=== PATIENT | female | born 1955 | race Caucasian/White ===

== ENCOUNTER 2020-06-02 10:27 | Inpatient (IN) ==
[2020-06-02] MEDS ORDERED: MoRPHine SULFATE 4 MG/ML 1 ML CARP\\VIAL IV STA (11:43)
--- NOTE | 2020-06-02 11:50 | Emergency Department Note ---
Impression & Plan Malignant neoplasm metastatic to lumbar spine with unknown primary site, Bilateral pulmonary embolism, Severe low back pain ED Provider Note CHIEF COMPLAINT: Low back pain, difficulty walking HISTORY OF PRESENT ILLNESS: This 64-year-old female patient presents to the emergency department by private vehicle with her son complaining of pain in the low back which began about 1-1/2 months ago. The pain was gradual in onset, is now constant and worse with movement. The patient notes the pain as aching and sharp, and rates the pain 10/10. The patient states she saw her PCP for this and they told her to take ibuprofen, she has been taking this without any relief. She denies any history of back problems or surgeries, but does note that she had a back injury from an accident about 9 months ago. She states the pain has become so severe that she is unable to walk and has been having d ifficulty getting around. Patient also states that she has noticed some urinary incontinence for the past 2 to 3 weeks. She states sometimes she cannot make it to the bathroom because of the pain and has had urinary continence because of this. She feels that she has weakness in both of her legs, but denies any numbness or tingling. She denies any saddle paresthesias. She denies any nausea, vomiting, diarrhea, constipation, dysuria or urinary frequency, or abdominal pain. She denies any chest pain or shortness of breath currently. The patient notes a history of COPD and uses oxygen as needed for this, she states for the past month and a half she has been having increased problems with her breathing, and has been using her oxygen almost constantly. She notes that she has been to the [facility] several times, they initially told her that she had bronchitis, then they told her she had pleurisy, then CHF. She states that she feels "there is something else going on and nobody has figured out what is wrong with me." REVIEW OF SYSTEMS: A complete 10 point review of systems was reviewed with the patient with pertinent positives and negatives as per history of present illn ess. All else were negative. ALLERGIES: No known allergies MEDICATIONS: Reviewed in chart and with patient PMH: COPD, coronary artery disease, hypertension, hyperlipidemia, AAA, anemia, history of tonsillectomy and tubal ligation SOCIAL HISTORY: Lives at home, she is a former smoker PHYSICAL EXAM: VITALS: Vitals are noted on the nurse's note and reviewed by myself. Vital signs stable. GENERAL: Pleasant and cooperative, in no acute distress, but appears uncomfortable from pain. Nontoxic-appearing, well-developed well-nourished. SKIN: The skin was without rashes, erythema, edema, or bruising. Capillary refill less than 2 seconds. NECK: Supple without nuchal rigidity. No cervical spine tenderness. No paraspinous muscle tenderness. HEART: Regular rate and rhythm without murmurs gallops or rubs. 2+ distal pulses in all 4 extremities. 1+ pitting edema of the bilateral lower extremities. LUNGS: Diminished in the bases bilaterally, scattered rhonchi, no wheezes, rales , or stridor. No tachypnea or labored breathing, no accessory muscle use. Equal expansion bilaterally. ABDOMEN: Positive bowel sounds x 4. Normal tympanic percussion. Soft, nontender, without masses or organomegaly. Ghosh sign negative. MUSCULOSKELETAL: No muscle atrophy, erythema, or edema noted of the back. There is diffuse midline tenderness over the lumbar spinous processes. There is b ilateral tenderness over the paraspinous muscles of the lumbar region. There is no midline tenderness over the thoracic spine or tenderness of the thoracic paraspinous muscles. There are no obvious muscle spasms present. The patient is slow to move around with maximum tenderness with bending or twisting at the waist. Positive straight leg raise test bilaterally. DIGITAL RECTAL EXAM: A sterile, water-soluble lubricant was applied to the examiner's gloved finger prior to internal exam. A nurse load out supervisor was present for the entirety of the exam. No visible external hemorrhoids on inspection. No palpable internal hemorrhoids. Normal sensation in the perineum. Normal rectal tone. No rectal vault tenderness. No rectal masses. No fecal impaction. NEURO: Patient was alert and oriented to person place and time. Normal sensation to light and sharp touch. Deep tendon reflexes 2+ in the lower extremities. Dorsalis pedis pulse 2+ bilaterally. Strength 5/5 and equal in the bilateral lower extremities, dorsiflexion and plantarflexion 5/5 equal bilaterally. ED COURSE AND MEDICAL DECISION MAKING: CC: Patient presenting with complaint of low back pain, difficulty walking DIFFERENTIAL DIAGNOSIS: Includes, but not limited to lumbar sprain/strain, herniated disc, fracture, subluxation, cauda equina syndrome, mass or mass- effect, among others. INTERPRETATION OF LABS: No leukocytosis, anemia, normal platelets, hypokalemia, no other significant electrolyte abnormalities, normal renal function, mildly elevated T bili, otherwise normal liver enzymes. UA pending. IMAGING: MRI OF THE LUMBAR SPINE WITHOUT CONTRAST CLINICAL HISTORY: LBP, radiating BLE, urinary incontinence COMPARISON STUDY: No previous studies for comparison. TECHNIQUE: Utilizing a 1.5 Fara magnet and dedicated coil, multiplanar, multiecho imaging of the lumbar spine was performed without IV contrast. FINDINGS: Cardiology Specialist images demonstrate prominence of the endometrium. For purposes of numbering on this exam, the L5-S1 disc space is assigned to axial image 23 of 25. Alignment of the lumbar spine is anatomic. There is mild loss of height of the L3, L4 and L5 vertebral bodies. Multifocal marrow replacement is noted with numerous T1 hypointense, T2 hyperintense foci within visualized skeletal st ructures, including within the T10, L2, L3, L4, L5, S2 and S3 vertebra. This exam is moderately compromised by artifact. Note is made of apparent abnormality within the anterior epidural space at the L3 level. This is suboptimally assessed on this exam due to artifact. There is approximate moderate narrowing of the central canal with mass effect thecal sac at this level. Exact measurement cannot be obtained given artifact. Its unclear whether this is due to hemorrhage, artifact or tumor extension. Otherwise, the central canal is patent. No disc herniations are identified. Paravertebral soft tissues are unremarkable. There is mild bilateral neural foraminal stenosis at L2-L3, L3-L4 and L4-L5. Mild The conus terminates at the mid L1 level. IMPRESSION: 1. Multifocal marrow replacement which favors metastatic disease. Exam moderately compromised by motion artifact. 2. Mild loss of height of the L3, L4 and L5 vertebral bodies which may reflect pathologic fractures. Apparent anterior epidural abnormality at the L3 level, difficult to assess on this exam. Approximate moderate narrowing of the central canal with mass effect upon the thecal sac. The anterior epidural abnormality could reflect hemorrhage, tumor extension or artifact. A repeat examination with sedation might be considered. Findings discussed with Carolina Swanson at time of dictation. 3. Mildly thickened endometrium on weather analyst images. This could be correlated with history of postmenopausal bleeding and nonemergent pelvic ultrasound. ----- CT ANGIOGRAPHY OF THE CHEST, PULMONARY EMBOLUS PROTOCOL CLINICAL HISTORY: SOB, mets in spine, eval primary COMPARISON STUDY: No previous studies for comparison. TECHNIQUE: Following IV administration of 120 mL of Optiray-320, helical axial images of the chest were obtained utilizing the pulmonary embolus protocol. Maximal intensity projections and sagittal and coronal reformats were viewed on an independent 3D workstation. IV contrast was administered without complicati on. Automated exposure control was utilized for the study. A dose lowering technique was utilized adhering to the principles of ALARA. CT DOSE: 1405.86 mGy.cm FINDINGS: There are multiple small segmental and subsegmental pulmonary emboli within the lungs. No thoracic aortic dissection is noted. There is aneurysmal dilatation of the descending thoracic aorta that measures up to 4.3 cm. There is extensive plaque. Heart is mildly enlarged. There is no pericardial effusion. Numerous enlarged mediastinal and right hilar lymph nodes are noted. Index right hilar node measures 2.8 x 2.6 cm. Subcarinal lymph node measures 2.7 cm in short axis diameter. Precarinal lymph node measures 2.7 cm short axis diameter. Left superior mediastinal node measures 2.6 x 1.3 cm. Note is made of a superior r ight breast nodule measures 1.9 cm. Note is made of a cavitary thick-walled 2.2 cm right upper lobe nodule on image 103 of 267. There are numerous small the right upper lobe nodules. Numerous skeletal lytic lesions are noted with several pathologic left-sided rib fractures. There is also a suspected lesion within T10 with slight loss of height of the inferior endplate. Several small but likely pathologic left axillary lymph nodes are noted. The abdomen and pelvis will be reported separately. A 2.2 cm lateral segment hepatic lesion is noted. Left adrenal mass is suspicious for metastasis. IMPRESSION: 1. Multiple small segmental and subsegmental bilateral pulmonary emboli. 2. Extensive mediastinal or hilar lymphadenopathy consistent with a neoplastic process. Cavitary 2.2 cm right upper lobe nodule. Overall, the findings suggest a lung primary malignancy. 3. Numerous skeletal metastases with several pathologic left-sided rib fractures and a T10 vertebral body lesion with slight loss of height of the inferior endplate. 4. 1.9 cm right upper breast nodule which may be malignant. 5. Suspicious lateral segment hepatic lesion and a left adrenal mass which are better depicted on the CT of the abdomen and pelvis. 6. Aneurysmal dilatation of the descending thoracic aorta, measuring 4.2 cm. ----- CT angio abdomen pelvis w con HISTORY: History of abdominal aortic aneurysm, mets in spine, eval for primary malignancy. TECHNIQUE: Multi axial CT images of the abdomen and pelvis were performed following the use of intravenous contrast to evaluate the abdominal aorta. Maximal intensity projection images were also obtained. COMPARISON STUDY: None. FINDINGS: Please refer to the same day chest CT for further evaluation of the lung bases. No pneumoperitoneum. No pneumatosis. Scattered lytic lesions seen within the spine, pelvis, and ribs consistent with metastatic disease. Dominant lesions at the L3 vertebral body resulting in mild superior and inferior endplate pathologic compression fractures. There is also a mild superior endplate pathologic compression fracture at L4. No associated retropulsion. The bladder, uterus, bilateral adnexa are within normal limits. No significant pelvic free fluid. No bowel wall thickening or obstruction. Normal appendix. Colonic diverticulosis. No evidence for acute diverticulitis. No retroperitoneal lymphadenopathy. There are 2 heterogeneous left adrenal gland nodules with the largest measuring 3.2 cm. These likely represent metastatic foci. The kidneys are unremarkable. Heterogeneous enhancement within the spleen is likely due to the arterial phase of contrast. An indeterminate 5 mm peritoneal nodule inferior to the right hepatic lobe best seen on image 169. Hepatic steatosis. No definite hepatic masses. The gallbladder and pancreas are unremarkable. Aneurysmal dilatation of the distal thoracic aorta measuring up to 4.3 cm in diameter. Mild calcified plaque within the normal caliber abdominal aorta. The iliac arteries a re patent. No significant stenosis within the celiac or mesenteric arteries. The splenic artery originates from the abdominal aorta. IMPRESSION: 1. Scattered lytic lesions within the spine, pelvis, and ribs consistent with metastatic disease. 2. These result in mild pathologic compression fractures at L3 and L4. 3. There are 2 heterogeneous left adrenal gland nodules with the largest measuring 3.2 cm. These are also consistent with areas of metastatic disease. 4. An indeterminate 5 mm peroneal nodule inferior to the right hepatic lobe. This bears watching on future examinations. 5. Mild aneurysmal dilatation of the descending thoracic aorta measuring up to 4.3 cm in diameter. 6. Additional findings as described above. MEDICATION RECONCILIATION: I attest that I have personally reviewed the patient's current medication list. INITIAL VITAL SIGNS REVIEW: I reviewed the patient's initial vital signs and interpret them as follows: T: Afebrile; BP: Hypertensive; HR: Within normal li mits; RR: Within normal limits; Pulse Ox: Within normal limits on room air. Blood pressure screening: The patient was found to have an elevated blood pressure and was referred to the inpatient team for further management. MDM SUMMARY: Patient was evaluated at bedside, history and physical exam performed. Patient is alert and oriented, in no acute distress, but appears uncomfortable from pain, laying in the stretcher. The patient does endorse some urinary incontinence, which she describes as not making it to the bathroom in time because of difficulty walking from her back pain. She is neurovascularly intact, normal strength and sensation in the extremities, no saddle numbness and normal rectal tone on exam. Positive straight leg raise bilaterally, with significant increase in her back pain with movement of the legs. Orders were placed at bedside for labs, UA, IV morphine for pain, MRI of the lumbar spine to evaluate for low back pain. Patient discussed with Dr. Stacy, who agrees with my assessment, plan, and disposition. Labs and imaging reviewed as above, anemia noted, which the patient states that she has a history of. Hypokalemia also noted, patient is on Lasix and does not appear to be on potassium replacement, this was repleted with oral potassium. Dr. Garcia, radiologist, called and spoke to me regarding the patient's MRI findings, concerning for metastatic disease and pathologic fractures. The patient does not have any known/diagnosed cancer, this is a new finding. I do feel that the patient would benefit from admission for further imaging studies and evaluation to determine her primary disease and determine the best course of treatment. Patient reassessed multiple times throughout ED stay, she has remained hemodynamically stable, but continues to complain of 10/10 pain that was minimally relieved with morphine. I ordered 1 mg IV Dilaudid. The patient was updated on all results, specifically the findings on her MRI and plan for admission for further evaluation, she was agreeable to this plan. I spoke on the phone with April Aldana PA-C with the [facility] team, who agreed to evaluate the patient for admission. She did request that CT imaging of the chest, abdomen and pelvis be ordered, this was done and is reviewed as above, with numerous findings including multiple bilateral PEs. A heparin drip was ordered. Oncology will be consulted while the patient is admitted for further management of her new cancer diagnosis. The patient and her [id number] were updated on additional CT findings, her pain has been improved with the IV Dilaudid. A Banks catheter was ordered for patient's comfort, given her significant back pain and immobility. The patient was stable at time of admission. CRITICAL CARE NOTE: I have personally spent greater than 37 minutes of critical care time in the direct management of this patient. This includes bedside care, interpretation of diagnostic studies, and testing, discussion with consultants, patient, and family members, and other required patient management activities. This 37 m inutes is in excess of all separately billable procedures. The chart was completed utilizing [employer] Speech voice recognition software. Grammatical errors, random word insertions, pronoun errors, and incomplete sentences are an occasional consequence of this system due to software limitations, ambient noise, and hardware issues. Any formal questions or concerns about the content, text, or information contained within the body of this dictation should be directly addressed to the nurse practitioner for clarification. Past Med/Surg History Medical History History of smoking Social History Smoking Status: Former smoker Age Started Using Tobacco: 15; Age Quit Using Tobacco: 63; packs per day: 1; Number of Years Since Quit: 1; Second Hand Exposure: No; Hx Alcohol Use: No Hx Substance Use: No Preferred Language: Togolese Communication Ability: Effective Visual Impairment: No Limitations Hearing Ability: Normal Machine Shorthand Teacher Required: No Beliefs That Will Affect Care: None marital status: Current Living Situation: Spouse current occupational status: employed Feels Safe at Home: Yes Childhood Exposure to Second-Hand Smoke: Yes caffeine: Yes Dental Care, Regularly: Yes Physical Activity Frequency: Does not Exercise Seatbelt Use: always Sunscreen Use: No Do you think of yourself as: straight/heterosexual Sexual Activity: has been sexually active within the last 12 months Allergies Allergies Allergy/AdvReac Type Severity Reaction Status Date / Time No Known Drug Allergies Allergy Unknown Verified 06/02/20 12:29 Home Meds Home Medications Medication Instructions Recorded Confirmed albuterol sulfate 90 mcg/actuation 2 puff INHALATION Q4 PRN #1 gm 06/28/19 06/02/20 aerosol inhaler aspirin 81 mg tablet,delayed 81 mg PO QAM tab 06/28/19 06/02/20 release ipratropium 0.5 mg-albuterol 3 mg 3 ml INHALATION .COMPLEX ml 06/28/19 06/02/20 (2.5 mg base)/3 mL nebulization soln isosorbide mononitrate 60 mg 60 mg PO QAM tab 06/28/19 06/02/20 tablet,extended release 24 hr lisinopril 5 mg tablet 5 mg PO HS #60 tab 06/28/19 06/02/20 metoprolol tartrate 100 mg tablet 100 mg PO QAM tab 06/28/19 06/02/20 simvastatin 20 mg tablet 20 mg PO HS #90 tab 06/28/19 06/02/20 pantoprazole 40 mg tablet,delayed 40 mg PO HS 12/27/19 06/02/20 release calcium carbonate [Calcium 600] 600 mg PO QAM 06/02/20 06/02/20 cholecalciferol (vitamin D3) 2,000 unit PO QAM 06/02/20 06/02/20 [Vitamin D3] [id number] 1 inh INHALATION QAM 06/02/20 06/02/20 [Trelegy Ellipta] furosemide 40 mg PO QAM 06/02/20 06/02/20 nitroglycerin 0.4 mg SUBLINGUAL UD PRN 06/02/20 06/02/20 spironolactone 12.5 mg PO QAM 06/02/20 06/02/20 Results & Data (ED) Vital Signs Vital Signs - 24 hr 06/02/20 11:00 06/02/20 12:00 06/02/20 13:49 Temperature 37.0 C Temperature Source Oral Pulse Rate 72 72 Pulse Rate [Apical] 70 72 Pulse Rate from SpO2 Sensor Respiratory Rate 18 18 18 Respiratory Effort / Characteristics Non-Labored Spontaneous Non-Labored Spontaneous Respiratory Depth Normal Normal Respiratory Pattern Regular Regular Blood Pressure 166/63 H Blood Pressure [Right Arm] 151/66 H 148/65 H Blood Pressure Mean 97 Blood Pressure Mean [Right Arm] 94 92 Blood Pressure Position [Right Arm] Lying Lying Pulse Oximetry 92 92 92 Oxygen Delivery Method Nasal Cannula Nasal Cannula Nasal Cannula Oxygen Flow Rate 2 2 2 Sepsis Recent Fever Within 48 Hours No Sepsis New/Unexplained Change in Mental Status N/A Sepsis Action Taken by Nursing No Action Required 06/02/20 14:30 06/02/20 15:30 06/02/20 16:01 Temperature Temperature Source Pulse Rate 74 71 Pulse Rate [Apical] 71 Pulse Rate from SpO2 Sensor 73 71 Respiratory Rate 18 20 14 Respiratory Effort / Characteristics Non-Labored Spontaneous Respiratory Depth Normal Respiratory Pattern Regular Blood Pressure 152/90 H 170/68 H Blood Pressure [Right Arm] 185/97 H Blood Pressure Mean 120 73 Blood Pressure Mean [Right Arm] 126 Blood Pressure Position [Right Arm] Lying Pulse Oximetry 95 95 96 Oxygen Delivery Method Nasal Cannula Nasal Cannula Nasal Cannula Oxygen Flow Rate 3 3 3 Sepsis Recent Fever Within 48 Hours Sepsis New/Unexplained Change in Mental Status Sepsis Action Taken by Nursing Laboratory Data Result diagrams: 06/02/20 12:06 06/02/20 12:06 Lab Results 06/02/20 06/02/20 Range/Units 12:06 12:06 WBC 10.35 (4.8-10.8) K/uL RBC 3.62 L (4.2-5.4) M/uL Hgb 9.8 L (12.0-16.0) g/dL Hct 31.8 L (37-47) % MCV 87.8 (80-100) fL MCH 27.1 (25-34) pg MCHC 30.8 L (32-36) g/dL RDW Std Deviation 48.6 H (36.4-46.3) fL RDW Coeff of Morris 15.3 H (11.5-14.5) % Plt Count 372 (130-400) K/uL MPV 9.2 (7.4-10.4) fL Immature Gran % (Auto) 0.8 % Neut % (Auto) 76.7 % Lymph % (Auto) 9.3 % [place] % (Auto) 12.4 % Eos % (Auto) 0.5 % Baso % (Auto) 0.3 % Neut # (Auto) 7.95 H (1.4-6.5) K/uL Lymph # (Auto) 0.96 L (1.2-3.4) K/uL [place] # (Auto) 1.28 H (0.11-0.59) K/uL Eos # (Auto) 0.05 (0-0.5) K/uL Baso # (Auto) 0.03 (0-0.2) K/uL Immature Gran # (Auto) 0.08 H (0.00-0.02) K/uL Sodium 143 (136-145) mmol/L Potassium 2.9 L (3.5-5.1) mmol/L Chloride 102 (98-107) mmol/L Carbon Dioxide 36 H (21-32) mmol/L Anion Gap 5.0 (3-11) BUN 13 (7-18) mg/dl Creatinine 0.51 L (0.6-1.2) mg/dl Est Cr Clr Drug Dosing 130.8 ml/min Est GFR ( Amer) 119.4 Est GFR (Non-Af Amer) 103.1 BUN/Creatinine Ratio 25.0 H (10-20) Glucose 119 H (70-99) mg/dl Calcium 8.8 (8.5-10.1) mg/dl Total Bilirubin 1.1 H (0.2-1) mg/dl AST 30 (15-37) U/L ALT 25 (12-78) U/L Alkaline Phosphatase 122 H (45-117) U/L Total Protein 6.6 (6.4-8.2) gm/dl Albumin 2.3 L (3.4-5.0) gm/dl Globulin 4.3 H (2.5-4.0) gm/dl Albumin/Globulin Ratio 0.5 L (0.9-2) Administered Medications Pantoprazole Sodium 40 mg/ (Dextrose) 100 mls @ 20 mls/hr IV Q5H RAKESH Stop: 07/02/20 14:14 Last Admin: 06/02/20 14:58 Dose: Not Given Documented by: [id number] Discontinued Medications Hydromorphone HCl (Hydromorphone Inj 1 Mg/Ml Syringe) 1 mg IV NOW STA Stop: 06/02/20 14:18 Last Admin: 06/02/20 14:45 Dose: 1 mg Documented by: [id number] Lorazepam (Ativan) 1 mg in 2 mls @ 2 mls/min IV NOW STA Stop: 06/02/20 12:35 Last Admin: 06/02/20 12:45 Dose: 2 mls/min Documented by: [id number] Potassium Chloride (K Marvin / Wtr) 10 meq in 100 mls @ 100 mls/hr IV Q1H RAKESH Stop: 06/02/20 15:14 Last Admin: 06/02/20 15:30 Dose: Not Given Documented by: [id number] Infusion: 06/02/20 14:15 Dose: 0 mls/hr Documented by: [id number] Admin: 06/02/20 14:06 Dose: 100 mls/hr Documented by: [id number] Ioversol (Optiray 320 125ml) 120 ml IV ONCE ONE Stop: 06/02/20 15:43 Last Admin: 06/02/20 15:42 Dose: 120 ml Documented by: [id number] Morphine Sulfate (Morphine Sulfate 4 Mg/Ml 1 Ml Carp\\Vial) 4 mg IV NOW STA Stop: 06/02/20 11:44 Last Admin: 06/02/20 12:06 Dose: 4 mg Documented by: [id number] Potassium Chloride (Potassium Chloride 10 Meq Tabcr) 40 meq PO NOW STA Stop: 06/02/20 13:08 Last Admin: 06/02/20 14:05 Dose: 40 meq Documented by: [id number] Potassium Chloride (Potassium Chloride 10 Meq Tabcr) 20 meq PO NOW STA Stop: 06/02/20 14:40 Last Admin: 06/02/20 16:07 Dose: 20 meq Documented by: [id number] Discharge Plan Visit Data Chief Complaint: Back Injury/Pain Stated Complaint: SEVERE PAIN LOWER BACK,HIPS ABD LEGS ED Provider: Louis Stacy ED Midlevel Provider: Carolina Swanson Discharge Problem: Malignant neoplasm metastatic to lumbar spine with unknown primary site, Bilateral pulmonary embolism, Severe low back pain Patient Disposition: Admitted As Inpatient Forms Stand Alone Forms: [facility] Prescriptions Prescriptions: No Action ipratropium-albuterol 0.5 mg-3 mg(2.5 mg base)/3 mL solution for nebulization 3 ml inhalation .COMPLEX RF: 0 albuterol sulfate 90 mcg/actuation HFA aerosol inhaler 2 puff inhalation Q4 PRN (Reason: Shortness Of Breath) Qty: 1 RF: 0 lisinopril 5 mg tablet 5 mg PO HS Qty: 60 RF: 0 simvastatin 20 mg tablet 20 mg PO HS Qty: 90 RF: 0 isosorbide mononitrate 60 mg tablet extended release 24 hr 60 mg PO QAM RF: 0 aspirin 81 mg tablet,delayed release (DR/EC) 81 mg PO QAM RF: 0 metoprolol tartrate 100 mg tablet 100 mg PO QAM RF: 0 pantoprazole [Protonix] 40 mg tablet,delayed release (DR/EC) 40 mg PO HS RF: 0 furosemide 40 mg tablet 40 mg PO QAM RF: 0 calcium carbonate [Calcium 600] 600 mg calcium (1,500 mg) Tablet 600 mg PO QAM RF: 0 spironolactone 25 mg tablet 12.5 mg PO QAM RF: 0 nitroglycerin 0.4 mg tablet, sublingual 0.4 mg sublingual UD PRN (Reason: Chest Pain) RF: 0 cholecalciferol (vitamin D3) [Vitamin D3] 50 mcg (2,000 unit) capsule 2,000 unit PO QAM RF: 0 Trelegy Ellipta 100-62.5-25 mcg blister with device 1 inh INHALATION QAM RF: 0 Referrals Referrals: Margo Prado PA-C [Primary Care Provider] -
[2020-06-02 12:21] LABS: Basophils # (auto) 0.03 K/uL (0-0.2); Basophils % (auto) 0.3 %; Eosinophils # (auto) 0.05 K/uL (0-0.5); Eosinophils % (auto) 0.5 %; Hematocrit (blood only) 31.8 % (37-47); Hemoglobin 9.8 g/dL (12.0-16.0); Immature Granulocytes # (auto) 0.08 K/uL (0.00-0.02); Immature Granulocytes % (auto) 0.8 %; Lymphocytes # (auto) 0.96 K/uL (1.2-3.4); Lymphocytes % (auto) 9.3 %; Mean Corpuscular Hemoglobin 27.1 pg (25-34); Mean Corpuscular Hgb Conc 30.8 g/dL (32-36); Mean Corpuscular Volume 87.8 fL (80-100); Mean Platelet Volume 9.2 fL (7.4-10.4); Monocytes # (auto) 1.28 K/uL (0.11-0.59); Monocytes % (auto) 12.4 %; Neutrophils # (auto) 7.95 K/uL (1.4-6.5); Neutrophils % (auto) 76.7 %; Platelet Count 372 K/uL (130-400); RDW Coefficient of Variation 15.3 % (11.5-14.5); RDW Standard Deviation 48.6 fL (36.4-46.3); Red Blood Count 3.62 M/uL (4.2-5.4); White Blood Count 10.35 K/uL (4.8-10.8)
[2020-06-02] MEDS ORDERED: LORazepam 1 MG/2 ML VIAL IV STA (12:34)
[2020-06-02 12:40] LABS: Albumin Level 2.3 gm/dl (3.4-5.0); Calcium 8.8 mg/dl (8.5-10.1); Creatinine Clr Calc Pharmacy 130.8 ml/min; Est GFR (African American) 119.4; Est GFR (Non-African American) 103.1; Potassium 2.9 mmol/L (3.5-5.1)
[2020-06-02 12:42] LABS: Albumin Globulin Ratio 0.5 (0.9-2); Bilirubin,Total 1.1 mg/dl (0.2-1); Globulin 4.3 gm/dl (2.5-4.0); Total Protein 6.6 gm/dl (6.4-8.2)
[2020-06-02] MEDS ORDERED: POTASSIUM CHLORIDE 10 MEQ TABCR PO STA ×2 (13:07→14:39)
--- NOTE | 2020-06-02 13:58 | Magnetic Resonance Report ---
MRI OF THE LUMBAR SPINE WITHOUT CONTRAST CLINICAL HISTORY: LBP, radiating BLE, urinary incontinence COMPARISON STUDY: No previous studies for comparison. TECHNIQUE: Utilizing a 1.5 Fara magnet and dedicated coil, multiplanar, multiecho imaging of the joel mbar spine was performed without IV contrast. FINDINGS: Windshield Installer images demonstrate prominence of the endometrium. For purposes of numbering on this exam, the L 5-S1 disc space is assigned to axial image 23 of 25. Alignment of the lumbar spine is anatomic. There is mild loss of height of the L3, L4 and L5 vertebral bodies. Multifocal marrow replacement is noted with numerous T1 hypointense, T2 hyperintense foci within visualized skeletal structures, including within the T10, L2, L3, L4, L5, S2 and S3 vertebra. This exam is moderately compromised by artifact. Note is made of apparent abnormality within the anterior epidural space at the L3 level. This is subo ptimally assessed on this exam due to artifact. There is approximate moderate narrowing of the centra l canal with mass effect thecal sac at this level. Exact measurement cannot be obtained given artifac t. Its unclear whether this is due to hemorrhage, artifact or tumor extension. Otherwise, the central canal is patent. No disc herniations are identified. Paravertebral soft tissues are unremarkable. Th ere is mild bilateral neural foraminal stenosis at L2-L3, L3-L4 and L4-L5. Mild The conus terminates at the mid L1 level. IMPRESSION: 1. Multifocal marrow replacement which favors metastatic disease. Exam moderately compromised by chiara on artifact. 2. Mild loss of height of the L3, L4 and L5 vertebral bodies which may reflect pathologic fractures. Apparent anterior epidural abnormality at the L3 level, difficult to assess on this exam. Approximate moderate narrowing of the central canal with mass effect upon the thecal sac. The anterior epidural abnormality could reflect hemorrhage, tumor extension or artifact. A repeat examination with sedation might be considered. Findings discussed with Carolina Swanson at time of dictation. 3. Mildly thickened endometrium on timekeeping supervisor images. This could be correlated with history of postmenopau lamebrto bleeding and nonemergent pelvic ultrasound. ACT 112: Negative or not required by law. Electronically signed by: Luc Garcia M.D. 06/02/2020 1:56 PM
[2020-06-02] MEDS ORDERED: SODIUM CHLORIDE 0.9% 250 ML IV PRN (14:04)
[2020-06-02] MEDS: POTASSIUM CHLORIDE / WTR 10 MEQ/100 ML PLCT IV SCH ×2 (14:06→15:30)
[2020-06-02] MEDS ORDERED: HYDROmorphone INJ 1 MG/ML SYRINGE IV STA ×2 (14:17→23:42)
--- NOTE | 2020-06-02 14:57 | History & Physical Report ---
Date of Service June 02, 2020 Assessment & Plan (1) Malignant neoplasm metastatic to lumbar spine with unknown primary site: -Admit to [facility] -Control back pain with fentanyl 25 mcg patch, Dilaudid as needed for breakthrough pain, Tylenol, lidocaine -Start bowel regimen -Consult oncology, Dr. Zayas -Check CT of the chest to evaluate for pulmonary nodules, rule out PE with increased O2 requirement over the last 1.5 months -CT of the abdomen and pelvis is negative for obstruction or acute finding -Has not ever had colonoscopy, consider GI consultation -Insert and maintain Banks, urine culture -PT/OT consults after pain controlled (2) CAD (coronary artery disease): -Continue statin therapy, baby aspirin, beta-blockade, DARIUS -Request records from PCP regarding cardiac history (3) HTN (hypertension): -Continue metoprolol titrate 100 mg daily, lisinopril 5 mg HS, Imdur 60 mg daily, Spironolactone 12.5 mg daily -Holding Lasix with administration of contrast for CTs as above, may require slow maintenance fluids but hold for now with edema in legs and abdomen, follow am BMP (4) Hyperlipidemia: -Continue simvastatin 20 mg HS (5) Heart murmur, systolic: -Auscultated on exam (6) Abdominal aortic aneurysm (AAA) greater than 39 mm in diameter: -History of such, awaiting CT abdomen/pelvis to evaluate size, patient denies any abdominal pain, radiation of pain to center of her back, hemoglobin is stable (7) Chronic obstructive pulmonary disease: -Follows with pulmonology as outpatient -Consider consultation pending CT of the chest, if pulmonary nodules then would need biopsy for staging purposes for possible primary (8) History of smoking: -Smoked x44 years, quit 1.5 months ago with worsening symptoms and increased WATSON (9) DVT prophylaxis: - teds, heparin subcu CODE: Full code Dispo: From home, likely to remain in the hospital x 1-2 days History of Present Illness Primary Care Provider: Margo Prado This is a 64-year-old female with PMHx of COPD, CAD, HTN, HLD, AAA, significant smoking history of 45 years 1 PPD, quit 1.5 months ago, who presents with acute onset of worsening back pain within the last 1.5 months. She reports her pain has progressively gotten worse, but she has been seen at [facility] and by her PCP however they have not found anything. Today she was unable to walk due to pain, and has been noticing increased incontinence. She has not found relief from any OTC medications. Patient pain is currently 8/10 after dose of morphine and Dilaudid. She reports that breathing has gotten worse within the last 1.5 months and that is why she stopped smoking specifically. Prior to that she had O2 for as needed use, but has been using 2L constantly. She is using nebulizers, but has run out of her albuterol inhaler. She does follow with pulmonology here at [facility] and saw them in December 2019. She reports weight gain, swelling in her legs, and constantly sweating. He has been using Lasix for lower extremity edema. Patient has been nauseous on and off since this all started. She denies vomiting, abdominal pain, diarrhea, and typically has BMs every 2 to 3 days, with her last being 2 days ago. Her abdomen feels swollen and slightly distended. She has been taking all of her medication as directed. Here the patient had MRI of the L-spine due to pain and found to have pathological fractures involving L3-L5 and multifocal marrow replacement favoring metastatic disease. In regards to routine screenings- she last had a mammogram within the past year which was unremarkable. Approximately 5 years ago she had a fine-needle biopsy of the left breast which showed benign tissue. She has never had a colonoscopy, "I had a sister who told me she would rather have a baby then go through that again", and would prefer not to. The patient lives at home with her . Allergies Allergy/AdvReac Type Severity Reaction Status Date / Time No Known Drug Allergies Allergy Unknown Verified 06/02/20 12:29 Home Medications Home Medications Medication Instructions Recorded Confirmed Type albuterol sulfate 90 mcg/actuation 2 puff INHALATION Q4 PRN #1 gm 06/28/19 06/02/20 History aerosol inhaler aspirin 81 mg tablet,delayed 81 mg PO QAM tab 06/28/19 06/02/20 History release ipratropium 0.5 mg-albuterol 3 mg 3 ml INHALATION .COMPLEX ml 06/28/19 06/02/20 History (2.5 mg base)/3 mL nebulization soln isosorbide mononitrate 60 mg 60 mg PO QAM tab 06/28/19 06/02/20 History tablet,extended release 24 hr lisinopril 5 mg tablet 5 mg PO HS #60 tab 06/28/19 06/02/20 History metoprolol tartrate 100 mg tablet 100 mg PO QAM tab 06/28/19 06/02/20 History simvastatin 20 mg tablet 20 mg PO HS #90 tab 06/28/19 06/02/20 History pantoprazole 40 mg tablet,delayed 40 mg PO HS 12/27/19 06/02/20 History release calcium carbonate [Calcium 600] 600 mg PO QAM 06/02/20 06/02/20 History cholecalciferol (vitamin D3) 2,000 unit PO QAM 06/02/20 06/02/20 History [Vitamin D3] [id number] 1 inh INHALATION QAM 06/02/20 06/02/20 History [Trelegy Ellipta] furosemide 40 mg PO QAM 06/02/20 06/02/20 History nitroglycerin 0.4 mg SUBLINGUAL UD PRN 06/02/20 06/02/20 History spironolactone 12.5 mg PO QAM 06/02/20 06/02/20 History Past Med/Surg History Medical History (Updated 06/07/20 @ 11:08 by Sarkis Narvaez MD) History of smoking 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 Social History Smoking Status: Former smoker Age Started Using Tobacco: 15; Age Quit Using Tobacco: 63; packs per day: 1; Number of Years Since Quit: 1; Second Hand Exposure: No; Hx Alcohol Use: No Hx Substance Use: No Preferred Language: Persian Communication Ability: Effective Visual Impairment: No Limitations Hearing Ability: Normal Pipeline Technician Required: No Beliefs That Will Affect Care: None marital status: Current Living Situation: Spouse current occupational status: employed Feels Safe at Home: Yes Safety Concerns: Feels Safe At This Time Childhood Exposure to Second-Hand Smoke: Yes caffeine: Yes Dental Care, Regularly: Yes Physical Activity Frequency: Does not Exercise Seatbelt Use: always Sunscreen Use: No Do you think of yourself as: straight/heterosexual Sexual Activity: has been sexually active within the last 12 months Review of Systems Review of Systems: Constitutional: No fever, + sweats, no chills Eyes: No diplopia, no worsening or blurred vision ENT: normal hearing, no trouble swallowing Respiratory: No cough, sputum, + dyspnea on exertion worse within the last 1.5 months, as per HPI, increased O2 requirement Cardiovascular: No chest pain, tightness or palpitations Abdomen: No pain, nausea, vomiting, diarrhea or constipation, last BM 2 days ago Musculoskeletal: Lumbar spine pain rated 8/10, no calf pain, +swelling Neurologic: + Difficulty walking due to pain, no weakness, numbness/tingling, or balance problems Psychiatric: No anxiety or depression Skin: No rash or itch Physical Exam Physical Exam: General: awake, alert, no apparent distress, + obese, BMI = 37.5 Head: Normocephalic, atraumatic ENT: PERRL, EOMI, no pharyngeal exudate, mucous membranes moist Chest: Clear to auscultation, on 3L via NC, diminished breath sounds at bases bilaterally, no wheeze rales or rhonchi Cardiac: Regular rate and rhythm, + systolic murmur, no JVD, normal peripheral pulses, good capillary refill Abdominal: Abdominally obese, NABS x 4 quadrants, soft, mildly distended, nontender to palpation, no rebound or guarding Extremities: Normal inspection, 2+ peripheral edema BLE, no erythema, calfs nontender to palpation Psych: Normal mood and affect Neuro: AAO x 3, leg strength not assessed due to pain, no gross upper extremity deficits, speech is clear, no peripheral sensory deficits Results & Data Results & Data ([facility]) Vital Signs (Past 12 Hours) Vital Signs Temp Pulse Pulse Resp BP BP Pulse Ox 06/02/20 14:30 71 18 185/97 H 95 06/02/20 13:49 72 18 148/65 H 92 06/02/20 12:00 72 70 18 151/66 H 92 06/02/20 11:00 37.0 C 72 18 166/63 H 92 Diagnostic Findings MRI OF THE LUMBAR SPINE WITHOUT CONTRAST CLINICAL HISTORY: LBP, radiating BLE, urinary incontinence COMPARISON STUDY: No previous studies for comparison. TECHNIQUE: Utilizing a 1.5 Fara magnet and dedicated coil, multiplanar, multiecho imaging of the lumbar spine was performed without IV contrast. FINDINGS: Bilingual Medical Assistant images demonstrate prominence of the endometrium. For purposes of numbering on this exam, the L5-S1 disc space is assigned to axial image 23 of 25. Alignment of the lumbar spine is anatomic. There is mild loss of height of the L3, L4 and L5 vertebral bodies. Multifocal marrow replacement is noted with numerous T1 hypointense, T2 hyperintense foci within visualized skeletal structures, including within the T10, L2, L3, L4, L5, S2 and S3 vertebra. This exam is moderately compromised by artifact. Note is made of apparent abnormality within the anterior epidural space at the L3 level. This is suboptimally assessed on this exam due to artifact. There is approximate moderate narrowing of the central canal with mass effect thecal sac at this level. Exact measurement cannot be obtained given artifact. Its unclear whether this is due to hemorrhage, artifact or tumor extension. Otherwise, the central canal is patent. No disc herniations are identified. Paravertebral soft tissues are unremarkable. There is mild bilateral neural foraminal stenosis at L2-L3, L3-L4 and L4-L5. Mild The conus terminates at the mid L1 level. IMPRESSION: 1. Multifocal marrow replacement which favors metastatic disease. Exam moderately compromised by motion artifact. 2. Mild loss of height of the L3, L4 and L5 vertebral bodies which may reflect pathologic fractures. Apparent anterior epidural abnormality at the L3 level, difficult to assess on this exam. Approximate moderate narrowing of the central canal with mass effect upon the thecal sac. The anterior epidural abnormality could reflect hemorrhage, tumor extension or artifact. A repeat examination with sedation might be considered. Findings discussed with Carolina Swanson at time of dictation. 3. Mildly thickened endometrium on healthcare corporate account director images. This could be correlated with history of postmenopausal bleeding and nonemergent pelvic ultrasound. Code Status & VTE Plan Code Status Full code-discussed with the patient at bedside Supervising Physician Co-Signing Physician Notes During my face to face encounter with the patient, I obtained a history and physical examination on the patient. I discussed plan of care with patient and April Aldana and answered patient's questions. I reviewed above note and agree with it. Patient is a smoker and this is likely playing a role. Patient has malignant neoplasm of spine, unsure of origin. D/W radiologist, will try to obtain biopsy on Friday if patient remains in the hospital. Will consult oncology. Patient has a likely poor prognosis PG Care Time/CCT Total # of Minutes Spent Total Time Spent with Patient: Total time spent is greater than 50% in coordination of care (as documented) at patient's floor/unit and/or counseling patient: Coding Level of Care Code 38798 Initial Inpt Care Lvl 3 Diagnoses Malignant neoplasm metastatic to lumbar spine with unknown primary site C79.51; C80.1 CAD (coronary artery disease) I25.10 HTN (hypertension) I10 Hyperlipidemia E78.5 Heart murmur, systolic R01.1 Abdominal aortic aneurysm (AAA) greater than 39 mm in diameter I71.4 Chronic obstructive pulmonary disease J44.9 History of smoking Z87.891 DVT prophylaxis Z29.9
[2020-06-02] MEDS: PANTOprazole 40 MG in DEXTROSE 5% 100 ML IV SCH ×2 (14:58→20:40)
[2020-06-02] MEDS ORDERED: OPTIRAY 320 125ml IV ONE (15:42)
--- NOTE | 2020-06-02 16:05 | CT Scan Report ---
CT angio abdomen pelvis w con HISTORY: History of abdominal aortic aneurysm, mets in spine, eval for primary malignancy. TECHNIQUE: Multi axial CT images of the abdomen and pelvis were performed following the use of intrav enous contrast to evaluate the abdominal aorta. Maximal intensity projection images were also obtaine d. COMPARISON STUDY: None. FINDINGS: Please refer to the same day chest CT for further evaluation of the lung bases. No pneumope ritoneum. No pneumatosis. Scattered lytic lesions seen within the spine, pelvis, and ribs consistent with metastatic disease. Dominant lesions at the L3 vertebral body resulting in mild superior and inf erior endplate pathologic compression fractures. There is also a mild superior endplate pathologic co mpression fracture at L4. No associated retropulsion. The bladder, uterus, bilateral adnexa are withi n normal limits. No significant pelvic free fluid. No bowel wall thickening or obstruction. Normal ap pendix. Colonic diverticulosis. No evidence for acute diverticulitis. No retroperitoneal lymphadenopa thy. There are 2 heterogeneous left adrenal gland nodules with the largest measuring 3.2 cm. These li glendy represent metastatic foci. The kidneys are unremarkable. Heterogeneous enhancement within the sp taylor is likely due to the arterial phase of contrast. An indeterminate 5 mm peritoneal nodule inferio r to the right hepatic lobe best seen on image 169. Hepatic steatosis. No definite hepatic masses. Th e gallbladder and pancreas are unremarkable. Aneurysmal dilatation of the distal thoracic aorta measu ring up to 4.3 cm in diameter. Mild calcified plaque within the normal caliber abdominal aorta. The i liac arteries are patent. No significant stenosis within the celiac or mesenteric arteries. The splen ic artery originates from the abdominal aorta. IMPRESSION: 1. Scattered lytic lesions within the spine, pelvis, and ribs consistent with metastatic disease. 2. These result in mild pathologic compression fractures at L3 and L4. 3. There are 2 heterogeneous left adrenal gland nodules with the largest measuring 3.2 cm. These are also consistent with areas of metastatic disease. 4. An indeterminate 5 mm peroneal nodule inferior to the right hepatic lobe. This bears watching on f uture examinations. 5. Mild aneurysmal dilatation of the descending thoracic aorta measuring up to 4.3 cm in diameter. 6. Additional findings as described above. ACT 112: Negative or not required by law. Electronically signed by: Luís Govea M.D. 06/02/2020 4:04 PM
--- NOTE | 2020-06-02 16:06 | CT Scan Report ---
CT ANGIOGRAPHY OF THE CHEST, PULMONARY EMBOLUS PROTOCOL CLINICAL HISTORY: SOB, mets in spine, eval primary COMPARISON STUDY: No previous studies for comparison. TECHNIQUE: Following IV administration of 120 mL of Optiray-320, helical axial images of the chest we re obtained utilizing the pulmonary embolus protocol. Maximal intensity projections and sagittal and coronal reformats were viewed on an independent 3D workstation. IV contrast was administered withou t complication. Automated exposure control was utilized for the study. A dose lowering technique wa s utilized adhering to the principles of ALARA. CT DOSE: 1405.86 mGy.cm FINDINGS: There are multiple small segmental and subsegmental pulmonary emboli within the lungs. No thoracic aortic dissection is noted. There is aneurysmal dilatation of the descending thoracic aorta that measures up to 4.3 cm. There is extensive plaque. Heart is mildly enlarged. There is no pericard ial effusion. Numerous enlarged mediastinal and right hilar lymph nodes are noted. Index right hilar node measures 2.8 x 2.6 cm. Subcarinal lymph node measures 2.7 cm in short axis diameter. Precarinal lymph node measures 2.7 cm short axis diameter. Left superior mediastinal node measures 2.6 x 1.3 cm. Note is made of a superior right breast nodule measures 1.9 cm. Note is made of a cavitary thick-wal led 2.2 cm right upper lobe nodule on image 103 of 267. There are numerous small the right upper lobe nodules. Numerous skeletal lytic lesions are noted with several pathologic left-sided rib fractures. There is also a suspected lesion within T10 with slight loss of height of the inferior endplate. Sev eral small but likely pathologic left axillary lymph nodes are noted. The abdomen and pelvis will be reported separately. A 2.2 cm lateral segment hepatic lesion is noted. Left adrenal mass is suspiciou s for metastasis. IMPRESSION: 1. Multiple small segmental and subsegmental bilateral pulmonary emboli. 2. Extensive mediastinal or hilar lymphadenopathy consistent with a neoplastic process. Cavitary 2.2 cm right upper lobe nodule. Overall, the findings suggest a lung primary malignancy. 3. Numerous skeletal metastases with several pathologic left-sided rib fractures and a T10 vertebral body lesion with slight loss of height of the inferior endplate. 4. 1.9 cm right upper breast nodule which may be malignant. 5. Suspicious lateral segment hepatic lesion and a left adrenal mass which are better depicted on the CT of the abdomen and pelvis. 6. Aneurysmal dilatation of the descending thoracic aorta, measuring 4.2 cm. ACT 112: Negative or not required by law. Electronically signed by: Luc Garcia M.D. 06/02/2020 4:04 PM
[2020-06-02 16:40] LABS: Appearance Urine Cloudy (Clear); Bacteria Urine Automated Negative (Negative); Bilirubin Urine Negative (Negative); Blood Urine Negative (Negative); Color Urine Dark Yellow; Epithelial Cell Urine Auto >30 /lpf (0-5); Glucose Urine UA Negative (Negative); Ketones Urine Negative (Negative); Leukocyte Esterase Urine Negative (Negative); Nitrite Urine Negative (Negative); Protein Urine 1+ (Negative); RBC Urine Automated 0-4 /hpf (0-4); Specific Gravity Urine 1.037 (1.000-1.030); Urobilinogen Urine Negative (Negative); pH Urine 5.5 (4.5-7.5)
[2020-06-02] MEDS ORDERED: HEPARIN 25000 UNIT/500 ML D5W IV ONE (17:01)
[2020-06-02 17:02] LABS: Cast Urine Automated 0 /lpf (0-5); Mucus Urine Present (None Prsent)
[2020-06-02] MEDS: HEPARIN SODIUM/DEXTROSE 25,000 UNITS/500 ML BAG IV SCH (18:14)
[2020-06-02 18:19] LABS: Partial Thromboplastin Ratio 1.1; Partial Thromboplastin Time 30.2 Seconds (21.0-31.0)
[2020-06-02] MEDS ORDERED: HYDROmorphone INJ 0.5 MG/0.5 ML SYR ONE (18:26)
[2020-06-02] MEDS ORDERED: NITROGLYCERIN SL 0.4 MG/TAB TAB SL PRN (19:14)
[2020-06-02] MEDS ORDERED: ACETAMINOPHEN 325 MG TAB PO PRN (19:14)
[2020-06-02] MEDS ORDERED: ALBUTEROL HFA 8 GM INHALER INH PRN (19:14)
[2020-06-02] MEDS ORDERED: fentaNYL 12 MCG/HR TDSY TD SCH (20:30)
[2020-06-02] MEDS: lisinopriL 5 MG TAB PO SCH (20:35)
[2020-06-02] MEDS: SIMVASTATIN 20 MG TAB PO SCH (20:36)
[2020-06-02] MEDS ORDERED: PANTOprazole 40 MG in SYRINGE 0 ML IV SCH (21:00)
[2020-06-02] MEDS ORDERED: PANTOprazole 40 MG TAB PO SCH (21:00)
[2020-06-02] MEDS: PANTOprazole 40 MG TAB PO SCH (21:02)
[2020-06-02] MEDS: HYDROmorphone INJ 0.5 MG/0.5 ML SYR IV PRN (21:17)
[2020-06-02] MEDS ORDERED: HEPARIN SOD 5,000 UNIT/0.5 ML VIAL SQ SCH (22:00)
[2020-06-02] MEDS ORDERED: HYDROmorphone INJ 1 MG/ML SYRINGE ONE (23:46)
[2020-06-02] MEDS: CHECK FENTANYL PATCH PLACEMENT SCH (23:50)
[2020-06-03 00:53] LABS: Partial Thromboplastin Ratio 1.7
[2020-06-03 00:58] LABS: Partial Thromboplastin Time 47.7 Seconds (21.0-31.0)
[2020-06-03] MEDS ORDERED: HYDROmorphone INJ 1 MG/ML SYRINGE IV STA (04:25)
[2020-06-03] MEDS ORDERED: HYDROmorphone INJ 1 MG/ML SYRINGE ONE (04:27)
[2020-06-03 06:18] LABS: Hematocrit (blood only) 29.7 % (37-47); Hemoglobin 8.8 g/dL (12.0-16.0); Mean Corpuscular Hemoglobin 26.6 pg (25-34); Mean Corpuscular Hgb Conc 29.6 g/dL (32-36); Mean Corpuscular Volume 89.7 fL (80-100); Platelet Count 349 K/uL (130-400); RDW Standard Deviation 51.6 fL (36.4-46.3); Red Blood Count 3.31 M/uL (4.2-5.4); White Blood Count 11.17 K/uL (4.8-10.8)
[2020-06-03] MEDS: HYDROmorphone INJ 0.5 MG/0.5 ML SYR IV PRN ×6 (06:31→23:21)
[2020-06-03 06:44] LABS: Partial Thromboplastin Ratio 1.8
[2020-06-03 06:49] LABS: Partial Thromboplastin Time 49.4 Seconds (21.0-31.0)
[2020-06-03 06:50] LABS: Albumin Globulin Ratio 0.5 (0.9-2); Albumin Level 2.2 gm/dl (3.4-5.0); BUN Creatinine Ratio 27.8 (10-20); Bilirubin,Total 0.9 mg/dl (0.2-1); Calcium 9.3 mg/dl (8.5-10.1); Est GFR (African American) 114.5; Est GFR (Non-African American) 98.8; Globulin 4.2 gm/dl (2.5-4.0); Potassium 3.5 mmol/L (3.5-5.1); Total Protein 6.4 gm/dl (6.4-8.2)
--- NOTE | 2020-06-03 07:41 | Hospitalist Progress Note ---
Date of Service June 03, 2020 Assessment & Plan (1) Malignant neoplasm metastatic to lumbar spine with unknown primary site: 64 y/o F smoker w/ hx of COPD, CAD, HTN, HLD, AAA, who presents with acute onset of worsening back pain for 1.5 months and was also found to have bilat PE. mets to lumbar spine, suspected NSCLC - pulm following, pending radiology consult on 06/05/[address] bipsy or breast lump FNA. - 44 pack yr smoking hx - see CTA findings below - 06/02/20 lumbar spine MRI: Multifocal marrow replacement which favors metastatic disease. Exam moderately compromised by motion artifact. - 06/02/20 CTA abd/pelv: 1. Scattered lytic lesions within the spine, pelvis, and ribs consistent with metastatic disease. 2. These result in mild pathologic compression fractures at L3 and L4. 3. There are 2 heterogeneous left adrenal gland nodules with the largest measuring 3.2 cm. These are also consistent with areas of metastatic disease. 4. An indeterminate 5 mm peroneal nodule inferior to the right hepatic lobe. AAA findings as below. - CXR: official read pending. my interpretation: R hilar LAD. cardiomegaly. plan: pain control. fentanyl patch started this AM for longer term control. dilaudid 0.5 PRN, increased frequency from q3h to q2h PRN. ordered fecal occult cbc, cmp, PTT bilat PE - found on 06/02/20 chest CTA. other findings: Extensive mediastinal or hilar lymphadenopathy consistent with neoplastic process. Cavitary 2.2 cm right upper lobe nodule. Numerous skeletal metastases with several pathological left-sided rib fractures and a T10 vertebral body lesion. 1.9 cm right upper breast nodule which may be malignant - may need biopsy. Suspicious lateral segment hepatic lesion 5 mm R hepatic lobe, and left adrenal mass measuring 3.2 cm consistent with metastasis. AAA measuring 4.2-4.3 cm plan: continue heparin drip normocytic anemia - Hb 9.8->8.8. plan: follow CBC, PTT, fecal occult ordered mild chest pain hx of CAD, AAA as above - cxr: plan: consider ecg HTN Continue metoprolol titrate 100 mg daily, lisinopril 5 mg HS, Imdur 60 mg daily, Spironolactone 12.5 mg daily -Holding Lasix with administration of contrast for CTs as above, may require slow maintenance fluids but hold for now with edema in legs and abdomen, follow am BMP CAD Continue statin therapy, baby aspirin, beta-blockade, DARIUS HLD Continue simvastatin 20 mg COPD - follows pulm outpatient - inpatient pulm following for PE and lung malignancy concerns hx AAA - as above. FENGI:heart healthy diet DVT prophylaxis: TEDs, SQH code status: full dispo: medsurg Admission and Anticipated Discharge Date Admission Date: June 02, 2020 Supervising Physician Co-Signing Physician Notes Attending attestation Pt seen and examined in concert with Dr. He. In agreement with the documented findings as noted in the resident documentation with any exceptions or additions as noted here. Ongoing pain with some improvement on present regimen. No other acute complaints per patient. On examination, S1/S2 nl RRR no MCG. Decreased breath sounds bilateral bases. Abd NT/ND BS+ve. Trace edema bilateral LE Metastatic disease of unknown primary - oncology consultation appreciated - pulmonology consultation today for determination of source (?pulmonary primary). Pain control with fentanyl patch and IV PRN with transition to PO when improved baseline Bilateral pulmonary emboli - on heparin drip awaiting intervention if desired by pulmonology/oncology for further delineation of metastatic disease. Likely on Xa/coumadin on discharge CAD - continue statin therapy, ASA, metoprolol and lisinopril HTN - mildly elevated, likely 2/2 pain v. missed medication - continue present regimen, monitor Else see resident documentation as noted. Subjective Feels terrible. Pain at lower back and legs, sharp. 8/10. constant. The other complaints are not bothering her as much. See ROS. Review of Systems Review of Systems: Constitutional: Denies fever, chills. + generalized weakness. Eyes: Denies blurry vision, vision changes ENT: Denies sore throat, Cardiovascular: +Chest pain, mild Respiratory: + shortness of breath. chronic cough, clear mucus Gastrointestinal: + generalized abdominal pain. No nausea, vomiting, constipation, diarrhea Genitourinary: Denies urinary symptoms including dysuria Musculoskeletal: + weakness, muscle aches/pain Neurological: + moderate headache. no numbness, tingling, focal wkness Physical Exam Physical Exam: General: A&Ox3. NAD. Cooperative. HEENT: Atraumatic, normocephalic. EOMI Pulm: exp wheezes diffuse. no resp dispress Cardiac: RRR, -mrg. 2+ edema Abdominal: Nontender, nondistended, soft. MSK: bck exam deferred. no calf ttp. Results & Data Results & Data ([facility]) Vital Signs (Past 12 Hours) Vital Signs Temp Pulse Pulse Resp BP Pulse Ox 06/03/20 07:27 36.8 C 84 18 145/78 H 91 06/03/20 05:49 79 16 94 06/03/20 04:04 81 16 97 06/03/20 01:30 84 18 98 06/02/20 23:40 36.8 C 81 21 154/77 H 91 Resident Activity Tracking Resident Involvement: Resident Care Provided Care Provided: Adult Hospital Medicine
[2020-06-03] MEDS: SPIRONOLACTONE 12.5 MG TAB PO SCH (08:02)
[2020-06-03] MEDS: METOPROLOL TARTRATE 100 MG TAB PO SCH (08:02)
[2020-06-03] MEDS: CHECK FENTANYL PATCH PLACEMENT SCH ×3 (08:02→23:46)
[2020-06-03] MEDS: ISOSORBIDE MONO EXTENDED REL 60 MG TABCR PO SCH (08:03)
[2020-06-03] MEDS: CALCIUM CARBONATE 1250MG TAB PO SCH (08:03)
[2020-06-03] MEDS: CHOLECALCIFEROL 1,000 UNITS 25 MCG TAB PO SCH (08:04)
[2020-06-03] MEDS: POLYETHYLENE (MIRALAX) 17 GM PACK PO SCH (08:06)
[2020-06-03] MEDS: ASPIRIN 81 MG ECTAB PO SCH (08:06)
[2020-06-03] MEDS: bisacodyL 5 MG TABEC PO SCH (08:06)
[2020-06-03] MEDS: UMECLIDINIUM/VILANTEROL 62.5/25MCG 7 PUFFS/INHALER INH SCH (08:07)
[2020-06-03] MEDS: LIDOCAINE 5% 1 PATCH TD SCH (08:07)
[2020-06-03] MEDS: FLUTICASONE FUROATE 100MCG 14 PUFFS/INHALER INH SCH (08:07)
[2020-06-03] MEDS ORDERED: ENOXAPARIN INJ 40 MG/0.4 ML SYR SQ SCH (09:00)
--- NOTE | 2020-06-03 09:47 | Consultation Report ---
DATE OF CONSULTATION: 06/03/2020 ONCOLOGY CONSULTATION REASON FOR CONSULTATION: Suspected metastatic nonsmall cell lung cancer. HISTORY OF PRESENT ILLNESS: Angella is a pleasant unfortunate 64-year-old obese female who was admitted to [facility] yesterday for subacute-onset back pain. She admits to struggling for the past couple of months. She has reported a decrease in her appetite, but does not admit to overt weight loss. She admits to being evaluated by her primary care physician about a month and a half ago and was told that "everything was fine." In the Emergency Room, the patient received IV opioids, which has been helpful. She had a full laboratory and radiographic workup including CTA of the chest and a CTA of the abdomen and pelvis. CTA of the chest reveals small segmental and subsegmental bilateral pulmonary emboli, extensive mediastinal and hilar lymphadenopathy, cavitary 2.2 right upper lobe nodule, numerous skeletal metastasis, several left-sided rib fractures and T10 vertebral lesion with slight loss of height of the inferior endplate. There is additionally a 1.9 cm right-sided breast lesion noted. Her CTA of the abdomen and pelvis again reveals scattered lytic lesions within the spine, pelvis and ribs consistent with metastatic disease, compression fractures at L3 and L4. Two heterogeneous left adrenal gland nodules, the largest measuring 3.2, also consistent with metastatic disease. The patient has an extensive smoking history and thus suspect she indeed suffers from metastatic lung cancer. Biopsy will be necessary for confirmation. PAST MEDICAL HISTORY: History of coronary artery disease, hypertension, COPD. MEDICATIONS: Spironolactone 12.5 mg p.o. daily, nitroglycerin 0.4 mg sublingual x3 q.5 minutes p.r.n., furosemide 40 mg p.o. daily, Trelegy Ellipta inhaler 1 inhalation daily, cholecalciferol 2000 units p.o. daily, calcium carbonate 600 mg p.o. daily, Protonix 40 mg p.o. daily, simvastatin 20 mg p.o. daily, metoprolol 100 mg p.o. daily, lisinopril 5 mg p.o. daily, Imdur 60 mg p.o. daily, ipratropium 3 mL inhaled as needed, aspirin 81 mg p.o. daily, albuterol inhaler 2 puffs inhaled q.4 hours p.r.n. ALLERGIES: No known drug allergies. SOCIAL HISTORY: The patient has a 40+ year smoking history. She lives with her spouse. She is currently employed. Negative for alcohol or illicit substances. FAMILY HISTORY: Noncontributory. REVIEW OF SYSTEMS: GENERAL: Negative for fevers, chills or sweats. Positive for decreased appetite. No measurable weight loss. SKIN: No rashes or lesions. No history of dermatoses. HEENT: She denies headaches, lightheadedness or dizziness. No dysphagia or sore throat. LYMPHATICS: No history of lymphoproliferative disease. CARDIAC: Positive history of coronary artery disease. No current angina or palpitations. PULMONARY: Positive for COPD. She is not presently short of breath or dyspneic on exertion. She reports no hemoptysis. GASTROINTESTINAL: She complains of diffuse belly pain, which is nonspecific. No nausea or vomiting, diarrhea or constipation, hematochezia or melena stools. GENITOURINARY: No hematuria or dysuria. Positive for urinary incontinence. MUSCULOSKELETAL: Positive for low back pain. No history of arthritis. ENDOCRINE: Negative for diabetes or thyroid disease. NEUROLOGIC: Negative for seizure, stroke, or migraine headaches. HEMATOLOGIC: Positive for mild leukocytosis and normocytic normochromic anemia. PHYSICAL EXAMINATION: GENERAL: A very pleasant, somewhat distressed 64-year-old morbidly obese female. VITAL SIGNS: Blood pressure 145/78, temperature 36.8, pulse 84, respiratory rate 18. SKIN: Warm, dry, noncyanotic. Turgor is fair. HEENT: Atraumatic, normocephalic. Eyes: PERRLA, EOMI. Sclerae nonicteric. No conjunctival injection. Nares patent without rhinorrhea or discharge. Throat clear. Tongue midline. Mucous membranes are moist. Dentition in poor repair. NECK: Supple. HEART: Regular rate and rhythm. LUNGS: Scattered rhonchi heard in all lung oliva. ABDOMEN: Obese, soft, nontender, nondistended, without palpable hepatosplenomegaly. EXTREMITIES: No clubbing, cyanosis or edema. MUSCULOSKELETAL: Strength and pulses are equal in all 4 quadrants. NEUROLOGICAL: She is awake, alert and oriented x3. Cranial nerves are intact. LABORATORY DATA: WBC count 11,170, hemoglobin 8.8, platelet count 349,000. PTT 49.4 seconds. Sodium 143, potassium 3.5, chloride 103, carbon dioxide 32, creatinine 0.58, BUN 16, alkaline phosphatase elevated at 129. Albumin significantly decreased at 2.2. RADIOGRAPHIC DATA: As described in the HPI. IMPRESSION: 1. Probable metastatic lung cancer, perhaps squamous. 2. Pulmonary embolism. 3. Leukocytosis. 4. Normocytic normochromic anemia. 5. Hypoalbuminemia. 6. Diffuse skeletal pain, attributable to metastatic disease. 7. Anorexia. PLAN: In summary, Angella is a very pleasant 64-year-old female who presents to [facility] in extremis, specifically with intractable back pain. Radiographic studies not only revealed pulmonary embolism, but diffuse intrathoracic lymphadenopathy, primary lung lesion and a right-sided breast lesion. CTA of the abdomen and pelvis revealed adrenal metastatic disease as well as regional lymphadenopathy and possible liver involvement. I advised Angella my suspicions lean towards metastatic lung cancer. Tissue diagnosis is necessary and we will ask for biomarkers to be obtained once the diagnosis is confirmed. In the short-term, she obviously needs nutritional and pain management support. I would also advise general surgery consultation for MediPort placement as she will require salvage chemotherapy very soon. May consider radiation oncology consult for specific painful areas to palliate. We will continue to follow her periodically during her hospital stay. In regard to anticoagulation, I would keep her on reversible agents until workup is complete. I spoke to Dr. Aravind Bishop directly about Angella. Agree with medical management otherwise. Thank you very much for allowing me to participate in her care.
[2020-06-03] MEDS: HEPARIN SODIUM/DEXTROSE 25,000 UNITS/500 ML BAG IV SCH (12:20)
--- NOTE | 2020-06-03 16:15 | Pulmonary Consultation ---
Date of Consultation June 03, 2020 Assessment & Plan (1) LAD (lymphadenopathy), mediastinal: CT chest 06/02/2020 personally reviewed: Significant mediastinal lymphadenopathy with right upper lobe cavitary lesion as well as pleural thickening appreciated on the left side. Patient also has multiple pulmonary nodules around the right upper lobe cavitary lesion --Right upper lobe cavitary lesion with significant mediastinal lymphadenopathy and pulmonary nodules In a patient who is a smoker this is cancer with metastasis most likely to the spine as well as liver It seems to be primary coming from the lung looking at the mediastinal lymphadenopathy and right upper lobe cavitary lesion. It is already stage IV Tissue diagnosis will be needed to start the patient on therapy --Acute on chronic hypoxic respiratory failure Secondary to PE most likely secondary to malignancy of unknown origin seems to be primary lung Given the PE is secondary to malignancy Lovenox weightbase twice daily would be the preferred treatment on discharge She will need to be on lifelong anticoagulation --COPD Continue with inhaled bronchodilators --Morbid obesity with possible LAURA BiPAP nightly and PRN shortness of breath --Overall prognosis is poor --Plan: Patient has left breast nodule as well as left supraclavicular lymphadenopathy. I think the next best step to do here would be to get biopsy of the breast nodule and/or biopsy of the left supraclavicular lymphadenopathy which will be the least invasive to get the diagnosis. If the above measures are unsuccessful then we can think about doing an EBUS. Patient will need to be on anticoagulation so EBUS will be high risk of bleeding compared to the above measures. Recommend Doppler bilateral lower extremities rule out DVT Plan of care consult can also be thought of. Case was discussed with Dr Bishop. Pulmonary will continue to follow. Please note the above document was generated using voice recognition software. It may contain grammatical, syntax or spelling errors. (2) Bilateral pulmonary embolism: (3) Malignant neoplasm metastatic to lumbar spine with unknown primary site: (4) Pulmonary cavitary lesion: History of Present Illness Reason for Consultation: Mediastinal lymphadenopathy Attending Physician: Bacilio Bishop MD History of Present Illness 64-year-old female with past medical history of COPD on 2 L nasal cannula at home, morbid obesity, hypertension presented to the hospital with complaints of lower back pain which has been going on since last month or so progressively getting worse to an extent that she was not able to walk due to pain. Patient also complained of shortness of breath. She has been coughing without hemoptysis. Clear phlegm. Denies any significant chest pain. No nausea or vomiting. No fever or chills. Her abdomen has been increasing in size since last couple of months. Patient denies any recent travel history. Patient denies any headache, no blurry vision. Social history: Greater than [id number] smoking history quit approximately a month ago, denies any illicit drug use, social alcohol There is family history of cancer in the father but she is not sure what kind. Allergies Allergy/AdvReac Type Severity Reaction Status Date / Time No Known Drug Allergies Allergy Unknown Verified 06/02/20 12:29 Home Medications Home Medications Medication Instructions Recorded Confirmed Type albuterol sulfate 90 mcg/actuation 2 puff INHALATION Q4 PRN #1 gm 06/28/19 06/02/20 History aerosol inhaler aspirin 81 mg tablet,delayed 81 mg PO QAM tab 06/28/19 06/02/20 History release ipratropium 0.5 mg-albuterol 3 mg 3 ml INHALATION .COMPLEX ml 06/28/19 06/02/20 History (2.5 mg base)/3 mL nebulization soln isosorbide mononitrate 60 mg 60 mg PO QAM tab 06/28/19 06/02/20 History tablet,extended release 24 hr lisinopril 5 mg tablet 5 mg PO HS #60 tab 06/28/19 06/02/20 History metoprolol tartrate 100 mg tablet 100 mg PO QAM tab 06/28/19 06/02/20 History simvastatin 20 mg tablet 20 mg PO HS #90 tab 06/28/19 06/02/20 History pantoprazole 40 mg tablet,delayed 40 mg PO HS 12/27/19 06/02/20 History release calcium carbonate [Calcium 600] 600 mg PO QAM 06/02/20 06/02/20 History cholecalciferol (vitamin D3) 2,000 unit PO QAM 06/02/20 06/02/20 History [Vitamin D3] [id number] 1 inh INHALATION QAM 06/02/20 06/02/20 History [Trelegy Ellipta] furosemide 40 mg PO QAM 06/02/20 06/02/20 History nitroglycerin 0.4 mg SUBLINGUAL UD PRN 06/02/20 06/02/20 History spironolactone 12.5 mg PO QAM 06/02/20 06/02/20 History Patient History Medical History History of smoking Social History Smoking Status: Former smoker Age Started Using Tobacco: 15; Age Quit Using Tobacco: 63; packs per day: 1; Number of Years Since Quit: 1; Second Hand Exposure: No; Hx Alcohol Use: No Hx Substance Use: No Preferred Language: Lithuanian Communication Ability: Effective Visual Impairment: No Limitations Hearing Ability: Normal Childcare Director Required: No Beliefs That Will Affect Care: None marital status: Current Living Situation: Spouse current occupational status: employed Feels Safe at Home: Yes Safety Concerns: Feels Safe At This Time Childhood Exposure to Second-Hand Smoke: Yes caffeine: Yes Dental Care, Regularly: Yes Physical Activity Frequency: Does not Exercise Seatbelt Use: always Sunscreen Use: No Do you think of yourself as: straight/heterosexual Sexual Activity: has been sexually active within the last 12 months Review of Systems Review of Systems: All systems reviewed & are unremarkable except as noted in HPI & below Physical Exam Physical Exam: Constitutional: No acute distress HEENT: EOMI, PERRLA, right supraclavicular lymph node appreciated on palpation Respiratory system: Decreased air entry bilaterally, mild crackles bilateral lower lobes, no wheeze, no rhonchi CVS: S1-S2 positive, no murmurs or gallops Abdomen: Soft, nontender, nondistended, positive bowel sounds x4 Extremities: +2 pulses bilaterally radialis/ dorsalis pedis, no cyanosis, +1 pitting edema bilateral lower extremity, nose clubbing Neuro: Awake alert oriented x3 Psych: Normal mood and affect G/U: Positive Banks Skin: no rashes, warm and dry Lymphatic: + lymphadenopathy (Supraclavicular) Results & Data Results & Data ([facility]) Vital Signs (Past 12 Hours) Vital Signs Temp Pulse Resp BP Pulse Ox 06/03/20 15:09 37.3 C 80 18 127/71 90 06/03/20 07:27 36.8 C 84 18 145/78 H 91 06/03/20 05:49 79 16 94 06/03/20 04:04 81 16 97 06/03/20 05:55 06/03/20 05:55 PG Care Time/CCT Total # of Minutes Spent Total Time Spent with Patient: Total time spent is greater than 50% in coordination of care (as documented) at patient's floor/unit and/or counseling patient: Coding Level of Care Code 65261 Inpt Consult Level 4 Diagnoses LAD (lymphadenopathy), mediastinal R59.0 Bilateral pulmonary embolism I26.99 Malignant neoplasm metastatic to lumbar spine with unknown primary site C79.51; C80.1 Pulmonary cavitary lesion J98.4
[2020-06-03] MEDS: ALBUT/IPRATROP 3MG/0.5MG NEB 3 ML VIAL INH PRN (22:05)
[2020-06-03] MEDS: PANTOprazole 40 MG TAB PO SCH (22:33)
[2020-06-03] MEDS: lisinopriL 5 MG TAB PO SCH (22:34)
[2020-06-03] MEDS: SIMVASTATIN 20 MG TAB PO SCH (22:34)
[2020-06-03 22:38] LABS: Allen Test Pos (Pos); Base Excess ABG 7.2 mEq/L (-9-1.8); HCO3 ABG 34 mmol/L (19-24); Oxygen Saturation ABG 91.9 % (90-95); PCO2 ABG 63 mmHg (35-46); PO2 ABG 72 mmHg (80-95); pH ABG 7.35 (7.35-7.45)
[2020-06-04] MEDS ORDERED: HYDROmorphone INJ 0.5 MG/0.5 ML SYR IV STA (00:17)
[2020-06-04] MEDS: HYDROmorphone INJ 0.5 MG/0.5 ML SYR IV PRN ×6 (04:04→20:39)
[2020-06-04 07:26] LABS: BUN Creatinine Ratio 35.8 (10-20); Calcium 8.7 mg/dl (8.5-10.1); Creatinine Clr Calc Pharmacy 126.5 ml/min; Est GFR (African American) 117.9; Est GFR (Non-African American) 101.8; Potassium 3.7 mmol/L (3.5-5.1)
[2020-06-04 07:29] LABS: Albumin Globulin Ratio 0.4 (0.9-2); Globulin 4.5 gm/dl (2.5-4.0); Total Protein 6.5 gm/dl (6.4-8.2)
[2020-06-04 07:49] LABS: Hematocrit (blood only) 30.3 % (37-47); Hemoglobin 8.8 g/dL (12.0-16.0); Mean Corpuscular Volume 89.6 fL (80-100); Mean Platelet Volume 8.7 fL (7.4-10.4); Platelet Count 348 K/uL (130-400); RDW Coefficient of Variation 16.4 % (11.5-14.5); RDW Standard Deviation 53.6 fL (36.4-46.3); Red Blood Count 3.38 M/uL (4.2-5.4); White Blood Count 11.65 K/uL (4.8-10.8)
[2020-06-04 08:04] LABS: Partial Thromboplastin Ratio 1.6; Partial Thromboplastin Time 43.3 Seconds (21.0-31.0)
[2020-06-04] MEDS: HEPARIN SODIUM/DEXTROSE 25,000 UNITS/500 ML BAG IV SCH (08:14)
--- NOTE | 2020-06-04 08:16 | XRay Report ---
XR chest 1V portable CLINICAL HISTORY: hypoxemic respiratory failure COMPARISON STUDY: CT scan dated 06/02/2020 FINDINGS: The heart is normal in size. There is right hilar and mediastinal prominence suspicious for adenopathy. There is a 3 cm right midlung zone pulmonary nodule. This demonstrates possible cavitati on. There are subsegmental atelectatic changes at the left lung base.[ IMPRESSION: 1. Mediastinal and hilar lymphadenopathy 2. 3 cm right midlung zone nodule with possible cavitation 4. Subsegmental atelectatic changes at the left lung base ACT 112: Negative or not required by law. Electronically signed by: Luis Babcock M.D. 06/04/2020 8:15 AM
[2020-06-04] MEDS ORDERED: HEPARIN IV BOLUS 3,000 UNITS in SYRINGE 0 ML IV ONE (08:30)
[2020-06-04] MEDS: CHECK FENTANYL PATCH PLACEMENT SCH ×2 (09:03→17:25)
[2020-06-04] MEDS: UMECLIDINIUM/VILANTEROL 62.5/25MCG 7 PUFFS/INHALER INH SCH (09:04)
[2020-06-04] MEDS: FLUTICASONE FUROATE 100MCG 14 PUFFS/INHALER INH SCH (09:04)
[2020-06-04] MEDS: ASPIRIN 81 MG ECTAB PO SCH (09:07)
[2020-06-04] MEDS: LIDOCAINE 5% 1 PATCH TD SCH (09:07)
[2020-06-04] MEDS: bisacodyL 5 MG TABEC PO SCH (09:07)
[2020-06-04] MEDS: ISOSORBIDE MONO EXTENDED REL 60 MG TABCR PO SCH (09:08)
[2020-06-04] MEDS: CHOLECALCIFEROL 1,000 UNITS 25 MCG TAB PO SCH (09:08)
[2020-06-04] MEDS: SPIRONOLACTONE 12.5 MG TAB PO SCH (09:08)
[2020-06-04] MEDS: CALCIUM CARBONATE 1250MG TAB PO SCH (09:09)
[2020-06-04] MEDS: METOPROLOL TARTRATE 100 MG TAB PO SCH (09:10)
[2020-06-04] MEDS: POLYETHYLENE (MIRALAX) 17 GM PACK PO SCH (09:26)
[2020-06-04] MEDS ORDERED: LORazepam 0.5 MG TAB PO STA (10:55)
--- NOTE | 2020-06-04 12:01 | Pulmonology Progress Note ---
Date of Service June 04, 2020 Assessment & Plan (1) LAD (lymphadenopathy), mediastinal: CT chest 06/02/2020 personally reviewed: Significant mediastinal lymphadenopathy with right upper lobe cavitary lesion as well as pleural thickening appreciated on the left side. Patient also has multiple pulmonary nodules around the right upper lobe cavitary lesion --Right upper lobe cavitary lesion with significant mediastinal lymphadenopathy and pulmonary nodules In a patient who is a smoker this is cancer with metastasis most likely to the spine as well as liver It seems to be primary coming from the lung looking at the mediastinal lymphadenopathy and right upper lobe cavitary lesion. Radiographically it looks stage IV Tissue diagnosis will be needed to start the patient on therapy --Acute on chronic hypoxic respiratory failure Secondary to PE most likely secondary to malignancy of unknown origin seems to be primary lung Given the PE is secondary to malignancy Lovenox weightbase twice daily would be the preferred treatment on discharge She will need to be on lifelong anticoagulation --COPD Continue with inhaled bronchodilators --Morbid obesity with possible LAURA BiPAP nightly and PRN shortness of breath --Overall prognosis is poor --Plan: Patient has left breast nodule as well as left supraclavicular lymphadenopathy. The best step would be to get biopsy of the breast nodule and/or biopsy of the left supraclavicular lymphadenopathy which will be the least invasive to get the diagnosis. If the above measures are unsuccessful then we can think about doing an EBUS. Patient will need to be on anticoagulation so EBUS will be high risk of bleeding compared to the above measures. Recommend Doppler bilateral lower extremities rule out DVT Recommend palliative consult Pulmonary will continue to follow. Please note the above document was generated using voice recognition software. It may contain grammatical, syntax or spelling errors. (2) Bilateral pulmonary embolism: (3) Malignant neoplasm metastatic to lumbar spine with unknown primary site: (4) Pulmonary cavitary lesion: Admission and Anticipated Discharge Date Admission Date: June 02, 2020 Subjective Patient seen and examined at bedside. No adverse events overnight. As per the nurse patient was complaining of pain for which she has been getting pain medication. Denies any issues breathing. She saturating 96% on 4 L of nasal cannula at rest at the time of examination. No nausea or vomiting. Good appetite. Review of Systems Review of Systems: All systems reviewed & are unremarkable except as noted in Subjective Physical Exam Physical Exam: Constitutional: No acute distress HEENT: EOMI, PERRLA, right supraclavicular lymph node appreciated on palpation Respiratory system: Decreased air entry bilaterally, mild crackles bilateral lower lobes, no wheeze, no rhonchi CVS: S1-S2 positive, no murmurs or gallops Abdomen: Soft, nontender, nondistended, positive bowel sounds x4 Extremities: +2 pulses bilaterally radialis/ dorsalis pedis, no cyanosis, No edema, no clubbing Neuro: Awake alert oriented x3 Psych: Normal mood and affect G/U: Positive Banks Skin: no rashes, warm and dry Lymphatic: + lymphadenopathy (Supraclavicular) Results & Data Results & Data ([facility]) Vital Signs (Past 12 Hours) Vital Signs Temp Pulse Resp BP BP Pulse Ox 06/04/20 07:37 37.3 C 85 18 147/73 H 90 06/04/20 03:50 37.2 C 87 22 117/49 L 96 06/04/20 07:34 06/04/20 06:36 PG Care Time/CCT Total # of Minutes Spent Total Time Spent with Patient: Total time spent is greater than 50% in coordination of care (as documented) at patient's floor/unit and/or counseling patient: Coding Level of Care Code 13600 Subseq Hosp Care Lvl 3 Diagnoses LAD (lymphadenopathy), mediastinal R59.0 Bilateral pulmonary embolism I26.99 Malignant neoplasm metastatic to lumbar spine with unknown primary site C79.51; C80.1 Pulmonary cavitary lesion J98.4
[2020-06-04] MEDS: fentaNYL 25 MCG/HR TDSY TD SCH (12:12)
--- NOTE | 2020-06-04 14:01 | Hospitalist Progress Note ---
Date of Service June 04, 2020 Assessment & Plan (1) Malignant neoplasm metastatic to lumbar spine with unknown primary site: 64 y/o F smoker w/ hx of COPD, CAD, HTN, HLD, AAA, who presents with acute onset of worsening back pain for 1.5 months and was also found to have bilat PE. Metastatic Neoplasm, Pulmonary Source - 44 pack yr smoking hx - 06/02/20 lumbar spine MRI: Multifocal marrow replacement which favors metastatic disease. Exam moderately compromised by motion artifact. - 06/02/20 CTA abd/pelv: 1. Scattered lytic lesions within the spine, pelvis, and ribs consistent with metastatic disease. 2. These result in mild pathologic compression fractures at L3 and L4. 3. There are 2 heterogeneous left adrenal gland nodules with the largest measuring 3.2 cm. These are also consistent with areas of metastatic disease. 4. An indeterminate 5 mm peroneal nodule inferior to the right hepatic lobe. AAA findings as below. - pulm following, pending radiology consult on 06/05/[address] biopsy or breast lump FNA. - onc following: likely NSCLC, appreciate recommendations for brain MRI w/wo contrast to assess for brain metastasis - patient unable to go down for MRI as of now, due to ongoing BiPAP requirements - will continue to monitor for decreasing oxygen requirements, with plan for MRI tomorrow morning - ordered Ativan 0.25 mg PO PRN for anxiety due to claustrophobia in MRI - fentanyl patch increased to 25mg this AM for longer term control - continue Dilaudid 0.5 mg IV Q3H PRN Acute on Chronic Hypoxic Respiratory Failure - suspect secondary to increasing pain medications and subsequent respiratory depression, as well as bilateral PEs (hypercoagulable state of malignancy) - likely component of undiagnosed LAURA as well, given that patient reports snoring at night and is clinically obese - also chronic COPD, and associated mucus plugging, likely played a role - continue duo nebs PRN and BiPAP PRN for increased work of breathing and oxygen desaturations - per Pulm recs: will start BiPAP QHS tonight Bilateral PE - found on 06/02/20 chest CTA - continue Heparin IV for now - per Pulm recs: Lovenox PO BID weight-based dosing on discharge - will need life-long anticoagulation Normocytic Anemia - stable - likely secondary to chronic disease - trend CBC daily HTN - Continue metoprolol titrate 100 mg daily, lisinopril 5 mg HS, Imdur 60 mg daily, Spironolactone 12.5 mg daily CAD - Continue statin therapy, baby aspirin, beta-rosa, DARIUS HLD - Continue simvastatin 20 mg COPD - follows pulm outpatient - inpatient pulm following for PE and lung malignancy concerns - duo nebs PRN and BiPAP as mentioned above FEN/GI:heart-healthy diet DVT prophylaxis: TEDs, IV Heparin code status: full dispo: medsurg with tele Admission and Anticipated Discharge Date Admission Date: June 02, 2020 Supervising Physician Co-Signing Physician Notes Attending attestation Pt seen and examined in concert with Dr. Thomas. In agreement with the documented findings as noted in the resident documentation with any exceptions or additions as noted here. Episode overnight of desaturation which resolved with BIPAP and resolved s/p neb treatment without other intervention. History of LAURA type behaviors including witnessed apnea and choking episodes qHS could be contributing. Pain control is improved but still requiring q4 0.5mg dilaudid On examination, S1/S2 nl RRR no MCG. Decreased breath sounds bilateral bases. Abd NT/ND BS+ve. Trace edema bilateral LE Metastatic disease of unknown primary - oncology consultation appreciated - radiology consultation for US guided FNA of the left breast or supraclavicular mass reported by pulm rather than invasive bx in light of pulmonary status. Escalated pain control to 25mcg fentanyl patch and continue dilaudid PRN. Monitor respiratory status closely. Requested MRI by oncology unable to be done 2/2 pt clostrophobia and avoidance of sedation 2/[address] head w/ contrast instead. AHRF - unknown if LAURA related, PE related, COPD/mucous plugging - pulmonology consultation - BIPAP qHS and PRN w/ sleep - monitor pulse O2, supplemental O2 Bilateral pulmonary emboli - on heparin drip CAD - continue statin therapy, ASA, metoprolol and lisinopril HTN - mildly elevated, likely 2/2 pain v. missed medication - continue present regimen, monitor Else see resident documentation as noted. Subjective Ms. Mendieta had an episode of desaturation overnight - was given Albuterol ne bulizer, CXR showed no pneumothorax/pulmonary edema/pneumonia, started on BiPAP which stabilized SpO2 to >92%. Continues to need Dilaudid 0.5 mg IV Q4H for back and leg pain. Using Fentanyl patch as well. This morning patient denies fever/chills, chest pain, SOB, abdominal pain, LE swelling. She ate a good breakfast and is currently doing well with 4L NC. When asked about the need for BiPAP last night, the patient denies increased work of breathing, dizziness, syncope. However reports chronic snoring at night without LAURA diagnosis. Review of Systems Constitutional: as per Subjective / HPI Respiratory: as per Subjective / HPI; no cough Cardiovascular: as per Subjective / HPI; no palpitations Gastrointestinal: as per Subjective / HPI; no abdominal pain, no nausea and no vomiting Physical Exam Constitutional: + ill appearing Respiratory: bilateral faint crackles vs transmitted upper airway sounds Cardiovascular: Rate/Rhythm: regular rate and regular rhythm Heart Sounds: normal S1 and normal S2; no murmur Extremities: + pedal edema (trace) Gastrointestinal (Abdomen): Inspection/Auscultation: abdomen normal to inspection and normal bowel sounds; abdomen not distended Percussion/Palpation: + abdomen tender (mild suprapubic tenderness); no guarding Skin: bilateral hematomas on inferior surface of proximal arms Results & Data Results & Data ([facility]) Vital Signs (Past 12 Hours) Vital Signs Temp Pulse Resp BP BP Pulse Ox 06/04/20 12:05 37.3 C 75 18 118/56 L 87 L 06/04/20 07:37 37.3 C 85 18 147/73 H 90 06/04/20 03:50 37.2 C 87 22 117/49 L 96 Resident Activity Tracking Resident Involvement: Resident Care Provided Care Provided: Adult Hospital Medicine
[2020-06-04 15:43] LABS: Partial Thromboplastin Ratio 2.3
[2020-06-04 15:44] LABS: Partial Thromboplastin Time 62.8 Seconds (21.0-31.0)
[2020-06-04] MEDS: SIMVASTATIN 20 MG TAB PO SCH ×2 (20:00→20:35)
[2020-06-04] MEDS: lisinopriL 5 MG TAB PO SCH ×2 (20:00→20:35)
[2020-06-04] MEDS: PANTOprazole 40 MG TAB PO SCH (20:00)
[2020-06-05] MEDS: HEPARIN SODIUM/DEXTROSE 25,000 UNITS/500 ML BAG IV SCH ×2 (00:59→18:08)
[2020-06-05] MEDS: HYDROmorphone INJ 0.5 MG/0.5 ML SYR IV PRN ×8 (01:06→23:34)
[2020-06-05] MEDS: CHECK FENTANYL PATCH PLACEMENT SCH ×3 (01:14→16:51)
[2020-06-05 05:58] LABS: Hematocrit (blood only) 30.3 % (37-47); Hemoglobin 9.1 g/dL (12.0-16.0); Mean Corpuscular Hemoglobin 26.9 pg (25-34); Mean Corpuscular Volume 89.6 fL (80-100); Mean Platelet Volume 8.7 fL (7.4-10.4); Platelet Count 368 K/uL (130-400); RDW Coefficient of Variation 16.5 % (11.5-14.5); RDW Standard Deviation 53.7 fL (36.4-46.3); Red Blood Count 3.38 M/uL (4.2-5.4); White Blood Count 11.76 K/uL (4.8-10.8)
[2020-06-05 06:23] LABS: INR 1.1 (0.9-1.1); Partial Thromboplastin Ratio 1.7; Prothrombin Time 11.4 Seconds (9.0-12.0)
[2020-06-05 06:32] LABS: BUN Creatinine Ratio 33.3 (10-20); Calcium 9.5 mg/dl (8.5-10.1); Creatinine Clr Calc Pharmacy 85.4 ml/min; Est GFR (Non-African American) 80.2; Potassium 3.9 mmol/L (3.5-5.1)
[2020-06-05 06:35] LABS: Albumin Globulin Ratio 0.4 (0.9-2); Globulin 4.8 gm/dl (2.5-4.0); Total Protein 6.8 gm/dl (6.4-8.2)
[2020-06-05 06:49] LABS: Partial Thromboplastin Time 48.4 Seconds (21.0-31.0)
[2020-06-05] MEDS: UMECLIDINIUM/VILANTEROL 62.5/25MCG 7 PUFFS/INHALER INH SCH (08:12)
[2020-06-05] MEDS: FLUTICASONE FUROATE 100MCG 14 PUFFS/INHALER INH SCH (08:12)
[2020-06-05] MEDS: SPIRONOLACTONE 12.5 MG TAB PO SCH (08:14)
[2020-06-05] MEDS: CHOLECALCIFEROL 1,000 UNITS 25 MCG TAB PO SCH (08:14)
[2020-06-05] MEDS: ISOSORBIDE MONO EXTENDED REL 60 MG TABCR PO SCH (08:15)
[2020-06-05] MEDS: ASPIRIN 81 MG ECTAB PO SCH (08:16)
[2020-06-05] MEDS: METOPROLOL TARTRATE 100 MG TAB PO SCH (08:17)
[2020-06-05] MEDS: CALCIUM CARBONATE 1250MG TAB PO SCH (08:17)
[2020-06-05] MEDS: LIDOCAINE 5% 1 PATCH TD SCH (08:18)
[2020-06-05] MEDS: bisacodyL 5 MG TABEC PO SCH (08:21)
[2020-06-05] MEDS: POLYETHYLENE (MIRALAX) 17 GM PACK PO SCH (08:22)
--- NOTE | 2020-06-05 09:33 | Pulmonology Progress Note ---
Date of Service June 05, 2020 Assessment & Plan (1) LAD (lymphadenopathy), mediastinal: Impression: 64-year-old female with history of tobacco abuse presenting with multiple skeletal mets, adrenal mets, hepatic lesion, breast lesion, and mediastinal adenopathy. Clinical picture highly concerning for widely metastatic malignancy. She has underlying hypercarbic respiratory failure lik rebeca due to combinations of obesity hypoventilation syndrome and potential obstructive lung disease. Recommendations: 1. Agree with plans to pursue the least invasive tissue diagnosis at this point time. Would recommend biopsy of the supraclavicular lymph node under radiology guidance or biopsy of the breast lesion or both. The mediastinal adenopathy is amenable to potential endobronchial ultrasound with transbronchial needle aspiration however given her tenuous respiratory status, this may necessitate intubation which I would like to avoid in this patient. Alternative sites to biopsy would include the liver biopsy or the adrenal glands. If we are unable to obtain tissue from any of these sites, could consider bronchoscopy with endobronchial ultrasound but typically for staging would start with the most distant site and these other sites would establish metastatic disease as opposed to N2 or N3 disease 2. Hypercarbic respiratory failure: Continue nocturnal BiPAP. Wean oxygen as tolerated to maintain oxygen saturations at or above 88 to 90%. The patient needs dedicated brain imaging either an MRI with contrast or CT of the head with contrast to complete staging and will require a PET scan performed in the outpatient setting. Would be extremely judicious in the use of benzodiazepines, narcotics, or other respiratory suppressants until we have been able to definitively define the patient's CODE STATUS. 3. PE: Continue anticoagulation under the direction of medical oncology. 4. Recommend palliative care consultation to establish goals of therapy in this patient with what appears to be widely metastatic cancer. (2) Malignant neoplasm metastatic to lumbar spine with unknown primary site: (3) Pulmonary cavitary lesion: Admission and Anticipated Discharge Date Admission Date: June 02, 2020 Subjective Patient seen and examined. Discussed with off going slitter scorer cut off operator. Images were independently reviewed. Patient states her breathing is okay. She appears slightly encephalopathic this morning. She relates that she used BiPAP overnight and tolerated it reasonably well. Review of Systems Review of Systems: All systems reviewed & are unremarkable except as noted in HPI & below Physical Exam Constitutional: + ill appearing Respiratory: bilateral faint crackles vs transmitted upper airway sounds Cardiovascular: Rate/Rhythm: regular rate and regular rhythm Heart Sounds: normal S1 and normal S2; no murmur Extremities: + pedal edema (trace) Gastrointestinal (Abdomen): Inspection/Auscultation: abdomen normal to inspection and normal bowel sounds; abdomen not distended Percussion/Palpation: + abdomen tender (mild suprapubic tenderness); no guarding Skin: bilateral hematomas on inferior surface of proximal arms Results & Data Results & Data ([facility]) Vital Signs (Past 12 Hours) Vital Signs Temp Pulse Pulse Resp BP Pulse Ox 06/05/20 07:59 86 06/05/20 07:10 37.1 C 83 20 120/58 L 92 06/05/20 03:01 37.1 C 77 20 139/77 93 06/05/20 00:29 75 18 95 06/04/20 23:36 37.4 C 71 22 137/79 95 06/04/20 21:48 73 16 93 Laboratory Results 06/05/20 05:40 06/05/20 05:40 Diagnostic Findings Images were independently reviewed. PG Care Time/CCT Total # of Minutes Spent Total Time Spent with Patient: Total time spent is greater than 50% in coordination of care (as documented) at patient's floor/unit and/or counseling patient: Coding Level of Care Code 13571 Subseq Hosp Care Lvl 3 Diagnoses LAD (lymphadenopathy), mediastinal R59.0 Malignant neoplasm metastatic to lumbar spine with unknown primary site C79.51; C80.1 Pulmonary cavitary lesion J98.4 Time Spent (min) 40
[2020-06-05] MEDS ORDERED: GADOBUTROL 65ML VIAL IV ONE (09:43)
--- NOTE | 2020-06-05 10:12 | Magnetic Resonance Report ---
MRI OF THE BRAIN WITHOUT AND WITH IV CONTRAST CLINICAL HISTORY: metastatic lung cancer COMPARISON STUDY: No previous studies for comparison. TECHNIQUE: MRI of the brain was performed from the vertex to the skull base utilizing various T1 and T2 weighted sequences. Following the IV administration of 10 mL of Gadavist contrast, additional enha nced images were obtained. FINDINGS: Sagittal T1, axial diffusion, proton density and T2 weighted axial, coronal FLAIR, and pre and post a xial T1-weighted images were acquired. These were supplemented with post gadolinium coronal T1 weight ed images. No intra or extra-axial mass lesions are visualized. There is a 5 mm focus of restricted water diffusion involving the white matter of the right parietal vertex. There is an additional focus of restricted water diffusion measuring 4 mm within the right ce rebellar hemisphere. These findings are consistent with small acute/subacute infarcts There is no evidence of ventricular dilatation. Proton density T2-weighted and FLAIR images reveal scattered foci of increased T2 signal within the w javier matter, likely on a small vessel basis. There are no abnormal flow voids. There are enhancing lesions within the calvarium which demonstrate restricted water diffusion. The fi ndings are suspicious for calvarial metastasis. IMPRESSION: 1. Small foci of restricted water diffusion within the right cerebral hemisphere and right parietal l obe, consistent with small acute/subacute infarcts 2. Enhancing calvarial lesions demonstrating restricted water diffusion, consistent with calvarial me tastasis 3. No evidence of brain metastasis ACT 112: Negative or not required by law. Electronically signed by: Luis Babcock M.D. 06/05/2020 10:11 AM
[2020-06-05] MEDS ORDERED: PHARMACIST DISCHARGE MED REC CONSULT PRN (11:45)
[2020-06-05 11:55] LABS: Base Excess ABG 6.9 mEq/L (-9-1.8); HCO3 ABG 31 mmol/L (19-24); Oxygen Saturation ABG 98.8 % (90-95); PCO2 ABG 44 mmHg (35-46); PO2 ABG 147 mmHg (80-95); pH ABG 7.47 (7.35-7.45)
[2020-06-05 11:56] LABS: Allen Test Pos (Pos)
[2020-06-05 12:20] LABS: Estimated Average Glucose 146 mg/dl; Hemoglobin A1C 6.7 % (4.5-5.6)
--- NOTE | 2020-06-05 12:47 | XRay Report ---
XR chest 1V portable CLINICAL HISTORY: Worsening shortness of breath COMPARISON STUDY: 06/03/2020 FINDINGS: The heart remains mildly enlarged. Subsegmental atelectatic changes are present the left joel ng base. There is persistent mediastinal and hilar lymphadenopathy. There is a vague right midlung zo ne pulmonary nodule.[There is mild vascular prominence without evidence of overt failure IMPRESSION: 1. Persistent adenopathy 2. Persistent 27 mm right midlung zone pulmonary nodule 3. Subsegmental atelectatic changes at the left lung base ACT 112: Negative or not required by law. Electronically signed by: Luis Babcock M.D. 06/05/2020 12:45 PM
--- NOTE | 2020-06-05 13:14 | Hospitalist Progress Note ---
Date of Service June 05, 2020 Assessment & Plan (1) Malignant neoplasm metastatic to lumbar spine with unknown primary site: 64 y/o F smoker w/ hx of COPD, CAD, HTN, HLD, AAA, who presents with acute onset of worsening back pain for 1.5 months and was also found to have bilat PE. Metastatic Neoplasm, Pulmonary Source - 44 pack yr smoking hx - 06/02/20 lumbar spine MRI: Multifocal marrow replacement which favors metastatic disease. Exam moderately compromised by motion artifact. - 06/02/20 CTA abd/pelv: 1. Scattered lytic lesions within the spine, pelvis, and ribs consistent with metastatic disease. 2. These result in mild pathologic compression fractures at L3 and L4. 3. There are 2 heterogeneous left adrenal gland nodules with the largest measuring 3.2 cm. These are also consistent with areas of metastatic disease. 4. An indeterminate 5 mm peroneal nodule inferior to the right hepatic lobe. AAA findings as below. - MRI Brain 06/05/2020: small acute/subacute infarcts in R parietal and cerebellar lobes, calvarial metastasis, no evidence of brain mets - pulm following, pending radiology consult on 06/05/[address] biopsy or breast lump FNA. - onc following: likely NSCLC, appreciate recommendations for brain MRI w/wo contrast to assess for brain metastasis - fentanyl patch increased to 25mg this AM for longer term control - continue Dilaudid 0.5 mg IV Q3H PRN -continue lidocaine patch -tylenol 1000mg scheduled, with Toradol 15mg to use sparingly PRN q6h -will proceed with palliative discussion once pt's mental status improves Ischemic Strokes -noted on brain MRI as above -bilateral carotid duplex ordered to determine source, if indeterminate can consider a TTE with bubble study to rule out paradoxical emboli -stroke protocol initiated- (neuro checks, speech, PT/OT eval, neurology consult, etc) -home simvastatin discontinued; started on Atorvastatin 80mg daily. Acute on Chronic Hypoxic Respiratory Failure - suspect secondary to increasing pain medications and subsequent respiratory depression, as well as bilateral PEs (hypercoagulable state of malignancy) - likely component of undiagnosed LAURA as well, given that patient reports sno ring at night and is clinically obese - also chronic COPD, and associated mucus plugging, likely played a role - repeat ABG showed improved hypercapnia - continue duo nebs PRN and BiPAP PRN for increased work of breathing and oxygen desaturations - per Pulm recs: BiPAP QHS Bilateral PE - found on 06/02/20 chest CTA - continue Heparin IV for now - per Pulm recs: Lovenox PO BID weight-based dosing on discharge - will need life-long anticoagulation Normocytic Anemia - stable - likely secondary to chronic disease - trend CBC daily HTN - Continue metoprolol titrate 100 mg daily, lisinopril 5 mg HS, Imdur 60 mg daily, Spironolactone 12.5 mg daily CAD - Continue statin therapy, baby aspirin, beta-rosa, DARIUS HLD - discontinued simvastatin 20 mg -started on Atorvastatin 80mg COPD - follows pulm outpatient - inpatient pulm following for PE and lung malignancy concerns - duo nebs PRN and BiPAP as mentioned above FEN/GI:heart-healthy diet DVT prophylaxis: TEDs, IV Heparin code status: full dispo: medsurg with tele Admission and Anticipated Discharge Date Admission Date: June 02, 2020 Supervising Physician Co-Signing Physician Notes I personally examined the patient and verified all mackay points of history and exam, discussed case, and agree with decision making with Dr Pandya. feeling lousy - mostly overwhelmed due to CA dx, and also back pain. breathing doesn't feel good but her primary complaints are really back pain and feeling forlorn. vitals noted fatigued and in pain. heent nc at mmm lungs quiet but cta no r/r/w good effort skin no rashes no pallor or icterus neuro no easily notable focal deficits - see neurology consult for far better detail acute hypoxic respiratory failure - fortunately not hypercapnic now. suspect PEs largely contributory, also likely elements of COPD. on heparin gtt for PEs, on inhaled steroid, LAMA, LABA and prn nebs for COPD, no wheeze/hypercapnea so no clear benefit to steroids. ongoing supportive care. suspect some of hypoxia might also be atelectasis from splinted breathing - pain control hopefully will help lung ca w diffuse mets and back pain -pain meds w caution due to respiratory illness - but undertreating pain likley also leading to hypoxia from splinted breathing -continue fentanyl patch and prn dilauded (add prn narcan) but rather than escalate narcotics - add scheduled APAP, lidocaine patch, toradol CVA - w PE have to harbor concern on paradoxical embolus - hypercoag from malignancy causing VTE and then PFO allowing CVA would fit. carotid without culprit, does have risk for intracranial atherosclerotic disease but seems less likely w 2 different territories effected. otherwise as above Subjective Pt seen this AM. Had just returned from her MRI and was a bit lethargic, slow to respond to questions. Exam limited. Review of Systems Review of Systems: Unobtainable due to cognitive status Physical Exam Physical Exam: General: No acute distress Skin: Bruising noted on arms bilaterally Psych: Could not be determined Neuro: lethargic HEENT: NC/AT Chest: Nontender to palpation. CV: RRR, Normal s1, s2. Resp: Breath sounds clear bilaterally, decreased, no increased effort of breathing. Abdomen: Soft, nontender, nondistended. No guarding. Extremities: Trace edema in lower extremities bilaterally. Results & Data Results & Data ([facility]) Vital Signs (Past 12 Hours) Vital Signs Temp Pulse Pulse Pulse Pulse Resp BP 06/05/20 11:29 82 20 06/05/20 11:17 38.0 C H 77 20 06/05/20 10:50 37.8 C H 78 22 06/05/20 07:59 86 06/05/20 07:10 37.1 C 83 20 120/58 L 06/05/20 03:01 37.1 C 77 20 139/77 BP Pulse Ox 06/05/20 11:29 94 06/05/20 11:17 130/72 90 06/05/20 10:50 152/60 H 92 06/05/20 07:59 06/05/20 07:10 92 06/05/20 03:01 93 Resident Activity Tracking Resident Involvement: Resident Care Provided Care Provided: Adult Hospital Medicine
--- NOTE | 2020-06-05 13:32 | Neurology Consultation ---
Date of Consultation June 05, 2020 Assessment & Plan (1) Bilateral pulmonary embolism: (2) Abdominal aortic aneurysm (AAA) greater than 39 mm in diameter: (3) History of smoking: (4) HTN (hypertension): (5) CAD (coronary artery disease): (6) Pulmonary cavitary lesion: (7) LAD (lymphadenopathy), mediastinal: (8) Stroke: Angella Mendieta is a 64 yo woman w/ PMH of COPD, CAD, HTN, HLD, known AAA, prior tobacco abuse and subacute worsening of back pain who initially p/t [facility] for progressive back pain, inability to ambulate, urinary incontinence, found to have metastatic lung cancer with bony mets to the ribs and vertebral body at T10, left adrenal met, right hepatic lobe met, extensive mediastinal lymphadenopathy and bilateral PEs. Neurology consulted given acute infarct noted on MRI brain done for staging. Symptom localization: right parietal/right cerebellum Stroke mechanism: most likely hypercoagulable given likely cancer, cannot r/o cardioembolic Stroke WorkUp: - Carotid dopplers: 50% stenosis of distal L ICA, no significant stenosis of R ICA - MRI brain: punctuate infarcts in right cerebellum and right parietal lobes - TTE: pending - Telemetry: pending - A1c: 6.7 - FLP: pending - Troponin: pending Stroke Management: - Acute treatment: already on heparin gtt - Continuous cardiac monitoring, will consider Holter monitor as outpatient if telemetry here unrevealing - Vitals, Neurochecks, NIHSS per unit routine - BP parameters: SBP CAP 180, continue home anti-hypertensives - Complete ischemic stroke workup with TTE with bubble, fasting lipid panel, Tn - Consult speech, PT, OT for supportive management - Will veterans' counselor concerning stroke education, smoking cessation, healthy diet, physical activity, weight loss - Follow up with PCP for assistance with outpatient goals (BP <130/80, LDL <70, A1c <7) - Follow up in neurology clinic in 6-8 weeks with JOEY Moreno (if she plans on full code going forward) Secondary Stroke Prevention: - Antiplatelet: n/a - Anticoagulation: continue heparin gtt, recommend transitioning to lovenox prior to discharge - Statin: continue home simvastatin for now HTN: - BP parameters, as above - Restart home medications with goal of lowering BP to normotension over next 3- 4 days (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 Plan of care was discussed with primary team. Please call with any questions. History of Present Illness Attending Physician: Kashif Downing DO History of Present Illness Angella Mendieta is a 64 yo woman w/ PMH of COPD, CAD, HTN, HLD, known AAA, prior tobacco abuse and subacute worsening of back pain who initially p/t [facility] for progressive back pain, inability to ambulate, urinary incontinence, found to have metastatic lung cancer with bony mets to the ribs and vertebral body at T10, left adrenal met, right hepatic lobe met, extensive mediastinal lymphadenopathy and bilateral PEs. Neurology consulted given acute infarcts noted on MRI brain done for staging. In the ED, patient afebrile, BP 166/63, heart rate 72, respiratory rate 18 satting 92% on 2 L nasal cannula. Initial labs notable for WBC 10.35, hemoglobin 9.8, platelets 372, sodium 143, potassium 2.9, CO2 36, BUN 13, creatinine 0.51, glucose 119, LFTs within normal, calcium within normal, albumin low at 2.3. MRI of the L-spine showed multifocal marrow replacement suggesting metastatic disease at T10/L2/L3/L4/L5/S2/S3, possible pathologic fractures at L3/L4/L5, anterior epidural abnormality at L3 (difficult to assess due to motion artifact), and mildly thickened endometrium on the track machine operator repairer images. CT of the abdomen and pelvis was notable for scattered lytic lesions in the spine/pelvis/ribs consistent with metastatic disease, pathologic compression fracture at L3 and L4, 2 heterogeneous left adrenal gland nodules consistent with metastatic disease, indeterminate right hepatic nodule, mild aortic aneurysm measuring 4.3 cm in diameter. CTA chest was notable for multiple small segmental and subsegmental bilateral pulmonary emboli, extensive mediastinal lymphadenopathy, cavitary 2.2 cm right upper lobe nodule suggestive of primary lung malignancy, 1.9 cm right upper breast nodule. MRI brain from 06/05/2020 independently reviewed and notable for punctate infarcts in the right cerebellum and right parietal lobes; there are also contrast-enhancing lesions along the skull concerning for possible cranial skeletal mets. Of note, she was started on a heparin drip on 06/02/2020 and has been maintained on that since then. On examination today, she was confused but knew that she was in the hospital for likely new cancer diagnosis. She endorsed having significant back pain. Denied any neurological symptoms such as unilateral numbness/tingling, unilateral weakness, vision changes or facial droop. Allergies Allergy/AdvReac Type Severity Reaction Status Date / Time No Known Drug Allergies Allergy Unknown Verified 06/02/20 12:29 Home Medications Home Medications Medication Instructions Recorded Confirmed Type albuterol sulfate 90 mcg/actuation 2 puff INHALATION Q4 PRN #1 gm 06/28/19 06/02/20 History aerosol inhaler aspirin 81 mg tablet,delayed 81 mg PO QAM tab 06/28/19 06/02/20 History release ipratropium 0.5 mg-albuterol 3 mg 3 ml INHALATION .COMPLEX ml 06/28/19 06/02/20 History (2.5 mg base)/3 mL nebulization soln isosorbide mononitrate 60 mg 60 mg PO QAM tab 06/28/19 06/02/20 History tablet,extended release 24 hr lisinopril 5 mg tablet 5 mg PO HS #60 tab 06/28/19 06/02/20 History metoprolol tartrate 100 mg tablet 100 mg PO QAM tab 06/28/19 06/02/20 History simvastatin 20 mg tablet 20 mg PO HS #90 tab 06/28/19 06/02/20 History pantoprazole 40 mg tablet,delayed 40 mg PO HS 12/27/19 06/02/20 History release calcium carbonate [Calcium 600] 600 mg PO QAM 06/02/20 06/02/20 History cholecalciferol (vitamin D3) 2,000 unit PO QAM 06/02/20 06/02/20 History [Vitamin D3] [id number]-flmxxqfl 1 inh INHALATION QAM 06/02/20 06/02/20 History [Trelegy Ellipta] furosemide 40 mg PO QAM 06/02/20 06/02/20 History nitroglycerin 0.4 mg SUBLINGUAL UD PRN 06/02/20 06/02/20 History spironolactone 12.5 mg PO QAM 06/02/20 06/02/20 History Patient History Medical History History of smoking Social History Smoking Status: Former smoker Age Started Using Tobacco: 15; Age Quit Using Tobacco: 63; packs per day: 1; Number of Years Since Quit: 1; Second Hand Exposure: No; Hx Alcohol Use: No Hx Substance Use: No Preferred Language: [place] Communication Ability: Effective Visual Impairment: No Limitations Hearing Ability: Normal Artist Consultant Required: No Beliefs That Will Affect Care: None marital status: Current Living Situation: Spouse current occupational status: employed Feels Safe at Home: Yes Safety Concerns: Feels Safe At This Time Childhood Exposure to Second-Hand Smoke: Yes caffeine: Yes Dental Care, Regularly: Yes Physical Activity Frequency: Does not Exercise Seatbelt Use: always Sunscreen Use: No Do you think of yourself as: straight/heterosexual Sexual Activity: has been sexually active within the last 12 months Review of Systems Review of Systems: 14 point review of systems completed and negative except as in HPI. Exam (Neuro) Physical Exam: General Exam: GEN: NAD, sitting in bed. HEENT: No conjunctival injection, no rhinorrhea. CV: RRR, no peripheral edema PULM: Nonlabored respirations on 5L NC. Neuro Exam: MS: Awake and Alert. Oriented to person, being in a hospital, and year but not month. Speech fluent and appropriate without dysarthria or paraphasic errors. Language intact including naming, comprehension, repetition. Cognition and memory mildly impaired. Inattentive. No neglect. CN: Visual oliva full. No extinction to double simultaneous stimuli. Unable to visualize fundi on fundoscopic exam. PERRLA OU. EOMI without nystagmus. Facial sensation intact to LT. Facial muscles full and symmetric. Hearing intact to conversation. Uvula midline with symmetric palatal elevation. Shoulder shrug normal. Tongue midline. MOTOR: Normal bulk and tone. No pronator drift. BUE strength 5/5 at deltoids, biceps, triceps, and hand grasp bilaterally. BLE strength 5/5 at iliopsoas, hamstrings, quadriceps, tibialis anterior, and gastrocnemius bilaterally. REFLEXES: 1+ at biceps, triceps, brachioradialis, 1+ patella and absent Achilles bilaterally. Flexor plantar responses bilaterally. SENSORY: Intact to LT without extinction to double simultaneous stimuli. Vibration intact throughout. COORDINATION: No dysmetria or ataxia on mndwsc-to-fkkp bilaterally. Normal Ashley bilaterally. GAIT: deferred given physical status/inability to ambulate from bony mets Results & Data ([facility]) Vital Signs (Past 12 Hours) Vital Signs Temp Pulse Pulse Pulse Pulse Resp BP 06/05/20 11:29 82 20 06/05/20 11:17 38.0 C H 77 20 06/05/20 10:50 37.8 C H 78 22 06/05/20 07:59 86 06/05/20 07:10 37.1 C 83 20 120/58 L 06/05/20 03:01 37.1 C 77 20 139/77 BP Pulse Ox 06/05/20 11:29 94 06/05/20 11:17 130/72 90 06/05/20 10:50 152/60 H 92 06/05/20 07:59 06/05/20 07:10 92 06/05/20 03:01 93 PG Care Time/CCT Total # of Minutes Spent Total Time Spent with Patient: Total time spent is greater than 50% in coordination of care (as documented) at patient's floor/unit and/or counseling patient: Coding Level of Care Code 84073 Inpt Consult Level 5 Diagnoses Bilateral pulmonary embolism I26.99 Abdominal aortic aneurysm (AAA) greater than 39 mm in diameter I71.4 History of smoking Z87.891 HTN (hypertension) I10 CAD (coronary artery disease) I25.10 Pulmonary cavitary lesion J98.4 LAD (lymphadenopathy), mediastinal R59.0 Stroke I63.9
[2020-06-05] MEDS: ATORVASTATIN 40 MG TAB PO SCH (14:45)
--- NOTE | 2020-06-05 14:49 | Ultrasound Report ---
US FNA w/img 1st lesion CLINICAL HISTORY: Metastatic disease of uncertain origin. COMPARISON STUDY: CT scan dated 06/02/2020 FINDINGS: A timeout was performed. The risks the procedure were explained the patient and informed consent was obtained. The patient was fully heparinized due to acute bilateral pulmonary embolism. A subxiphoid 9 mm anterior chest wall nodule was chosen for biopsy, as this was felt to be the safest nodule to sample in this patient who was heparinized. Four 25-gauge fine-needle aspiration biopsy samples were obtained under ultrasound guidance. Initial pathologic review indicates satisfactory material for diagnosis. A core biopsy was not performed as t his patient is anticoagulated. IMPRESSION: 1. Successful ultrasound-guided fine-needle aspiration biopsy of a 9 mm subxiphoid anterior chest wal l nodule. ACT 112: Negative or not required by law. Electronically signed by: Luis Babcock M.D. 06/05/2020 2:48 PM
--- NOTE | 2020-06-05 15:29 | Ultrasound Report ---
BILATERAL CAROTID DOPPLER STUDY HISTORY: acute/subacute stroke COMPARISON: None. TECHNIQUE: Real-time, grayscale, and color Doppler sonography of the carotid arteries was performed. Imaging reviewed in the transverse and longitudinal planes. All measurements were calculated based on NASCET criteria. FINDINGS: Antegrade flow is seen in the bilateral vertebral arteries. The brachial pressures were not obtained. Moderate calcific plaque within the right carotid bifurcation mild calcified plaque within the left c arotid bifurcation. Moderate stenosis within the right external carotid artery and mild stenosis within the left external carotid artery. The peak systolic velocity within the right ICA is 116 cm/s. The right systolic ratio is 1.3. The peak systolic velocity within the left ICA is 127 cm/s proximally. The left systolic ratio is 0.9 . IMPRESSION: 1. Approximately 50% narrowing at the distal left internal carotid artery. 2. No significant stenosis within the right internal carotid artery. 3. Mild to moderate stenosis within the external carotid arteries. ACT 112: Negative or not required by law. Electronically signed by: Luís Govea M.D. 06/05/2020 3:27 PM
[2020-06-05] MEDS ORDERED: KETOROLAC TROMETHAMINE 15 MG/ML VIAL IV PRN (16:19)
[2020-06-05] MEDS: ACETAMINOPHEN 500 MG TAB PO SCH ×2 (18:08→20:22)
[2020-06-05] MEDS ORDERED: NALOXONE HCL 0.4 MG/1 ML VIAL/CARP IV PRN (19:05)
--- NOTE | 2020-06-05 19:05 | Billing Data ---
Date of Service June 05, 2020 Coding Level of Care Code 84142 Subseq Hosp Care Lvl 3
--- NOTE | 2020-06-05 19:06 | Billing Data ---
Date of Service June 05, 2020 Coding Level of Care Code 44309 Subseq Hosp Care Lvl 3
[2020-06-05] MEDS: PANTOprazole 40 MG TAB PO SCH (20:22)
[2020-06-05] MEDS: lisinopriL 5 MG TAB PO SCH (20:23)
[2020-06-06] MEDS: CHECK FENTANYL PATCH PLACEMENT SCH ×4 (01:09→23:07)
[2020-06-06] MEDS: HYDROmorphone INJ 0.5 MG/0.5 ML SYR IV PRN ×5 (03:53→19:33)
[2020-06-06] MEDS: ACETAMINOPHEN 500 MG TAB PO SCH ×3 (06:47→22:07)
[2020-06-06] MEDS: ATORVASTATIN 40 MG TAB PO SCH (07:35)
[2020-06-06] MEDS: SPIRONOLACTONE 12.5 MG TAB PO SCH (07:37)
[2020-06-06] MEDS: LIDOCAINE 5% 1 PATCH TD SCH (07:42)
[2020-06-06] MEDS: METOPROLOL TARTRATE 100 MG TAB PO SCH (07:42)
[2020-06-06] MEDS: ISOSORBIDE MONO EXTENDED REL 60 MG TABCR PO SCH (07:42)
[2020-06-06] MEDS: CALCIUM CARBONATE 1250MG TAB PO SCH (07:44)
[2020-06-06] MEDS: POLYETHYLENE (MIRALAX) 17 GM PACK PO SCH (07:44)
[2020-06-06] MEDS: CHOLECALCIFEROL 1,000 UNITS 25 MCG TAB PO SCH (07:44)
[2020-06-06] MEDS: ASPIRIN 81 MG ECTAB PO SCH (07:45)
[2020-06-06] MEDS: FLUTICASONE FUROATE 100MCG 14 PUFFS/INHALER INH SCH (07:45)
[2020-06-06] MEDS: bisacodyL 5 MG TABEC PO SCH (07:45)
[2020-06-06] MEDS: UMECLIDINIUM/VILANTEROL 62.5/25MCG 7 PUFFS/INHALER INH SCH (07:45)
[2020-06-06 08:14] LABS: Chol HDL Ratio 2; Cholesterol 68 mg/dl (0-200); HDL Cholesterol 41 mg/dl; LDL Cholesterol Calculated 12 mg/dl; Triglycerides 75 mg/dl (0-150); VLDL Cholesterol 15 mg/dl
[2020-06-06 08:24] LABS: Basophils # (auto) 0.02 K/uL (0-0.2); Basophils % (auto) 0.1 %; Eosinophils # (auto) 0.03 K/uL (0-0.5); Eosinophils % (auto) 0.2 %; Hematocrit (blood only) 27.9 % (37-47); Hemoglobin 8.5 g/dL (12.0-16.0); Immature Granulocytes # (auto) 0.08 K/uL (0.00-0.02); Immature Granulocytes % (auto) 0.5 %; Lymphocytes # (auto) 0.99 K/uL (1.2-3.4); Lymphocytes % (auto) 6.6 %; Mean Corpuscular Volume 88.6 fL (80-100); Mean Platelet Volume 8.9 fL (7.4-10.4); Monocytes # (auto) 1.06 K/uL (0.11-0.59); Monocytes % (auto) 7.1 %; Neutrophils # (auto) 12.74 K/uL (1.4-6.5); Neutrophils % (auto) 85.5 %; Platelet Count 374 K/uL (130-400); RDW Coefficient of Variation 16.1 % (11.5-14.5); RDW Standard Deviation 51.9 fL (36.4-46.3); Red Blood Count 3.15 M/uL (4.2-5.4); White Blood Count 14.92 K/uL (4.8-10.8)
[2020-06-06 08:47] LABS: Partial Thromboplastin Time 57.1 Seconds (21.0-31.0)
[2020-06-06 08:48] LABS: BUN Creatinine Ratio 45.9 (10-20); Calcium 9.4 mg/dl (8.5-10.1); Creatinine Clr Calc Pharmacy 130.1 ml/min; Est GFR (African American) 118.7; Est GFR (Non-African American) 102.4; Phosphorus 2.9 mg/dl (2.5-4.9); Potassium 3.7 mmol/L (3.5-5.1)
[2020-06-06] MEDS ORDERED: PERFLUTREN LIPID MICROSPHERE (DEFINITY) IV ONE (08:55)
[2020-06-06 09:12] LABS: Mean Corpuscular Hgb Conc 30.5 g/dL (32-36)
[2020-06-06] MEDS: HEPARIN SODIUM/DEXTROSE 25,000 UNITS/500 ML BAG IV SCH (10:49)
--- NOTE | 2020-06-06 12:05 | XCELERA ---
[id number]
--- NOTE | 2020-06-06 12:21 | Hospitalist Progress Note ---
Date of Service June 06, 2020 Assessment & Plan (1) Malignant neoplasm metastatic to lumbar spine with unknown primary site: 64 y/o F smoker w/ hx of COPD, CAD, HTN, HLD, AAA, who presents with acute onset of worsening back pain for 1.5 months and was also found to have bilat PE. Metastatic Neoplasm, Pulmonary Source - 44 pack yr smoking hx - 06/02/20 lumbar spine MRI: Multifocal marrow replacement which favors metastatic disease. Exam moderately compromised by motion artifact. - 06/02/20 CTA abd/pelv: 1. Scattered lytic lesions within the spine, pelvis, and ribs consistent with metastatic disease. 2. These result in mild pathologic compression fractures at L3 and L4. 3. There are 2 heterogeneous left adrenal gland nodules with the largest measuring 3.2 cm. These are also consistent with areas of metastatic disease. 4. An indeterminate 5 mm peroneal nodule inferior to the right hepatic lobe. AAA findings as below. - MRI Brain 06/05/2020: small acute/subacute infarcts in R parietal and cerebellar lobes, calvarial metastasis, no evidence of brain mets - pulm following, radiology consult on 06/05/[address] biopsy or breast lump FNA --> awaiting pathology results - onc following: likely NSCLC, appreciate recommendations for brain MRI w/wo contrast to assess for brain metastasis - fentanyl patch increased to 25mg this AM for longer term control - continue Dilaudid 0.5 mg IV Q3H PRN - continue lidocaine patch - tylenol 1000mg scheduled, with Toradol 15mg to use sparingly PRN q6h - To further manage pain control, will do Toradol 15mg q6h scheduled x24 hours then return to PRN use - Monitor CBC qAM -will proceed with palliative discussion once pt's mental status improves -consult radiation oncology for therapeutic radiation Ischemic Strokes -noted on brain MRI as above -bilateral carotid duplex ordered 06/05 --- ~50% narrowing at the distal left ICA, no significant stenosis within the right ICA; mild to moderate stenosis within the external carotid arteries -TTE w/ bubble study ordered 06/06 --- LVEF 65-70%, no regional wall motion abnormalities, borderline concentric LVH; injection of contrast documented no interartial shunt -stroke protocol initiated- (neuro checks, speech, PT/OT eval, neurology consult, etc) -home simvastatin discontinued; started on Atorvastatin 80mg daily. Acute on Chronic Hypoxic Respiratory Failure - suspect secondary to increasing pain medications and subsequent respiratory depression, as well as bilateral PEs (hypercoagulable state of malignancy) - likely component of undiagnosed LAURA as well, given that patient reports sn oring at night and is clinically obese - also chronic COPD, and associated mucus plugging, likely played a role - repeat ABG showed improved hypercapnia - continue duo nebs PRN and BiPAP PRN for increased work of breathing and oxygen desaturations - per Pulm recs: BiPAP QHS Bilateral PE - found on 06/02/20 chest CTA - continue Heparin IV for now - per Pulm recs: Lovenox PO BID weight-based dosing on discharge - will need life-long anticoagulation Normocytic Anemia - stable - likely secondary to chronic disease - trend CBC daily HTN - Continue metoprolol titrate 100 mg daily, lisinopril 5 mg HS, Imdur 60 mg daily, Spironolactone 12.5 mg daily CAD - Continue statin therapy, baby aspirin, beta-rosa, DARIUS HLD - discontinued simvastatin 20 mg -started on Atorvastatin 80mg COPD - follows pulm outpatient - inpatient pulm following for PE and lung malignancy concerns - duo nebs PRN and BiPAP as mentioned above FEN/GI:heart-healthy diet DVT prophylaxis: TEDs, IV Heparin code status: full dispo: medsurg with tele Admission and Anticipated Discharge Date Admission Date: June 02, 2020 Supervising Physician Co-Signing Physician Notes I personally examined the patient and verified all mackay points of history and exam, discussed case, and agree with decision making with Dr Mccauley. has apparently had times where she needs bipap through the day - especially just a little earlier this afternoon - but by the time i see her she is back on oxymask breathing reasonably comfortably. she ntoes that she feels lousy - but her copmlaints center on the back pain and on feeling overwhelemed with the cancer dx, only really agrees to short of breath on directed questioning not a spontaneous complaint. vitals noted fatigued and in pain. heent nc at mmm lungs quiet but cta no r/r/w good effort skin no rashes no pallor or icterus neuro no easily notable focal deficits - see neurology consult for far better detail acute hypoxic respiratory failure - suspect PEs largely contributory, also likely elements of COPD. on heparin gtt for PEs, on inhaled steroid, LAMA, LABA and prn nebs for COPD, no wheeze/hypercapnea so no clear benefit to steroids. ongoing supportive care. suspect some of hypoxia might also be atelectasis from splinted breathing - working on pain control hopefully will help; bipap when needed, O2 and supportive care otherwise lung ca w diffuse mets and back pain -pain meds w caution due to respiratory illness - but under-treating pain likely also leading to hypoxia from splinted breathing -continue fentanyl patch and prn dilauded (add prn narcan) scheduled APAP, lidocaine patch. had not gotten prn toradol - will give scheduled with caution for next 24hrs and follow for response -rads/onc for XRT considerations although this will be more for longer term pain control -await pathology - encouraged pt (and dr mccauley encouraged family as well) patience in this part of the process - they are considering her as dying - and we discussed that while she may end up having unfortunate prognosis, given some cancers being more repsonsive to treatment than others, it is better to have all the information before making final decisions. ongoing empathy and support. CVA - w PE have to harbor concern on paradoxical embolus - hypercoag from malignancy causing VTE and then PFO allowing CVA would fit. echo does not show this - but no benefit to putting her through TORI when she will need indefinite anticoagulation either way otherwise as above Subjective Patient seen with sons and [id number] at bedside. Patient complaining of persistent back pain. Uncomfortable appearing but states that "the pain meds are helping." Pt is very sleepy and only responds with short answers. Addendum: Pt re-evaluated this afternoon. She is sitting up in bed and is more alert. Pt complains of persistent back pain and intermittent SOB. It is noted that she did require BiPap for a short period of time this afternoon due to SOB and O2 saturations in the low to mid 80s. On evaluation at this time. She is w/o BiPap and is using oxymask, breathing without increased respiratory effort. Review of Systems Review of Systems: Constitutional: + generalized weakness. Cardiovascular: Denies chest pain Respiratory: Denies worsening shortness of breath, still on 7L supplemental O2 Gastrointestinal: Denies abdominal pain, nausea, or vomiting Musculoskeletal: + back pain Physical Exam Physical Exam: GENERAL: No acute distress. Well developed and well nourished. Vital signs reviewed as above. RESPIRATORY: Decreased breath sounds diffusely but they are CTAB. No wheezing, rales, or rhonchi. CARDIOVASCULAR: Regular rate and rhythm. No murmurs. ABDOMEN: Soft and non-tender. Normal bowel sounds. EXTREMITIES: No edema. Non-tender. Results & Data Results & Data ([facility]) Vital Signs (Past 12 Hours) Vital Signs Temp Pulse Pulse Resp BP Pulse Ox 06/06/20 11:12 36.8 C 69 18 120/67 93 06/06/20 07:11 36.8 C 92 H 20 153/83 H 92 06/06/20 03:51 36.7 C 25 H 179/82 H 90 06/06/20 03:06 75 20 95
--- NOTE | 2020-06-06 14:44 | Neurology Progress Note ---
Date of Service June 06, 2020 Assessment & Plan (1) Bilateral pulmonary embolism: (2) Abdominal aortic aneurysm (AAA) greater than 39 mm in diameter: (3) History of smoking: (4) HTN (hypertension): (5) CAD (coronary artery disease): (6) Pulmonary cavitary lesion: (7) LAD (lymphadenopathy), mediastinal: (8) Stroke: Angella Mendieta is a 64 yo woman w/ PMH of COPD, CAD, HTN, HLD, known AAA, prior tobacco abuse and subacute worsening of back pain who initially p/t [facility] for progressive back pain, inability to ambulate, urinary incontinence, found to have metastatic lung cancer with bony mets to the ribs and vertebral body at T10, left adrenal met, right hepatic lobe met, extensive mediastinal lymphadenopathy and bilateral PEs. Neurology consulted given acute infarct noted on MRI brain done for staging. Symptom localization: right parietal/right cerebellum Stroke mechanism: most likely hypercoagulable given likely cancer, cannot r/o cardioembolic Stroke WorkUp: - Carotid dopplers: 50% stenosis of distal L ICA, no significant stenosis of R ICA - MRI brain: punctuate infarcts in right cerebellum and right parietal lobes - TTE: EF 65-70%, borderline LVH, no interatrial shunt, LA moderately dilated - Telemetry: pending - A1c: 6.7 - FLP: 12 - Troponin: pending Stroke Management: - Vitals, Neurochecks, NIHSS per unit routine - BP parameters: SBP CAP 180, continue home anti-hypertensives - Consult speech, PT, OT for supportive management - Will corporate counsel concerning stroke education, smoking cessation, healthy diet, physical activity, weight loss - Follow up with PCP for assistance with outpatient goals (BP <130/80, LDL <70, A1c <7) - Follow up in neurology clinic in 6-8 weeks with JOEY Moreno (if she plans on full code going forward, no need for follow up if she transitions to hospice/[employer]) Secondary Stroke Prevention: - Antiplatelet: n/a - Anticoagulation: continue heparin gtt, recommend transitioning to lovenox prior to discharge - Statin: continue home simvastatin for now HTN: - BP parameters, as above - Restart home medications with goal of lowering BP to normotension over next 2- 3 days (unknown SANDWICH HAND) FEN/GI: - Diet: Cardiac HH diet and PO meds given absence of bulbar signs or symptoms - Monitor lytes and replete PRN Glucose Control: - Sliding scale insulin and accuchecks per primary team to avoid hyperglycemia Thank you for this interesting consult. Plan of care was discussed with primary team. Please call with any questions. Admission and Anticipated Discharge Date Admission Date: June 02, 2020 Subjective NAEs overnight. Reports that back pain is better. On BiPAP currently given lower O2 sats. Discussed with her results of testing so far and plan to start lovenox on discharge. Review of Systems Review of Systems: 14 point review of systems completed and negative except as in HPI. Results & Data ([facility]) Vital Signs (Past 12 Hours) Vital Signs Temp Pulse Pulse Resp BP Pulse Ox 06/06/20 11:12 36.8 C 69 18 120/67 93 06/06/20 07:11 36.8 C 92 H 20 153/83 H 92 06/06/20 03:51 36.7 C 25 H 179/82 H 90 06/06/20 03:06 75 20 95 Exam (Neuro) Physical Exam: General Exam: GEN: NAD, sitting in bed. HEENT: No conjunctival injection, no rhinorrhea. CV: RRR, no peripheral edema PULM: Nonlabored respirations on 7L NC. Neuro Exam: MS: Awake and Alert. Oriented to person, being in a hospital, and year but not month. Speech fluent and appropriate without dysarthria or paraphasic errors. Language intact including naming, comprehension, repetition. Cognition and memory mildly impaired. Inattentive. No neglect. CN: Visual oliva full. No extinction to double simultaneous stimuli. Unable to visualize fundi on fundoscopic exam. PERRLA OU. EOMI without nystagmus. Facial sensation intact to LT. Facial muscles full and symmetric. Hearing intact to conversation. Uvula midline with symmetric palatal elevation. Shoulder shrug normal. Tongue midline. MOTOR: Normal bulk and tone. No pronator drift. BUE strength 5/5 at deltoids, biceps, triceps, and hand grasp bilaterally. BLE strength 3/5 at iliopsoas, hamstrings, quadriceps, 4-/5 tibialis anterior, and 5-/5 gastrocnemius bilaterally. REFLEXES: 1+ at biceps, triceps, brachioradialis, 1+ patella and absent Achilles bilaterally. Flexor plantar responses bilaterally. SENSORY: Intact to LT without extinction to double simultaneous stimuli. Vibration intact throughout. COORDINATION: No dysmetria or ataxia on [id number] bilaterally. Normal Ashley bilaterally. GAIT: deferred given physical status/inability to ambulate from bony mets NIH STROKE SCALE 1A. Level of Consciousness (0-3) = 0 1B. LOC Questions (0-2) = 0 1C. LOC Commands (0-2) = 0 2. Best Horizontal Gaze (0-2) = 0 3. Visual Oliva (0-3) = 0 4. Facial Palsy (0-3) = 0 5. Motor Arm Right (0-4) = 0 Left (0-4) = 0 6. Motor Leg Right (0-4) = 1 Left (0-4) = 1 7. Limb Ataxia (0-2) = 0 8. Sensory (0-2) = 0 9. Best Language (0-3) = 0 10. Dysarthria (0-2) = 0 11. Extinction and Inattention (0-2) = 0 NIHSS TOTAL = 2 (due to bony mets affecting lumbar spine) PG Care Time/CCT Total # of Minutes Spent Total Time Spent with Patient: Total time spent is greater than 50% in coordination of care (as documented) at patient's floor/unit and/or counseling patient: Coding Level of Care Code 59116 Subseq Hosp Care Lvl 2 Diagnoses Bilateral pulmonary embolism I26.99 Abdominal aortic aneurysm (AAA) greater than 39 mm in diameter I71.4 History of smoking Z87.891 HTN (hypertension) I10 CAD (coronary artery disease) I25.10 Pulmonary cavitary lesion J98.4 LAD (lymphadenopathy), mediastinal R59.0 Stroke I63.9
[2020-06-06] MEDS: KETOROLAC TROMETHAMINE 15 MG/ML VIAL IV SCH ×2 (14:57→20:43)
[2020-06-06] MEDS: ALBUT/IPRATROP 3MG/0.5MG NEB 3 ML VIAL INH PRN (15:20)
--- NOTE | 2020-06-06 18:54 | Billing Data ---
Date of Service June 06, 2020 Coding Level of Care Code 74748 Subseq Hosp Care Lvl 3
[2020-06-06] MEDS: PANTOprazole 40 MG TAB PO SCH (20:43)
[2020-06-06] MEDS: lisinopriL 5 MG TAB PO SCH (20:43)
[2020-06-07] MEDS: KETOROLAC TROMETHAMINE 15 MG/ML VIAL IV SCH ×2 (02:52→08:46)
[2020-06-07] MEDS: HEPARIN SODIUM/DEXTROSE 25,000 UNITS/500 ML BAG IV SCH ×2 (02:52→19:55)
[2020-06-07] MEDS: ACETAMINOPHEN 500 MG TAB PO SCH ×3 (06:22→21:40)
[2020-06-07 07:27] LABS: Basophils # (auto) 0.02 K/uL (0-0.2); Basophils % (auto) 0.2 %; Hemoglobin 9.3 g/dL (12.0-16.0); Immature Granulocytes # (auto) 0.12 K/uL (0.00-0.02); Immature Granulocytes % (auto) 1.2 %; Lymphocytes # (auto) 0.88 K/uL (1.2-3.4); Lymphocytes % (auto) 8.7 %; Mean Corpuscular Hemoglobin 26.1 pg (25-34); Mean Corpuscular Volume 87.1 fL (80-100); Mean Platelet Volume 9.7 fL (7.4-10.4); Monocytes # (auto) 0.91 K/uL (0.11-0.59); Monocytes % (auto) 8.9 %; Neutrophils # (auto) 8.14 K/uL (1.4-6.5); Platelet Count 382 K/uL (130-400); RDW Coefficient of Variation 15.9 % (11.5-14.5); Red Blood Count 3.56 M/uL (4.2-5.4); White Blood Count 10.17 K/uL (4.8-10.8)
[2020-06-07 07:54] LABS: BUN Creatinine Ratio 52.2 (10-20); Creatinine Clr Calc Pharmacy 153.8 ml/min; Est GFR (African American) 125.4; Est GFR (Non-African American) 108.2; Potassium 3.6 mmol/L (3.5-5.1)
[2020-06-07] MEDS: CALCIUM CARBONATE 1250MG TAB PO SCH (08:46)
[2020-06-07] MEDS: ISOSORBIDE MONO EXTENDED REL 60 MG TABCR PO SCH (08:46)
[2020-06-07] MEDS: METOPROLOL TARTRATE 100 MG TAB PO SCH (08:46)
[2020-06-07] MEDS: ATORVASTATIN 40 MG TAB PO SCH (08:46)
[2020-06-07] MEDS: ASPIRIN 81 MG ECTAB PO SCH (08:46)
[2020-06-07] MEDS: CHOLECALCIFEROL 1,000 UNITS 25 MCG TAB PO SCH (08:46)
[2020-06-07] MEDS: SPIRONOLACTONE 12.5 MG TAB PO SCH (08:47)
[2020-06-07] MEDS: FLUTICASONE FUROATE 100MCG 14 PUFFS/INHALER INH SCH (08:47)
[2020-06-07] MEDS: UMECLIDINIUM/VILANTEROL 62.5/25MCG 7 PUFFS/INHALER INH SCH (08:47)
[2020-06-07] MEDS: LIDOCAINE 5% 1 PATCH TD SCH (08:47)
[2020-06-07] MEDS: CHECK FENTANYL PATCH PLACEMENT SCH ×3 (08:48→22:54)
[2020-06-07] MEDS: POLYETHYLENE (MIRALAX) 17 GM PACK PO SCH (08:51)
[2020-06-07] MEDS: bisacodyL 5 MG TABEC PO SCH (08:51)
--- NOTE | 2020-06-07 09:00 | Progress Notes ---
DATE: 06/07/2020 DIAGNOSES: 1. Metastatic carcinoma, primary unknown, suspected nonsmall cell lung. 2. Pulmonary embolism. 3. Leukocytosis. 4. Normocytic normochromic anemia. 5. Hypoalbuminemia. 6. Intractable skeletal pain, attributable to metastatic disease. 7. Anorexia. SUBJECTIVE: The patient was seen and examined at bedside. She remains quite uncomfortable. Recommend palliative radiation oncology consult to treat painful bony areas. Appreciate pulmonary's input and there is suggestion of a radiographic guided biopsy moving forward to a stat order to confirm diagnosis. MRI of the brain was done as recommended revealing no evidence of intracerebral metastatic disease. She has considerable tumor burden throughout the rest of her body. I have asked the hospitalist to consult general surgery to place a MediPort in anticipation of salvage chemotherapy. We will await formal tissue diagnosis. The patient remains on anticoagulation for newly diagnosed bilateral PE. Again, her main issue right now appears to be pain control and again radiation consult is appropriate. OBJECTIVE: GENERAL: A very pleasant but somewhat uncomfortable 64-year-old female patient in no acute distress. VITAL SIGNS: Temperature 36.4, pulse 83, respiratory rate 24, blood pressure 161/76. SKIN: Without rash or lesion. HEENT: Oral mucosa without erythema or ulceration. HEART: Regular rate and rhythm. LUNGS: Scattered rhonchi heard in all oliva. ABDOMEN: Soft, nontender, nondistended. EXTREMITIES: No clubbing, cyanosis or edema. NEUROLOGICALLY: She is awake, alert and oriented x3. Cranial nerves are grossly intact. LABORATORY DATA: WBC count 10,170, hemoglobin 9.3, platelet count 382,000. PTT 55 seconds on heparin. Sodium 140, potassium 3.6, chloride 97, carbon dioxide 35, BUN 23, creatinine 0.44. IMPRESSION: 1. Metastatic carcinoma, primary unknown. 2. Right-sided breast mass. 3. Bilateral pulmonary embolism. 4. Anemia. 5. Chronic obstructive pulmonary disease. PLAN: In summary, the patient is a pleasant 64-year-old female with disseminated metastatic disease including lungs, bony skeletal and adrenal metastatic disease. MRI of the brain was negative, fortunately. Her main issue is that of a nutrition and pain control. Strongly recommend radiation oncology consult to provide radiation to painful bony areas. I have also recommended general surgery be consulted for MediPort insertion. Apparently biopsy was carried out with pathology pending. Again, even in light of her breast mass, I suspect she suffers from metastatic nonsmall cell lung cancer and will anticipate in plan for salvage chemotherapy once medically stable. Her performance status is certainly not the best and her prognosis is quite poor. The patient wishes to consider a salvage treatment options. We will continue to follow her during hospital stay. I have nothing further to add at the moment. Thank you again for allowing me to participate in her care.
--- NOTE | 2020-06-07 10:48 | Radiation OncologyConsultation ---
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 Mendieta is a 64-year-old female with multiple comorbidities and a previous smoking history who now presents with metastatic adenocarcinoma of unknown primary (preliminary diagnosis). Pathology is continuing to complete further molecular stains and testing to determine the origin of the cancer. The patient does have metastatic disease involving the lumbar spine and she is symptomatic. Her pain is partially controlled with pain medication. I am now seeing the patient in consultation to discuss the role of radiation therapy. Recommendation: Palliative external beam radiation therapy to lumbar spine. Plan: 1. CT simulation today for treatment planning for radiation therapy. Patient may start radiation therapy in the inpatient setting or outpatient setting. 2. Medical oncology consultation after diagnosis has been finalized from pathology. 3. Continue all other care as per primary medical team. Rationale/Explanation of Treatment: I did explain the indications, alternatives, benefits, risks and side effects of external beam radiation therapy. I did explain the most common side effects including, but not limited to, skin erythema, skin breakdown, hyperpigmentation, telangiectasia, wound complications, perianal fistula development, fistula formation, bowel obstruction, bowel perforation, vaginal dryness, vaginal stenosis, dyspareunia, dysuria, increased urinary frequency, urgency, diarrhea, constipation, melena, hematochezia, hematuria, radiation cystitis, radiation proctitis, fatigue, decreased blood counts, wound complications from surgery, rectal incontinence, secondary malignancy development. I did explain the procedures and daily process of radiation therapy. The patient understands and would be willing to consent to treatment. The patient had multiple questions which were answered to her full satisfaction. Thank you for allowing us to participate in the care of this patient. This chart was completed in part utilizing [employer] Speech Voice Recognition software. Attempts were made to minimize the grammatical errors, random word insertions, pronoun errors and incomplete sentences. Any formal questions or concerns about the content, text or information contained within the body of this dictation should be directly addressed to the provider for clarification. Sarkis Narvaez MD Department of Radiation Oncology [facility] Present on Admission?: No History of Present Illness Attending Physician: Kashif Downing, History of Present Illness 06/02/2020. 64-year-old female with PMHx of COPD, CAD, HTN, HLD, AAA, significant smoking history of 45 years 1 PPD, quit 1.5 months ago, who presents with acute onset of worsening back pain within the last 1.5 months. Admitted to hospital for further work-up and evaluation. 06/02/2020. CT of abdomen/pelvis. IMPRESSION: 1. Scattered lytic lesions within the spine, pelvis, and ribs consistent with metastatic disease. 2. These result in mild pathologic compression fractures at L3 and L4. 3. There are 2 heterogeneous left adrenal gland nodules with the largest measuring 3.2 cm. These are also consistent with areas of metastatic disease. 4. An indeterminate 5 mm peroneal nodule inferior to the right hepatic lobe. This bears watching on future examinations. 5. Mild aneurysmal dilatation of the descending thoracic aorta measuring up to 4.3 cm in diameter. 6. Additional findings as described above. 06/02/2020. MRI of lumbar spine. IMPRESSION: 1. Multifocal marrow replacement which favors metastatic disease. Exam moderately compromised by motion artifact. 2. Mild loss of height of the L3, L4 and L5 vertebral bodies which may reflect pathologic fractures. Apparent anterior epidural abnormality at the L3 level, difficult to assess on this exam. Approximate moderate narrowing of the central canal with mass effect upon the thecal sac. The anterior epidural abnormality could reflect hemorrhage, tumor extension or artifact. A repeat examination with sedation might be considered. Findings discussed with Carolina Swanson at time of dictation. 3. Mildly thickened endometrium on brick layer images. This could be correlated with history of postmenopausal bleeding and nonemergent pelvic ultrasound. 06/05/2020. MRI brain. IMPRESSION: 1. Small foci of restricted water diffusion within the right cerebral hemisphere and right parietal lobe, consistent with small acute/subacute infarcts. 2. Enhancing calvarial lesions demonstrating restricted water diffusion, consistent with calvarial metastasis 3. No evidence of brain metastasis. 06/05/2020. Ultrasound-guided biopsy of anterior chest wall nodule. Preliminary diagnosis is adenocarcinoma of unknown primary. Final pathologic diagnosis is pending. Currently, the patient continues to have low back pain which is partially managed by pain medication. She states she does have weakness in the bilateral lower extremities due to her pain. She denies any focal neurologic deficits. Allergies Allergy/AdvReac Type Severity Reaction Status Date / Time No Known Drug Allergies Allergy Unknown Verified 06/02/20 12:29 Home Medications Home Medications Medication Instructions Recorded Confirmed Type albuterol sulfate 90 mcg/actuation 2 puff INHALATION Q4 PRN #1 gm 06/28/19 06/02/20 History aerosol inhaler aspirin 81 mg tablet,delayed 81 mg PO QAM tab 06/28/19 06/02/20 History release ipratropium 0.5 mg-albuterol 3 mg 3 ml INHALATION .COMPLEX ml 06/28/19 06/02/20 History (2.5 mg base)/3 mL nebulization soln isosorbide mononitrate 60 mg 60 mg PO QAM tab 06/28/19 06/02/20 History tablet,extended release 24 hr lisinopril 5 mg tablet 5 mg PO HS #60 tab 06/28/19 06/02/20 History metoprolol tartrate 100 mg tablet 100 mg PO QAM tab 06/28/19 06/02/20 History simvastatin 20 mg tablet 20 mg PO HS #90 tab 06/28/19 06/02/20 History pantoprazole 40 mg tablet,delayed 40 mg PO HS 12/27/19 06/02/20 History release calcium carbonate [Calcium 600] 600 mg PO QAM 06/02/20 06/02/20 History cholecalciferol (vitamin D3) 2,000 unit PO QAM 06/02/20 06/02/20 History [Vitamin D3] vzzcwhsrwom-cyufljpya-pisswaer 1 inh INHALATION QAM 06/02/20 06/02/20 History [Trelegy Ellipta] furosemide 40 mg PO QAM 06/02/20 06/02/20 History nitroglycerin 0.4 mg SUBLINGUAL UD PRN 06/02/20 06/02/20 History spironolactone 12.5 mg PO QAM 06/02/20 06/02/20 History Patient History Medical History History of smoking Social History Smoking Status: Former smoker Age Started Using Tobacco: 15; Age Quit Using Tobacco: 63; packs per day: 1; Number of Years Since Quit: 1; Second Hand Exposure: No; Hx Alcohol Use: No Hx Substance Use: No Preferred Language: [place] Islander Communication Ability: Effective Visual Impairment: No Limitations Hearing Ability: Normal Amplifier Mechanic Required: No Beliefs That Will Affect Care: None marital status: Current Living Situation: Spouse current occupational status: employed Feels Safe at Home: Yes Safety Concerns: Feels Safe At This Time Childhood Exposure to Second-Hand Smoke: Yes caffeine: Yes Dental Care, Regularly: Yes Physical Activity Frequency: Does not Exercise Seatbelt Use: always Sunscreen Use: No Do you think of yourself as: straight/heterosexual Sexual Activity: has been sexually active within the last 12 months Review of Systems Review of Systems: All systems reviewed & are unremarkable except as noted in HPI & below Physical Exam Constitutional: + ill appearing, + obese, + disheveled and + in distress Eyes: PERRL, conjunctivae normal, anicteric sclerae Neck: trachea midline, no thyromegaly Respiratory: Auscultation: + diminished lung sounds Skin: no rashes, warm and dry Psychiatric: A+Ox3, euthymic affect Lymphatic: no cervical or axillary lymphadenopathy Time Spent Attending I spent 10 minutes in preparation for this consultation including reviewing all the clinical records, reviewing laboratory studies, pathology reports and imaging results. I spent 20 minutes with direct face to face interaction with the patient and/or family including performing a physical exam and answering all questions. I spent 10 minutes documenting this patient's visit. I spent 5 minutes speaking with the following providers regarding this patient's care: Dr. Herrera and primary hospital team resident.
--- NOTE | 2020-06-07 11:53 | XRay Report ---
XR chest 1V portable CLINICAL HISTORY: shortness of breath COMPARISON STUDY: 06/05/2020 FINDINGS: The heart is mildly enlarged. There is elevation of interstitium suggesting mild pulmonary vascular congestion. There is a 2.5 cm right midlung zone pulmonary nodule. As a prior study, the pat ient has developed left lower lobe airspace opacities, atelectasis versus pneumonia. There is a suspe cted small left pleural effusion[ IMPRESSION: 1. 25 mm right midlung zone pulmonary nodule 2. Suspected small left pleural effusion with interval development of left lower lobe airspace opacit ies, pneumonia versus atelectasis 3. Suspected mild vascular congestion/fluid overload ACT 112: Negative or not required by law. Electronically signed by: Luis Babcock M.D. 06/07/2020 11:52 AM
[2020-06-07] MEDS: fentaNYL 25 MCG/HR TDSY TD SCH (12:24)
--- NOTE | 2020-06-07 12:36 | Pulmonology Progress Note ---
Date of Service June 07, 2020 Assessment & Plan (1) LAD (lymphadenopathy), mediastinal: Impression: 64-year-old female with what appears to be widely metastatic cancer of unknown primary although lung primary certainly would be high on the differential. She has concomitant thromboembolic disease as well as strokes, with no evidence of PFO or ASD to document paradoxical emboli. she has underlying hypercarbic respiratory failure likely due to combinations of obesity hypoventilation syndrome and potential obstructive lung disease. Recommendations: 1. Widely metastatic cancer: Agree with radiation oncology consultation for palliation of the patient's bony mets. Medical oncology is following. The patient will likely require PET scanning in the outpatient setting. 2. Hypercarbic respiratory failure: Patient has declined BiPAP and only agrees to use this in situations of significant respiratory distress. Could consider outpatient polysomnography to document sleep disordered breathing. Recommendations remain the same that she used BiPAP at night and this was reinforced with the patient. Her follow-up blood gas from the showed improvement in her PCO2 down to 44. 3. PE: Continue anticoagulation under the direction of medical oncology. 4. Recommend palliative care consultation to establish goals of therapy in this patient with what appears to be widely metastatic cancer. 5. Obstructive lung disease: Patient is established and follows with JOEY Chong in the outpatient setting. Her last PFT performed OLIMPIA Jeffry February 2018 showed an FEV1 of 1.01 L or 41% predicted with an FVC of 1.99 L or 66% predicted with a ratio of 51. Bronchodilators did not improve air flows. Lung volumes demonstrated a total lung capacity of 92% predicted and diffusion capacity was markedly reduced at 49% predicted. Pattern was consistent with severe airflow obstruction without bronchodilator response and decreased diffusion capacity. She is currently on Anoro and fluticasone. She does not appear bronchospastic currently. No indication for steroids. We will add Mucinex to her regiment. If she continues to have issues expectorating phlegm, could consider the additio n of a flutter valve and or nebulized hypertonic saline. Patient appears to be stable with regards to her COPD and now a tissue diagnosis has been obtained. Pulmonary was primarily consulted to consider bronchoscopy. Patient does not require bronchoscopy at this point time. We remain available t o assist with management this patient if needed however this point time it seems like her pulmonary issues are being well managed by her primary service. We will sign off. Feel free to contact us if we can be of additional assistance (2) Malignant neoplasm metastatic to lumbar spine with unknown primary site: (3) Pulmonary cavitary lesion: Admission and Anticipated Discharge Date Admission Date: June 02, 2020 Subjective Patient states her breathing is awful. She reports cough with some sputum production. She reports wheezing and shortness of breath. She is not used her BiPAP at night as she states it made things worse. She is not having fevers chills or night sweats. Her pain is better controlled. She was seen by radiation oncology and there are plans in place to initiate palliative radiation therapy for her osseous mets Review of Systems Review of Systems: All systems reviewed & are unremarkable except as noted in HPI & below Physical Exam Constitutional: + ill appearing Cardiovascular: Rate/Rhythm: regular rate and regular rhythm Heart Sounds: normal S1 and normal S2; no murmur Extremities: + pedal edema (trace) Gastrointestinal (Abdomen): Inspection/Auscultation: abdomen normal to inspection and normal bowel sounds; abdomen not distended Percussion/Palpation: + abdomen tender (mild suprapubic tenderness); no guarding Results & Data Results & Data ([facility]) Vital Signs (Past 12 Hours) Vital Signs Temp Pulse Pulse Resp BP BP Pulse Ox 06/07/20 11:30 36.5 C 69 20 132/79 95 06/07/20 07:09 36.4 C L 83 24 161/76 H 94 06/07/20 06:14 94 06/07/20 02:43 36.5 C 81 16 158/81 H 96 Laboratory Results 06/07/20 06:57 06/07/20 06:57 Discussed with pathology. The fine-needle aspirate of the subcutaneous xiphoid met demonstrates probable adenocarcinoma but does not clearly stain for lung or breast origin. 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
--- NOTE | 2020-06-07 12:52 | Hospitalist Progress Note ---
Date of Service June 07, 2020 Assessment & Plan (1) Malignant neoplasm metastatic to lumbar spine with unknown primary site: 64 y/o F smoker w/ hx of COPD, CAD, HTN, HLD, AAA, who presents with acute onset of worsening back pain for 1.5 months and was also found to have bilat PE. Metastatic Neoplasm, Pulmonary Source - 44 pack yr smoking hx - 06/02/20 lumbar spine MRI: Multifocal marrow replacement which favors metastatic disease. Exam moderately compromised by motion artifact. - 06/02/20 CTA abd/pelv: 1. Scattered lytic lesions within the spine, pelvis, and ribs consistent with metastatic disease. 2. These result in mild pathologic compression fractures at L3 and L4. 3. There are 2 heterogeneous left adrenal gland nodules with the largest measuring 3.2 cm. These are also consistent with areas of metastatic disease. 4. An indeterminate 5 mm peroneal nodule inferior to the right hepatic lobe. AAA findings as below. - MRI Brain 06/05/2020: small acute/subacute infarcts in R parietal and cerebellar lobes, calvarial metastasis, no evidence of brain mets - pulm following, radiology consult on 06/05/[address] biopsy or breast lump FNA --> awaiting pathology results - onc following: likely NSCLC, appreciate recommendations for brain MRI w/wo contrast to assess for brain metastasis - fentanyl patch increased to 25mg this AM for longer term control - continue Dilaudid 0.5 mg IV Q3H PRN - continue lidocaine patch - tylenol 1000mg scheduled, with Toradol 15mg to use sparingly PRN q6h - To further manage pain control, trialed Toradol 15mg q6h scheduled x24 hours - Pt states that this did not significantly improve the pain - Will return to Toradol q6h PRN use - Monitor CBC qAM -will proceed with palliative discussion once pt's mental status improves -consult radiation oncology for therapeutic radiation - CXR ordered today for persistent SOB Chest burning and dysphagia - Will order barium swallow for further evaluation - NPO starting at midnight to prepare for this study tomorrow - Will change daily pantoprazole to BID frequency Ischemic Strokes -noted on brain MRI as above -bilateral carotid duplex ordered 06/05 --- ~50% narrowing at the distal left ICA , no significant stenosis within the right ICA; mild to moderate stenosis within the external carotid arteries -TTE w/ bubble study ordered 06/06 --- LVEF 65-70%, no regional wall motion abnormalities, borderline concentric LVH; injection of contrast documented no interartial shunt -stroke protocol initiated- (neuro checks, speech, PT/OT eval, neurology consult, etc) -home simvastatin discontinued; started on Atorvastatin 80mg daily. Acute on Chronic Hypoxic Respiratory Failure - suspect secondary to increasing pain medications and subsequent respiratory depression, as well as bilateral PEs (hypercoagulable state of malignancy) - likely component of undiagnosed LAURA as well, given that patient reports snoring at night and is clinically obese - also chronic COPD, and associated mucus plugging, likely played a role - repeat ABG showed improved hypercapnia - continue duo nebs PRN and BiPAP PRN for increased work of breathing and oxygen desaturations - per Pulm recs: BiPAP QHS Bilateral PE - found on 06/02/20 chest CTA - continue Heparin IV for now - per Pulm recs: Lovenox PO BID weight-based dosing on discharge - will need life-long anticoagulation Normocytic Anemia - stable - likely secondary to chronic disease - trend CBC daily HTN - Continue metoprolol titrate 100 mg daily, lisinopril 5 mg HS, Imdur 60 mg daily, Spironolactone 12.5 mg daily CAD - Continue statin therapy, baby aspirin, beta-rosa, DARIUS HLD - discontinued simvastatin 20 mg -started on Atorvastatin 80mg COPD - follows pulm outpatient - inpatient pulm following for PE and lung malignancy concerns - duo nebs PRN and BiPAP as mentioned above FEN/GI:heart-healthy diet; will start NPO at midnight to prepare for barium swallow study DVT prophylaxis: TEDs, IV Heparin code status: full dispo: medsurg with tele Admission and Anticipated Discharge Date Admission Date: June 02, 2020 Supervising Physician Co-Signing Physician Notes I personally examined the patient and verified all mackay points of history and exam, discussed case, and agree with decision making with Dr Piña. breathing still feels terrible. on directed questioning she then notes that this is about how her breathing has felt for a long time. back pain still bad. for XRT sim. vitals noted fatigued and in pain. heent nc at mmm lungs better air entry cta no r/r/w good effort skin no rashes no pallor or icterus neuro no easily notable focal deficits - see neurology consult for far better detail acute hypoxic respiratory failure - suspect PEs largely contributory acutely, also likely elements of COPD dominate the chronic picture. on heparin gtt for PEs, on inhaled steroid, LAMA, LABA and prn nebs for COPD, no wheeze/hypercapnea so no clear benefit to steroids. ongoing supportive care. suspect some of hypoxia might also be atelectasis from splinted breathing - better pain control hopefully will help; bipap when needed, O2 and supportive care otherwise lung ca w diffuse mets and back pain -pain meds w caution due to respiratory illness - but under-treating pain likely also leading to hypoxia from splinted breathing -continue fentanyl patch and prn dilauded, scheduled APAP, lidocaine patch. toradol objectively seems to have helped - although her pain is subjectively the same she looks brighter today. to not risk NSAID ADRs will drop from scheduled to prn but d/w nursing to be ok w being liberal w PRN -rads/onc for XRT -- although this will be more for longer term pain control -await pathology - ongoing empathy and support. CVA - w PE have to harbor concern on paradoxical embolus - hypercoag from malignancy causing VTE and then PFO allowing CVA would fit. echo does not show this - but no benefit to putting her through TORI when she will need indefinite anticoagulation either way. continue anticoagulation otherwise as above Subjective Patient seen and evaluated in room today. She was found to be sitting upright in bed, watching TV, resting comfortably in no acute distress. She is more conversive today and able to explain more of her symptoms. Pt does complain of persistent back pain. She also complains of SOB that is unchanged from yesterday; she continues to use 7L O2 via oxymask. Additionally, patient co mplains today of a burning chest pain; she reports that this has been occurring for several months . The burning chest pain is associated with dysphagia; this only occurs with bites of food and she has had no difficulty swallowing liquids. Pt has not had any choking episodes nor has she coughed to the point of spitting food back up. She has not been evaluated as outpatient for this complaint of dy sphagia or chest burning. Review of Systems Review of Systems: Constitutional: + generalized weakness. HENT: + difficulty swallowing Cardiovascular: + chest pain (burning) Respiratory: + persistent shortness of breath, still on 7L supplemental O2 Gastrointestinal: Denies abdominal pain, nausea, or vomiting Musculoskeletal: + back pain Physical Exam Physical Exam: GENERAL: No acute distress. Well developed and well nourished. Vital signs reviewed as above. RESPIRATORY: Diffuse rhonci throughout b/l lungs. CHEST WALL: No tenderness to palpation. CARDIOVASCULAR: Regular rate and rhythm. No murmurs. ABDOMEN: Soft and non-tender. Normal bowel sounds. EXTREMITIES: 1+ edema b/l. Mild bilateral LE TTP. Results & Data Results & Data ([facility]) Vital Signs (Past 12 Hours) Vital Signs Temp Pulse Pulse Resp BP BP Pulse Ox 06/07/20 11:30 36.5 C 69 20 132/79 95 06/07/20 07:09 36.4 C L 83 24 161/76 H 94 06/07/20 06:14 94 06/07/20 02:43 36.5 C 81 16 158/81 H 96
[2020-06-07] MEDS: KETOROLAC TROMETHAMINE 15 MG/ML VIAL IV PRN (18:08)
--- NOTE | 2020-06-07 18:24 | Billing Data ---
Date of Service June 07, 2020 Coding Level of Care Code 81705 Subseq Hosp Care Lvl 3
[2020-06-07] MEDS: PANTOprazole 40 MG TAB PO SCH (19:48)
[2020-06-07] MEDS: lisinopriL 5 MG TAB PO SCH (19:49)
[2020-06-07] MEDS: guaiFENesin 600 MG TABCR PO SCH (21:40)
[2020-06-07] MEDS: HYDROmorphone INJ 0.5 MG/0.5 ML SYR IV PRN (21:44)
[2020-06-08] MEDS: KETOROLAC TROMETHAMINE 15 MG/ML VIAL IV PRN ×2 (01:23→20:58)
[2020-06-08] MEDS: ONDANSETRON INJ 2 MG/ML 2 ML VIAL IV PRN ×2 (03:10→12:52)
[2020-06-08] MEDS: ACETAMINOPHEN 500 MG TAB PO SCH ×3 (06:08→19:57)
[2020-06-08 07:06] LABS: Basophils # (auto) 0.03 K/uL (0-0.2); Basophils % (auto) 0.3 %; Eosinophils # (auto) 0.09 K/uL (0-0.5); Eosinophils % (auto) 0.9 %; Hematocrit (blood only) 29.2 % (37-47); Hemoglobin 8.7 g/dL (12.0-16.0); Immature Granulocytes # (auto) 0.23 K/uL (0.00-0.02); Immature Granulocytes % (auto) 2.2 %; Lymphocytes % (auto) 7.7 %; Mean Corpuscular Hemoglobin 26.2 pg (25-34); Mean Corpuscular Hgb Conc 29.8 g/dL (32-36); Mean Platelet Volume 9.2 fL (7.4-10.4); Monocytes # (auto) 1.08 K/uL (0.11-0.59); Monocytes % (auto) 10.4 %; Neutrophils # (auto) 8.17 K/uL (1.4-6.5); Neutrophils % (auto) 78.5 %; Platelet Count 366 K/uL (130-400); RDW Coefficient of Variation 15.8 % (11.5-14.5); RDW Standard Deviation 50.9 fL (36.4-46.3); Red Blood Count 3.32 M/uL (4.2-5.4)
[2020-06-08 07:22] LABS: Partial Thromboplastin Ratio 2.9
[2020-06-08 07:23] LABS: Partial Thromboplastin Time 82.2 Seconds (21.0-31.0)
[2020-06-08 07:37] LABS: BUN Creatinine Ratio 38.8 (10-20); Calcium 9.3 mg/dl (8.5-10.1); Creatinine Clr Calc Pharmacy 149.6 ml/min; Est GFR (African American) 124.5; Est GFR (Non-African American) 107.4; Potassium 3.8 mmol/L (3.5-5.1)
[2020-06-08] MEDS: HYDROmorphone INJ 0.5 MG/0.5 ML SYR IV PRN ×2 (07:51→12:52)
[2020-06-08] MEDS: CHECK FENTANYL PATCH PLACEMENT SCH ×3 (07:54→23:11)
[2020-06-08] MEDS: FLUTICASONE FUROATE 100MCG 14 PUFFS/INHALER INH SCH (08:59)
[2020-06-08] MEDS: UMECLIDINIUM/VILANTEROL 62.5/25MCG 7 PUFFS/INHALER INH SCH (08:59)
[2020-06-08] MEDS: guaiFENesin 600 MG TABCR PO SCH ×2 (09:00→19:58)
[2020-06-08] MEDS: POLYETHYLENE (MIRALAX) 17 GM PACK PO SCH (09:00)
[2020-06-08] MEDS: LIDOCAINE 5% 1 PATCH TD SCH (09:00)
[2020-06-08] MEDS: HEPARIN SODIUM/DEXTROSE 25,000 UNITS/500 ML BAG IV SCH ×4 (09:48→14:42)
--- NOTE | 2020-06-08 09:51 | Hospitalist Progress Note ---
Date of Service June 08, 2020 Assessment & Plan (1) Malignant neoplasm metastatic to lumbar spine with unknown primary site: 64 y/o F smoker w/ hx of COPD, CAD, HTN, HLD, AAA, who presents with acute onset of worsening back pain for 1.5 months and was also found to have bilat PE. Metastatic Neoplasm, Pulmonary Source - 44 pack yr smoking hx - 06/02/20 lumbar spine MRI: Multifocal marrow replacement which favors metastatic disease. Exam moderately compromised by motion artifact. - 06/02/20 CTA abd/pelv: 1. Scattered lytic lesions within the spine, pelvis, and ribs consistent with metastatic disease. 2. These result in mild pathologic compression fractures at L3 and L4. 3. There are 2 heterogeneous left adrenal gland nodules with the largest measuring 3.2 cm. These are also consistent with areas of metastatic disease. 4. An indeterminate 5 mm peroneal nodule inferior to the right hepatic lobe. AAA findings as below. - MRI Brain 06/05/2020: small acute/subacute infarcts in R parietal and cerebellar lobes, calvarial metastasis, no evidence of brain mets - pulm following, radiology consult on 06/05/[address] biopsy or breast lump FNA - onc following: likely NSCLC, appreciate recommendations for brain MRI w/wo contrast to assess for brain metastasis - fentanyl patch increased to 25mg this AM for longer term control - continue Dilaudid 0.5 mg IV Q3H PRN - continue lidocaine patch - tylenol 1000mg scheduled, with Toradol 15mg to use sparingly PRN q6h - To further manage pain control, trialed Toradol 15mg q6h scheduled x24 hours - Pt states that this did not significantly improve the pain - Will return to Toradol q6h PRN use - Will start patient on meloxicam 7.5mg BID for pain control - Monitor CBC qAM -will proceed with palliative discussion once pt's mental status improves -consult radiation oncology for therapeutic radiation - CXR ordered today for persistent SOB - pathology results with adenocarcinoma, undifferentiated --> will discuss case with oncology and consider ? palliative Acute Chest Pain - EKG ordered: no acute ST or T wave changes - Troponin negative Chest burning and dysphagia - Will order barium swallow for further evaluation - NPO starting at midnight to prepare for this study tomorrow - Will change daily pantoprazole to BID frequency Ischemic Strokes -noted on brain MRI as above -bilateral carotid duplex ordered 06/05 --- ~50% narrowing at the distal left ICA, no significant stenosis within the right ICA; mild to moderate stenosis within the external carotid arteries -TTE w/ bubble study ordered 06/06 --- LVEF 65-70%, no regional wall motion abnormalities, borderline concentric LVH; injection of contrast documented no interartial shunt -stroke protocol initiated- (neuro checks, speech, PT/OT eval, neurology consult, etc) -home simvastatin discontinued; started on Atorvastatin 80mg daily. Acute on Chronic Hypoxic Respiratory Failure - suspect secondary to increasing pain medications and subsequent respiratory depression, as well as bilateral PEs (hypercoagulable state of malignancy) - likely component of undiagnosed LAURA as well, given that patient reports sno ring at night and is clinically obese - also chronic COPD, and associated mucus plugging, likely played a role - repeat ABG showed improved hypercapnia - continue duo nebs PRN and BiPAP PRN for increased work of breathing and oxygen desaturations - per Pulm recs: BiPAP QHS Bilateral PE - found on 06/02/20 chest CTA - continue Heparin IV for now - per Pulm recs: Lovenox PO BID weight-based dosing on discharge - will need life-long anticoagulation Normocytic Anemia - stable - likely secondary to chronic disease - trend CBC daily HTN - Continue metoprolol titrate 100 mg daily, lisinopril 5 mg HS, Imdur 60 mg daily, Spironolactone 12.5 mg daily CAD - Continue statin therapy, baby aspirin, beta-rosa, DARIUS HLD - discontinued simvastatin 20 mg -started on Atorvastatin 80mg COPD - follows pulm outpatient - inpatient pulm following for PE and lung malignancy concerns - duo nebs PRN and BiPAP as mentioned above FEN/GI:heart-healthy diet; will start NPO at midnight to prepare for barium swallow study DVT prophylaxis: TEDs, IV Heparin code status: full dispo: medsurg with tele Admission and Anticipated Discharge Date Admission Date: June 02, 2020 Supervising Physician Co-Signing Physician Notes I personally examined the patient and verified all mackay points of history and exam, discussed case, and agree with decision making with Dr Piña. breathing feeling better, pain seems a little better controlled. smiling and visiting with a friend. vitals noted fatigued and in pain. heent nc at mmm breathing unlabored no accessory msucles good effort skin no rashes no pallor or icterus acute hypoxic respiratory failure - suspect PEs largely contributory acutely, also likely elements of COPD dominate the chronic picture. on heparin gtt for PEs, on inhaled steroid, LAMA, LABA and prn nebs for COPD, no wheeze/hypercapnea so no clear benefit to steroids. ongoing supportive care. showing improvement! lung ca w diffuse mets and back pain -pain meds w caution due to respiratory illness - but under-treating pain likely also leading to hypoxia from splinted breathing -continue fentanyl patch and prn dilauded, scheduled APAP, lidocaine patch. toradol helped but concerned with running it indefinitely - will give trial to meloxicam for better safety profile -rads/onc for XRT -- started -pathology needs to be discussed w oncology before deciding on next steps. CVA - w PE have to harbor concern on paradoxical embolus - hypercoag from malignancy causing VTE and then PFO allowing CVA would fit. echo does not show this - but no benefit to putting her through TORI when she will need indefinite anticoagulation either way. continue anticoagulation as above otherwise as above Subjective Patient seen and evaluated in room today. Patient continues to use oxymask, currently at 5 L/min. She complains of persistent SOB. Additionally, patient complains of acute left sided CP; she notes that this started overnight. Patient rates the pain at a 8/10. She can only describe the pain as "a pain." Patient notes that this is different than her complaint of burning chest pain yesterday, but the current chest pain is similar to her current back pain. She had two BMs yesterday. Pt denies fever, chills, abdominal pain, nausea, vomiting, leg pain, or leg swelling. Review of Systems Review of Systems: Constitutional: + generalized weakness. HENT: + difficulty swallowing Cardiovascular: + chest pain Respiratory: + persistent shortness of breath, still on 5L supplemental O2 Gastrointestinal: Denies abdominal pain, nausea, or vomiting Musculoskeletal: + back pain Physical Exam Physical Exam: GENERAL: No acute distress. Well developed and well nourished. Vital signs reviewed as above. RESPIRATORY: Decreased breath sounds but lungs are clear without rhonci or rales. CHEST WALL: No tenderness to palpation. CARDIOVASCULAR: Regular rate and rhythm. No murmurs. ABDOMEN: Soft and non-tender. Normal bowel sounds. EXTREMITIES: 1+ edema b/l. Mild bilateral LE TTP. Results & Data Results & Data ([facility]) Vital Signs (Past 12 Hours) Vital Signs Temp Pulse Resp BP Pulse Ox 06/08/20 07:58 36.6 C 93 H 22 181/78 H 94 06/08/20 04:22 176/83 H 06/08/20 03:02 36.6 C 90 24 187/74 H 94 06/07/20 23:47 36.6 C 84 20 166/70 H 94
--- NOTE | 2020-06-08 11:58 | Fluoroscopy Report ---
FL barium swallow CLINICAL HISTORY: 64 years-old Female with dysphagia. Patient presents with acute dysphasia TECHNIQUE: Barium contrast and effervescent crystals were administered to the patient under fluorosco pic examination. Multiple images were obtained and submitted for review. FLUOROSCOPY TIME: 1.9 minutes COMPARISON: None. FINDINGS: Limited exam secondary to patient condition. During deglutition, contrast material flowed freely thro ugh the cervical esophagus. No filling defect or mucosal abnormality is identified. No abnormal str icturing or mass effect is seen. Moderate dysmotility was noted. The patient could no longer tolerate standing for the exam and the study was then terminated. No aspiration identified. IMPRESSION: 1. Limited esophagram was prematurely terminated secondary to patient inability to complete the study . 2. Moderate esophageal dysmotility. ACT 112: Negative or not required by law. The above report was generated using voice recognition software. It may contain grammatical, syntax o r spelling errors. Electronically signed by: Trevon Lyons M.D. 06/08/2020 11:57 AM
[2020-06-08] MEDS: ISOSORBIDE MONO EXTENDED REL 60 MG TABCR PO SCH (12:49)
[2020-06-08] MEDS: PANTOprazole 40 MG TAB PO SCH ×2 (12:49→19:58)
[2020-06-08] MEDS: CHOLECALCIFEROL 1,000 UNITS 25 MCG TAB PO SCH (12:50)
[2020-06-08] MEDS: METOPROLOL TARTRATE 100 MG TAB PO SCH (12:50)
[2020-06-08] MEDS: ASPIRIN 81 MG ECTAB PO SCH (12:50)
[2020-06-08] MEDS: CALCIUM CARBONATE 1250MG TAB PO SCH (12:50)
[2020-06-08] MEDS: SPIRONOLACTONE 12.5 MG TAB PO SCH (12:51)
[2020-06-08] MEDS: bisacodyL 5 MG TABEC PO SCH (12:51)
[2020-06-08] MEDS: ATORVASTATIN 40 MG TAB PO SCH (12:51)
[2020-06-08 14:30] LABS: Partial Thromboplastin Ratio 2.2
[2020-06-08 14:33] LABS: Partial Thromboplastin Time 60.6 Seconds (21.0-31.0)
--- NOTE | 2020-06-08 19:31 | Billing Data ---
Date of Service June 08, 2020 Coding Level of Care Code 99938 Subseq Hosp Care Lvl 3
[2020-06-08] MEDS: lisinopriL 5 MG TAB PO SCH (19:58)
--- NOTE | 2020-06-08 22:33 | Electrocardiogram Report ---
Test Reason : Blood Pressure : / mmHG Vent. Rate : 103 BPM Atrial Rate : 103 BPM P-R Int : 164 ms QRS Dur : 078 ms QT Int : 350 ms P-R-T Axes : 063 067 068 degrees QTc Int : 458 ms Sinus tachycardia Nonspecific ST abnormality Abnormal ECG No previous ECGs available Confirmed by Jose Ingram [id number] on 06/08/2020 10:33:36 PM Referred By: REFERRED SELF Confirmed By:Jose Ingram
[2020-06-09] MEDS: ACETAMINOPHEN 500 MG TAB PO SCH ×3 (05:21→21:37)
[2020-06-09 06:09] LABS: BUN Creatinine Ratio 38.4 (10-20); Calcium 9.2 mg/dl (8.5-10.1); Creatinine Clr Calc Pharmacy 140.2 ml/min; Est GFR (African American) 121.8; Est GFR (Non-African American) 105.1; Potassium 3.7 mmol/L (3.5-5.1)
[2020-06-09 06:12] LABS: Partial Thromboplastin Ratio 1.9
[2020-06-09 06:36] LABS: Basophils # (auto) 0.04 K/uL (0-0.2); Basophils % (auto) 0.4 %; Eosinophils # (auto) 0.07 K/uL (0-0.5); Eosinophils % (auto) 0.7 %; Hematocrit (blood only) 31.3 % (37-47); Immature Granulocytes # (auto) 0.22 K/uL (0.00-0.02); Immature Granulocytes % (auto) 2.1 %; Lymphocytes # (auto) 1.16 K/uL (1.2-3.4); Mean Corpuscular Hemoglobin 25.7 pg (25-34); Mean Corpuscular Hgb Conc 28.8 g/dL (32-36); Mean Corpuscular Volume 89.4 fL (80-100); Mean Platelet Volume 9.5 fL (7.4-10.4); Monocytes # (auto) 1.29 K/uL (0.11-0.59); Monocytes % (auto) 12.2 %; Neutrophils # (auto) 7.77 K/uL (1.4-6.5); Neutrophils % (auto) 73.6 %; Platelet Count 357 K/uL (130-400); RDW Coefficient of Variation 16.7 % (11.5-14.5); White Blood Count 10.55 K/uL (4.8-10.8)
[2020-06-09] MEDS: UMECLIDINIUM/VILANTEROL 62.5/25MCG 7 PUFFS/INHALER INH SCH (08:02)
[2020-06-09] MEDS: KETOROLAC TROMETHAMINE 15 MG/ML VIAL IV PRN (08:03)
[2020-06-09] MEDS: FLUTICASONE FUROATE 100MCG 14 PUFFS/INHALER INH SCH (08:03)
[2020-06-09] MEDS: ISOSORBIDE MONO EXTENDED REL 60 MG TABCR PO SCH (08:04)
[2020-06-09] MEDS: LIDOCAINE 5% 1 PATCH TD SCH (08:04)
[2020-06-09] MEDS: SPIRONOLACTONE 12.5 MG TAB PO SCH (08:04)
[2020-06-09] MEDS: CALCIUM CARBONATE 1250MG TAB PO SCH (08:04)
[2020-06-09] MEDS: bisacodyL 5 MG TABEC PO SCH (08:05)
[2020-06-09] MEDS: CHOLECALCIFEROL 1,000 UNITS 25 MCG TAB PO SCH (08:05)
[2020-06-09] MEDS: PANTOprazole 40 MG TAB PO SCH ×2 (08:05→21:36)
[2020-06-09] MEDS: ASPIRIN 81 MG ECTAB PO SCH (08:05)
[2020-06-09] MEDS: ATORVASTATIN 40 MG TAB PO SCH (08:05)
[2020-06-09] MEDS: POLYETHYLENE (MIRALAX) 17 GM PACK PO SCH (08:05)
[2020-06-09] MEDS: METOPROLOL TARTRATE 100 MG TAB PO SCH (08:05)
[2020-06-09] MEDS: guaiFENesin 600 MG TABCR PO SCH ×2 (08:05→21:36)
[2020-06-09] MEDS: CHECK FENTANYL PATCH PLACEMENT SCH ×2 (08:06→12:37)
[2020-06-09] MEDS: HEPARIN SODIUM/DEXTROSE 25,000 UNITS/500 ML BAG IV SCH (08:06)
[2020-06-09] MEDS: HYDROmorphone INJ 0.5 MG/0.5 ML SYR IV PRN ×2 (12:57→21:37)
--- NOTE | 2020-06-09 13:28 | Hospitalist Progress Note ---
Date of Service June 09, 2020 Assessment & Plan (1) Malignant neoplasm metastatic to lumbar spine with unknown primary site: 64 y/o F smoker w/ hx of COPD, CAD, HTN, HLD, AAA, who presents with acute onset of worsening back pain for 1.5 months and was also found to have bilat PE. Metastatic Neoplasm, Pulmonary Source - 44 pack yr smoking hx - 06/02/20 lumbar spine MRI: Multifocal marrow replacement which favors metastatic disease. Exam moderately compromised by motion artifact. - 06/02/20 CTA abd/pelv: 1. Scattered lytic lesions within the spine, pelvis, and ribs consistent with metastatic disease. 2. These result in mild pathologic compression fractures at L3 and L4. 3. There are 2 heterogeneous left adrenal gland nodules with the largest measuring 3.2 cm. These are also consistent with areas of metastatic disease. 4. An indeterminate 5 mm peroneal nodule inferior to the right hepatic lobe. AAA findings as below. - MRI Brain 06/05/2020: small acute/subacute infarcts in R parietal and cerebellar lobes, calvarial metastasis, no evidence of brain mets - pulm following, radiology consult on 06/05/[address] biopsy or breast lump FNA - onc following: likely NSCLC, appreciate recommendations for brain MRI w/wo contrast to assess for brain metastasis - fentanyl patch increased to 25mg this AM for longer term control - continue Dilaudid 0.5 mg IV Q3H PRN - continue lidocaine patch - tylenol 1000mg scheduled, with Toradol 15mg to use sparingly PRN q6h - To further manage pain control, trialed Toradol 15mg q6h scheduled x24 hours - Pt states that this did not significantly improve the pain - Will return to Toradol q6h PRN use - Will start patient on meloxicam 7.5mg BID for pain control - Monitor CBC qAM -will proceed with palliative discussion once pt's mental status improves -consult radiation oncology for therapeutic radiation - CXR ordered today for persistent SOB - pathology results with adenocarcinoma, undifferentiated --> case discussed with oncology - Will change from heparin gtt to Eliquis tonight (plan for Eliquis 10mg BID x1 week, then 5mg BID) - Plan for d/c home tomorrow Acute Chest Pain - EKG ordered: no acute ST or T wave changes - Troponin negative Chest burning and dysphagia - Will order barium swallow for further evaluation - NPO starting at midnight to prepare for this study tomorrow - Will change daily pantoprazole to BID frequency Ischemic Strokes -noted on brain MRI as above -bilateral carotid duplex ordered 06/05 --- ~50% narrowing at the distal left ICA, no significant stenosis within the right ICA; mild to moderate stenosis within the external carotid arteries -TTE w/ bubble study ordered 06/06 --- LVEF 65-70%, no regional wall motion abnormalities, borderline concentric LVH; injection of contrast documented no interartial shunt -stroke protocol initiated- (neuro checks, speech, PT/OT eval, neurology consult, etc) -home simvastatin discontinued; started on Atorvastatin 80mg daily. Acute on Chronic Hypoxic Respiratory Failure - suspect secondary to increasing pain medications and subsequent respiratory depression, as well as bilateral PEs (hypercoagulable state of malignancy) - likely component of undiagnosed LAURA as well, given that patient reports snoring at night and is clinically obese - also chronic COPD, and associated mucus plugging, likely played a role - repeat ABG showed improved hypercapnia - continue duo nebs PRN and BiPAP PRN for increased work of breathing and oxygen desaturations - per Pulm recs: BiPAP QHS Bilateral PE - found on 06/02/20 chest CTA - continue Heparin IV for now - will need life-long anticoagulation Normocytic Anemia - stable - likely secondary to chronic disease - trend CBC daily HTN - Continue metoprolol titrate 100 mg daily, lisinopril 5 mg HS, Imdur 60 mg daily, Spironolactone 12.5 mg daily CAD - Continue statin therapy, baby aspirin, beta-rosa, DARIUS HLD - discontinued simvastatin 20 mg -started on Atorvastatin 80mg COPD - follows pulm outpatient - inpatient pulm following for PE and lung malignancy concerns - duo nebs PRN and BiPAP as mentioned above FEN/GI:heart-healthy diet DVT prophylaxis: TEDs, IV Heparin code status: full dispo: medsurg with tele Admission and Anticipated Discharge Date Admission Date: June 02, 2020 Supervising Physician Co-Signing Physician Notes I personally examined the patient and verified all mackay points of history and exam, discussed case, and agree with decision making with Dr Piña. OOB, on 4L NC (normally on 2 at home) and feeling good. did well w PT. hoping to get home soon. discussed path and i had discussed w oncology - they will have lines of treatment to discuss with her. vitals noted fatigued and in pain. heent nc at mmm breathing unlabored no accessory muscles good effort skin no rashes no pallor or icterus acute hypoxic respiratory failure - suspect PEs largely contributory acutely, also likely elements of COPD dominate the chronic picture. transition to DOAC for PEs, on inhaled steroid, LAMA, LABA and prn nebs for COPD, no wheeze/hypercapnea so no clear benefit to steroids. ongoing supportive care. continues to show improvement! lung ca w diffuse mets and back pain -pain meds w caution due to respiratory illness - but under-treating pain likely also leading to hypoxia from splinted breathing -continue fentanyl patch and prn dilauded, scheduled APAP, lidocaine patch, meloxicam -rads/onc for XRT -- started -discussed prelimarily next steps in regards to cancer/path and what it means. will discuss w oncology further anticipate close outpt f/u CVA - w PE have to harbor concern on paradoxical embolus - hypercoag from malignancy causing VTE and then PFO allowing CVA would fit. echo does not show this - but no benefit to putting her through TORI when she will need indefinite anticoagulation either way. continue anticoagulation as above otherwise as above Subjective Patient seen and evaluated in room today. Upon entering the room, she is sitting comfortably in a chair at bedside, watching TV. She states that she "feels fantastic" this morning. Patient was able to eat most of her breakfast and she drank a full cup of milk without difficulty, nausea, or vomiting. Patient notes that her SOB has significantly improved; she is now using 4L supplemental O2 by NC. It is also noted that she uses 2L supplemental O2 via NC at baseline at home 14/04. Patient reports persistent low back pain and burning chest pain w/o recent changes; the pain is improved with analgesics. Patient had a normal BM yesterday. She denies fever, chills, cough, abdominal pain, leg pain, or leg swelling. Review of Systems Review of Systems: Constitutional: + generalized weakness, improving Cardiovascular: + chest pain Respiratory: + shortness of breath, improving, on 4L supplemental O2 NC Gastrointestinal: Denies abdominal pain, nausea, or vomiting Musculoskeletal: + back pain Physical Exam Physical Exam: GENERAL: No acute distress. Well developed and well nourished. Vital signs reviewed as above. RESPIRATORY: Decreased breath sounds but lungs are clear without rhonci or rales. CHEST WALL: No tenderness to palpation. CARDIOVASCULAR: Regular rate and rhythm. No murmurs. ABDOMEN: Soft and non-tender. Normal bowel sounds. EXTREMITIES: No LE edema. Mild bilateral LE TTP. Results & Data Results & Data ([facility]) Vital Signs (Past 12 Hours) Vital Signs Temp Pulse Resp BP BP Pulse Ox 06/09/20 12:21 36.7 C 65 20 108/66 91 06/09/20 07:47 36.7 C 79 18 141/82 H 98 06/09/20 04:00 36.5 C 94 H 22 146/76 H 91
--- NOTE | 2020-06-09 19:09 | Billing Data ---
Date of Service June 09, 2020 Coding Level of Care Code 82504 Subseq Hosp Care Lvl 3
[2020-06-09] MEDS: APIXABAN 5 MG TABLET PO SCH (21:36)
[2020-06-09] MEDS: lisinopriL 5 MG TAB PO SCH (21:37)
[2020-06-10] MEDS: CHECK FENTANYL PATCH PLACEMENT SCH ×3 (00:27→16:00)
[2020-06-10] MEDS: ACETAMINOPHEN 500 MG TAB PO SCH ×3 (06:35→21:09)
[2020-06-10] MEDS: bisacodyL 5 MG TABEC PO SCH (07:44)
[2020-06-10] MEDS: guaiFENesin 600 MG TABCR PO SCH ×2 (07:45→21:11)
[2020-06-10] MEDS: CALCIUM CARBONATE 1250MG TAB PO SCH (07:45)
[2020-06-10] MEDS: CHOLECALCIFEROL 1,000 UNITS 25 MCG TAB PO SCH (07:45)
[2020-06-10] MEDS: METOPROLOL TARTRATE 100 MG TAB PO SCH (07:46)
[2020-06-10] MEDS: PANTOprazole 40 MG TAB PO SCH ×2 (07:46→21:11)
[2020-06-10] MEDS: LIDOCAINE 5% 1 PATCH TD SCH (07:46)
[2020-06-10] MEDS: APIXABAN 5 MG TABLET PO SCH ×2 (07:46→21:11)
[2020-06-10] MEDS: ASPIRIN 81 MG ECTAB PO SCH (07:46)
[2020-06-10] MEDS: POLYETHYLENE (MIRALAX) 17 GM PACK PO SCH (07:46)
[2020-06-10] MEDS: ATORVASTATIN 40 MG TAB PO SCH (07:46)
[2020-06-10] MEDS: ISOSORBIDE MONO EXTENDED REL 60 MG TABCR PO SCH (07:46)
[2020-06-10] MEDS: SPIRONOLACTONE 12.5 MG TAB PO SCH (07:46)
[2020-06-10] MEDS: UMECLIDINIUM/VILANTEROL 62.5/25MCG 7 PUFFS/INHALER INH SCH (07:47)
[2020-06-10] MEDS: FLUTICASONE FUROATE 100MCG 14 PUFFS/INHALER INH SCH (07:47)
[2020-06-10 08:07] LABS: BUN Creatinine Ratio 38.5 (10-20); Calcium 8.6 mg/dl (8.5-10.1); Creatinine Clr Calc Pharmacy 157.1 ml/min; Est GFR (African American) 126.3; Potassium 3.9 mmol/L (3.5-5.1)
[2020-06-10] MEDS: fentaNYL 25 MCG/HR TDSY TD SCH (12:15)
--- NOTE | 2020-06-10 15:29 | Hospitalist Progress Note ---
Date of Service June 10, 2020 Assessment & Plan (1) Malignant neoplasm metastatic to lumbar spine with unknown primary site: 64 y/o F smoker w/ hx of COPD, CAD, HTN, HLD, AAA, who presents with acute onset of worsening back pain for 1.5 months and was also found to have bilat PE. Metastatic Neoplasm, Pulmonary Source - 44 pack yr smoking hx - 06/02/20 lumbar spine MRI: Multifocal marrow replacement which favors metastatic disease. Exam moderately compromised by motion artifact. - 06/02/20 CTA abd/pelv: 1. Scattered lytic lesions within the spine, pelvis, and ribs consistent with metastatic disease. 2. These result in mild pathologic compression fractures at L3 and L4. 3. There are 2 heterogeneous left adrenal gland nodules with the largest measuring 3.2 cm. These are also consistent with areas of metastatic disease. 4. An indeterminate 5 mm peroneal nodule inferior to the right hepatic lobe. AAA findings as below. - MRI Brain 06/05/2020: small acute/subacute infarcts in R parietal and cerebellar lobes, calvarial metastasis, no evidence of brain mets - pulm following, radiology consult on 06/05/[address] biopsy or breast lump FNA - onc following: likely NSCLC, appreciate recommendations for brain MRI w/wo contrast to assess for brain metastasis - fentanyl patch increased to 25mg this AM for longer term control - continue Dilaudid 0.5 mg IV Q3H PRN - continue lidocaine patch - tylenol 1000mg scheduled, with Toradol 15mg to use sparingly PRN q6h - To further manage pain control, trialed Toradol 15mg q6h scheduled x24 hours; pt states that this did not significantly improve the pain - Returned to Toradol q6h PRN use - Will start patient on meloxicam 7.5mg BID for pain control; pt states that this significantly helps to control the pain - Monitor CBC qAM - Consult radiation oncology for therapeutic radiation - pathology results with adenocarcinoma, undifferentiated --> case discussed with oncology - Changed from heparin gtt to Eliquis 06/09 (plan for Eliquis 10mg BID x1 week, then 5mg BID) - d/c Dilaudid q2h prn for pain. Will start patient on oxycodone 5mg q4h prn for pain. - Was initially planning for d/c home today, but upon ambulation, pt with hypoxia into mid-80s. Would like for patient to have better tolerance with movement and ambulation and maintain oxygen sats. - Increased crackles on exam today --> PO lasix 40mg x1 - Would like to see patient maintain O2 sats better and have better pain control before d/c home. Pt acknowledges and agrees with plan of care. - Will continue to monitor patient. Continue therapy. - Will downgrade patient from PCU to [facility] Acute Chest Pain - EKG ordered: no acute ST or T wave changes - Troponin negative Chest burning and dysphagia - Barium swallow was not completed due to patient's weakness and inability to tolerate study; however, images that were obtained did not show any abnormalities - Restarted patient's diet - Changed daily pantoprazole to BID frequency Ischemic Strokes -noted on brain MRI as above -bilateral carotid duplex ordered 06/05 --- ~50% narrowing at the distal left ICA, no significant stenosis within the right ICA; mild to moderate stenosis w ithin the external carotid arteries -TTE w/ bubble study ordered 06/06 --- LVEF 65-70%, no regional wall motion abnormalities, borderline concentric LVH; injection of contrast documented no interartial shunt -stroke protocol initiated- (neuro checks, speech, PT/OT eval, neurology consult, etc) then subsequently discontinued -home simvastatin discontinued; started on Atorvastatin 80mg daily. Acute on Chronic Hypoxic Respiratory Failure - suspect secondary to increasing pain medications and subsequent respiratory depression, as well as bilateral PEs (hypercoagulable state of malignancy) - likely component of undiagnosed LAURA as well, given that patient reports snoring at night and is clinically obese - also chronic COPD, and associated mucus plugging, likely played a role - repeat ABG showed improved hypercapnia - continue duo nebs PRN and BiPAP PRN for increased work of breathing and oxygen desaturations - per Pulm recs: BiPAP QHS Bilateral PE - found on 06/02/20 chest CTA - continue Heparin IV for now - will need life-long anticoagulation (plan for eliquis as noted above) Normocytic Anemia - stable - likely secondary to chronic disease - trend CBC daily HTN - Continue metoprolol titrate 100 mg daily, lisinopril 5 mg HS, Imdur 60 mg daily, Spironolactone 12.5 mg daily CAD - Continue statin therapy, baby aspirin, beta-rosa, DARIUS HLD - discontinued simvastatin 20 mg -started on Atorvastatin 80mg COPD - follows pulm outpatient - inpatient pulm following for PE and lung malignancy concerns - duo nebs PRN and BiPAP as mentioned above FEN/GI:heart-healthy diet DVT prophylaxis: TEDs, IV Heparin code status: full dispo: medsurg Admission and Anticipated Discharge Date Admission Date: June 02, 2020 Supervising Physician Co-Signing Physician Notes I personally examined the patient and verified all mackay points of history and exam, discussed case, and agree with decision making with Dr Piña. feeling ok overall - just desaturated fairly significantly when walking. vitals noted fatigued and in pain. heent nc at mmm breathing unlabored no accessory muscles good effort skin no rashes no pallor or icterus acute hypoxic respiratory failure - suspect PEs largely contributory acutely, also likely elements of COPD dominate the chronic picture. on DOAC for PEs, on inhaled steroid, LAMA, LABA and prn nebs for COPD, no wheeze/hypercapnea so no clear benefit to steroids. ongoing supportive care. continues to show improvement but dropped more desired for being able to get her home. continue supportive care and anticiapte ongoing improvement lung ca w diffuse mets and back pain -pain meds w caution due to respiratory illness - but under-treating pain likely also leading to hypoxia from splinted breathing -continue fentanyl patch and prn oxycodone, scheduled APAP, lidocaine patch, meloxicam -rads/onc for XRT -- ongoing -discussed prelimary next steps in regards to cancer/path and what it means. will discuss w oncology further anticipate close outpt f/u CVA - w PE have to harbor concern on paradoxical embolus - hypercoag from malignancy causing VTE and then PFO allowing CVA would fit. echo does not show this - but no benefit to putting her through TORI when she will need indefinite anticoagulation either way. continue anticoagulation as above otherwise as above, stable for med surg. stable for home once ambulatory hypoxia more manageable Subjective Patient seen and evaluated in room today. Upon entering the room, she is sitting comfortably in a chair at bedside, watching TV. Patient states that she feels "just okay" today and she admits that she does not feel as good today as she did yesterday. Patient does report some increased SOB from yesterday. She has also had some increased low back pain; to note, we stopped IV Dilaudid prn yesterday as we converted her from IV Heparin to PO Eliquis and pt requested to have the IV taken out. Patient has been eating without difficulty, nausea, or vomiting. She denies fever, chills, abdominal pain, leg pain, or leg swelling. Review of Systems Review of Systems: Constitutional: + generalized weakness Cardiovascular: Denies CP Respiratory: + shortness of breath Gastrointestinal: Denies abdominal pain, nausea, or vomiting Musculoskeletal: + back pain Physical Exam Physical Exam: GENERAL: No acute distress. Well developed and well nourished. Vital signs reviewed as above. RESPIRATORY: Decreased breath sounds diffusely. + crackles in bilateral bases, L>R. CHEST WALL: No tenderness to palpation. CARDIOVASCULAR: Regular rate and rhythm. No murmurs. ABDOMEN: Soft and non-tender. Normal bowel sounds. EXTREMITIES: No LE edema. No bilateral LE TTP. Results & Data Results & Data ([facility]) Vital Signs (Past 12 Hours) Vital Signs Temp Pulse Pulse Resp BP BP Pulse Ox 06/10/20 11:51 36.7 C 76 20 98/62 L 85 L 06/10/20 07:47 36.8 C 92 H 25 H 117/59 L 88 L 06/10/20 03:57 36.8 C 92 H 18 144/80 H 98 Laboratory Results 06/10/20 Range/Units 06:54 Sodium 138 (136-145) mmol/L Potassium 3.9 (3.5-5.1) mmol/L Chloride 97 L (98-107) mmol/L Carbon Dioxide 37 H (21-32) mmol/L Anion Gap 4.0 (3-11) BUN 17 (7-18) mg/dl Creatinine 0.43 L (0.6-1.2) mg/dl Est Cr Clr Drug Dosing 157.1 ml/min Est GFR ( Amer) 126.3 Est GFR (Non-Af Amer) 109.0 BUN/Creatinine Ratio 38.5 H (10-20) Glucose 117 H (70-99) mg/dl Calcium 8.6 (8.5-10.1) mg/dl
[2020-06-10] MEDS ORDERED: FUROSEMIDE 40 MG TAB PO ONE (16:00)
--- NOTE | 2020-06-10 19:52 | Billing Data ---
Date of Service June 10, 2020 Coding Level of Care Code 27992 Subseq Hosp Care Lvl 3
[2020-06-10] MEDS: lisinopriL 5 MG TAB PO SCH (21:11)
[2020-06-11] MEDS: OXYCODONE HCL IR 5 MG TAB (IMMEDIATE RELEASE) PO PRN (00:36)
[2020-06-11] MEDS: CHECK FENTANYL PATCH PLACEMENT SCH ×4 (00:45→23:25)
[2020-06-11] MEDS: ACETAMINOPHEN 500 MG TAB PO SCH ×3 (05:41→20:42)
[2020-06-11] MEDS: guaiFENesin 600 MG TABCR PO SCH ×2 (09:06→20:27)
[2020-06-11] MEDS: PANTOprazole 40 MG TAB PO SCH ×2 (09:06→20:27)
[2020-06-11] MEDS: UMECLIDINIUM/VILANTEROL 62.5/25MCG 7 PUFFS/INHALER INH SCH (09:07)
[2020-06-11] MEDS: FLUTICASONE FUROATE 100MCG 14 PUFFS/INHALER INH SCH (09:07)
[2020-06-11] MEDS: APIXABAN 5 MG TABLET PO SCH ×2 (09:07→20:27)
[2020-06-11] MEDS: ASPIRIN 81 MG ECTAB PO SCH (09:52)
[2020-06-11] MEDS: ISOSORBIDE MONO EXTENDED REL 60 MG TABCR PO SCH (09:52)
[2020-06-11] MEDS: CHOLECALCIFEROL 1,000 UNITS 25 MCG TAB PO SCH (09:52)
[2020-06-11] MEDS: CALCIUM CARBONATE 1250MG TAB PO SCH (09:52)
[2020-06-11] MEDS: METOPROLOL TARTRATE 100 MG TAB PO SCH (09:52)
--- NOTE | 2020-06-11 10:12 | Hospitalist Progress Note ---
Date of Service June 11, 2020 Assessment & Plan (1) Malignant neoplasm metastatic to lumbar spine with unknown primary site: 64 y/o F smoker w/ hx of COPD, CAD, HTN, HLD, AAA, who presents with acute onset of worsening back pain for 1.5 months and was also found to have bilat PE. Metastatic Neoplasm, Pulmonary Source - 44 pack yr smoking hx - 06/02/20 lumbar spine MRI: Multifocal marrow replacement which favors metastatic disease. Exam moderately compromised by motion artifact. - 06/02/20 CTA abd/pelv: 1. Scattered lytic lesions within the spine, pelvis, and ribs consistent with metastatic disease. 2. These result in mild pathologic compression fractures at L3 and L4. 3. There are 2 heterogeneous left adrenal gland nodules with the largest measuring 3.2 cm. These are also consistent with areas of metastatic disease. 4. An indeterminate 5 mm peroneal nodule inferior to the right hepatic lobe. AAA findings as below. - MRI Brain 06/05/2020: small acute/subacute infarcts in R parietal and cerebellar lobes, calvarial metastasis, no evidence of brain mets - pulm following, radiology consult on 06/05/[address] biopsy or breast lump FNA - onc following: likely NSCLC, appreciate recommendations for brain MRI w/wo contrast to assess for brain metastasis - fentanyl patch increased to 25mg this AM for longer term control - continue Dilaudid 0.5 mg IV Q3H PRN - continue lidocaine patch - tylenol 1000mg scheduled, with Toradol 15mg to use sparingly PRN q6h - To further manage pain control, trialed Toradol 15mg q6h scheduled x24 hours; pt states that this did not significantly improve the pain - Returned to Toradol q6h PRN use - Will start patient on meloxicam 7.5mg BID for pain control; pt states that this significantly helps to control the pain - Monitor CBC qAM - Consult radiation oncology for therapeutic radiation - pathology results with adenocarcinoma, undifferentiated --> case discussed with oncology - Changed from heparin gtt to Eliquis 06/09 (plan for Eliquis 10mg BID x1 week, then 5mg BID) - d/c Dilaudid q2h prn for pain. Will start patient on oxycodone 5mg q4h prn for pain. - Was initially planning for d/c home today, but upon ambulation, pt with hypoxia into mid-80s. Would like for patient to have better tolerance with movement and ambulation and maintain oxygen sats. - Increased crackles on exam today --> PO lasix 40mg x1 - Will continue to monitor patient. Continue therapy. - Patient downgraded from PCU to [facility] 06/11 - Continuing to work on O2 sats at rest and with exertion prior to d/c home - Respiratory therapy 2 step test 06/11/20 --> pt requires 5 L O2 NC at rest and 6 L O2 NC with ambulation - Banks catheter d/c today - Encouraged patient to increase ambulation around room and unit - Would like to see patient maintain O2 sats better and have better pain control before d/c home. Pt acknowledges and agrees with plan of care. Acute Chest Pain - EKG ordered: no acute ST or T wave changes - Troponin negative Chest burning and dysphagia - Barium swallow was not completed due to patient's weakness and inability to tolerate study; however, images that were obtained did not show any abnormalities - Restarted patient's diet - Changed daily pantoprazole to BID frequency Ischemic Strokes -noted on brain MRI as above -bilateral carotid duplex ordered 06/05 --- ~50% narrowing at the distal left ICA, no significant stenosis within the right ICA; mild to moderate stenosis within the external carotid arteries -TTE w/ bubble study ordered 06/06 --- LVEF 65-70%, no regional wall motion abnormalities, borderline concentric LVH; injection of contrast documented no interartial shunt -stroke protocol initiated- (neuro checks, speech, PT/OT eval, neurology consult, etc) then subsequently discontinued -home simvastatin discontinued; started on Atorvastatin 80mg daily. Acute on Chronic Hypoxic Respiratory Failure - suspect secondary to increasing pain medications and subsequent respiratory depression, as well as bilateral PEs (hypercoagulable state of malignancy) - likely component of undiagnosed LAURA as well, given that patient reports snoring at night and is clinically obese - also chronic COPD, and associated mucus plugging, likely played a role - repeat ABG showed improved hypercapnia - continue duo nebs PRN and BiPAP PRN for increased work of breathing and oxygen desaturations - per Pulm recs: BiPAP QHS Bilateral PE - found on 06/02/20 chest CTA - continue Heparin IV for now - will need life-long anticoagulation (plan for eliquis as noted above) Normocytic Anemia - stable - likely secondary to chronic disease - trend CBC daily HTN - Continue metoprolol titrate 100 mg daily, lisinopril 5 mg HS, Imdur 60 mg daily, Spironolactone 12.5 mg daily CAD - Continue statin therapy, baby aspirin, beta-rosa, DARIUS HLD - discontinued simvastatin 20 mg -started on Atorvastatin 80mg COPD - follows pulm outpatient - inpatient pulm following for PE and lung malignancy concerns - duo nebs PRN and BiPAP as mentioned above FEN/GI:heart-healthy diet DVT prophylaxis: TEDs, IV Heparin code status: full dispo: medsurg Admission and Anticipated Discharge Date Admission Date: June 02, 2020 Supervising Physician Co-Signing Physician Notes I personally examined the patient and verified all mackay points of history and exam, discussed case, and agree with decision making with Dr Piña. desaturated with walking stll needing more NC than can be done at home. vitals noted fatigued and in pain. heent nc at mmm breathing unlabored no accessory muscles good effort skin no rashes no pallor or icterus acute hypoxic respiratory failure - suspect PEs largely contributory acutely, also likely elements of COPD dominate the chronic picture. on DOAC for PEs, on inhaled steroid, LAMA, LABA and prn nebs for COPD, no wheeze/hypercapnea so no clear benefit to steroids. ongoing supportive care. continues to show improvement but dropped more desired for being able to get her home. continue supportive care and anticipate ongoing improvement lung ca w diffuse mets and back pain -pain meds w caution due to respiratory illness - but under-treating pain likely also leading to hypoxia from splinted breathing -continue fentanyl patch and prn oxycodone, scheduled APAP, lidocaine patch, meloxicam -rads/onc for XRT -- ongoing -outpt oncology f/u CVA - w PE have to harbor concern on paradoxical embolus - hypercoag from malignancy causing VTE and then PFO allowing CVA would fit. echo does not show this - but no benefit to putting her through TORI when she will need indefinite anticoagulation either way. continue anticoagulation as above otherwise as above, stable for med surg. stable for home once ambulatory hypoxia more manageable Subjective Patient seen and evaluated in room today. Patient stating that she overall feels well. The diffuse pain, most specifically in the lower back, is well controlled with the current regimen of PO analgesics. Patient does report persistent SOB and she states that the oxymask controls the SOB better than NC. Review of Systems Review of Systems: Constitutional: + generalized weakness Cardiovascular: Denies CP Respiratory: + shortness of breath Gastrointestinal: Denies abdominal pain, nausea, or vomiting Musculoskeletal: + back pain Physical Exam Physical Exam: GENERAL: No acute distress. Well developed and well nourished. Vital signs reviewed as above. RESPIRATORY: Decreased breath sounds diffusely. + crackles in bilateral bases, L>R. CHEST WALL: No tenderness to palpation. CARDIOVASCULAR: Regular rate and rhythm. No murmurs. ABDOMEN: Soft and non-tender. Normal bowel sounds. EXTREMITIES: No LE edema. No bilateral LE TTP. Results & Data Results & Data ([facility]) Vital Signs (Past 12 Hours) Vital Signs Temp Pulse Pulse Resp BP Pulse Ox 06/11/20 07:40 36.9 C 88 18 114/69 90 06/11/20 00:27 96 H 108/65 06/10/20 23:29 37.2 C 96 H 22 128/70 88 L
[2020-06-11] MEDS: bisacodyL 5 MG TABEC PO SCH (10:35)
[2020-06-11] MEDS: SPIRONOLACTONE 12.5 MG TAB PO SCH (10:35)
[2020-06-11] MEDS: ATORVASTATIN 40 MG TAB PO SCH (10:36)
[2020-06-11] MEDS: LIDOCAINE 5% 1 PATCH TD SCH (10:36)
[2020-06-11] MEDS: POLYETHYLENE (MIRALAX) 17 GM PACK PO SCH (10:37)
--- NOTE | 2020-06-11 18:01 | Billing Data ---
Date of Service June 11, 2020 Coding Level of Care Code 84580 Subseq Hosp Care Lvl 2
[2020-06-11] MEDS: lisinopriL 5 MG TAB PO SCH (20:27)
[2020-06-12] MEDS: OXYCODONE HCL IR 5 MG TAB (IMMEDIATE RELEASE) PO PRN ×3 (03:53→19:11)
[2020-06-12] MEDS: ACETAMINOPHEN 500 MG TAB PO SCH ×3 (05:45→22:29)
[2020-06-12] MEDS: guaiFENesin 600 MG TABCR PO SCH ×2 (08:09→20:57)
[2020-06-12] MEDS: PANTOprazole 40 MG TAB PO SCH ×2 (08:09→20:57)
[2020-06-12] MEDS: SPIRONOLACTONE 12.5 MG TAB PO SCH (08:09)
[2020-06-12] MEDS: CALCIUM CARBONATE 1250MG TAB PO SCH (08:10)
[2020-06-12] MEDS: METOPROLOL TARTRATE 100 MG TAB PO SCH (08:10)
[2020-06-12] MEDS: CHOLECALCIFEROL 1,000 UNITS 25 MCG TAB PO SCH (08:10)
[2020-06-12] MEDS: ASPIRIN 81 MG ECTAB PO SCH (08:10)
[2020-06-12] MEDS: APIXABAN 5 MG TABLET PO SCH ×2 (08:11→20:57)
[2020-06-12] MEDS: LIDOCAINE 5% 1 PATCH TD SCH (08:11)
[2020-06-12] MEDS: ISOSORBIDE MONO EXTENDED REL 60 MG TABCR PO SCH (08:11)
[2020-06-12] MEDS: ATORVASTATIN 40 MG TAB PO SCH (08:11)
[2020-06-12] MEDS: FLUTICASONE FUROATE 100MCG 14 PUFFS/INHALER INH SCH (08:12)
[2020-06-12] MEDS: UMECLIDINIUM/VILANTEROL 62.5/25MCG 7 PUFFS/INHALER INH SCH (08:12)
[2020-06-12] MEDS: CHECK FENTANYL PATCH PLACEMENT SCH ×2 (08:15→17:09)
[2020-06-12] MEDS: POLYETHYLENE (MIRALAX) 17 GM PACK PO SCH (08:29)
[2020-06-12] MEDS: bisacodyL 5 MG TABEC PO SCH (08:29)
[2020-06-12 08:56] LABS: Basophils # (auto) 0.02 K/uL (0-0.2); Basophils % (auto) 0.2 %; Eosinophils # (auto) 0.07 K/uL (0-0.5); Eosinophils % (auto) 0.7 %; Hematocrit (blood only) 29.4 % (37-47); Hemoglobin 8.6 g/dL (12.0-16.0); Immature Granulocytes # (auto) 0.15 K/uL (0.00-0.02); Immature Granulocytes % (auto) 1.6 %; Lymphocytes # (auto) 0.97 K/uL (1.2-3.4); Lymphocytes % (auto) 10.2 %; Mean Corpuscular Hemoglobin 26.2 pg (25-34); Mean Corpuscular Hgb Conc 29.3 g/dL (32-36); Mean Corpuscular Volume 89.6 fL (80-100); Mean Platelet Volume 9.3 fL (7.4-10.4); Monocytes # (auto) 0.95 K/uL (0.11-0.59); Neutrophils # (auto) 7.37 K/uL (1.4-6.5); Neutrophils % (auto) 77.3 %; Platelet Count 341 K/uL (130-400); RDW Coefficient of Variation 17.2 % (11.5-14.5); RDW Standard Deviation 55.5 fL (36.4-46.3); Red Blood Count 3.28 M/uL (4.2-5.4); White Blood Count 9.53 K/uL (4.8-10.8)
--- NOTE | 2020-06-12 09:08 | Hospitalist Progress Note ---
Date of Service June 12, 2020 Assessment & Plan (1) Malignant neoplasm metastatic to lumbar spine with unknown primary site: Angella is a 64 y/o female with a history of COPD, CAD, HTN, HLD, AAA, and tobacco abuse for [address] [facility] with acute-onset of worsening back pain for 1.5 months on 06/02, and was also found to have bilateral pulmonary emboli. She was transitioned from the PCU to Med-Surg on 06/11. She was originally Further workup by oncology and pulmonology throughout her course here has been diagnostic of metastatic adenocarcinoma involving her lumbar spine, adrenal glands, and possibly liver, theorized to be primarily pulmonary in origin. Metastatic Adenocarcinoma -- thought to be pulmonary in origin: - Imaging findings (lumbar spine MRI, CTA abdomen and pelvis, MRI brain): Scattered lytic lesions in spine, pelvis, and ribs consistent with metastatic disease + pathologic compression fractures at L3-L4. Also significant for left adrenal gland nodules measuring to 3.2cm and a 5mm peroneal nodule. Brain MRI demonstrated small acute/subacute infarcts in R parietal and cerebellar lobes, alongside calvarial metasis -- no evidence of brain mets. 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 Upon discharge, goal will be to limit to a long-acting agent (if needed) and limit polypharmacy while balancing adequate analgesia - Continue fentanyl patch 25mg - Continue lidocaine patch - Meloxicam 7.5mg PO b.i.d. - Tylenol 1000mg PO daily - PRN analgesia: - Toradol 15mg PO q6h PRN - Oxycodone 5mg PO q4h PRN - d/c dilaudid 0.5mg IV q3h PRN [id number] Hypoxic/Hypercapnic Respiratory Failure - Multifactorial iincluding: NSCLC, bilateral PEs (hypercoagulability in setting of malignancy), mucus plugging in COPD, undiagnosed LAURA (+snoring at night; +clinical obesity), pain medications ?narcosis, and poor functional status during hospitalization - Did receive Lasix 40mg IV x 1 on 06/11 secondary to increased crackles on exam -- demonstrated minimal/no improvement, unlikely d/t fluid status. - 06/11: Respiratory therapy 2 step test --> requires 5 L O2 NC at rest and 6 L O2 NC with ambulation to maintain saturation of 95% - Continue duo nebs PRN and BiPAP PRN for increased work of breathing and oxygen desaturations - Pulm Consulted: Recommended BiPAP qHS; patient noncomplicant and would only like to use with respiratory distress - Encourage OOB, ambulation, and incentive spirometry as much as possible. Goal right now before discharge: >=92% at 3-4L NC or lower. - Utilize home nasal cannula upon discharge once above goal is met Bilateral Pulmonary Emboli - found on 06/02/20 chest CTA - Previously on heparin gtt earlier in hospital course, since transitioned to Eliquis - Eliquis 5mg PO once daily for 1 week, then 5mg PO b.i.d. beginning next week - CBC qAM in setting of Eliquis COPD - Duo nebs PRN and BiPAP as mentioned above - Follow pulmonology in the outpatient setting - Can consider flutter valve PRN for mucus plugging Chest pain ("burning" quality), Dysphagia - EKG 06/08: no acute ST or T wave changes - Troponin negative - Barium swallow was not completed due to patient's weakness and inability to tolerate study; however, images that were obtained did not show any abnormalities - Pantoprazole 40mg PO b.i.d. Cerebral ischemic infarcts, as discovered on MRI - New acute infarcts noted in R parietal and cerebellar areas on MRI -- thought to be d/t hypercoaguable state of malignancy - Neurology consulted (06/06): Continue Eliquis, home BP/statin medications. Recommended f/u in 6-8 weeks pending [id number] - bilateral carotid duplex ordered 06/05 --- ~50% narrowing at the distal left ICA, no significant stenosis within the right ICA; mild to moderate stenosis within the external carotid arteries - TTE w/ bubble study ordered 06/06 --- LVEF 65-70%, no regional wall motion abnormalities, borderline concentric LVH; injection of contrast documented no interartial shunt Normocytic Anemia - Hgb stable 8.6 - likely secondary to chronic disease - trend CBC daily HTN - Continue metoprolol titrate 100 mg daily - lisinopril 5 mg HS - Imdur 60 mg daily - Spironolactone 12.5 mg daily CAD - Continue statin therapy, DARIUS, metoprolol as above - ASA 81mg daily HLD - discontinued simvastatin 20 mg - started on Atorvastatin 80mg FEN/GI:heart-healthy diet -- Banks removed on 06/11 DVT prophylaxis: Changed from heparin gtt to Eliquis 06/09 (plan for Eliquis 10mg BID x1 week, then 5mg BID) code status: full dispo: med/surg Admission and Anticipated Discharge Date Admission Date: June 02, 2020 Supervising Physician Co-Signing Physician Notes Resident Physician Supervision Note: I independently interviewed and examined the patient and verified the mackay history and physical, reviewed labs and image studies, discussed the case with the resident Dr. Salcedo and agree with the findings and care plan. Needs hospital bed due to inability to use walker and bedside commode due to being dyspneic secondary to metastatic cancer with primary lung cancer and pulmonary embolism. Subjective No acute events overnight. At the bedside this morning, patient is eating breakfast, and reports feeling well. She denies any pain right now, and feels that her pain regimen is very well controlling her pain. Has oxygen mask on at 6L -- denies any shortness of breath while lying back in the bed, but does endorse some while walking around / getting up to go to the bathroom. Has been able to ambulate to the bathroom without any difficulty. Denies any chest pains or palpitations, no abdominal pain, nausea or vomiting. Review of Systems Constitutional: no fatigue Respiratory: Denies shortness of breath with rest, but increased work of breathing with exertion. Cardiovascular: Additional Comments: No chest pain, pressure, or palpitations. Gastrointestinal: Denies abdominal pain, nausea, or vomiting Physical Exam Constitutional: Patient is observed sitting up in her bed and eating breakfast. She converses in full sentences, and is in no acute distress. Alert and oriented. Respiratory: Oxygen mask is on at 6 L a minute. She has good respiratory effort and is speaking in full sentences. There are intermittent rhonchi heard throughout both lungs bilaterally - most noticeable in the upper lung oliva. Cardiovascular: Normal rate and regular rhythm, S1 and S2 present without any murmurs rubs or gallops. Gastrointestinal (Abdomen): Normoactive bowel sounds. Abdomen is soft, nontender, and nondistended. Results & Data Results & Data ([facility]) Vital Signs (Past 12 Hours) Vital Signs Temp Pulse Resp BP Pulse Ox 06/12/20 06:27 36.9 C 99 H 19 115/69 92 06/11/20 23:05 36.8 C 95 H 19 130/58 L 90 Resident Activity Tracking Resident Involvement: Resident Care Provided Care Provided: Adult Hospital Medicine
[2020-06-12 09:24] LABS: BUN Creatinine Ratio 30.9 (10-20); Calcium 8.9 mg/dl (8.5-10.1); Creatinine Clr Calc Pharmacy 153.6 ml/min; Est GFR (African American) 125.4; Est GFR (Non-African American) 108.2; Potassium 4.4 mmol/L (3.5-5.1)
[2020-06-12] MEDS: lisinopriL 5 MG TAB PO SCH (20:57)
[2020-06-13] MEDS: CHECK FENTANYL PATCH PLACEMENT SCH ×4 (00:13→23:26)
[2020-06-13] MEDS: OXYCODONE HCL IR 5 MG TAB (IMMEDIATE RELEASE) PO PRN ×4 (02:14→18:21)
[2020-06-13] MEDS: ALBUT/IPRATROP 3MG/0.5MG NEB 3 ML VIAL INH PRN ×2 (02:25→20:06)
[2020-06-13] MEDS: ACETAMINOPHEN 500 MG TAB PO SCH ×3 (05:45→21:38)
[2020-06-13 06:02] LABS: Hematocrit (blood only) 25.4 % (37-47); Hemoglobin 7.3 g/dL (12.0-16.0); Mean Corpuscular Hemoglobin 25.3 pg (25-34); Mean Corpuscular Hgb Conc 28.7 g/dL (32-36); Mean Corpuscular Volume 87.9 fL (80-100); Mean Platelet Volume 9.4 fL (7.4-10.4); Platelet Count 344 K/uL (130-400); RDW Coefficient of Variation 17.2 % (11.5-14.5); RDW Standard Deviation 55.3 fL (36.4-46.3); Red Blood Count 2.89 M/uL (4.2-5.4); White Blood Count 10.24 K/uL (4.8-10.8)
[2020-06-13 06:11] LABS: BUN Creatinine Ratio 27.4 (10-20); Calcium 8.6 mg/dl (8.5-10.1); Creatinine Clr Calc Pharmacy 127.5 ml/min; Est GFR (African American) 117.9; Est GFR (Non-African American) 101.8; Potassium 4.7 mmol/L (3.5-5.1)
[2020-06-13 06:28] LABS: Basophils # (auto) 0.02 K/uL (0-0.2); Basophils % (auto) 0.2 %; Eosinophils # (auto) 0.06 K/uL (0-0.5); Eosinophils % (auto) 0.6 %; Immature Granulocytes # (auto) 0.15 K/uL (0.00-0.02); Immature Granulocytes % (auto) 1.5 %; Lymphocytes % (auto) 11.7 %; Monocytes % (auto) 5.9 %; Neutrophils # (auto) 8.21 K/uL (1.4-6.5); Neutrophils % (auto) 80.1 %; Polychromasia 1+
--- NOTE | 2020-06-13 08:08 | Hospitalist Progress Note ---
Date of Service June 13, 2020 Assessment & Plan (1) Malignant neoplasm metastatic to lumbar spine with unknown primary site: Angella is a 64 y/o female with a history of COPD, CAD, HTN, HLD, AAA, and tobacco abuse for [address] [facility] with acute-onset of worsening back pain for 1.5 months on 06/02, and was also found to have bilateral pulmonary emboli. She was transitioned from the PCU to Med-Surg on 06/11. She was originally Further workup by oncology and pulmonology throughout her course here has been diagnostic of metastatic adenocarcinoma involving her lumbar spine, adrenal glands, and possibly liver, theorized to be primarily pulmonary in origin. Metastatic Adenocarcinoma -- thought to be pulmonary in origin: - Imaging findings (lumbar spine MRI, CTA abdomen and pelvis, MRI brain): Scattered lytic lesions in spine, pelvis, and ribs consistent with metastatic disease + pathologic compression fractures at L3-L4. Also significant for left adrenal gland nodules measuring to 3.2cm and a 5mm peroneal nodule. Brain MRI demonstrated small acute/subacute infarcts in R parietal and cerebellar lobes, alongside calvarial metasis -- no evidence of brain mets. - Pathology of supraclavicular LN biopsy - undifferentiated adenocarcinoma - Per radiation oncology: Palliative external beam radiation, received treatment 12/30 today. - Spoke to Dr. Narvaez - their office will arrange for remainder of treatments in outpatient setting. - Surgery consult placed for MediPort placement at the recommendation of medical oncology - Oncology advised outpatient follow-up in 1-2 weeks upon discharge -- anticipate salvage chemotherapy Pain in Setting of Known Malignancy - Per patient, pain is currently well managed on the following regimen: - Continue fentanyl patch 25mcg TD q3d RAKESH - Continue lidocaine patch TD qAM RAKESH - Tylenol 1000mg PO daily - PRN analgesia: - Toradol 15mg PO q6h PRN - Oxycodone 5mg PO q4h PRN - d/c dilaudid 0.5mg IV q3h PRN [id number] Hypoxic Respiratory Failure: Resolving - Multifactorial including: NSCLC, bilateral PEs (hypercoagulability in setting of malignancy), mucus plugging in COPD, undiagnosed LAURA (+snoring at night; + clinical obesity), pain medications ?narcosis, and poor functional status during hospitalization - Did receive Lasix 40mg IV x 1 on 06/11 secondary to increased crackles on exam -- demonstrated minimal/no improvement, unlikely d/t fluid status. - 06/11: 2 step test --> requires 5 L O2 NC at rest and 6 L O2 NC with ambulation to maintain saturation of 95% - Continue duo nebs PRN and BiPAP PRN - Pulm Consulted: Recommended BiPAP qHS; patient non-compliant and would only like to use with respiratory distress - Encourage OOB, ambulation, and incentive spirometry as much as possible. Goal right now before discharge: 92-94% at 2-4L NC or lower. - Utilize home nasal cannula upon discharge once above goal is met - (06/13), SaO2 90 to 98% on 4 L oxygen via NC at rest. wean as tolerated - anticipate d/c tomorrow from a respiratory standpoint. Mild Hypovolemia - Hemodynamically stable -- BP today 100/70s to 120/80, & mild but persistence tachycardia in low 100s - Suspect this is 2/2 hypoalbuminemia, with last value at 2.0 on 06/05. - Continue to encourage PO intake. - Asymptomatic - s/p LR 250mL bolus x 1 on 06/13 in the afternoon Normocytic Anemia - baseline Hgb since current hospitalization has tended between ~8.5-9.0 - Initial H&H on 06/13 AM was 7.3/25.4 -- rechecked at noon, stable at 8.1/27.5 - trend CBC daily - Transfuse if Hgb < 7 or if patient becomes symptomatic Bilateral Pulmonary Emboli - found on 06/02/20 chest CTA - Previously on heparin gtt earlier in hospital course, since transitioned to Eliquis - Eliquis 5mg PO once daily for 1 week, then 5mg PO b.i.d. beginning next week - CBC qAM in setting of Eliquis COPD - Duo nebs PRN and BiPAP as mentioned above - Follow pulmonology in the outpatient setting - Can consider flutter valve PRN for mucus plugging Chest pain ("burning" quality), Dysphagia - EKG 06/08: no acute ST or T wave changes - Troponin negative - Barium swallow was not completed due to patient's weakness and inability to tolerate study; however, images that were obtained did not show any abnormalities - Pantoprazole 40mg PO b.i.d. Cerebral ischemic infarcts, as discovered on MRI - New acute infarcts noted in R parietal and cerebellar areas on MRI -- thought to be d/t hypercoaguable state of malignancy - Neurology consulted (06/06): Continue Eliquis, home BP/statin medications. Recommended f/u in 6-8 weeks pending [id number] - bilateral carotid duplex ordered 06/05 --- ~50% narrowing at the distal left ICA, no significant stenosis within the right ICA; mild to moderate stenosis within the external carotid arteries - TTE w/ bubble study ordered 06/06 --- LVEF 65-70%, no regional wall motion abnormalities, borderline concentric LVH; injection of contrast documented no interartial shunt HTN - Continue metoprolol titrate 100 mg daily -- hold parameters in place - lisinopril 5 mg HS - Imdur 60 mg daily - Spironolactone 12.5 mg daily CAD - Continue statin therapy, DARIUS, metoprolol as above - ASA 81mg daily HLD - discontinued simvastatin 20 mg - started on Atorvastatin 80mg dispo: med/surg -- pending continued progress overnight with oxygen saturations and morning H&H, stable for d/c beginning tomorrow. Awaiting consult from surgery for mediport placement and scheduling. D/c Planning: Patient is having hospital bed and bedside commode delivered to their house tomorrow FEN/GI:heart-healthy diet -- Banks removed on 06/11 DVT prophylaxis: Changed from heparin gtt to Eliquis 06/09 (plan for Eliquis 10mg BID x1 week, then 5mg BID) code status: full Admission and Anticipated Discharge Date Admission Date: June 02, 2020 Supervising Physician Co-Signing Physician Notes Resident Physician Supervision Note: I independently interviewed and examined the patient and verified the mackay history and physical, reviewed labs and image studies, discussed the case with the resident Dr. Salcedo and agree with the findings and care plan. Subjective No acute events overnight. She reports feeling well this morning, and overall feels that her status is improving here. While she does continue to endorse some shortness of breath with walking around, such as going to the bathroom, she denies any shortness of breath at rest. Denies pain anywhere, including chest pain or pressure. When up and ambulating, she denies any lightheadedness, feelings of dizziness, or feelings like she is about to pass out. No nausea, vomiting. Reports that her appetite is good and is looking forward to breakfast. Expresses desire to leave the hospital soon. Reports that her beam therapy treatment went well yesterday, without any complications. Looking forward to the next treatment today. Review of Systems Constitutional: no fever, no chills and no fatigue Respiratory: + cough; no dyspnea She does report some increase in mucus production. Cardiovascular: no chest pain, no palpitations and no lightheadedness Additional Comments: No feelings of presyncope. Gastrointestinal: no abdominal pain, no nausea and no vomiting Physical Exam Constitutional: 64-year-old female who is lying back in her hospital bed, in no acute distress. She does not appear pale. She is alert and oriented during our discussion. Eyes: No conjunctival pallor. Respiratory: Good respiratory effort with symmetric expansion of the chest. She continues to have intermittent rhonchi heard throughout all lung oliva, no different than yesterday's exam. Cardiovascular: Normal rate and regular rhythm. S1 and S2 are present with a soft murmur heard during systole at the left lower sternal border. No rubs or gallops Gastrointestinal (Abdomen): Normoactive bowel sounds. Soft and nondistended. Nontender to palpation without appreciable organomegaly. Results & Data Results & Data ([facility]) Vital Signs (Past 12 Hours) Vital Signs Temp Pulse Pulse Resp BP Pulse Ox 06/13/20 07:48 36.7 C 88 16 95/44 L 86 L 06/13/20 03:18 102 H 20 92 06/13/20 02:25 111 H 24 90 06/13/20 01:16 102 H 20 92 06/13/20 00:15 97 H 20 92 06/13/20 00:00 37.2 C 99 H 22 126/71 93 06/12/20 21:01 36.9 C 94 H 20 115/48 L 93 Resident Activity Tracking Resident Involvement: Resident Care Provided Care Provided: Adult Hospital Medicine
[2020-06-13] MEDS: CHOLECALCIFEROL 1,000 UNITS 25 MCG TAB PO SCH (09:44)
[2020-06-13] MEDS: ASPIRIN 81 MG ECTAB PO SCH (09:44)
[2020-06-13] MEDS: guaiFENesin 600 MG TABCR PO SCH ×2 (09:44→20:02)
[2020-06-13] MEDS: CALCIUM CARBONATE 1250MG TAB PO SCH (09:45)
[2020-06-13] MEDS: APIXABAN 5 MG TABLET PO SCH ×2 (09:46→20:02)
[2020-06-13] MEDS: SPIRONOLACTONE 12.5 MG TAB PO SCH (09:46)
[2020-06-13] MEDS: PANTOprazole 40 MG TAB PO SCH ×2 (09:47→20:02)
[2020-06-13] MEDS: ATORVASTATIN 40 MG TAB PO SCH (09:47)
[2020-06-13] MEDS: UMECLIDINIUM/VILANTEROL 62.5/25MCG 7 PUFFS/INHALER INH SCH (09:48)
[2020-06-13] MEDS: METOPROLOL TARTRATE 100 MG TAB PO SCH (09:48)
[2020-06-13] MEDS: FLUTICASONE FUROATE 100MCG 14 PUFFS/INHALER INH SCH (09:48)
[2020-06-13] MEDS: POLYETHYLENE (MIRALAX) 17 GM PACK PO SCH (09:49)
[2020-06-13] MEDS: LIDOCAINE 5% 1 PATCH TD SCH (09:49)
[2020-06-13] MEDS: ISOSORBIDE MONO EXTENDED REL 60 MG TABCR PO SCH (09:49)
[2020-06-13] MEDS: bisacodyL 5 MG TABEC PO SCH (09:52)
[2020-06-13] MEDS: fentaNYL 25 MCG/HR TDSY TD SCH (11:21)
[2020-06-13 12:22] LABS: Hematocrit (blood only) 27.5 % (37-47); Hemoglobin 8.1 g/dL (12.0-16.0)
[2020-06-13] MEDS ORDERED: LACTATED RINGER'S 250 ML IV ONE (16:34)
[2020-06-13] MEDS: HYDROmorphone INJ 0.5 MG/0.5 ML SYR IV PRN (19:57)
[2020-06-13] MEDS: lisinopriL 5 MG TAB PO SCH (20:02)
[2020-06-14] MEDS: HYDROmorphone INJ 0.5 MG/0.5 ML SYR IV PRN ×3 (02:22→16:33)
[2020-06-14] MEDS: ACETAMINOPHEN 500 MG TAB PO SCH ×2 (05:30→14:18)
[2020-06-14] MEDS: OXYCODONE HCL IR 5 MG TAB (IMMEDIATE RELEASE) PO PRN ×4 (05:30→18:52)
[2020-06-14] MEDS: ALBUT/IPRATROP 3MG/0.5MG NEB 3 ML VIAL INH PRN ×2 (05:37→16:37)
[2020-06-14 06:37] LABS: Basophils # (auto) 0.02 K/uL (0-0.2); Basophils % (auto) 0.2 %; Eosinophils # (auto) 0.15 K/uL (0-0.5); Eosinophils % (auto) 1.5 %; Hematocrit (blood only) 28.8 % (37-47); Hemoglobin 8.1 g/dL (12.0-16.0); Immature Granulocytes # (auto) 0.15 K/uL (0.00-0.02); Immature Granulocytes % (auto) 1.5 %; Lymphocytes % (auto) 12.2 %; Mean Corpuscular Hemoglobin 24.9 pg (25-34); Mean Corpuscular Hgb Conc 28.1 g/dL (32-36); Mean Corpuscular Volume 88.6 fL (80-100); Monocytes # (auto) 1.09 K/uL (0.11-0.59); Monocytes % (auto) 11.1 %; Neutrophils % (auto) 73.5 %; Platelet Count 403 K/uL (130-400); RDW Coefficient of Variation 17.5 % (11.5-14.5); RDW Standard Deviation 56.2 fL (36.4-46.3); Red Blood Count 3.25 M/uL (4.2-5.4); White Blood Count 9.81 K/uL (4.8-10.8)
[2020-06-14 06:58] LABS: BUN Creatinine Ratio 27.7 (10-20); Calcium 9.5 mg/dl (8.5-10.1); Creatinine Clr Calc Pharmacy 137.9 ml/min; Est GFR (Non-African American) 104.4; Potassium 4.9 mmol/L (3.5-5.1)
--- NOTE | 2020-06-14 07:38 | Surgery Consultation ---
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: We will plan port placement as an outpatient-likely next week My office will be in contact with her She will need to stop her Eliquis at least 2 days prior to her surgery And also be tested for COVID Discharge per medical team My office will be in contact with her History of Present Illness Attending Physician: Clara Almaguer MD History of Present Illness 64-year-old female with metastatic cancer to the spine pelvis ribs of likely pulmonary origin Her other comorbidity includes evidence of right hemispheric acute/subacute infarcts Pulmonary emboli now on Eliquis Respiratory insufficiency on nasal cannula with history of COPD Patient is for salvage chemotherapy , Dr. Aviles-who is to see her again within 2 weeks Also for radiation therapy, has seen Dr. Narvaez Allergies Allergy/AdvReac Type Severity Reaction Status Date / Time No Known Drug Allergies Allergy Unknown Verified 06/02/20 12:29 Home Medications Home Medications Medication Instructions Recorded Confirmed Type albuterol sulfate 90 mcg/actuation 2 puff INHALATION Q4 PRN #1 gm 06/28/19 06/02/20 History aerosol inhaler aspirin 81 mg tablet,delayed 81 mg PO QAM tab 06/28/19 06/02/20 History release ipratropium 0.5 mg-albuterol 3 mg 3 ml INHALATION .COMPLEX ml 06/28/19 06/02/20 History (2.5 mg base)/3 mL nebulization soln isosorbide mononitrate 60 mg 60 mg PO QAM tab 06/28/19 06/02/20 History tablet,extended release 24 hr lisinopril 5 mg tablet 5 mg PO HS #60 tab 06/28/19 06/02/20 History metoprolol tartrate 100 mg tablet 100 mg PO QAM tab 06/28/19 06/02/20 History simvastatin 20 mg tablet 20 mg PO HS #90 tab 06/28/19 06/02/20 History pantoprazole 40 mg tablet,delayed 40 mg PO HS 12/27/19 06/02/20 History release calcium carbonate [Calcium 600] 600 mg PO QAM 06/02/20 06/02/20 History cholecalciferol (vitamin D3) 2,000 unit PO QAM 06/02/20 06/02/20 History [Vitamin D3] hosplfdrrya-dkoyhhdrf-bfqykbfv 1 inh INHALATION QAM 06/02/20 06/02/20 History [Trelegy Ellipta] furosemide 40 mg PO QAM 06/02/20 06/02/20 History nitroglycerin 0.4 mg SUBLINGUAL UD PRN 06/02/20 06/02/20 History spironolactone 12.5 mg PO QAM 06/02/20 06/02/20 History Patient History Medical History (Updated 06/07/20 @ 11:08 by Sarkis Narvaez MD) History of smoking 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 Social History Smoking Status: Former smoker Age Started Using Tobacco: 15; Age Quit Using Tobacco: 63; packs per day: 1; Number of Years Since Quit: 1; Second Hand Exposure: No; Hx Alcohol Use: No Hx Substance Use: No Preferred Language: Thai Communication Ability: Effective Visual Impairment: No Limitations Hearing Ability: Normal Saw Repairer Required: No Beliefs That Will Affect Care: None marital status: Current Living Situation: Spouse current occupational status: employed Feels Safe at Home: Yes Safety Concerns: Feels Safe At This Time Childhood Exposure to Second-Hand Smoke: Yes caffeine: Yes Dental Care, Regularly: Yes Physical Activity Frequency: Does not Exercise Seatbelt Use: always Sunscreen Use: No Do you think of yourself as: straight/heterosexual Sexual Activity: has been sexually active within the last 12 months Assistive Devices: Oxygen - Continuous and Walker Physical Exam Constitutional: + ill appearing; no acute distress Eyes: + anicteric sclerae Respiratory: + labored breathing Has oxygen via nasal cannula in place Cardiovascular: Rate/Rhythm: regular rate Musculoskeletal: Head/Neck/Chest: head atraumatic Skin: no rashes Neurologic: awake Psychiatric: Orientation: alert Results & Data ([facility]) Vital Signs (Past 12 Hours) Vital Signs Temp Pulse Resp BP BP Pulse Ox 06/14/20 07:35 36.7 C 99 H 22 125/70 92 06/14/20 05:39 116 H 22 90 06/14/20 01:48 91 H 99 06/13/20 23:02 36.6 C 113 H 18 111/52 L 92 06/13/20 22:29 111 H 93 06/13/20 22:15 113 H 92 06/13/20 21:35 36.9 C 122 H 24 105/67 89 L 06/13/20 20:08 119 H 96 06/13/20 20:07 118 H 24 90 PG Care Time/CCT Total # of Minutes Spent Total Time Spent with Patient: Total time spent is greater than 50% in coordination of care (as documented) at patient's floor/unit and/or counseling patient: Coding Level of Care Code 48330 Inpt Consult Level 4 Diagnoses 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
[2020-06-14] MEDS: CHECK FENTANYL PATCH PLACEMENT SCH ×2 (09:21→16:29)
[2020-06-14] MEDS: SPIRONOLACTONE 12.5 MG TAB PO SCH (09:22)
[2020-06-14] MEDS: guaiFENesin 600 MG TABCR PO SCH (09:23)
[2020-06-14] MEDS: PANTOprazole 40 MG TAB PO SCH (09:23)
[2020-06-14] MEDS: ATORVASTATIN 40 MG TAB PO SCH (09:24)
[2020-06-14] MEDS: APIXABAN 5 MG TABLET PO SCH (09:24)
[2020-06-14] MEDS: ASPIRIN 81 MG ECTAB PO SCH (09:24)
[2020-06-14] MEDS: CHOLECALCIFEROL 1,000 UNITS 25 MCG TAB PO SCH (09:25)
[2020-06-14] MEDS: CALCIUM CARBONATE 1250MG TAB PO SCH (09:25)
[2020-06-14] MEDS: UMECLIDINIUM/VILANTEROL 62.5/25MCG 7 PUFFS/INHALER INH SCH (09:26)
[2020-06-14] MEDS: FLUTICASONE FUROATE 100MCG 14 PUFFS/INHALER INH SCH (09:26)
[2020-06-14] MEDS: LIDOCAINE 5% 1 PATCH TD SCH (09:26)
[2020-06-14] MEDS: METOPROLOL TARTRATE 100 MG TAB PO SCH (09:29)
[2020-06-14] MEDS: ISOSORBIDE MONO EXTENDED REL 60 MG TABCR PO SCH (09:29)
[2020-06-14] MEDS: POLYETHYLENE (MIRALAX) 17 GM PACK PO SCH (09:38)
[2020-06-14] MEDS: bisacodyL 5 MG TABEC PO SCH (09:38)
--- NOTE | 2020-06-14 11:01 | Hospitalist Progress Note ---
Date of Service June 14, 2020 Assessment & Plan (1) Malignant neoplasm metastatic to lumbar spine with unknown primary site: Angella is a 64 y/o female with a history of COPD, CAD, HTN, HLD, AAA, and tobacco abuse for 44 years who presented to [facility] with acute-onset of worsening back pain for 1.5 months on 06/02, and was also found to have bilateral pulmonary emboli. She was transitioned from the PCU to Med-Surg on 06/11. She was originally Further workup by oncology and pulmonology throughout her course here has been diagnostic of metastatic adenocarcinoma involving her lumbar spine, adrenal glands, and possibly liver, theorized to be primarily pulmonary in origin. Metastatic Adenocarcinoma -- thought to be pulmonary in origin: - Imaging findings (lumbar spine MRI, CTA abdomen and pelvis, MRI brain): Scattered lytic lesions in spine, pelvis, and ribs consistent with metastatic disease + pathologic compression fractures at L3-L4. Also significant for left adrenal gland nodules measuring to 3.2cm and a 5mm peroneal nodule. Brain MRI demonstrated small acute/subacute infarcts in R parietal and cerebellar lobes, alongside calvarial metasis -- no evidence of brain mets. - Pathology of supraclavicular LN biopsy - undifferentiated adenocarcinoma - Per radiation oncology: Palliative external beam radiation, received treatment 12/30 today. - Spoke to Dr. Narvaez - their office will arrange for remainder of treatments in outpatient setting. - Surgery consult placed for MediPort placement at the recommendation of medical oncology - Recommended outpatient placement upon discharge -- home Eliquis must be held for 2 days prior to d/c - Schedule COVID test for pre-procedural testing - Oncology advised outpatient follow-up in 1-2 weeks upon discharge -- anticipate salvage chemotherapy Pain in Setting of Known Malignancy - Per patient, pain is currently well managed on the following regimen: - Continue fentanyl patch 25mcg TD q3d RAKESH - Continue lidocaine patch TD qAM RAKESH - Tylenol 1000mg PO daily - PRN analgesia: - Toradol 15mg PO q6h PRN - Oxycodone 5mg PO q4h PRN - d/c dilaudid 0.5mg IV q3h PRN Nqwwk-ql-Hkwnupw Hypoxic Respiratory Failure: Resolving - Multifactorial including: NSCLC, bilateral PEs (hypercoagulability in setting of malignancy), mucus plugging in COPD, undiagnosed LAURA (+snoring at night; +clinical obesity), pain medications ?narcosis, and poor functional status d uring hospitalization - Did receive Lasix 40mg IV x 1 on 06/11 secondary to increased crackles on exam -- demonstrated minimal/no improvement, unlikely d/t fluid status. - 06/11: 2 step test --> requires 5 L O2 NC at rest and 6 L O2 NC with ambulation to maintain saturation of 95% - Continue duo nebs PRN and BiPAP PRN - Pulm Consulted: Recommended BiPAP qHS; patient non-compliant and would only l ana to use with respiratory distress - Encourage OOB, ambulation, and incentive spirometry as much as possible. Goal right now before discharge: 92-94% at 2-4L NC or lower. - Utilize home nasal cannula upon discharge once above goal is met - Prescription supplied for home oxygen, continuous, at 4-6L - Patient continues to maintain saturations of 90-94% at 4L O2 via NC - Stable for d/c from a respiratory perspective Mild Hypovolemia - Hemodynamically stable -- BP today 125/70 and mild but persistence (borderline) tachycardia in high 90s/low 100s - Suspect this is 2/2 intravascular depletion from hypoalbuminemia (last Alb at 2.0 on 06/05) - Responded nicely to LR 250mL bolus x 1 on 06/13, with BP slightly increasing and HR decreasing - Continue to encourage PO intake upon d/c -- recommend regular boost / protein shakes upon discharge - Encourage frequent leg elevation, compression stockings to promote fluid resorption upon d/c - Asymptomatic Normocytic Anemia - baseline Hgb since current hospitalization has tended between ~8.5-9.0 - Hgb stable and same as yesterday at 8.1 (Hct 28.8) - trend CBC daily - Transfuse if Hgb < 7 or if patient becomes symptomatic Bilateral Pulmonary Emboli - found on 06/02/20 chest CTA - Previously on heparin gtt earlier in hospital course, since transitioned to Eliquis - Eliquis 5mg PO once daily for 1 week, then 5mg PO b.i.d. beginning next week - CBC qAM in setting of Eliquis COPD - Duo nebs PRN and BiPAP as mentioned above - Follow pulmonology in the outpatient setting - Can consider flutter valve PRN for mucus plugging Chest pain ("burning" quality), Dysphagia - EKG 06/08: no acute ST or T wave changes - Troponin negative - Barium swallow was not completed due to patient's weakness and inability to tolerate study; however, images that were obtained did not show any abnormalities - Pantoprazole 40mg PO b.i.d. Cerebral ischemic infarcts, as discovered on MRI - New acute infarcts noted in R parietal and cerebellar areas on MRI -- thought to be d/t hypercoaguable state of malignancy - Neurology consulted (06/06): Continue Eliquis, home BP/statin medications. Recommended f/u in 6-8 weeks pending [id number] - bilateral carotid duplex ordered 06/05 --- ~50% narrowing at the distal left ICA, no significant stenosis within the right ICA; mild to moderate stenosis within the external carotid arteries - TTE w/ bubble study ordered 06/06 --- LVEF 65-70%, no regional wall motion abnormalities, borderline concentric LVH; injection of contrast documented no interartial shunt HTN - Continue metoprolol titrate 100 mg daily -- hold parameters in place - Home Imdur held yesterday in setting of low-normal pressures and tachycardia; given today alongside metoprolol - Given normotension and low-normal pressures throughout hospital course, anticipate the following home medication changes at d/c: - d/c lisinopril 5mg PO HS - Reduce Imdur 60mg PO daily --> 30mg PO daily - Continue metoprolol tartrate 100mg PO daily - Continue spironolactone 12.5mg PO daily CAD - Continue statin therapy, DARIUS, metoprolol as above - ASA 81mg daily HLD - discontinued simvastatin 20 mg - started on Atorvastatin 80mg dispo: med/surg -- pending continued progress overnight with oxygen saturations and morning H&H, stable for d/c beginning tomorrow. Awaiting consult from surgery for mediport placement and scheduling. D/c Planning: Patient is having hospital bed and bedside commode delivered to their house tomorrow FEN/GI:heart-healthy diet -- Banks removed on 06/11 DVT prophylaxis: Changed from heparin gtt to Eliquis 06/09 (plan for Eliquis 10mg BID x1 week, then 5mg BID) code status: full Admission and Anticipated Discharge Date Admission Date: June 02, 2020 Subjective Last night, patient did utilize duo nebs X1, which she will occasionally do at home to, to help her bring up mucus. She says that her shortness of breath was not any different than usual. Otherwise, aside from her notable tachycardia in the low 110s, no acute events overnight. At the bedside, she reports feeling well this morning and looking forward to eating her breakfast. She says that her shortness of breath continues to be at baseline, not any different than before. She has been able to ambulate to the bathroom without any difficulty. She denies any chest pain, pressure, nausea, or vomiting. Review of Systems Constitutional: no fever and no chills Respiratory: Endorses baseline level of dyspnea, no worse than before. Denies cough. Cardiovascular: Additional Comments: Denies chest pains, palpitations, shortness of breath Gastrointestinal: Denies abdominal pain, nausea, or vomiting. Results & Data Results & Data ([place]) Vital Signs (Past 12 Hours) Vital Signs Temp Pulse Resp BP BP Pulse Ox 06/14/20 07:35 36.7 C 99 H 22 125/70 92 06/14/20 05:39 116 H 22 90 06/14/20 01:48 91 H 99 06/13/20 23:02 36.6 C 113 H 18 111/52 L 92 Resident Activity Tracking Resident Involvement: Resident Care Provided Care Provided: Adult Hospital Medicine
[2020-06-14] MEDS ORDERED: STROKE PATIENT DISCHARGE STA (18:20)
--- NOTE | 2020-06-14 18:56 | Pharmacy Report ---
Pharmacist Stroke Counseling - Date of Service June 14, 2020 - Scope: Pharmacy has been consulted to provide medication discharge counseling for this patient admitted with [ischemic stroke] [hemorrhagic stroke] [transient ischemic attack] as per the Pharmacist Discharge Counseling for Stroke Patients Pr otocol. - Medications on Discharge: Home Medications Medication Instructions Recorded Confirmed albuterol sulfate 90 mcg/actuation 2 puff INHALATION Q4 PRN #1 gm 06/28/19 06/02/20 aerosol inhaler aspirin 81 mg tablet,delayed 81 mg PO QAM tab 06/28/19 06/02/20 release ipratropium 0.5 mg-albuterol 3 mg 3 ml INHALATION .COMPLEX ml 06/28/19 06/02/20 (2.5 mg base)/3 mL nebulization soln isosorbide mononitrate 60 mg 60 mg PO QAM tab 06/28/19 06/02/20 tablet,extended release 24 hr lisinopril 5 mg tablet 5 mg PO HS #60 tab 06/28/19 06/02/20 metoprolol tartrate 100 mg tablet 100 mg PO QAM tab 06/28/19 06/02/20 simvastatin 20 mg tablet 20 mg PO HS #90 tab 06/28/19 06/02/20 pantoprazole 40 mg tablet,delayed 40 mg PO HS 12/27/19 06/02/20 release calcium carbonate [Calcium 600] 600 mg PO QAM 06/02/20 06/02/20 cholecalciferol (vitamin D3) 2,000 unit PO QAM 06/02/20 06/02/20 [Vitamin D3] zuchrjzycce-ldiscyczw-wmadwipv 1 inh INHALATION QAM 06/02/20 06/02/20 [Trelegy Ellipta] furosemide 40 mg PO QAM 06/02/20 06/02/20 nitroglycerin 0.4 mg SUBLINGUAL UD PRN 06/02/20 06/02/20 spironolactone 12.5 mg PO QAM 06/02/20 06/02/20 New Rx's Medication Instructions Recorded fentanyl 1 patch TRANSDERMAL Q72H #4 ea 06/14/20 isosorbide mononitrate 30 mg PO QAM 30 Days #30 tab 06/14/20 meloxicam 7.5 mg PO BID PRN #30 tab 06/14/20 oxycodone 5 mg PO BID PRN #10 cap 06/14/20 - Action: The above medications, specifically ones for stroke treatment/prophylaxis, have been reviewed in detail with the patient and/or patient sales representative business courses(s) prior to discharge. This includes indication, common adverse reactions, drug int eractions, and medication administration. Medication counseling has been employed using the teach-back method to ensure understanding. - Outcome: The patient and/or patient sales representative business courses(s) have demonstrated understanding of the medications. Additional comments: [] Thank you for allowing pharmacy to be involved in the care of this patient. Please call [phone] with any additional questions
--- NOTE | 2020-06-14 22:36 | Pharmacy Report ---
Pharmacist Stroke Counseling - Date of Service June 14, 2020 - Scope: Pharmacy has been consulted to provide medication discharge counseling for this patient admitted with ischemic stroke as per the Pharmacist Discharge Counseling for Stroke Patients Protocol. - Medications on Discharge: Home Medications Medication Instructions Recorded Confirmed albuterol sulfate 90 mcg/actuation 2 puff INHALATION Q4 PRN #1 gm 06/28/19 06/02/20 aerosol inhaler aspirin 81 mg tablet,delayed 81 mg PO QAM tab 06/28/19 06/02/20 release ipratropium 0.5 mg-albuterol 3 mg 3 ml INHALATION .COMPLEX ml 06/28/19 06/02/20 (2.5 mg base)/3 mL nebulization soln metoprolol tartrate 100 mg tablet 100 mg PO QAM tab 06/28/19 06/02/20 simvastatin 20 mg tablet 20 mg PO HS #90 tab 06/28/19 06/02/20 pantoprazole 40 mg tablet,delayed 40 mg PO HS 12/27/19 06/02/20 release Trelegy Ellipta 1 inh INHALATION QAM 06/02/20 06/02/20 calcium carbonate [Calcium 600] 600 mg PO QAM 06/02/20 06/02/20 cholecalciferol (vitamin D3) 2,000 unit PO QAM 06/02/20 06/02/20 [Vitamin D3] furosemide 40 mg PO QAM 06/02/20 06/02/20 nitroglycerin 0.4 mg SUBLINGUAL UD PRN 06/02/20 06/02/20 spironolactone 12.5 mg PO QAM 06/02/20 06/02/20 New Rx's Medication Instructions Recorded fentanyl 1 patch TRANSDERMAL Q72H #4 ea 06/14/20 isosorbide mononitrate 30 mg PO QAM 30 Days #30 tab 06/14/20 meloxicam 7.5 mg PO BID PRN #30 tab 06/14/20 oxycodone 5 mg PO BID PRN #10 cap 06/14/20 - Action: The above medications, specifically ones for stroke treatment/prophylaxis, have been reviewed in detail with the patient and/or patient brewery representative(s) prior to discharge. This includes indication, common adverse reactions, drug interactions, and medication administration. Medication counseling has been employed using the teach-back method to ensure understanding. - Outcome: Called patient's room and spoke to patient's crnfzrww-jt-zlr about her meds. Patient gave verbal okay for izlxiqlw-al-kog to take the phone. The patient's brewery representative have demonstrated understanding of the medications. Reviewed new medications to prevent stroke including Aspirin, Atorvastatin, Eliquis. Discussed why they are being used and common side effects in great detail. Reviewed how to use the medications, what to do if doses are missed, com mon side effects, what to watch out for while using the medications. Patient's htcdyzhv-du-xsx verbalized understanding and restated the mackay points of each medication. Thank you for allowing pharmacy to be involved in the care of this patient. Please call [phone] with any additional questions
--- NOTE | 2020-06-15 05:34 | Discharge Summary ---
Date of Service June 14, 2020 Admission HPI Per Admitting Provider This is a 64-year-old female with PMHx of COPD, CAD, HTN, HLD, AAA, significant smoking history of 45 years 1 PPD, quit 1.5 months ago, who presents with acute onset of worsening back pain within the last 1.5 months. She reports her pain has progressively gotten worse, but she has been seen at [facility] and by her PCP however they have not found anything. Today she was unable to walk due to pain, and has been noticing increased incontinence. She has not found relief from any OTC medications. Patient pain is currently 8/10 after dose of morphine and Dilaudid. She reports that breathing has gotten worse within the last 1.5 months and that is why she stopped smoking specifically. Prior to that she had O2 for as needed use, but has been using 2L constantly. She is using nebulizers, but has run out of her albuterol inhaler. She does follow with pulmonology here at [facility] and saw them in December 2019. She reports weight gain, swelling in her legs, and constantly sweating. He has been using Lasix for lower extremity edema. Patient has been nauseous on and off since this all started. She denies vomiting, abdominal pain, diarrhea, and typically has BMs every 2 to 3 days, with her last being 2 days ago. Her abdomen feels swollen and slightly distended. She has been taking all of her medication as directed. Here the patient had MRI of the L-spine due to pain and found to have patho logical fractures involving L3-L5 and multifocal marrow replacement favoring metastatic disease. In regards to routine screenings- she last had a mammogram within the past year which was unremarkable. Approximately 5 years ago she had a fine-needle biopsy of the left breast which showed benign tissue. She has never had a colonoscopy, "I had a sister who told me she would rather have a baby then go through that again", and would prefer not to. The patient lives at home with her . Admission Exam Per Admitting Provider General: awake, alert, no apparent distress, + obese, BMI = 37.5 Head: Normocephalic, atraumatic ENT: PERRL, EOMI, no pharyngeal exudate, mucous membranes moist Chest: Clear to auscultation, on 3L via NC, diminished breath sounds at bases bilaterally, no wheeze rales or rhonchi Cardiac: Regular rate and rhythm, + systolic murmur, no JVD, normal peripheral pulses, good capillary refill Abdominal: Abdominally obese, NABS x 4 quadrants, soft, mildly distended, nontender to palpation, no rebound or guarding Extremities: Normal inspection, 2+ peripheral edema BLE, no erythema, calfs no ntender to palpation Psych: Normal mood and affect Neuro: AAO x 3, leg strength not assessed due to pain, no gross upper extremity deficits, speech is clear, no peripheral sensory deficits Principal Diagnosis Metastatic lung cancer Bilateral PE Discharge Exam Constitutional Patient relaxed in her hospital chair, eating breakfast. She converses without difficulty and is able to speak in full sentences. NAD. Respiratory NC in place with flow rate of 4L/min O2. Good respiratory effort with symmetric expansion of the chest. Auscultation reveals scattered rhonchi throughout all lung oliva - exam no different than yesterday. Cardiovascular Normal rate, regular rhythm. S1 and S2 present without m/r/g. Gastrointestinal (Abdomen) Normoactive bowel sounds. Abdomen is soft, nontender, and nondistended to palpation. No rebound or guarding. Discharge Data Allergies Allergy/AdvReac Type Severity Reaction Status Date / Time No Known Drug Allergies Allergy Unknown Verified 06/02/20 12:29 Consultations 06/02/20 15:03 ED Decision to Admit Stat 06/02/20 19:14 Consult Case Management - Discharge Planning Routine Consult Oncology Routine 06/03/20 13:01 Consult Pulmonology Routine 06/05/20 10:00 Consult Radiology Routine 06/05/20 11:29 Consult Neurology Routine 06/06/20 17:52 Consult Radiation Oncology Routine 06/13/20 15:57 Consult General Surgery Routine Ordered Studies 06/02/20 11:43 MR lumbar spine wo con Stat 06/02/20 15:03 CT angio abdomen pelvis w con Stat CT angio chest PE protocol Stat 06/05/20 08:00 MR brain wo/w con Routine 06/05/20 11:15 US carotid doppler BI Urgent 06/05/20 14:00 US FNA w/img 1st lesion Routine 06/07/20 CT guide rad therapy pelvis Routine 06/08/20 FL barium swallow Routine Diabetes Follow up Diabetes Follow-up Needed for Newly Diagnosed Diabetes Hospital Course (1) Malignant neoplasm metastatic to lumbar spine with unknown primary site: Outpatient To-Do List: - Note: Patient was set up with medical oncology and radiation oncology appointments upon discharge. She is scheduled to have a MediPort placement next week in anticipation of her salvage chemotherapy - F/U CBC - F/U home O2 requirement and optimization of her COPD regimen - F/U pain control regimen - F/U blood pressures -- her Imdur was reduced from 60-->30mg PO daily and lisinopril 5mg PO daily was discontinued because of consistently low-normal pressures. Can consider increasing Imdur / reintroducing lisinopril as needed in outpatient setting Summary of Hospital Course Angella is a 64-year-old female with a notable PMH of COPD, CAD, HTN, HLD, AAA, and tobacco abuse for 44 years who presented to [facility] on 06/02/2020 with [id number] worsening back pain for approximately 1.5 months alongside worsening shortness of breath. Metastatic Adenocarcinoma -- Likely pulmonary in origin - In the emergency room, she underwent an MRI of her lumbar spine, CTA of her abdomen and pelvis, and CTA of her chest which revealed scattered lytic lesions in her spine, pelvis, and ribs, pathologic compression fractures of her L3-L4 vertebrae, a nodule on her left adrenal gland, and a peritoneal nodule just inferior to the R hepatic lobe. These findings were thought to be consistent with a metastatic malignancy. - Underwent supraclavicular LN biopsy which did demonstrate adenocarcinoma - Followed by pulmonology and medical oncology during her course -- findings were suspect of a primary pulmonary malignancy (likely NSCLC) - Medical oncology recommended port placement for salvage chemotherapy -- patient is to have this placed in the outpatient setting following discharge - Radiation oncology brought on-board and started external beam radiation therapy, which is to be continued in the outpatient setting Bilateral Pulmonary Emboli - In the ED, her chest CTA demonstrated bilateral pulmonary emboli on her chest CTA, which were thought to be contributory to worsening of her shortness of breath noted at admission - PEs are thought to be related to hypercoagulability of newly discovered malignancy - Started on heparin drip for initial treatment, subsequently transitioned to Eliquis 10mg PO b.i.d. -- will transition to Eliquis 5mg PO b.i.d. approx. 1 week following initiation of the 10mg b.i.d. (decrease dose on 09/25) Cerebral ischemic infarcts - Discovered on brain MRI during staging process - New acute infarcts noted in R parietal and cerebellar areas on MRI -- thought to be d/t hypercoaguable state of malignancy as well - Neurology consulted: Continue Eliquis, home BP/statin medications. Recommended f/u in 6-8 weeks pending [id number] - Bilateral carotid duplex ordered to r/o secondary cause: demonstrated ~50% narrowing at the distal left ICA, no significant stenosis within the right ICA; mild to moderate stenosis within the external carotid arteries - TTE w/ bubble study ordered to r/o secondary cause: LVEF 65-70%, no regional wall motion abnormalities, borderline concentric LVH; injection of contrast documented no interatrial shunt [id number] Hypoxic Respiratory Failure: Resolving - At home, Breanne has normally required 2L/min O2 from NC because of her COPD - During her hospitalization, had an increasing oxygen demand, requiring an oxygen mask - Thought to be multifactorial in origin, including: NSCLC, bilateral PEs (hypercoagulability in setting of malignancy), mucus plugging in COPD, undiagnosed LAURA (+snoring at night; +clinical obesity), pain medications ?narcosis, and poor functional status during hospitalization - Pulm Consulted: Recommended BiPAP qHS; patient non-compliant and would only like to use with respiratory distress - Encourage OOB, ambulation, and incentive spirometry as much as possible. Goal right now before discharge: 92-94% at 2-4L NC or lower. - Utilize home nasal cannula upon discharge once above goal is met - Prescription supplied for home oxygen, continuous, at 4-6L - Continue duo nebs PRN Pain in Setting of Known Malignancy - Per patient, pain was well managed on the regimen below, which were con't at d/c: - Fentanyl patch 25mcg TD q3d RAKESH - Lidocaine patch TD qAM RAKESH - Tylenol 1000mg PO daily - Meloxicam 7.5mg PO b.i.d. - PRN analgesia used intermittently while in hospital: - Toradol 15mg PO q6h PRN - Oxycodone 5mg PO q4h PRN - Dilaudid 0.5mg IV q3h PRN ----- Total Time Total Time Spent Total Time Spent (In Minutes): 13 days Total Time Includes: Examination of the Patient, Discharge Planning, Medication Reconciliation and Communication With Other Providers Discharge Plan Discharge Items Patient Disposition: Home - Home Health Services Reason For Visit: BACK PAIN,METASTATIC DISEASE IN BACK Discharge Diagnosis: Metastatic Lung Cancer Bilateral PE Activity: Per Instructions section Non-emergency contact: Primary Care Provider Call non-emergency contact if: your symptoms worsen, your pain is not controlled and your temperature is above 101 Follow-up/Referrals: Lavon Nye MD, FACS [Physician] - 06/20/20 (CALL [facility] AT [phone], ASK FOR ADMISSIONS, ON 06/19/20 BETWEEN 2PM-7PM. THEY WILL SET UP THE TIME FOR ARRIVAL ON 06/20/20. *DON'T EAT OR DRINK ANYTHING AFTER MIDNIGHT* AND DON'T TAKE LISINOPRIL ON 06/20/20) Harjeet Aviles DO [Physician] - 06/22/20 1:30 pm Margo Prado PA-C [Primary Care Provider] - 06/22/20 3:30 pm Diet: Heart Healthy Addtl Attending Provider Instructions: You were admitted to [facility] from 06/02 to 06/14 for evaluation and management of several different health issues. You came to the hospital because you had been experiencing severe back pain for over a month. With further imaging, you were found to have fractures in your spine, as well spots in some of your bones (spine, pelvis, ribs), adrenal glands (the gland atop your kidney), and abdominal wall (peritoneum) that were concerning for metastatic cancer. You underwent a biopsy which confirmed this. Oncology and radiation oncology visited you on several occasions during your stay to help set up beam radiation therapy, as well as planning for outpatient chemotherapy. Your teams also spent a lot of time with you in optimizing your pain control. In performing your imaging during your admission, you were also found to have blood clots in the lungs - these were treated with anti-clot forming medications (blood thinners) and breathing optimization. There was also evidence of small areas in the brain that were theorized to be damaged from small clots. Neurology saw you during your stay to help work these spots up further. In the days leading up to your discharge, a lot of time was spent optimizing your breathing. We emphasized the importance of frequent movement, getting up and out of bed, and utilizing incentive spirometry (the device you take deep breaths into) to open your lungs. We were able to achieve good oxygen saturations, similar to what you achieved at home, at 4L/min of oxygen via nasal cannula. Medication Changes Because your blood pressures were normal/low-normal during your change, we recommend the following changes upon discharge: - Discontinue home lisinopril - Reduce your Imdur dosage from 60mg daily to 30mg daily - Continue Eliquis 10mg, twice daily, until 06/16; after that, reduce dose to 5mg, twice daily. Please note that you must NOT take Eliquis in the two days prior to your Mediport placement. When a date is confirmed with surgery for port placement, pleae discuss a hold date for this medication with their team. - Order placed for meloxicam, an NSAID pain medication, which can be taken as needed, up to two times daily Pending Procedures - You are to have a MediPort placed in the outpatient setting early next week for anticipated chemotherapy infusions Pending Appointments - You are to follow-up with your primary care physician within 1 week of discharge to discuss your hospital course and to address pain control - You are to follow-up with medical oncology within 1-2 weeks for further discussion of your cancer diagnosis and plans for chemotherapy moving forward - You are to continue following with radiation oncology for continued outpatient radiation treatments - An appointment with General Surgery is being made as above for chemo port placement/evaluation. If you experience any sudden worsening of your breathing, feel that you are having chest pain / pressure, or have a decline in your general wellbeing, immediately seek medical attention - including going to the ER or calling 911. Pending Studies at Discharge: No Stand-Alone Forms: Medications to Prevent Stroke, [facility], Opioid Pain Management, Smoking Cessation Medications and DC Order Prescriptions: New isosorbide mononitrate 30 mg Tablet Extended Release 24 Hr 30 mg PO QAM 30 Days Qty: 30 RF: 0 meloxicam 7.5 mg tablet 7.5 mg PO BID PRN (Reason: as needed for pain) Qty: 30 RF: 1 fentanyl 25 mcg/hr patch 72 hour 1 patch transdermal Q72H Qty: 4 RF: 0 oxycodone 5 mg capsule 5 mg PO BID PRN (Reason: pain) Qty: 10 RF: 0 Continued ipratropium-albuterol 0.5 mg-3 mg(2.5 mg base)/3 mL solution for nebulization 3 ml inhalation .COMPLEX RF: 0 albuterol sulfate 90 mcg/actuation HFA aerosol inhaler 2 puff inhalation Q4 PRN (Reason: Shortness Of Breath) Qty: 1 RF: 0 simvastatin 20 mg tablet 20 mg PO HS Qty: 90 RF: 0 aspirin 81 mg tablet,delayed release (DR/EC) 81 mg PO QAM RF: 0 metoprolol tartrate 100 mg tablet 100 mg PO QAM RF: 0 pantoprazole [Protonix] 40 mg tablet,delayed release (DR/EC) 40 mg PO HS RF: 0 furosemide 40 mg tablet 40 mg PO QAM RF: 0 calcium carbonate [Calcium 600] 600 mg calcium (1,500 mg) Tablet 600 mg PO QAM RF: 0 spironolactone 25 mg tablet 12.5 mg PO QAM RF: 0 nitroglycerin 0.4 mg tablet, sublingual 0.4 mg sublingual UD PRN (Reason: Chest Pain) RF: 0 cholecalciferol (vitamin D3) [Vitamin D3] 50 mcg (2,000 unit) capsule 2,000 unit PO QAM RF: 0 Trelegy Ellipta 100-62.5-25 mcg blister with device 1 inh INHALATION QAM RF: 0 Discontinued lisinopril 5 mg tablet 5 mg PO HS Qty: 60 RF: 0 isosorbide mononitrate 60 mg tablet extended release 24 hr 60 mg PO QAM RF: 0 Discharge Orders: Discharge Order (Routine); Ordered 06/14/20 Ordered By: Kashif Swift/Other Patient Handouts: Effects of a Stroke on the Brain ..., Cancer: Preventing Infections, Nausea Vomit Control, Resources for People with Cancer, Aneurysm Abdominal Aortic, Radiation Therapy Treatment, Discharge Instructions for Stroke, Healthy Lifestyle to Prevent ..., Cancer Overview, A1C Admission Data Admit Date/Time: 06/02/20 15:06 Attending Provider: Clara Almaguer Admit Provider: Josse Wise Primary Care Provider: Margo Prado Other Providers: Bacilio Bishop ; [facility],Home Healthcare ; Josse Wise ; Harjeet Aviles V. ; Gin Reynolds ; Luís Govea ; Jaye Dey ; Nesha Duarte ; Sarkis Narvaez ; Cem Kaye ; Trino Max ; Kashif Downing ; Lavon Nye Other Interventions: Discharge Summary Assessment (RN) Last Done: 06/14/20 18:43 Supervising Physician Co-Signing Physician Notes Resident Physician Supervision Note: I independently interviewed and examined the patient and verified the mackay history and physical, reviewed labs and image studies, discussed the case with the resident Dr. Salcedo and agree with the findings and care plan. Resident Activity Tracking Resident Involvement: Resident Care Provided Care Provided: Adult Hospital Medicine
[2020-06-15] MEDS ORDERED: ISOSORBIDE MONO EXTENDED REL 30 MG TABCR PO SCH (09:00)
== END 2020-06-14 19:51 | disposition home health service (06) | DRG 180 ==
LOC: ED 10:27 → 2N 15:06 → SUATTDRO 15:06 → 2N 19:00 → 2S 06-03 22:12 → 3W 06-10 15:43
DX: J96.21 Acute and chronic respiratory failure with hypoxia; R01.1 Cardiac murmur, unspecified; I25.10 Atherosclerotic heart disease of native coronary artery without angina pectoris; E88.09 Other disorders of plasma-protein metabolism, not elsewhere classified; C34.90 Malignant neoplasm of unspecified part of unspecified bronchus or lung; J44.9 Chronic obstructive pulmonary disease, unspecified; E78.5 Hyperlipidemia, unspecified; I26.99 Other pulmonary embolism without acute cor pulmonale; Z68.38 Body mass index [BMI] 38.0-38.9, adult; C79.51 Secondary malignant neoplasm of bone; I10 Essential (primary) hypertension; R63.0 Anorexia; D72.829 Elevated white blood cell count, unspecified; E66.01 Morbid (severe) obesity due to excess calories; Z87.891 Personal history of nicotine dependence; G47.33 Obstructive sleep apnea (adult) (pediatric)

== ENCOUNTER 2020-06-24 17:05 | Inpatient (IN) ==
[2020-06-24] MEDS ORDERED: HYDROmorphone INJ 1 MG/ML SYRINGE IV STA (17:59)
[2020-06-24] MEDS ORDERED: HYDROmorphone INJ 0.5 MG/0.5 ML SYR ONE (18:09)
--- NOTE | 2020-06-24 18:35 | Emergency Department Note ---
History of Present Illness General Chief complaint: GI Assessment Stated complaint: GENERAL PAIN, AB PAIN, GI PROBLEMS Time Seen by Provider: 06/24/20 17:50 History of Present Illness Provider complaint: Difficulty breathing and generalized pain Onset (ago): week(s) 1 Location: chest and abdomen Radiation: non-radiation Severity: severe Maximum Pain Intensity: 10 Current Pain Intensity: 10 Quality: + sharp 64-year-old female who was recently diagnosed with metastatic adenocarcinoma presents emergency department for difficulty breathing and diffuse pain. Patient is reporting diffuse pain throughout her body including her chest and abdomen. She is also reporting difficulty breathing. She states her home oxygen has not been helping. Daughter is at bedside who states the patient is not been eating or drinking well either. She states she has not given the patient her Lasix for the last week. The daughter also states that the patient has not been taking her Eliquis as she was told to not give her Eliquis anymore. Home Medications Home Medications Medication Instructions Recorded Confirmed Type albuterol sulfate 90 mcg/actuation 2 puff INHALATION Q4 PRN #1 gm 06/28/19 06/24/20 History aerosol inhaler aspirin 81 mg tablet,delayed 81 mg PO QAM tab 06/28/19 06/24/20 History release ipratropium 0.5 mg-albuterol 3 mg 3 ml INHALATION Q4H PRN ml 06/28/19 06/24/20 History (2.5 mg base)/3 mL nebulization soln metoprolol tartrate 100 mg tablet 100 mg PO QAM tab 06/28/19 06/24/20 History simvastatin 20 mg tablet 20 mg PO HS #90 tab 06/28/19 06/24/20 History pantoprazole 40 mg tablet,delayed 40 mg PO HS 12/27/19 06/24/20 History release Trelegy Ellipta 1 inh INHALATION QAM 06/02/20 06/24/20 History calcium carbonate [Calcium 600] 600 mg PO QAM 06/02/20 06/24/20 History cholecalciferol (vitamin D3) 2,000 unit PO QAM 06/02/20 06/24/20 History [Vitamin D3] furosemide 40 mg PO QAM 06/02/20 06/24/20 History nitroglycerin 0.4 mg SUBLINGUAL UD PRN 06/02/20 06/24/20 History isosorbide mononitrate 30 mg PO QAM 30 Days #30 tab 06/14/20 06/24/20 Rx meloxicam 7.5 mg PO BID PRN #30 tab 06/14/20 06/24/20 Rx acetaminophen 1,000 mg PO Q6H PRN 06/16/20 06/24/20 History hydrocodone-acetaminophen [[place]] 1 - 2 tab PO Q6H PRN #10 tab 06/20/20 06/24/20 Rx fentanyl 2 patch TRANSDERMAL Q72H 06/24/20 06/24/20 History oxycodone 10 mg PO BID PRN 06/24/20 06/24/20 History Allergies Allergy/AdvReac Type Severity Reaction Status Date / Time No Known Drug Allergies Allergy Unknown Verified 06/20/20 06:11 Past Med/Surg History Medical History (Updated 06/24/20 @ 23:24 by Efra Almanza) Abdominal aortic aneurysm (AAA) greater than 39 mm in diameter Anemia Per 06/13 hospitalist note - baseline Hgb since current hospitalization has tended between ~8.5-9.0 - Initial H&H on 06/13 AM was 7.3/25.4 -- rechecked at noon, stable at 8 .1/27.5 - trend CBC daily - Transfuse if Hgb < 7 or if patient becomes symptomatic Anxiety Bilateral pulmonary embolism CAD (coronary artery disease) Chronic obstructive pulmonary disease GERD (gastroesophageal reflux disease) History of smoking HTN (hypertension) Hyperlipidemia 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 On home oxygen therapy OXYGEN 4L-6L/MIN NC CONT Pulmonary embolism HX-HOSPITALIZED [facility] D/C 06/14/20 Transient ischemic attack (TIA) HX? SHOWED UP ON MRI BRAIN Surgical History History of bilateral tubal ligation History of cardiac cath [address] RIVAS History of esophagogastroduodenoscopy (EGD) History of tonsillectomy Port-A-Cath in place (06/20/20) Insertion of Mediport Left Cephalic Vein Dr. Nye 06/20/2020 Social History Smoking Status: Unknown if ever smoked Age Started Using Tobacco: 15; Age Quit Using Tobacco: 63; packs per day: 1; Number of Years Since Quit: 1; Second Hand Exposure: No; Hx Alcohol Use: No Hx Substance Use: No Preferred Language: Turkish Communication Ability: Effective Visual Impairment: No Limitations Hearing Ability: Normal Vise Hand Required: No Beliefs That Will Affect Care: None marital status: Current Living Situation: Spouse current occupational status: employed Feels Safe at Home: Yes Childhood Exposure to Second-Hand Smoke: Yes caffeine: Yes Dental Care, Regularly: Yes Physical Activity Frequency: Does not Exercise Seatbelt Use: always Sunscreen Use: No Do you think of yourself as: straight/heterosexual Sexual Activity: has been sexually active within the last 12 months Assistive Devices: Walker Review of Systems A total of 10 systems reviewed and were otherwise negative Physical Exam Vital Signs Vital Signs - 24 hr 06/24/20 17:31 06/24/20 17:55 06/24/20 18:01 Temperature 36.7 C Temperature Source Oral Pulse Rate 77 Pulse Rate from SpO2 Sensor 77 Respiratory Rate 24 Respiratory Effort / Characteristics Non-Labored Blood Pressure 135/77 Blood Pressure Mean 96 Pulse Oximetry 65 L 100 100 Oxygen Delivery Method Nasal Cannula Nasal Cannula Oxygen Flow Rate 4 6 Sepsis Recent Fever Within 48 Hours No Sepsis New/Unexplained Change in Mental Status No Sepsis Action Taken by Nursing No Action Required 06/24/20 18:30 06/24/20 19:00 06/24/20 19:30 Temperature Temperature Source Pulse Rate 74 72 79 Pulse Rate from SpO2 Sensor 74 73 80 Respiratory Rate 23 23 22 Respiratory Effort / Characteristics Blood Pressure Blood Pressure Mean Pulse Oximetry 98 97 95 Oxygen Delivery Method Oxygen Flow Rate Sepsis Recent Fever Within 48 Hours Sepsis New/Unexplained Change in Mental Status Sepsis Action Taken by Nursing 06/24/20 20:00 06/24/20 21:50 06/24/20 22:00 Temperature Temperature Source Pulse Rate 78 84 80 Pulse Rate from SpO2 Sensor 78 Respiratory Rate 22 22 18 Respiratory Effort / Characteristics Blood Pressure Blood Pressure Mean Pulse Oximetry 98 Oxygen Delivery Method Oxygen Flow Rate Sepsis Recent Fever Within 48 Hours Sepsis New/Unexplained Change in Mental Status Sepsis Action Taken by Nursing 06/24/20 22:30 06/24/20 22:53 Temperature Temperature Source Pulse Rate 83 79 Pulse Rate from SpO2 Sensor 79 Respiratory Rate 19 20 Respiratory Effort / Characteristics Blood Pressure 175/82 H Blood Pressure Mean 140 Pulse Oximetry 98 Oxygen Delivery Method Oxygen Flow Rate Sepsis Recent Fever Within 48 Hours Sepsis New/Unexplained Change in Mental Status Sepsis Action Taken by Nursing Physical Exam GENERAL: Patient appears distressed HENT: Exam performed. -Head: Normocephalic and atraumatic. -Right Ear: External ear normal. No mastoid tenderness. -Left Ear: External ear normal. No mastoid tenderness. -Mouth/Throat: The oropharynx is clear and moist. No trismus in the jaw. No dental abscesses or uvula swelling. No oropharyngeal exudate or tonsillar abscesses. EYES: Conjunctivae and EOM are normal. Pupils are equal, round, and reactive to light. Right eye exhibits no discharge. Left eye exhibits no discharge. No scleral icterus. NECK: Normal range of motion. Neck supple. No JVD present. No spinous process tenderness present. No carotid bruit present. No rigidity. No tracheal deviation and normal range of motion present. No Brudzinski's sign and no Kernig's sign noted. CV: Normal rate, regular rhythm, normal heart sounds and intact distal pulses. Palpable radial pulses bue. PULM/CHEST: Tachypneic rales bilaterally. -Chest Wall: No surrounding erythema discharge or bleeding from the recently placed Mediport. ABD: The abdomen is soft. Bowel sounds are normal. She has no distension. No mass is present. There is diffuse tenderness to palpation. There is no rebound, no guarding, no Ghosh's sign and no tenderness at McBurney's point. Rovsig negative MUSC/SKEL: Normal range of motion. 3+ pitting edema of the bilateral lower extremities. LYMPH: No cervical adenopathy. NEURO: She is alert and oriented to person, place, and time. She has normal strength. No cranial nerve deficit or sensory deficit. Coordination and gait normal. GCS eye subscore is 4. GCS verbal subscore is 5. GCS motor subscore is 6. Cerebellar tests wnl. SKIN: Skin is warm and dry. She is not diaphoretic. PSYCH: She has a normal mood and affect. Behavior is normal. Judgment and thought content normal. Course Course 1749: The patient was evaluated in room B4. A complete history and physical exam was performed. Patient was placed on school bus monitor and found to have a pulse ox of 65% on normal home oxygen 4 L. Patient was started on Ventimask which improved her oxygen saturation. Patient's family member at bedside states that she has not been taking Eliquis or her Lasix. She does have a history of bilateral PEs. It does appear she is fluid overloaded. Will obtain labs and plan on CTA and her chest and CT abdomen. Cardiac monitoring: An order was placed for continuous cardiac monitoring. The monitor shows a rate of 70 with sinus rhythm 2319: Vital signs stable on 6 L oxygen. Labs show hemoglobin of 7.8. Leukocytosis of 12.32. VBG appears stable. Potassium is 4.9. Troponin elevated at 1.84. Procalcitonin is 0.65 and urinalysis is contaminated sample but has 4+ bacteria. Patient was given Lasix in the emergency department as she has not taken her Lasix at home and has bilateral lower extremity swelling and rales on exam. Discussed the case with Dr. Thayer [facility] hospitalist who agrees to admit the patient will start the patient on cefepime for urinalysis and Vanco given her recent port placement. Administered Medications Discontinued Medications Furosemide (Furosemide 40 Mg/4 Ml Vial) 20 mg IV NOW STA Stop: 06/24/20 22:22 Last Admin: 06/24/20 22:49 Dose: 20 mg Documented by: [id number] Hydromorphone HCl (Hydromorphone Inj 1 Mg/Ml Syringe) 0.5 mg IV NOW STA Stop: 06/24/20 18:00 Last Admin: 06/24/20 18:30 Dose: 0.5 mg Documented by: [id number] Hydromorphone HCl (Hydromorphone Inj 0.5 Mg/0.5 Ml Syr) Confirm Administered Dose 0.5 mg .ROUTE .STK-MED ONE Stop: 06/24/20 18:10 Last Admin: 06/24/20 18:42 Dose: Not Given Documented by: [id number] Critical Care Time Critical Care Time: Yes Total Critical Care Time: 62 I have personally spent greater than 62 minutes of critical care time in the direct management of this patient. This includes bedside care, interpretation of diagnostic studies, and testing, discussion with consultants, patient, and family members, and other required patient management activities. This 62 minutes is in excess of all separately billable procedures. Medical Decision Making Laboratory Data Result diagrams: 06/24/20 21:10 06/24/20 21:10 Lab Results 06/24/20 06/24/20 06/24/20 Range/Units 18:05 19:01 20:20 WBC Cancelled RBC Cancelled Hgb Cancelled POC Hgb 8.8 L (12.0-16.0) g/dl Hct Cancelled POC Hct 26 L (37-47) % MCV Cancelled MCH Cancelled MCHC Cancelled RDW Std Deviation Cancelled RDW Coeff of Morris Cancelled Plt Count Cancelled MPV Cancelled Immature Gran % (Auto) Cancelled Neut % (Auto) Cancelled Lymph % (Auto) Cancelled [place] % (Auto) Cancelled Eos % (Auto) Cancelled Baso % (Auto) Cancelled Neut # (Auto) Cancelled Lymph # (Auto) Cancelled [place] # (Auto) Cancelled Eos # (Auto) Cancelled Baso # (Auto) Cancelled Immature Gran # (Auto) Cancelled Absolute Nucleated RBC Cancelled Nucleated RBC % (auto) Cancelled Neutrophils % (Manual) Cancelled Band Neutrophils % Cancelled Lymphocytes % (Manual) Cancelled Prolymphocyte % Cancelled Reactive Lymphs % (Man) Cancelled Monocytes % (Manual) Cancelled Eosinophils % (Manual) Cancelled Basophils % (Manual) Cancelled Metamyelocytes % (Man) Cancelled Myelocytes % (Man) Cancelled Promyelocytes % (Man) Cancelled Blast Cells % (Manual) Cancelled Plasma Cell % (Manual) Cancelled Other Cells % Cancelled Nucleated RBC % Cancelled Neutrophils # (Manual) Cancelled Band Neutrophils # Cancelled Total Absolute Neuts Cancelled Lymphocytes # (Manual) Cancelled Prolymphocyte # Cancelled Reactive Lymphs # Cancelled Total Abs Lymphocytes Cancelled Monocytes # (Manual) Cancelled Eosinophils # (Manual) Cancelled Basophils # (Manual) Cancelled Metamyelocytes # (Man) Cancelled Myelocytes # (Manual) Cancelled Promyelocytes # (Man) Cancelled Blast Cells # (Man) Cancelled Plasma Cell # (Manual) Cancelled Other Cells # Cancelled Nucleated RBCs # (Man) Cancelled Hypersegmented Neuts Cancelled Hyposegmented Neuts Cancelled Hypogranular Neuts Cancelled Large Granular Lymphs Cancelled # Lrg Granular Lymphs Cancelled Hairy Cells Cancelled Smudge Cells Cancelled Toxic Granulation Cancelled Toxic Vacuolation Cancelled Dohle Bodies Cancelled Leta Rods Cancelled Platelet Estimate Cancelled Hypogranular Platelets Cancelled Clumped Platelets Cancelled Giant Platelets Cancelled Platelet Satelliting Cancelled RBC Morphology Cancelled Polychromasia Cancelled Hypochromasia Cancelled Poikilocytosis Cancelled Basophilic Stippling Cancelled Anisocytosis Cancelled Microcytosis Cancelled Macrocytosis Cancelled Spherocytes Cancelled Pappenheimer Bodies Cancelled Sickle Cells Cancelled Target Cells Cancelled Tear Drop Cells Cancelled Ovalocytes Cancelled Stomatocytes Cancelled Oropeza-Christopher Bodies Cancelled Echinocytes Cancelled Acanthocytes (Spur) Cancelled Rouleaux Cancelled RBC Agglutinates Cancelled Schistocytes Cancelled RBC Morph Comment Cancelled Sezary Cell Cancelled PT (9.0-12.0) Seconds INR (0.9-1.1) APTT (21.0-31.0) Seconds PTT Ratio VBG pH (7.36-7.41) VBG pCO2 (38-50) mmHg VBG pO2 mmHg VBG HCO3 mmol/L VBG O2 Saturation % VBG Base Excess mEq/L Barometric Pressure mm/Hg POC Sodium 130 L (135-144) mmol/L Sodium POC Potassium 5.8 H (3.3-5.0) mmol/L Potassium POC Chloride 97 L (101-112) mmol/L Chloride Carbon Dioxide POC Total CO2 27 (24-31) mmol/L Anion Gap POC Anion Gap 12.0 L (16-25) mmol/L POC BUN 52 H (7-18) mg/dl BUN Creatinine POC Creatinine 1.1 (0.6-1.3) mg/dl Est Cr Clr Drug Dosing Est GFR ( Amer) Est GFR (Non-Af Amer) BUN/Creatinine Ratio Glucose POC Glucose (other) 132 H (70-99) mg/dl POC Lactic Acid Thomas (0.90-1.70) mmol/L Lactate (0.4-2.0) mmol/L Calcium POC Ioniz Calcium Patricia 1.10 L (1.12-1.32) mmol/l Magnesium Total Bilirubin AST ALT Alkaline Phosphatase Troponin I NT-Pro-B Natriuret Pep Total Protein Albumin Globulin Albumin/Globulin Ratio Procalcitonin (0-0.5) ng/ml Urine Color Dark Yellow Urine Appearance Cloudy A (Clear) Urine pH 5.0 (4.5-7.5) Ur Specific Cutler 1.023 (1.000-1.030) Urine Protein Trace H (Negative) Urine Glucose (UA) Negative (Negative) Urine Ketones Negative (Negative) Urine Blood Negative (Negative) Urine Nitrite Negative (Negative) Urine Bilirubin Negative (Negative) Urine Urobilinogen Negative (Negative) Ur Leukocyte Esterase Trace H (Negative) Urine WBC (Auto) 5-10 H (0-5) /hpf Urine RBC (Auto) 0-4 (0-4) /hpf U Hyaline Cast (Auto) 10-30 H (0-5) /lpf U Epithel Cells (Auto) >30 H (0-5) /lpf Urine Bacteria (Auto) 4+ H (Negative) 06/24/20 06/24/20 06/24/20 Range/Units 20:20 20:27 21:10 WBC RBC Hgb POC Hgb (12.0-16.0) g/dl Hct POC Hct (37-47) % MCV MCH MCHC RDW Std Deviation RDW Coeff of Morris Plt Count MPV Immature Gran % (Auto) Neut % (Auto) Lymph % (Auto) [place] % (Auto) Eos % (Auto) Baso % (Auto) Neut # (Auto) Lymph # (Auto) [place] # (Auto) Eos # (Auto) Baso # (Auto) Immature Gran # (Auto) Absolute Nucleated RBC Nucleated RBC % (auto) Neutrophils % (Manual) Band Neutrophils % Lymphocytes % (Manual) Prolymphocyte % Reactive Lymphs % (Man) Monocytes % (Manual) Eosinophils % (Manual) Basophils % (Manual) Metamyelocytes % (Man) Myelocytes % (Man) Promyelocytes % (Man) Blast Cells % (Manual) Plasma Cell % (Manual) Other Cells % Nucleated RBC % Neutrophils # (Manual) Band Neutrophils # Total Absolute Neuts Lymphocytes # (Manual) Prolymphocyte # Reactive Lymphs # Total Abs Lymphocytes Monocytes # (Manual) Eosinophils # (Manual) Basophils # (Manual) Metamyelocytes # (Man) Myelocytes # (Manual) Promyelocytes # (Man) Blast Cells # (Man) Plasma Cell # (Manual) Other Cells # Nucleated RBCs # (Man) Hypersegmented Neuts Hyposegmented Neuts Hypogranular Neuts Large Granular Lymphs # Lrg Granular Lymphs Hairy Cells Smudge Cells Toxic Granulation Toxic Vacuolation Dohle Bodies Leta Rods Platelet Estimate Hypogranular Platelets Clumped Platelets Giant Platelets Platelet Satelliting RBC Morphology Polychromasia Hypochromasia Poikilocytosis Basophilic Stippling Anisocytosis Microcytosis Macrocytosis Spherocytes Pappenheimer Bodies Sickle Cells Target Cells Tear Drop Cells Ovalocytes Stomatocytes Oropeza-Christopher Bodies Echinocytes Acanthocytes (Spur) Rouleaux RBC Agglutinates Schistocytes RBC Morph Comment Sezary Cell PT 14.3 H (9.0-12.0) Seconds INR 1.4 H (0.9-1.1) APTT 33.2 H (21.0-31.0) Seconds PTT Ratio 1.2 VBG pH (7.36-7.41) VBG pCO2 (38-50) mmHg VBG pO2 mmHg VBG HCO3 mmol/L VBG O2 Saturation % VBG Base Excess mEq/L Barometric Pressure mm/Hg POC Sodium (135-144) mmol/L Sodium Cancelled POC Potassium (3.3-5.0) mmol/L Potassium Cancelled POC Chloride (101-112) mmol/L Chloride Cancelled Carbon Dioxide Cancelled POC Total CO2 (24-31) mmol/L Anion Gap Cancelled POC Anion Gap (16-25) mmol/L POC BUN (7-18) mg/dl BUN Cancelled Creatinine Cancelled POC Creatinine (0.6-1.3) mg/dl Est Cr Clr Drug Dosing Cancelled Est GFR ( Amer) Cancelled Est GFR (Non-Af Amer) Cancelled BUN/Creatinine Ratio Cancelled Glucose Cancelled POC Glucose (other) (70-99) mg/dl POC Lactic Acid Thomas 3.11 H (0.90-1.70) mmol/L Lactate (0.4-2.0) mmol/L Calcium Cancelled POC Ioniz Calcium Patricia (1.12-1.32) mmol/l Magnesium Cancelled Total Bilirubin Cancelled AST Cancelled ALT Cancelled Alkaline Phosphatase Cancelled Troponin I Cancelled NT-Pro-B Natriuret Pep Cancelled Total Protein Cancelled Albumin Cancelled Globulin Cancelled Albumin/Globulin Ratio Cancelled Procalcitonin (0-0.5) ng/ml Urine Color Urine Appearance (Clear) Urine pH (4.5-7.5) Ur Specific Cutler (1.000-1.030) Urine Protein (Negative) Urine Glucose (UA) (Negative) Urine Ketones (Negative) Urine Blood (Negative) Urine Nitrite (Negative) Urine Bilirubin (Negative) Urine Urobilinogen (Negative) Ur Leukocyte Esterase (Negative) Urine WBC (Auto) (0-5) /hpf Urine RBC (Auto) (0-4) /hpf U Hyaline Cast (Auto) (0-5) /lpf U Epithel Cells (Auto) (0-5) /lpf Urine Bacteria (Auto) (Negative) 06/24/20 06/24/20 06/24/20 Range/Units 21:10 21:10 21:10 WBC RBC Hgb POC Hgb (12.0-16.0) g/dl Hct POC Hct (37-47) % MCV MCH MCHC RDW Std Deviation RDW Coeff of Morris Plt Count MPV Immature Gran % (Auto) Neut % (Auto) Lymph % (Auto) [place] % (Auto) Eos % (Auto) Baso % (Auto) Neut # (Auto) Lymph # (Auto) [place] # (Auto) Eos # (Auto) Baso # (Auto) Immature Gran # (Auto) Absolute Nucleated RBC Nucleated RBC % (auto) Neutrophils % (Manual) Band Neutrophils % Lymphocytes % (Manual) Prolymphocyte % Reactive Lymphs % (Man) Monocytes % (Manual) Eosinophils % (Manual) Basophils % (Manual) Metamyelocytes % (Man) Myelocytes % (Man) Promyelocytes % (Man) Blast Cells % (Manual) Plasma Cell % (Manual) Other Cells % Nucleated RBC % Neutrophils # (Manual) Band Neutrophils # Total Absolute Neuts Lymphocytes # (Manual) Prolymphocyte # Reactive Lymphs # Total Abs Lymphocytes Monocytes # (Manual) Eosinophils # (Manual) Basophils # (Manual) Metamyelocytes # (Man) Myelocytes # (Manual) Promyelocytes # (Man) Blast Cells # (Man) Plasma Cell # (Manual) Other Cells # Nucleated RBCs # (Man) Hypersegmented Neuts Hyposegmented Neuts Hypogranular Neuts Large Granular Lymphs # Lrg Granular Lymphs Hairy Cells Smudge Cells Toxic Granulation Toxic Vacuolation Dohle Bodies Leta Rods Platelet Estimate Hypogranular Platelets Clumped Platelets Giant Platelets Platelet Satelliting RBC Morphology Polychromasia Hypochromasia Poikilocytosis Basophilic Stippling Anisocytosis Microcytosis Macrocytosis Spherocytes Pappenheimer Bodies Sickle Cells Target Cells Tear Drop Cells Ovalocytes Stomatocytes Oropeza-Christopher Bodies Echinocytes Acanthocytes (Spur) Rouleaux RBC Agglutinates Schistocytes RBC Morph Comment Sezary Cell PT (9.0-12.0) Seconds INR (0.9-1.1) APTT (21.0-31.0) Seconds PTT Ratio VBG pH 7.30 L (7.36-7.41) VBG pCO2 56 H (38-50) mmHg VBG pO2 45 mmHg VBG HCO3 27 mmol/L VBG O2 Saturation 74.0 % VBG Base Excess 0.2 mEq/L Barometric Pressure 736.5 mm/Hg POC Sodium (135-144) mmol/L Sodium POC Potassium (3.3-5.0) mmol/L Potassium POC Chloride (101-112) mmol/L Chloride Carbon Dioxide POC Total CO2 (24-31) mmol/L Anion Gap POC Anion Gap (16-25) mmol/L POC BUN (7-18) mg/dl BUN Creatinine POC Creatinine (0.6-1.3) mg/dl Est Cr Clr Drug Dosing Est GFR ( Amer) Est GFR (Non-Af Amer) BUN/Creatinine Ratio Glucose POC Glucose (other) (70-99) mg/dl POC Lactic Acid Thomas (0.90-1.70) mmol/L Lactate 1.5 (0.4-2.0) mmol/L Calcium POC Ioniz Calcium Patricia (1.12-1.32) mmol/l Magnesium Total Bilirubin AST ALT Alkaline Phosphatase Troponin I NT-Pro-B Natriuret Pep Total Protein Albumin Globulin Albumin/Globulin Ratio Procalcitonin 0.65 H (0-0.5) ng/ml Urine Color Urine Appearance (Clear) Urine pH (4.5-7.5) Ur Specific Cutler (1.000-1.030) Urine Protein (Negative) Urine Glucose (UA) (Negative) Urine Ketones (Negative) Urine Blood (Negative) Urine Nitrite (Negative) Urine Bilirubin (Negative) Urine Urobilinogen (Negative) Ur Leukocyte Esterase (Negative) Urine WBC (Auto) (0-5) /hpf Urine RBC (Auto) (0-4) /hpf U Hyaline Cast (Auto) (0-5) /lpf U Epithel Cells (Auto) (0-5) /lpf Urine Bacteria (Auto) (Negative) 10/03/20 10/03/20 Range/Units 21:10 21:10 WBC 12.32 H RBC 3.04 L Hgb 7.8 L POC Hgb (12.0-16.0) g/dl Hct 26.3 L POC Hct (37-47) % MCV 86.5 MCH 25.7 MCHC 29.7 L RDW Std Deviation 55.8 H RDW Coeff of Morris 18.0 H Plt Count 297 MPV 9.0 Immature Gran % (Auto) Neut % (Auto) Lymph % (Auto) [place] % (Auto) Eos % (Auto) Baso % (Auto) Neut # (Auto) Lymph # (Auto) [place] # (Auto) Eos # (Auto) Baso # (Auto) Immature Gran # (Auto) Absolute Nucleated RBC 0.10 H Nucleated RBC % (auto) 0.8 Neutrophils % (Manual) 85.2 Band Neutrophils % Lymphocytes % (Manual) 2.6 Prolymphocyte % Reactive Lymphs % (Man) Monocytes % (Manual) 6.1 Eosinophils % (Manual) Basophils % (Manual) Metamyelocytes % (Man) 3.5 Myelocytes % (Man) 2.6 Promyelocytes % (Man) Blast Cells % (Manual) Plasma Cell % (Manual) Other Cells % Nucleated RBC % Neutrophils # (Manual) 10.50 H Band Neutrophils # Total Absolute Neuts 10.50 H Lymphocytes # (Manual) 0.32 L Prolymphocyte # Reactive Lymphs # Total Abs Lymphocytes 0.32 L Monocytes # (Manual) 0.75 H Eosinophils # (Manual) Basophils # (Manual) Metamyelocytes # (Man) 0.43 H Myelocytes # (Manual) 0.32 H Promyelocytes # (Man) Blast Cells # (Man) Plasma Cell # (Manual) Other Cells # Nucleated RBCs # (Man) Hypersegmented Neuts Hyposegmented Neuts Hypogranular Neuts Large Granular Lymphs # Lrg Granular Lymphs Hairy Cells Smudge Cells Toxic Granulation Toxic Vacuolation 1+ Dohle Bodies 1+ Leta Rods Platelet Estimate Hypogranular Platelets Clumped Platelets Giant Platelets Platelet Satelliting RBC Morphology Polychromasia Hypochromasia Present Poikilocytosis Basophilic Stippling Anisocytosis Microcytosis Macrocytosis Spherocytes Pappenheimer Bodies Sickle Cells Target Cells Tear Drop Cells Ovalocytes Stomatocytes Oropeza-Christopher Bodies Echinocytes Acanthocytes (Spur) Rouleaux RBC Agglutinates Schistocytes RBC Morph Comment Sezary Cell PT (9.0-12.0) Seconds INR (0.9-1.1) APTT (21.0-31.0) Seconds PTT Ratio VBG pH (7.36-7.41) VBG pCO2 (38-50) mmHg VBG pO2 mmHg VBG HCO3 mmol/L VBG O2 Saturation % VBG Base Excess mEq/L Barometric Pressure mm/Hg POC Sodium (135-144) mmol/L Sodium 134 L POC Potassium (3.3-5.0) mmol/L Potassium 4.9 POC Chloride (101-112) mmol/L Chloride 96 L Carbon Dioxide 30 POC Total CO2 (24-31) mmol/L Anion Gap 8.0 POC Anion Gap (16-25) mmol/L POC BUN (7-18) mg/dl BUN 44 H Creatinine 0.74 POC Creatinine (0.6-1.3) mg/dl Est Cr Clr Drug Dosing 91.1 Est GFR ( Amer) 100.6 Est GFR (Non-Af Amer) 86.8 BUN/Creatinine Ratio 58.8 H Glucose 128 H POC Glucose (other) (70-99) mg/dl POC Lactic Acid Thomas (0.90-1.70) mmol/L Lactate (0.4-2.0) mmol/L Calcium 9.1 POC Ioniz Calcium Patricia (1.12-1.32) mmol/l Magnesium 1.7 L Total Bilirubin 0.5 AST 25 ALT 14 Alkaline Phosphatase 135 H Troponin I 1.840 H* NT-Pro-B Natriuret Pep Total Protein 5.7 L Albumin 1.4 L Globulin 4.3 H Albumin/Globulin Ratio 0.3 L Procalcitonin (0-0.5) ng/ml Urine Color Urine Appearance (Clear) Urine pH (4.5-7.5) Ur Specific Cutler (1.000-1.030) Urine Protein (Negative) Urine Glucose (UA) (Negative) Urine Ketones (Negative) Urine Blood (Negative) Urine Nitrite (Negative) Urine Bilirubin (Negative) Urine Urobilinogen (Negative) Ur Leukocyte Esterase (Negative) Urine WBC (Auto) (0-5) /hpf Urine RBC (Auto) (0-4) /hpf U Hyaline Cast (Auto) (0-5) /lpf U Epithel Cells (Auto) (0-5) /lpf Urine Bacteria (Auto) (Negative) Imaging Data Radiologist's Impression: XR chest 1V portable HISTORY: SEPSIS COMPARISON: Chest 06/20/2020. FINDINGS: Right lung nodules are again noted. Mediastinal and right hilar lymphadenopathy is better appreciated on the prior chest CT. Stable mild cardiomegaly. Improvement in the left basilar linear density consistent with resolving atelectasis. No pneumothorax. No pleural effusions. There is also a right basilar linear density consistent with subsegmental atelectasis. Left Port-A-Cath terminates in the distal SVC. Increase in size in the left upper pleural-based/rib lesion. IMPRESSION: 1. Increase in size in the left upper pleural based/rib lesion. 2. Right lung nodules and hilar lymphadenopathy is again noted. 3. Bibasilar linear densities consistent with subsegmental atelectasis. ACT 112: Negative or not required by law. Electronically signed by: Luís Govea M.D. 06/24/2020 7:59 PM Dictated: 06/24/[id number] Transcribed: 06/24/201956 PreliminaryFindingsOnly See Final Report For Complete Findings CT ABDOMEN & PELVIS With Contrast: Bilobed left adrenal mass measuring 5.1 cmcraniocaudad. Increased since previous. Fattyinfiltration of the liver. There is a left lobe liver mass measuring approximately2.5 cm. Increased since previous. Small moderate sludge in the dependent portion of the gallbladder. No surrounding inflammation. The pancreas, spleen, and kidneys appear within normal limits. Bowel loops are nondilated. There are scattered gas fluid levels in nondilated small bowel and right colon suggesting ileus and/or gastroenteritis. The descending thoracic aorta is mildlydilated to 4 cm. No dissection. The abdominal aorta is heavily calcified but nondilated. Bone windows showlytic and sclerotic metastatic lesions in the lumbar spine greatest at L3, L4, and L5. No acute fracture or canal compromise is identified. Radiologist: Peter Burrows MD Study ready at 21:17 and initial results transmitted at 22:11 PreliminaryFindingsOnly See Final Report For Complete Findings CTACHEST: Comparison to June 02, 2020. The pulmonaryarterial tree iswell opacified with contrast. The lower lobe segmental branches are blurred bymotion. No definite acute pulmonaryembolismis identified. There are multiple pulmonarymasses and nodules scattered about both lungswith the largest in the right upper lobe measuring approximately2.5 cm. There is mediastinal lymphadenopathymeasuring up to 3.2 cmshort axis diameter and right hilar lymphadenopathy. Some of these lymph nodes indent and project near the proximal pulmonaryvessels. The nodules and masses are larger than on the comparison examination as are scattered chest wall masses including a 2.2 cmright axillarysubcutaneous nodule and several expansile rib lesions. There are lytic bone lesions involving the T8, T9, and T10 levels. No acute fracture is identified. 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 Lung windows reveal small amount of bibasilar atelectasis greatest in the left lower lobe. No pneumothorax or pleural effusion is seen. Mild cardiomegalyand moderate coronarycalcification. No pericardial effusion. Radiologist: Peter Burrows MD Study ready at 21:03 and initial results transmitted at 21:36 ECG Data Indication: + SOB/dyspnea Rate (beats per minute): 83 Rhythm: + normal sinus ECG Intervals/blocks: + Normal QRS, + Normal [place] and + Normal QT-c ECG ST segments: + Normal ST segments MDM Narrative 1750: The patient was evaluated in room B4. A complete history and physical exam was performed. Patient was placed on school bus monitor and found to have a pulse ox of 65% on normal home oxygen 4 L. Patient was started on Ventimask which improved her oxygen saturation. Patient's family member at bedside states that she has not been taking Eliquis or her Lasix. She does have a history of bilateral PEs. It does appear she is fluid overloaded. Will obtain labs and plan on CTA and her chest and CT abdomen. Cardiac monitoring: An order was placed for continuous cardiac monitoring. The monitor shows a rate of 70 with sinus rhythm 2319: Vital signs stable on 6 L oxygen. Labs show hemoglobin of 7.8. Leukocytosis of 12.32. VBG appears stable. Potassium is 4.9. Troponin elevated at 1.84. Procalcitonin is 0.65 and urinalysis is contaminated sample but has 4+ bacteria. Patient was given Lasix in the emergency department as she has not taken her Lasix at home and has bilateral lower extremity swelling and rales on exam. Discussed the case with Dr. Thayer [facility] hospitalist who agrees to admit the patient will start the patient on cefepime for urinalysis and Vanco given her recent port placement. Impression & Plan Hypoxia, Elevated troponin Discharge Plan Visit Data Chief Complaint: GI Assessment Stated Complaint: GENERAL PAIN, AB PAIN, GI PROBLEMS ED Provider: Efra Almanza Discharge Problem: Hypoxia, Elevated troponin Patient Disposition: Admitted As Inpatient Forms Stand Alone Forms: [facility] Prescriptions Prescriptions: No Action ipratropium-albuterol 0.5 mg-3 mg(2.5 mg base)/3 mL solution for nebulization 3 ml inhalation Q4H PRN (Reason: Shortness Of Breath Or Wheezing) RF: 0 albuterol sulfate 90 mcg/actuation HFA aerosol inhaler 2 puff inhalation Q4 PRN (Reason: Shortness Of Breath) Qty: 1 RF: 0 simvastatin 20 mg tablet 20 mg PO HS Qty: 90 RF: 0 aspirin 81 mg tablet,delayed release (DR/EC) 81 mg PO QAM RF: 0 metoprolol tartrate 100 mg tablet 100 mg PO QAM RF: 0 pantoprazole [Protonix] 40 mg tablet,delayed release (DR/EC) 40 mg PO HS RF: 0 fentanyl 25 mcg/hr patch 72 hour 2 patch transdermal Q72H RF: 0 oxycodone 5 mg capsule 10 mg PO BID PRN (Reason: pain) RF: 0 furosemide 40 mg tablet 40 mg PO QAM RF: 0 calcium carbonate [Calcium 600] 600 mg calcium (1,500 mg) Tablet 600 mg PO QAM RF: 0 nitroglycerin 0.4 mg tablet, sublingual 0.4 mg sublingual UD PRN (Reason: Chest Pain) RF: 0 cholecalciferol (vitamin D3) [Vitamin D3] 50 mcg (2,000 unit) capsule 2,000 unit PO QAM RF: 0 Trelegy Ellipta 100-62.5-25 mcg blister with device 1 inh INHALATION QAM RF: 0 isosorbide mononitrate 30 mg Tablet Extended Release 24 Hr 30 mg PO QAM 30 Days Qty: 30 RF: 0 meloxicam 7.5 mg tablet 7.5 mg PO BID PRN (Reason: as needed for pain) Qty: 30 RF: 1 acetaminophen 500 mg Capsule 1,000 mg PO Q6H PRN (Reason: Pain) RF: 0 hydrocodone-acetaminophen [Stillmore] 5-325 mg tablet 1 - 2 tab PO Q6H PRN (Reason: pain) Qty: 10 RF: 0 Referrals Referrals: Margo Prado PA-C [Primary Care Provider] -
[2020-06-24 18:46] LABS: Appearance Urine Cloudy (Clear); Bacteria Urine Automated 4+ (Negative); Bilirubin Urine Negative (Negative); Blood Urine Negative (Negative); Color Urine Dark Yellow; Epithelial Cell Urine Auto >30 /lpf (0-5); Glucose Urine UA Negative (Negative); Ketones Urine Negative (Negative); Leukocyte Esterase Urine Trace (Negative); Nitrite Urine Negative (Negative); Protein Urine Trace (Negative); RBC Urine Automated 0-4 /hpf (0-4); Specific Gravity Urine 1.023 (1.000-1.030); Urobilinogen Urine Negative (Negative)
[2020-06-24 19:15] LABS: iSTAT Creatinine 1.1 mg/dl (0.6-1.3); iSTAT Hemoglobin 8.8 g/dl (12.0-16.0); iSTAT Ionized Calcium 1.1 mmol/l (1.12-1.32); iSTAT Potassium 5.8 mmol/L (3.3-5.0)
--- NOTE | 2020-06-24 20:01 | XRay Report ---
XR chest 1V portable HISTORY: SEPSIS COMPARISON: Chest 06/20/2020. FINDINGS: Right lung nodules are again noted. Mediastinal and right hilar lymphadenopathy is better a ppreciated on the prior chest CT. Stable mild cardiomegaly. Improvement in the left basilar linear de nsity consistent with resolving atelectasis. No pneumothorax. No pleural effusions. There is also a r ight basilar linear density consistent with subsegmental atelectasis. Left Port-A-Cath terminates in the distal SVC. Increase in size in the left upper pleural-based/rib lesion. IMPRESSION: 1. Increase in size in the left upper pleural based/rib lesion. 2. Right lung nodules and hilar lymphadenopathy is again noted. 3. Bibasilar linear densities consistent with subsegmental atelectasis. ACT 112: Negative or not required by law. Electronically signed by: Luís Govea M.D. 06/24/2020 7:59 PM
[2020-06-24 21:31] LABS: Base Excess VBG 0.2 mEq/L; pH VBG 7.3 (7.36-7.41)
[2020-06-24 21:34] LABS: Hematocrit (blood only) 26.3 % (37-47); Hemoglobin 7.8 g/dL (12.0-16.0); Mean Corpuscular Hemoglobin 25.7 pg (25-34); Mean Corpuscular Hgb Conc 29.7 g/dL (32-36); Mean Corpuscular Volume 86.5 fL (80-100); Nucleated RBC % (auto) 0.8 %; Platelet Count 297 K/uL (130-400); RDW Standard Deviation 55.8 fL (36.4-46.3); Red Blood Count 3.04 M/uL (4.2-5.4); White Blood Count 12.32 K/uL (4.8-10.8)
[2020-06-24 21:39] LABS: INR 1.4 (0.9-1.1); Partial Thromboplastin Ratio 1.2; Partial Thromboplastin Time 33.2 Seconds (21.0-31.0); Prothrombin Time 14.3 Seconds (9.0-12.0)
[2020-06-24 21:46] LABS: Albumin Level 1.4 gm/dl (3.4-5.0); BUN Creatinine Ratio 58.8 (10-20); Calcium 9.1 mg/dl (8.5-10.1); Creatinine Clr Calc Pharmacy 91.1 ml/min; Est GFR (African American) 100.6; Est GFR (Non-African American) 86.8; Magnesium 1.7 mg/dl (1.8-2.4); Potassium 4.9 mmol/L (3.5-5.1)
[2020-06-24 21:55] LABS: Albumin Globulin Ratio 0.3 (0.9-2); Bilirubin,Total 0.5 mg/dl (0.2-1); Globulin 4.3 gm/dl (2.5-4.0); Total Protein 5.7 gm/dl (6.4-8.2); Troponin I 1.84 ng/ml (0-0.045)
[2020-06-24 21:56] LABS: ALC (manual) 0.32 K/uL (1.2-3.4); Dohle Bodies 1+; Hypochromasia Present; Lymphocytes # (manual) 0.32 K/uL (1.2-3.4); Lymphocytes % (manual) 2.6 %; Metamyelocytes # (manual) 0.43 K/uL (0-0); Metamyelocytes % (manual) 3.5 %; Monocytes # (manual) 0.75 K/uL (0.11-0.59); Monocytes % (manual) 6.1 %; Myelocytes # (manual) 0.32 K/uL (0-0); Myelocytes % (manual) 2.6 %; Neutrophils % (manual) 85.2 %; Toxic Vacuolation 1+
[2020-06-24] MEDS ORDERED: FUROSEMIDE 40 MG/4 ML VIAL IV STA (22:21)
[2020-06-24] MEDS ORDERED: VANCOMYCIN HCL 2,000 MG in SODIUM CHLORIDE 0.9% 500 ML IV ONE (23:17)
[2020-06-24] MEDS ORDERED: VANCOMYCIN CONSULT ACTIVE PRN (23:17)
[2020-06-24] MEDS ORDERED: CEFEPIME 2,000 MG/20 ML VIAL IV STA (23:17)
--- NOTE | 2020-06-25 00:17 | History & Physical Report ---
Date of Service June 25, 2020 Assessment & Plan (1) CAD (coronary artery disease): CAD/hypertension/CHF exacerbation/elevated troponin- The patient will be admitted to telemetry for serial cardiac enzymes, serial EKG's, cardiac rhythm monitoring and a 2-D echocardiogram with Dopplers. Troponin 1.84 upon admission. Continue aspirin 81 mg daily, isosorbide mononitrate 30 mg every morning, and change metoprolol tartrate from 100 mg every morning to 50 mg p.o. twice daily. Give albumin 25 g IV every 1 hour x2. Then Lasix 20 mg IV x1. 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 Consult medical oncology Dr. Aviles Consult radiation oncology Dr. Narvaez Continue acetaminophen 650 mg p.o. every 6 hours PRN mild pain or temperature. Continue fentanyl transdermal patches. Continue [place] 1 tablet p.o. every 4 hours as needed moderate pain Continue oxycodone 10 mg p.o. twice daily as needed breakthrough pain Dilaudid 0.5 mg IV every 3 hours PRN severe pain Present on Admission?: Yes (5) Adrenal mass greater than 4 cm in diameter with history of malignant neoplasm: Bilobed left adrenal mass increased to 5.1 cm Present on Admission?: Yes (6) Liver mass, left lobe: See above. Liver mass in left lobe of liver increased to 2.5 cm Present on Admission?: Yes (7) Chronic obstructive pulmonary disease: COPD/bilateral pulmonary embolism- Duonebs every 4 hours while awake and every 2 hours when necessary. Present on Admission?: Yes (8) Bilateral pulmonary embolism: Present on Admission?: Yes (9) Hyperlipidemia: Continue simvastatin 20 mg daily at bedtime Present on Admission?: Yes (10) Abdominal aortic aneurysm (AAA) greater than 39 mm in diameter: Serial imaging Present on Admission?: Yes History of Present Illness Chief Complaint: The patient presents to the emergency department with diffuse generalized body pain, abdominal discomfort, and difficulty breathing Primary Care Provider: Margo Prado The patient is a 64-year-old female with a past medical history including bilat eral pulmonary embolism, hyperlipidemia, CAD, hypertension, AAA greater than 39 mm diameter, COPD, systolic heart murmur,, metastatic adenocarcinoma to bone with unknown primary site, mediastinal lymphadenopathy and history of smoking. The patient presents to the emergency department with generalized diffuse body pain, and reports hurting all over. She is also had progressively worsening difficulty breathing with activity. She has not had any recent travels or sick exposures. She is about to begin chemotherapy for metastatic cancer. She has had no appetite over the past few weeks as well. She was COVID-19 negative on 06/15/2020. She reportedly has not taken her furosemide over the past week. Allergies Allergy/AdvReac Type Severity Reaction Status Date / Time No Known Drug Allergies Allergy Unknown Verified 06/20/20 06:11 Home Medications Home Medications Medication Instructions Recorded Confirmed Type albuterol sulfate 90 mcg/actuation 2 puff INHALATION Q4 PRN #1 gm 06/28/19 06/24/20 History aerosol inhaler aspirin 81 mg tablet,delayed 81 mg PO QAM tab 06/28/19 06/24/20 History release ipratropium 0.5 mg-albuterol 3 mg 3 ml INHALATION Q4H PRN ml 06/28/19 06/24/20 History (2.5 mg base)/3 mL nebulization soln metoprolol tartrate 100 mg tablet 100 mg PO QAM tab 06/28/19 06/24/20 History simvastatin 20 mg tablet 20 mg PO HS #90 tab 06/28/19 06/24/20 History pantoprazole 40 mg tablet,delayed 40 mg PO HS 12/27/19 06/24/20 History release Trelegy Ellipta 1 inh INHALATION QAM 06/02/20 06/24/20 History calcium carbonate [Calcium 600] 600 mg PO QAM 06/02/20 06/24/20 History cholecalciferol (vitamin D3) 2,000 unit PO QAM 06/02/20 06/24/20 History [Vitamin D3] furosemide 40 mg PO QAM 06/02/20 06/24/20 History nitroglycerin 0.4 mg SUBLINGUAL UD PRN 06/02/20 06/24/20 History isosorbide mononitrate 30 mg PO QAM 30 Days #30 tab 06/14/20 06/24/20 Rx meloxicam 7.5 mg PO BID PRN #30 tab 06/14/20 06/24/20 Rx acetaminophen 1,000 mg PO Q6H PRN 06/16/20 06/24/20 History hydrocodone-acetaminophen [[place]] 1 - 2 tab PO Q6H PRN #10 tab 06/20/20 06/24/20 Rx fentanyl 2 patch TRANSDERMAL Q72H 06/24/20 06/24/20 History oxycodone 10 mg PO BID PRN 06/24/20 06/24/20 History Past Med/Surg History Medical History (Updated 06/25/20 @ 02:12 by Curtis Abebe MD) Abdominal aortic aneurysm (AAA) greater than 39 mm in diameter Anemia Per 06/13 hospitalist note - baseline Hgb since current hospitalization has tended between ~8.5-9.0 - Initial H&H on 06/13 AM was 7.3/25.4 -- rechecked at noon, stable at 8.1/27.5 - trend CBC daily - Transfuse if Hgb < 7 or if patient becomes symptomatic Anxiety Bilateral pulmonary embolism CAD (coronary artery disease) Chronic obstructive pulmonary disease GERD (gastroesophageal reflux disease) History of smoking HTN (hypertension) Hyperlipidemia 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 SHOWED UP ON MRI BRAIN Surgical History History of bilateral tubal ligation History of cardiac cath [address] RIVAS History of esophagogastroduodenoscopy (EGD) History of tonsillectomy Port-A-Cath in place (06/20/20) Insertion of Mediport Left Cephalic Vein Dr. Nye 06/20/2020 Social History Smoking Status: Former smoker Age Started Using Tobacco: 15; Age Quit Using Tobacco: 63; packs per day: 1; Number of Years Since Quit: 1; Second Hand Exposure: No; Hx Alcohol Use: No Hx Substance Use: No Preferred Language: Telugu Communication Ability: Effective Visual Impairment: No Limitations Hearing Ability: Normal Hr Shared Services Consultant Required: No Beliefs That Will Affect Care: None marital status: Current Living Situation: Spouse and Family Current Living Situation Comment: she and her live w/ son and girlfriend current occupational status: employed Other Information That Helps Us Care for You: No Feels Safe at Home: Yes Safety Concerns: Feels Safe At This Time Childhood Exposure to Second-Hand Smoke: Yes caffeine: Yes Dental Care, Regularly: Yes Physical Activity Frequency: Does not Exercise Seatbelt Use: always Sunscreen Use: No Do you think of yourself as: straight/heterosexual Sexual Activity: has been sexually active within the last 12 months Assistive Devices: Oxygen - Continuous Review of Systems Review of Systems: The patient denies palpitations, sore throat, fevers, vomiting, diarrhea , constipation, abdominal pain, pelvic pain, blood in urine or stool, dysuria, urinary frequency or urgency, loss of consciousness, rash, abnormal bruising or bleeding, imbalance, focal weakness, numbness or tingling in arms or legs, neck pain, or night sweats. The review of systems is otherwise negative other than for that already noted above, and at least 10 systems have been reviewed. Physical Exam Physical Exam: The patient is awake, alert and oriented 3, looks very fatigued, normocephalic and atraumatic, lying in bed and in mild acute respiratory distress. HEENT--PERRL, EOMI, mucous membranes and oropharynx dry. Neck--supple. No JVD. No bruits. Thyroid normal, trachea midline, no adenopathy. Heart--normal S1 and S2. No murmurs, rubs or gallops. Lungs--clear bilaterally, no respiratory distress, no accessory muscle use. Abdomen--normal bowel sounds and soft. Nontender. Nondistended. Extremities--no cyanosis or clubbing. There is bilateral pretibial 3+ pitting edema. Dermatologic--normal skin turgor, normal color, no abnormal lymph nodes, no rash. Neurologic--cranial nerves II through XII grossly intact. Rheumatologic--limited exam due to fatigue and pain Psychiatric--normal affect. Results & Data Results & Data ([facility]) Vital Signs (Past 12 Hours) Vital Signs Temp Pulse Resp BP Pulse Ox 06/25/20 00:00 85 19 146/108 H 100 06/24/20 23:56 86 18 146/108 H 100 06/24/20 23:13 83 20 162/77 H 98 06/24/20 22:53 79 20 175/82 H 98 06/24/20 22:30 83 19 06/24/20 22:00 80 18 06/24/20 21:50 84 22 06/24/20 20:00 78 22 98 06/24/20 19:30 79 22 95 06/24/20 19:00 72 23 97 06/24/20 18:30 74 23 98 06/24/20 18:01 77 24 100 06/24/20 17:55 100 06/24/20 17:31 98.1 F 135/77 65 L Laboratory Results Laboratory Results WBC 12.32 K/uL (4.8-10.8) H 06/24/20 21:10 RBC 3.04 M/uL (4.2-5.4) L 06/24/20 21:10 Hgb 7.8 g/dL (12.0-16.0) L 06/24/20 21:10 POC Hgb 8.8 g/dl (12.0-16.0) L 06/24/20 19:01 Hct 26.3 % (37-47) L 06/24/20 21:10 POC Hct 26 % (37-47) L 06/24/20 19:01 MCV 86.5 fL (80-100) 06/24/20 21:10 MCH 25.7 pg (25-34) 06/24/20 21:10 MCHC 29.7 g/dL (32-36) L 06/24/20 21:10 RDW Std Deviation 55.8 fL (36.4-46.3) H 06/24/20 21:10 RDW Coeff of [place] 18.0 % (11.5-14.5) H 06/24/20 21:10 Plt Count 297 K/uL (130-400) 06/24/20 21:10 MPV 9.0 fL (7.4-10.4) 06/24/20 21:10 Immature Gran % (Auto) Cancelled 06/24/20 20:20 Neut % (Auto) Cancelled 06/24/20 20:20 Lymph % (Auto) Cancelled 06/24/20 20:20 Brown % (Auto) Cancelled 06/24/20 20:20 Eos % (Auto) Cancelled 06/24/20 20:20 Baso % (Auto) Cancelled 06/24/20 20:20 Neut # (Auto) Cancelled 06/24/20 20:20 Lymph # (Auto) Cancelled 06/24/20 20:20 Brown # (Auto) Cancelled 06/24/20 20:20 Eos # (Auto) Cancelled 06/24/20 20:20 Baso # (Auto) Cancelled 06/24/20 20:20 Immature Gran # (Auto) Cancelled 06/24/20 20:20 Absolute Nucleated RBC 0.10 K/uL (0-0) H 06/24/20 21:10 Nucleated RBC % (auto) 0.8 % 06/24/20 21:10 Neutrophils % (Manual) 85.2 % 06/24/20 21:10 Band Neutrophils % Cancelled 06/24/20 20:20 Lymphocytes % (Manual) 2.6 % 06/24/20 21:10 Prolymphocyte % Cancelled 06/24/20 20:20 Reactive Lymphs % (Man) Cancelled 06/24/20 20:20 Monocytes % (Manual) 6.1 % 06/24/20 21:10 Eosinophils % (Manual) Cancelled 06/24/20 20:20 Basophils % (Manual) Cancelled 06/24/20 20:20 Metamyelocytes % (Man) 3.5 % 06/24/20 21:10 Myelocytes % (Man) 2.6 % 06/24/20 21:10 Promyelocytes % (Man) Cancelled 06/24/20 20:20 Blast Cells % (Manual) Cancelled 06/24/20 20:20 Plasma Cell % (Manual) Cancelled 06/24/20 20:20 Other Cells % Cancelled 06/24/20 20:20 Nucleated RBC % Cancelled 06/24/20 20:20 Neutrophils # (Manual) 10.50 K/uL (1.4-6.5) H 06/24/20 21:10 Band Neutrophils # Cancelled 06/24/20 20:20 Total Absolute Neuts 10.50 K/uL (1.4-6.5) H 06/24/20 21:10 Lymphocytes # (Manual) 0.32 K/uL (1.2-3.4) L 06/24/20 21:10 Prolymphocyte # Cancelled 06/24/20 20:20 Reactive Lymphs # Cancelled 06/24/20 20:20 Total Abs Lymphocytes 0.32 K/uL (1.2-3.4) L 06/24/20 21:10 Monocytes # (Manual) 0.75 K/uL (0.11-0.59) H 06/24/20 21:10 Eosinophils # (Manual) Cancelled 06/24/20 20:20 Basophils # (Manual) Cancelled 06/24/20 20:20 Metamyelocytes # (Man) 0.43 K/uL (0-0) H 06/24/20 21:10 Myelocytes # (Manual) 0.32 K/uL (0-0) H 06/24/20 21:10 Promyelocytes # (Man) Cancelled 06/24/20 20:20 Blast Cells # (Man) Cancelled 06/24/20 20:20 Plasma Cell # (Manual) Cancelled 06/24/20 20:20 Other Cells # Cancelled 06/24/20 20:20 Nucleated RBCs # (Man) Cancelled 06/24/20 20:20 Hypersegmented Neuts Cancelled 06/24/20 20:20 Hyposegmented Neuts Cancelled 06/24/20 20:20 Hypogranular Neuts Cancelled 06/24/20 20:20 Large Granular Lymphs Cancelled 06/24/20 20:20 # Lrg Granular Lymphs Cancelled 06/24/20 20:20 Hairy Cells Cancelled 06/24/20 20:20 Smudge Cells Cancelled 06/24/20 20:20 Toxic Granulation Cancelled 06/24/20 20:20 Toxic Vacuolation 1+ 06/24/20 21:10 Dohle Bodies 1+ 06/24/20 21:10 Leta Rods Cancelled 06/24/20 20:20 Platelet Estimate Cancelled 06/24/20 20:20 Hypogranular Platelets Cancelled 06/24/20 20:20 Clumped Platelets Cancelled 06/24/20 20:20 Giant Platelets Cancelled 06/24/20 20:20 Platelet Satelliting Cancelled 06/24/20 20:20 RBC Morphology Cancelled 10/03/20 20:20 Polychromasia Cancelled 06/24/20 20:20 Hypochromasia Present 06/24/20 21:10 Poikilocytosis Cancelled 06/24/20 20:20 Basophilic Stippling Cancelled 06/24/20 20:20 Anisocytosis Cancelled 06/24/20 20:20 Microcytosis Cancelled 06/24/20 20:20 Macrocytosis Cancelled 06/24/20 20:20 Spherocytes Cancelled 06/24/20 20:20 Pappenheimer Bodies Cancelled 06/24/20 20:20 Sickle Cells Cancelled 06/24/20 20:20 Target Cells Cancelled 06/24/20 20:20 Tear Drop Cells Cancelled 06/24/20 20:20 Ovalocytes Cancelled 06/24/20 20:20 Stomatocytes Cancelled 06/24/20 20:20 [place] Bodies Cancelled 06/24/20 20:20 Echinocytes Cancelled 06/24/20 20:20 Acanthocytes (Spur) Cancelled 06/24/20 20:20 Rouleaux Cancelled 06/24/20 20:20 RBC Agglutinates Cancelled 06/24/20 20:20 Schistocytes Cancelled 06/24/20 20:20 RBC Morph Comment Cancelled 06/24/20 20:20 Sezary Cell Cancelled 06/24/20 20:20 PT 14.3 Seconds (9.0-12.0) H 06/24/20 21:10 INR 1.4 (0.9-1.1) H 06/24/20 21:10 APTT 33.2 Seconds (21.0-31.0) H 06/24/20 21:10 PTT Ratio 1.2 06/24/20 21:10 VBG pH 7.30 (7.36-7.41) L 06/24/20 21:10 VBG pCO2 56 mmHg (38-50) H 06/24/20 21:10 VBG pO2 45 mmHg 06/24/20 21:10 VBG HCO3 27 mmol/L 06/24/20 21:10 VBG O2 Saturation 74.0 % 06/24/20 21:10 VBG Base Excess 0.2 mEq/L 06/24/20 21:10 Barometric Pressure 736.5 mm/Hg 06/24/20 21:10 POC Sodium 130 mmol/L (135-144) L 06/24/20 19:01 Sodium 134 mmol/L (136-145) L 06/24/20 21:10 POC Potassium 5.8 mmol/L (3.3-5.0) H 06/24/20 19:01 Potassium 4.9 mmol/L (3.5-5.1) 06/24/20 21:10 POC Chloride 97 mmol/L (101-112) L 06/24/20 19: Chloride 96 mmol/L (98-107) L 06/24/20 21:10 Carbon Dioxide 30 mmol/L (21-32) 06/24/20 21:10 POC Total CO2 27 mmol/L (24-31) 06/24/20 19:01 Anion Gap 8.0 (3-11) 06/24/20 21:10 POC Anion Gap 12.0 mmol/L (16-25) L 06/24/20 19:01 POC BUN 52 mg/dl (7-18) H 06/24/20 19:01 BUN 44 mg/dl (7-18) H 06/24/20 21:10 Creatinine 0.74 mg/dl (0.6-1.2) 06/24/20 21:10 POC Creatinine 1.1 mg/dl (0.6-1.3) 06/24/20 19:01 Est Cr Clr Drug Dosing 91.1 ml/min 06/24/20 21:10 Est GFR ( Amer) 100.6 06/24/20 21:10 Est GFR (Non-Af Amer) 86.8 06/24/20 21:10 BUN/Creatinine Ratio 58.8 (-20) H 06/24/20 21:10 Glucose 128 mg/dl (70-99) H 06/24/20 21:10 POC Glucose (other) 132 mg/dl (70-99) H 06/24/20 19:01 POC Lactic Acid Thomas 3.11 mmol/L (0.90-1.70) H 06/24/20 20:27 Lactate 1.5 mmol/L (0.4-2.0) 06/24/20 21:10 Calcium 9.1 mg/dl (8.5-10.1) 06/24/20 21:10 POC Ioniz Calcium Patricia 1.10 mmol/l (1.12-1.32) L 06/24/20 19:01 Magnesium 1.7 mg/dl (1.8-2.4) L 06/24/20 21:10 Total Bilirubin 0.5 mg/dl (0.2-1) 06/24/20 21:10 AST 25 U/L (15-37) 06/24/20 21:10 ALT 14 U/L (12-78) 06/24/20 21:10 Alkaline Phosphatase 135 U/L (45-117) H 06/24/20 21:10 Troponin I 1.840 ng/ml (0-0.045) H* 06/24/20 21:10 NT-Pro-B Natriuret Pep Cancelled 06/24/20 20:20 Total Protein 5.7 gm/dl (6.4-8.2) L 06/24/20 21:10 Albumin 1.4 gm/dl (3.4-5.0) L 06/24/20 21:10 Globulin 4.3 gm/dl (2.5-4.0) H 06/24/20 21:10 Albumin/Globulin Ratio 0.3 (0.9-2) L 06/24/20 21:10 Procalcitonin 0.65 ng/ml (0-0.5) H 06/24/20 21:10 Urine Color Dark Yellow 06/24/20 18:05 Urine Appearance Cloudy (Clear) A 06/24/20 18:05 Urine pH 5.0 (4.5-7.5) 06/24/20 18:05 Ur Specific [place] 1.023 (1.000-1.030) 06/24/20 18:05 Urine Protein Trace (Negative) H 06/24/20 18:05 Urine Glucose (UA) Negative (Negative) 06/24/20 18:05 Urine Ketones Negative (Negative) 06/24/20 18:05 Urine Blood Negative (Negative) 06/24/20 18:05 Urine Nitrite Negative (Negative) 06/24/20 18:05 Urine Bilirubin Negative (Negative) 06/24/20 18:05 Urine Urobilinogen Negative (Negative) 06/24/20 18:05 Ur Leukocyte Esterase Trace (Negative) H 06/24/20 18:05 Urine WBC (Auto) 5-10 /hpf (0-5) H 06/24/20 18:05 Urine RBC (Auto) 0-4 /hpf (0-4) 06/24/20 18:05 U Hyaline Cast (Auto) 10-30 /lpf (0-5) H 06/24/20 18:05 U Epithel Cells (Auto) >30 /lpf (0-5) H 06/24/20 18:05 Urine Bacteria (Auto) 4+ (Negative) H 06/24/20 18:05 Diagnostic Findings [place], [place] [phone] XRay Report Patient: Joana STAHL Date: 06/24/20 MR#: [id number]: [id number] Acct ID:[id number]: Date: 1955City Zip: [place] [address] Age: 64Location: ED Sex: FRoom/Bed: Att Phy:Diagnosis: GENERAL PAIN, AB PAIN, GI PROBLEMS Mallory Phy: Margo Prado PA-CService Date: 06/24/20 Fam Phy: Margo Prado PA-CInterpreting Phy: Luís Govea MD Admit Phy: Ordering Phy: Efra Almanza MD cc: ~ XR chest 1V portable HISTORY: SEPSIS COMPARISON: Chest 06/20/2020. FINDINGS: Right lung nodules are again noted. Mediastinal and right hilar lymphadenopathy is better appreciated on the prior chest CT. Stable mild cardiomegaly. Improvement in the left basilar linear density consistent with resolving atelectasis. No pneumothorax. No pleural effusions. There is also a right basilar linear density consistent with subsegmental atelectasis. Left Port-A-Cath terminates in the distal SVC. Increase in size in the left upper pleural-based/rib lesion. IMPRESSION: 1. Increase in size in the left upper pleural based/rib lesion. 2. Right lung nodules and hilar lymphadenopathy is again noted. 3. Bibasilar linear densities consistent with subsegmental atelectasis. ACT 112: Negative or not required by law. Electronically signed by: Luís Govea M.D. 06/24/2020 7:59 PM Dictated: 06/24/201956 Transcribed: 06/24/201956 [facility] Patient: KRISS STAHL (Female) : 59 Status: ER Date: 06/24/20 21:00 Room #: History: SOB ? PE Slices: [phone] Priors: Tech: Max Batres @ [phone] Exams: CTA CHEST Contrast: IV Amt: 119 Accession Numbers: [id number] Preliminary Findings Only See Final Report For Complete Findings CTA CHEST: Comparison to June 02, 2020. The pulmonary arterial tree is well opacified with contrast. The lower lobe segmental branches are blurred by motion. No definite acute pulmonary embolism is identified. There are multiple pulmonary masses and nodules scattered about both lungs with the largest in the right upper lobe measuring approximately 2.5 cm. There is mediastinal lymphadenopathy measuring up to 3.2 cm short axis diameter and right hilar lymphadenopathy. Some of these lymph nodes indent and project near the proximal pulmonary vessels. The nodules and masses are larger than on the comparison examination as are scattered chest wall masses including a 2.2 cm right axillary subcutaneous nodule and several expansile rib lesions. There are lytic bone lesions involving the T8, T9, and T10 levels. No acute fracture is identified. 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 Lung windows reveal small amount of bibasilar atelectasis greatest in the left lower lobe. No pneumothorax or pleural effusion is seen. Mild cardiomegaly and moderate coronary calcification. No pericardial effusion. Radiologist: Peter Burrows MD Study ready at 21:03 and initial results transmitted at 21:36 *This report constitutes a preliminary interpretation only. Non-acute findings felt to be unrelated to the clinical presentation may not be discussed in this report. The study will be interpreted and a final report will be generated by the local Radiologist the following shift. To reach the hospital radiology department call [phone]. If a discrepancy is found between the preliminary and final interpretations of this study, please notify us via our Client Portal at [email or web address] under [email or web address].You can also fax this report with a description of the discrepancy, or include the final report, to our daytime fax number [phone].If faxing, please indicate the severity of discrepancy using one of the following categories: [ ] 1 - Agree/Informational [ ] 2 - Unlikely to Affect Management [ ] 3 - Possible Eventual Change of Management [ ] 4 - Probable Immediate Change of Management For all other patient related information, please fax us at [phone]. [facility] Patient: KRISS STAHL (Female) : 59 Status: ER Date: 06/24/20 21:05 Room #: History: ABD PAIN METS Slices: [phone] Priors: Tech: Max Batres @ [phone] Exams: CT ABDOMEN & PELVIS With Contrast Contrast: IV Amt: 119 Accession Numbers: [id number] Preliminary Findings Only See Final Report For Complete Findings CT ABDOMEN & PELVIS With Contrast: Bilobed left adrenal mass measuring 5.1 cm craniocaudad. Increased since previous. Fatty infiltration of the liver. There is a left lobe liver mass measuring approximately 2.5 cm. Increased since previous. Small moderate sludge in the dependent portion of the gallbladder. No surrounding inflammation. The pancreas, spleen, and kidneys appear within normal limits. Bowel loops are nondilated. There are scattered gas fluid levels in nondilated small bowel and right colon suggesting ileus and/or gastroenteritis. The descending thoracic aorta is mildly dilated to 4 cm. No dissection. The abdominal aorta is heavily calcified but nondilated. Bone windows show lytic and sclerotic metastatic lesions in the lumbar spine greatest at L3, L4, and L5. No acute fracture or canal compromise is identified. Radiologist: Peter Burrows MD Study ready at 21:17 and initial results transmitted at 22:11 *This report constitutes a preliminary interpretation only. Non-acute findings felt to be unrelated to the clinical presentation may not be discussed in this report. The study will be interpreted and a final report will be generated by the local Radiologist the following shift. To reach the hospital radiology department call [phone]. If a discrepancy is found between the preliminary and final interpretations of this study, please notify us via our Client Portal at [email or web address] under [email or web address].You can also fax this report with a description of the discrepancy, or include the final report, to our daytime fax number [phone].If faxing, please indicate the severity of discrepancy using one of the following categories: [ ] 1 - Agree/Informational [ ] 2 - Unlikely to Affect Management [ ] 3 - Possible Eventual Change of Management [ ] 4 - Probable Immediate Change of Management For all other patient related information, please fax us at [phone]. 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
[2020-06-25] MEDS ORDERED: ALUMINUM/MAGNESIUM SUSP 30 ML UDC PO PRN (01:55)
[2020-06-25] MEDS ORDERED: ONDANSETRON INJ 2 MG/ML 2 ML VIAL IV PRN (01:55)
[2020-06-25] MEDS ORDERED: MAGNESIUM HYDROXIDE SUSP 30 ML UDC PO PRN (01:55)
[2020-06-25] MEDS ORDERED: NITROGLYCERIN SL 0.4 MG/TAB TAB SL PRN (01:55)
[2020-06-25] MEDS ORDERED: ALBUT/IPRATROP 3MG/0.5MG NEB 3 ML VIAL INH PRN (01:55)
[2020-06-25] MEDS ORDERED: NON-FORMULARY MEDICATION (Acetaminophen 650 MG) PO PRN (01:55)
[2020-06-25] MEDS ORDERED: ACETAMINOPHEN 325 MG TAB PO PRN (01:55)
[2020-06-25] MEDS ORDERED: HYDROCODONE/ACETAMOPHEN 5/325MG TAB PO PRN (02:06)
[2020-06-25] MEDS ORDERED: HYDROmorphone INJ 0.5 MG/0.5 ML SYR IV PRN (02:31)
[2020-06-25] MEDS: METOPROLOL TARTRATE 50 MG TAB PO SCH ×3 (03:11→19:56)
[2020-06-25] MEDS: OXYCODONE HCL IR 5 MG TAB (IMMEDIATE RELEASE) PO PRN ×2 (03:11→09:07)
[2020-06-25] MEDS: ALBUMIN 25% 50 ML IV SCH ×2 (03:11→03:45)
[2020-06-25 03:32] LABS: Base Excess ABG 2.9 mEq/L (-9-1.8); HCO3 ABG 29 mmol/L (19-24); Oxygen Saturation ABG 89.1 % (90-95); PCO2 ABG 49 mmHg (35-46); PO2 ABG 62 mmHg (80-95); pH ABG 7.38 (7.35-7.45)
[2020-06-25 03:41] LABS: Allen Test Pos (Pos)
[2020-06-25 05:16] LABS: Hematocrit (blood only) 25.5 % (37-47); Hemoglobin 7.4 g/dL (12.0-16.0); Mean Corpuscular Hemoglobin 25.1 pg (25-34); Mean Corpuscular Volume 86.4 fL (80-100); Mean Platelet Volume 8.6 fL (7.4-10.4); Nucleated RBC # (auto) 0.09 K/uL (0-0); Nucleated RBC % (auto) 0.7 %; Platelet Count 272 K/uL (130-400); RDW Coefficient of Variation 18.4 % (11.5-14.5); RDW Standard Deviation 56.9 fL (36.4-46.3); Red Blood Count 2.95 M/uL (4.2-5.4); White Blood Count 12.93 K/uL (4.8-10.8)
[2020-06-25 05:42] LABS: BUN Creatinine Ratio 64.1 (10-20); Calcium 9.4 mg/dl (8.5-10.1); Creatinine Clr Calc Pharmacy 118.3 ml/min; Est GFR (African American) 115.2; Est GFR (Non-African American) 99.4; Potassium 4.8 mmol/L (3.5-5.1)
[2020-06-25 05:43] LABS: ALC (manual) 0.12 K/uL (1.2-3.4); ANC (manual) 11.57 K/uL (1.4-6.5); Basophilic Stippling 1+; Eosinophils # (manual) 0.12 K/uL (0-0.5); Eosinophils % (manual) 0.9 %; Lymphocytes # (manual) 0.12 K/uL (1.2-3.4); Lymphocytes % (manual) 0.9 %; Metamyelocytes # (manual) 0.12 K/uL (0-0); Metamyelocytes % (manual) 0.9 %; Monocytes # (manual) 0.79 K/uL (0.11-0.59); Monocytes % (manual) 6.1 %; Myelocytes # (manual) 0.22 K/uL (0-0); Myelocytes % (manual) 1.7 %; Neutrophils # (manual) 11.57 K/uL (1.4-6.5); Neutrophils % (manual) 89.5 %; Polychromasia 1+; Toxic Granulation 1+; Toxic Vacuolation 1+
[2020-06-25 05:48] LABS: Albumin Globulin Ratio 0.5 (0.9-2); Bilirubin,Total 0.7 mg/dl (0.2-1); Troponin I 1.57 ng/ml (0-0.045)
[2020-06-25] MEDS ORDERED: ALBUMIN 25% 50 ML with FUROSEMIDE 40 MG IV SCH (08:00)
--- NOTE | 2020-06-25 08:02 | Hospitalist Progress Note ---
Date of Service June 25, 2020 Assessment & Plan (1) Hypoxia: 64 yo F PMHx COPD, CAD, HTN, HLD, AAA, significant smoking history of 45 years with recent diagnosis of metastatic adenocarcinoma who was admitted for acute hypoxemic respiratory failure and intractable pain, and found to have el evated troponin. Acute on Chronic Hypoxemic Respiratory Failure: - On arrival with SpO2 65% on baseline 4LNC. - CXR performed which showed atelectasis, as well as increase in size of lung nodules. - CTA performed which showed no evidence of acute PE. Interval development of bilateral pulmonary nodules from prior studies. No findings suggestive of infection. - COVID-19 testing negative on 06/15/2020; no sick contacts or exposures. - Patient quickly improved on 8L Oxymask and now is on 3L comfortably. 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 - On admission patient received Lasix with albumin, however patient without findings on CT Chest that suggest fluid overload. - Respiratory failure likely multifactorial in origin, including: metastasis/primary cancer to the lung, mucus plugging secondary to history COPD with possible exacerbation, obesity hypoventilation syndrome, high dose narcotics for pain. - Azithromycin added for ? COPD exacerbation given coarse lung exam and hypercapnea. - Duonebs q4h PRN SOB/wheezing. Holding systemic steroids at this time as patient's respiratory status is stable and has not required Duonebs around the clock. Consider adding if patient develops wheezing or respiratory status worsens despite current treatment. - OOB to Chair often, and q1h incentive spirometer while awake. - Supplement oxygen as needed for goal SpO2 92%; and goal to return to oxygen via NC for eventual discharge to home. Elevated Troponin in Patient with Hx HTN, CAD: - On arrival patient with elevated troponin to 1.84, decreased to 1.5 on repeat check. - EKG findings not suggestive of ACS. - Patient presented with severe hypoxia and anemia, both likely causes of demand ischemia in this patient. - Cardiology consulted and appreciate recommendations: - Given nature of metastatic illness and poor prognosis optimizing myocardial oxygen delivery medically is most important as opposed to acute intervention. - Transfuse as needed, supplemental oxygen to maintain good oxygen saturation, - Chest pain more likely to be 2/2 chest wall and lung mets as opposed to ACS. - Continue aspirin 81mg daily, isosorbide mononitrate 30 mg every morning, metoprolol tartrate 50mg PO BID. - SOB unlikely to be related to congestive heart failure or pulmonary edema as her imaging studies do not support this. Intractable Skeletal Pain in Patient with Metastatic Adenocarcinoma to Bone: - Patient with history of recently diagnosed metastatic adenocarcinoma to bone, liver, adrenals, with several new lesions as well as lesions that have increased in size. - At this time, tissue molecular studies are pending to further differentiate primary cancer, though highest on differential is lung NSCLC due to smoking history. - History of pain due to masses and pathologic fractures during last admission, and as masses have increased in number and size I suspect her pain throughout her body is secondary to the cancer. - Dr. Aviles with Heme/Onc consulted and appreciate recommendations: - Patient and her family are aware that chemotherapy treatment would not be curative and that her prognosis overall is quite poor, and plan prior to this admission was to pursue salvage carboplatin and paclitaxel until further information could be gathered. - Given her significant pain/discomfort despite several increased doses of multiple narcotics and metastatic burden, patient would benefit from DIRECTOR OF QUALITY IMPROVEMENT for pain medication. - For now continue Tylenol 650 mg q6h PRN mild pain or fever, Fentanyl transdermal patches. - At this time it may be reasonable to involve Palliative Care/hospice services in her case given her rapid decompensation since last admission. Started the conversation today by discussing that her metastatic disease has worsened rapidly since last admission. Abdominal pain and diarrhea: - Patient with several days of complaints of diarrhea and abdominal pain. - While her abdominal pain is difficult to isolate as compared to her other body pains, CTAP showed findings suggestive of gastroenteritis which could be contributing to both her pain and diarrhea. - Abdominal pain could also be secondary to new/worsening abdominal metastases (liver, adrenals, etc). - Symptomatic care with PO fluids, pain/nausea medications. Anemia: - On last admission patient was with a baseline Hgb 8.5-9.0. - Likely secondary to chronic disease, currently metastatic adenocarcinoma. - Trend CBC daily, will need transfusion if Hgb <7. Leukocytosis: - On admission patient with mild leukocytosis to ~13, afebrile. - Lactate elevated to 3.11, procal 0.65. - UA collected with many epithelials, bacteria and WBCs. - Blood and urine culture collected prior to starting vancomycin/cefepime for broad spectrum coverage. - No clear source of infection at this time, and laboratory findings can be attributed to other sources (leukocytosis and procal to stress response, lactate to hypoxia increasing metabolic production of lactate). History of Bilateral Pulmonary Emboli: - Last admission patient was diagnosed with bilateral pulmonary emboli, started on Heparin and transitioned to Eliquis in outpatient setting. - Eliquis recently d/c'ed in preparation for port placement surgery, was never restarted. - CTA Chest this admission without findings suggestive of acute PE. - Resume DVT/PE prophylaxis with Eliquis 5mg BID. Hyperlipidemia: - Continue home simvastatin. 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 first seen feeling bad pain uncontrolled - later revisited after [employer]OVEMENT started feeling better pain controlled vitals noted intiially uncomfortable later more comforable breathing unlabored both times no accessory muscles no conversational dyspnea no focal neuro deficits intractable pain - cancer related - better on [employer]OVEMENT - continue for now then work to transition to higher intensity po regimen if needed metastatic adenocarcinoma - in d/w oncology - poorly differentiated. would require fairly aggressive therapy. i harbor concerns that her functional status is probably too poor tolerate (ie the treatment might kill her faster than the disease) but was unable to discuss further due to pain/etc otherwise as above Subjective Overnight patient's oxygen requirement decreased, such that she is currently on 3L Oxymask from 8L on initial presentation. Patient is saturating well, afebrile, vitals otherwise stable. This morning complains of body pain "all over" as well as trouble breathing, though she reports that both of these are significantly improved from last night. Pain per her is worst in her abdomen at this time. Tired this morning, as she "didn't get much sleep last night". States for the last several days she has been having diarrhea, but does not note bloody stools. No nausea or vomiting. Review of Systems Review of Systems: All systems reviewed & are unremarkable except as noted in HPI & below Constitutional: + malaise; no fever and no chills Respiratory: + dyspnea; no cough Cardiovascular: + chest pain; no palpitations and no edema Gastrointestinal: + abdominal pain and + diarrhea/loose stools; no nausea, no vomiting, no constipation and no blood in stools Genitourinary: no dysuria and no hematuria Musculoskeletal: + back pain, + neck pain, + joint pain and + body aches Physical Exam Constitutional: well developed and + ill appearing; no acute distress Eyes: PERRL, conjunctivae normal, anicteric sclerae ENMT: external ear and nose normal, oropharynx normal Neck: normal visual inspection Respiratory: Saturating at 100% on 3L Oxymask Coarse breath sounds throughout No notable wheezes Symmetric chest expansion Cardiovascular: Rate/Rhythm: regular rate and regular rhythm Heart Sounds: no murmur Extremities: + edema (2+ pitting edema to bilateral LE) Gastrointestinal (Abdomen): Inspection/Auscultation: normal bowel sounds; abdomen not distended Percussion/Palpation: + abdomen tender and abdomen soft; no guarding Musculoskeletal: no cyanosis or clubbing, extremities motor strength 5/5 Skin: no rashes, warm and dry Neurologic: AAOx3, normal speech. No tremor. Psychiatric: A+Ox3, euthymic affect Results & Data Results & Data ([facility]) Vital Signs (Past 12 Hours) Vital Signs Temp Pulse Pulse Pulse Resp BP BP 06/25/20 07:22 36.6 C 85 19 135/57 L 06/25/20 03:12 36.7 C 90 20 149/60 H 06/25/20 03:01 94 H 06/25/20 02:37 88 21 146/68 H 06/25/20 01:57 36.6 C 93 H 21 108/74 06/25/20 01:20 88 18 181/90 H 06/25/20 00:39 84 20 181/90 H 06/25/20 00:00 85 19 146/108 H 06/24/20 23:56 86 18 146/108 H 06/24/20 23:13 83 20 162/77 H 06/24/20 22:53 79 20 175/82 H 06/24/20 22:30 83 19 06/24/20 22:00 80 18 06/24/20 21:50 84 22 06/24/20 20:00 78 22 Pulse Ox 06/25/20 07:22 91 06/25/20 03:12 98 06/25/20 03:01 06/25/20 02:37 95 06/25/20 01:57 100 06/25/20 01:20 100 06/25/20 00:39 100 06/25/20 00:00 100 06/24/20 23:56 100 06/24/20 23:13 98 06/24/20 22:53 98 06/24/20 22:30 06/24/20 22:00 06/24/20 21:50 06/24/20 20:00 98 Resident Activity Tracking Resident Involvement: Resident Care Provided Care Provided: Adult Hospital Medicine
--- NOTE | 2020-06-25 08:13 | CT Scan Report ---
CT abd pelvis IV con only CLINICAL HISTORY: abd pain metastatic ca COMPARISON STUDY: 06/07/2020 TECHNIQUE: The patient was scanned in a dynamic helical fashion during intravenous administration of 119 cc of Optiray 320 A dose lowering technique was utilized adhering to the principles of ALARA. CT DOSE: 1678.13 mGy.cm FINDINGS: Lower chest: There are scattered subcentimeter nodules. There are basilar atelectatic changes. There is dilatation of the descending thoracic aorta. Liver: There is a 26 mm left hepatic lobe mass suspicious for neoplasm. Gallbladder: Cholelithiasis Spleen: There is a 19 mm peripheral hypodense lesion possibly representing a splenic infarct. Pancreas: Unremarkable. Adrenal glands: There are bilateral adrenal masses left larger than right. Left adrenal masses measur e 32 mm and 29 mm respectively. Kidneys: There is an indeterminate 8 mm upper pole right renal hypodense lesion Bowel: There are no transition zones to indicate bowel obstruction. There are multiple fluid-filled s mall bowel loops containing air-fluid levels. There are colonic air-fluid levels. The findings are no nspecific but could be secondary to an enteritis. There is colonic diverticulosis without evidence of acute diverticulitis. There is mild small bowel wall thickening. There is no pneumatosis. Postsurgic al changes are present within the bowel Peritoneum: There is no intraperitoneal free air or abdominal ascites. Vasculature: The abdominal aorta is normal in course and caliber. Adenopathy: None. Pelvic viscera: The bladder, and pelvic viscera are unremarkable. Skeletal structures: The 24 mm lytic lesion within the right acetabulum consistent with a metastatic deposit. There is a lytic lesion within the left acetabulum consistent with a metastatic deposit. The re is a left pubic symphysis lytic lesion consistent with a metastatic deposit. There are several lum bar vertebral body compression deformities. Lytic vertebral body lesions are also suspected IMPRESSION: 1. Cholelithiasis 2. Left lobe hepatic mass suspicious for neoplasm 3. Multiple lytic skeletal lesions consistent with metastatic disease 4. Nondilated fluid-filled bowel loops with mild small bowel wall thickening. The findings are sugges tive of a enteritis 5. Bilateral adrenal masses suspicious for metastatic disease ACT 112: Negative or not required by law. Electronically signed by: Luis Babcock M.D. 06/25/2020 8:12 AM
--- NOTE | 2020-06-25 08:35 | CT Scan Report ---
CT ANGIOGRAM OF THE CHEST CLINICAL HISTORY: Atypical chest pain COMPARISON STUDY: 06/02/2020 TECHNIQUE: Following the IV administration of 119 mL of Optiray-320, CT angiogram of the thorax was p erformed from the thoracic inlet to the lung bases utilizing the pulmonary embolus protocol. Images a re reviewed in the axial, sagittal, and coronal planes. IV contrast was administered without complica tion. MIP imaging was performed. A dose lowering technique was utilized adhering to the principles o f ALARA. CT DOSE: FINDINGS: There is mediastinal and right hilar adenopathy. There is a 27 mm precarinal lymph node. There is fusiform dilatation of the descending thoracic aorta which measures 39 mm. There were no pulmonary artery filling defects to indicate acute pulmonary embolism. There are no pleural effusions Of progressive metastatic disease. There are enlarging right breast nodules consistent with metastatic disease. There is interval increase in the size and number of the bilateral pulmonary nodules indicative there are enlarging multiple subcutaneous soft tissue nodules consistent with metastatic disease. There is evidence for skeletal bony metastasis. There is a fracture the left 10th rib possibly pathol ogic. There is an expansile lesion involving the left third rib with a pathologic fracture. There are multiple vertebral body metastasis. IMPRESSION: 1. No evidence of acute pulmonary embolism 2. Progressive metastatic disease with increase in the size and number of the bilateral pulmonary nod ules 3. Progressive metastatic disease with enlarging multiple subcutaneous soft tissue nodules 4. Lytic skeletal metastasis ACT 112: Negative or not required by law. Electronically signed by: Luis Babcock M.D. 06/25/2020 8:34 AM
[2020-06-25] MEDS ORDERED: fentaNYL 25 MCG/HR TDSY TD SCH (09:00)
[2020-06-25] MEDS: CHECK FENTANYL PATCH PLACEMENT SCH ×2 (09:01→16:01)
[2020-06-25] MEDS: UMECLIDINIUM/VILANTEROL 62.5/25MCG 7 PUFFS/INHALER INH SCH (09:03)
[2020-06-25] MEDS: FLUTICASONE FUROATE 100MCG 14 PUFFS/INHALER INH SCH (09:03)
[2020-06-25] MEDS: CALCIUM 600MG + VIT D 400 IU TAB PO SCH (09:04)
[2020-06-25] MEDS: ASPIRIN 81 MG ECTAB PO SCH (09:04)
[2020-06-25] MEDS: ISOSORBIDE MONO EXTENDED REL 30 MG TABCR PO SCH (09:04)
[2020-06-25] MEDS: CHOLECALCIFEROL 1,000 UNITS 25 MCG TAB PO SCH (09:05)
--- NOTE | 2020-06-25 09:05 | Cardiology Consultation ---
Date of Consultation June 25, 2020 Assessment & Plan (1) Elevated troponin: I do not believe the elevation in the patient's biomarkers represents an acute coronary syndrome. The trajectory is relatively flat. While she did present with an element of chest pain, she seems to have diffuse pain clearly related to her malignancy. The fact that she presented with severe hypoxia and anemia represents mechanism for ischemia likely reflected in her elevated biomarkers. She undoubtedly has significant coronary disease. However, in the absence of an acute coronary syndrome and in the setting of her other severe comorbidities, do not believe any acute intervention or additional evaluation is necessary at this time. As with most patients of this nature, optimizing myocardial oxygen delivery is paramount. Maintaining good oxygenation, considering transfusion for further drop in hemoglobin, avoiding significant hypertension, hypotension or tachycardia is recommended. (2) Bilateral pulmonary embolism: Diagnosed a few weeks ago. Recent study did not demonstrate acute PE. Unfortunately, the patient did stop her anticoagulation approximately 1 week ago. This will likely need to be resumed. (3) CAD (coronary artery disease): She reports a remote history of myocardial infarction. This is not reflected in her EKG or recent echocardiogram. She is known to have preserved LV systolic function. Clearly she has significant coronary disease based on her history, risk factors and coronary calcium. However, in the absence of obvious coronary insufficiency, angina 1 acute coronary syndrome, I think care at this point is supportive. Her overall prognosis appears quite poor and even standard secondary prevention of coronary disease seems relatively contraindicated. (4) Thoracic aortic aneurysm: She has a descending thoracic aortic aneurysm measuring 39 mm in greatest dimension. Not a clinical concern currently. (5) Hypoxia: She presented with dyspnea. She was severely hypoxic and required more aggressive oxygen supplementation. She certainly has an element of edema, but I am skeptical that her breathing trouble is related to congestive heart failure or pulmonary edema. Her imaging studies do not support this. Her lung examination is clearly abnormal, but I think a more likely etiology for her breathing difficulty is primary lung disease including COPD and malignancy. While she has edema, she is likely intravascularly depleted. BUN creatinine ratio is quite high. I think it will be some difficulty with diuresis and I would concentrate more on her primary lung process rather than aggressive diuresis. This is specially true in the setting of what appears to be an intra- abdominal process which may result in significant "3rd spacing" of fluid. History of Present Illness Reason for Consultation: Elevated troponin Requesting Physician: Aurora Attending Physician: Kashif Downing DO History of Present Illness The patient is a 64-year-old woman with recent diagnosis metastatic adenocarcinoma who presented to the emergency room with generalized pain and breathing difficulty. On routine evaluation she was noted to have elevated cardiac biomarkers and we were asked to evaluate her for this abnormality. Patient states that for approximately 1 and half months she has been having significant back discomfort and generalized pain. An evaluation eventually revealed a lytic bone lesion in her lumbar spine. Further evaluation revealed what appeared to be metastatic malignancy later discovered to be adenocarcinoma. She states she has been struggling with generalized pain. More recently she has also developed some abdominal tenderness and nausea. This resulted in significant anorexia as well. She did not describe any recent bowel movements or diarrhea. No vomiting. When asked about her pain she states she has pain everywhere. Her abdomen appears to be most uncomfortable area currently. She is significantly limited with respect to activity. Her helps her around the residence at home. However, she is very sedentary as result of generalized pain and weakness. She has not been eating very well by report. She normally takes a diuretic but this was stopped for unclear reasons. She has been aware of lower extremity edema and blames this on stopping her Eliquis. Eliquis was discontinued to facilitate placement of a intravenous port. Patient did not resume her Eliquis subsequent to that procedure. At the time my interview she appears quite uncomfortable. Again, mostly abdominal discomfort. Breathing trouble has not improved with use of supplemental oxygen. She still has dyspnea. She frequently removes her OxyMask and at that point her oxygen saturations decline. Allergies Allergy/AdvReac Type Severity Reaction Status Date / Time No Known Drug Allergies Allergy Unknown Verified 06/20/20 06:11 Home Medications Home Medications Medication Instructions Recorded Confirmed Type albuterol sulfate 90 mcg/actuation 2 puff INHALATION Q4 PRN #1 gm 06/28/19 06/24/20 History aerosol inhaler aspirin 81 mg tablet,delayed 81 mg PO QAM tab 06/28/19 06/24/20 History release ipratropium 0.5 mg-albuterol 3 mg 3 ml INHALATION Q4H PRN ml 06/28/19 06/24/20 History (2.5 mg base)/3 mL nebulization soln metoprolol tartrate 100 mg tablet 100 mg PO QAM tab 06/28/19 06/24/20 History simvastatin 20 mg tablet 20 mg PO HS #90 tab 06/28/19 06/24/20 History pantoprazole 40 mg tablet,delayed 40 mg PO HS 12/27/19 06/24/20 History release Trelegy Ellipta 1 inh INHALATION QAM 06/02/20 06/24/20 History calcium carbonate [Calcium 600] 600 mg PO QAM 06/02/20 06/24/20 History cholecalciferol (vitamin D3) 2,000 unit PO QAM 06/02/20 06/24/20 History [Vitamin D3] furosemide 40 mg PO QAM 06/02/20 06/24/20 History nitroglycerin 0.4 mg SUBLINGUAL UD PRN 06/02/20 06/24/20 History isosorbide mononitrate 30 mg PO QAM 30 Days #30 tab 06/14/20 06/24/20 Rx meloxicam 7.5 mg PO BID PRN #30 tab 06/14/20 06/24/20 Rx acetaminophen 1,000 mg PO Q6H PRN 06/16/20 06/24/20 History hydrocodone-acetaminophen [Clute] 1 - 2 tab PO Q6H PRN #10 tab 06/20/20 06/24/20 Rx fentanyl 2 patch TRANSDERMAL Q72H 06/24/20 06/24/20 History oxycodone 10 mg PO BID PRN 06/24/20 06/24/20 History dexamethasone [Decadron] 4 mg PO BID 30 Days #60 tab 06/27/20 Rx Patient History Medical History Abdominal aortic aneurysm (AAA) greater than 39 mm in diameter Anemia Per 06/13 hospitalist note - baseline Hgb since current hospitalization has tended between ~8.5-9.0 - Initial H&H on 06/13 AM was 7.3/25.4 -- rechecked at noon, stable at 8.1/27.5 - trend CBC daily - Transfuse if Hgb < 7 or if patient becomes symptomatic Anxiety Bilateral pulmonary embolism CAD (coronary artery disease) Chronic obstructive pulmonary disease GERD (gastroesophageal reflux disease) History of smoking (~04/2020) HTN (hypertension) Hyperlipidemia 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 SHOWED UP ON MRI BRAIN Surgical History History of bilateral tubal ligation History of cardiac cath [address] RIVAS History of esophagogastroduodenoscopy (EGD) History of tonsillectomy Port-A-Cath in place (06/20/20) Insertion of Mediport Left Cephalic Vein Dr. 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 Operator Required: No Beliefs That Will Affect Care: None marital status: Current Living Situation: Spouse and Family Current Living Situation Comment: she and her live w/ son and gi rlfriend current occupational status: employed Feels Safe at Home: Yes Childhood Exposure to Second-Hand Smoke: Yes caffeine: Yes Dental Care, Regularly: Yes Physical Activity Frequency: Does not Exercise Seatbelt Use: always Sunscreen Use: No Do you think of yourself as: straight/heterosexual Sexual Activity: has been sexually active within the last 12 months Assistive Devices: Glasses and Oxygen - Continuous Review of Systems Review of Systems: All systems reviewed & are unremarkable except as noted in HPI & below She did report chest pain, however this was in the setting of severe generalized pain. Her abdominal pain appears to be more concerning for her than any other pain currently. Physical Exam Physical Exam: She is alert and oriented x3. Clearly uncomfortable. Mildly tachypneic. She answers all questions appropriately. HEENT: Sclerae are anicteric. Pupils are equal and reactive to light and accommodation. Extraocular movements were intact. Poor dentition. Neuro: Cranial nerves intact Neck: Examination of the submandibular region did not reveal any significant lymphadenopathy. Carotids are palpable bilaterally and free of bruits on auscultation. There was no evidence of jugular venous distention. The thyroid was not enlarged. Lungs: Coarse upper airway sounds. No expiratory wheezing. Slightly increased respiratory effort. Cardiac: The rhythm was regular. S1 and S2 were normal. There are no murmurs on examination although given her pulmonary abnormalities this may been difficult to appreciate. The PMI was not markedly displaced on palpation. Abdomen: The abdomen was soft. She did report tenderness. No guarding. Extremities: Weak left radial pulse. Right radial artery is bandaged subsequent to ABG. There is no evidence cyanosis or clubbing. Moderate peripheral edema bilaterally. Skin: Malar rash. Multiple ecchymoses. Results & Data ([facility]) Vital Signs (Past 12 Hours) Vital Signs Temp Pulse Pulse Pulse Resp BP BP 06/25/20 07:22 36.6 C 85 19 135/57 L 06/25/20 03:12 36.7 C 90 20 149/60 H 06/25/20 03:01 94 H 06/25/20 02:37 88 21 146/68 H 06/25/20 01:57 36.6 C 93 H 21 108/74 06/25/20 01:20 88 18 181/90 H 06/25/20 00:39 84 20 181/90 H 06/25/20 00:00 85 19 146/108 H 06/24/20 23:56 86 18 146/108 H 06/24/20 23:13 83 20 162/77 H 06/24/20 22:53 79 20 175/82 H 06/24/20 22:30 83 19 06/24/20 22:00 80 18 06/24/20 21:50 84 22 Pulse Ox 06/25/20 07:22 91 06/25/20 03:12 98 06/25/20 03:01 06/25/20 02:37 95 06/25/20 01:57 100 06/25/20 01:20 100 06/25/20 00:39 100 06/25/20 00:00 100 06/24/20 23:56 100 06/24/20 23:13 98 06/24/20 22:53 98 06/24/20 22:30 06/24/20 22:00 06/24/20 21:50 Laboratory Results Abnormal Lab Results 06/24/20 06/24/20 06/24/20 18:05 19:01 20:20 WBC Cancelled RBC Cancelled Hgb Cancelled POC Hgb 8.8 L Hct Cancelled POC Hct 26 L MCV Cancelled MCH Cancelled MCHC Cancelled RDW Std Deviation Cancelled RDW Coeff of Morris Cancelled Plt Count Cancelled MPV Cancelled Immature Gran % (Auto) Cancelled Neut % (Auto) Cancelled Lymph % (Auto) Cancelled [place] % (Auto) Cancelled Eos % (Auto) Cancelled Baso % (Auto) Cancelled Neut # (Auto) Cancelled Lymph # (Auto) Cancelled [place] # (Auto) Cancelled Eos # (Auto) Cancelled Baso # (Auto) Cancelled Immature Gran # (Auto) Cancelled Absolute Nucleated RBC Cancelled Nucleated RBC % (auto) Cancelled Neutrophils % (Manual) Cancelled Band Neutrophils % Cancelled Lymphocytes % (Manual) Cancelled Prolymphocyte % Cancelled Reactive Lymphs % (Man) Cancelled Monocytes % (Manual) Cancelled Eosinophils % (Manual) Cancelled Basophils % (Manual) Cancelled Metamyelocytes % (Man) Cancelled Myelocytes % (Man) Cancelled Promyelocytes % (Man) Cancelled Blast Cells % (Manual) Cancelled Plasma Cell % (Manual) Cancelled Other Cells % Cancelled Nucleated RBC % Cancelled Neutrophils # (Manual) Cancelled Band Neutrophils # Cancelled Total Absolute Neuts Cancelled Lymphocytes # (Manual) Cancelled Prolymphocyte # Cancelled Reactive Lymphs # Cancelled Total Abs Lymphocytes Cancelled Monocytes # (Manual) Cancelled Eosinophils # (Manual) Cancelled Basophils # (Manual) Cancelled Metamyelocytes # (Man) Cancelled Myelocytes # (Manual) Cancelled Promyelocytes # (Man) Cancelled Blast Cells # (Man) Cancelled Plasma Cell # (Manual) Cancelled Other Cells # Cancelled Nucleated RBCs # (Man) Cancelled Hypersegmented Neuts Cancelled Hyposegmented Neuts Cancelled Hypogranular Neuts Cancelled Large Granular Lymphs Cancelled # Lrg Granular Lymphs Cancelled Hairy Cells Cancelled Smudge Cells Cancelled Toxic Granulation Cancelled Toxic Vacuolation Cancelled Dohle Bodies Cancelled Leta Rods Cancelled Platelet Estimate Cancelled Hypogranular Platelets Cancelled Clumped Platelets Cancelled Giant Platelets Cancelled Platelet Satelliting Cancelled RBC Morphology Cancelled Polychromasia Cancelled Hypochromasia Cancelled Poikilocytosis Cancelled Basophilic Stippling Cancelled Anisocytosis Cancelled Microcytosis Cancelled Macrocytosis Cancelled Spherocytes Cancelled Pappenheimer Bodies Cancelled Sickle Cells Cancelled Target Cells Cancelled Tear Drop Cells Cancelled Ovalocytes Cancelled Stomatocytes Cancelled Oropeza-[place]ard[place] Bodies Cancelled Echinocytes Cancelled Acanthocytes (Spur) Cancelled Rouleaux Cancelled RBC Agglutinates Cancelled Schistocytes Cancelled RBC Morph Comment Cancelled Sezary Cell Cancelled PT INR APTT PTT Ratio ABG pH ABG pCO2 ABG pO2 ABG HCO3 ABG O2 Saturation ABG Base Excess Kam Test VBG pH VBG pCO2 VBG pO2 VBG HCO3 VBG O2 Saturation VBG Base Excess Barometric Pressure Oxygen Given POC Sodium 130 L Sodium POC Potassium 5.8 H Potassium POC Chloride 97 L Chloride Carbon Dioxide POC Total CO2 27 Anion Gap POC Anion Gap 12.0 L POC BUN 52 H BUN Creatinine POC Creatinine 1.1 Est Cr Clr Drug Dosing Est GFR ( Amer) Est GFR (Non-Af Amer) BUN/Creatinine Ratio Glucose POC Glucose POC Glucose (other) 132 H POC Lactic Acid Thomas Lactate Calcium POC Ioniz Calcium Patricia 1.10 L Magnesium Total Bilirubin AST ALT Alkaline Phosphatase Troponin I NT-Pro-B Natriuret Pep Total Protein Albumin Globulin Albumin/Globulin Ratio Procalcitonin Urine Color Dark Yellow Urine Appearance Cloudy A Urine pH 5.0 Ur Specific [place] 1.023 Urine Protein Trace H Urine Glucose (UA) Negative Urine Ketones Negative Urine Blood Negative Urine Nitrite Negative Urine Bilirubin Negative Urine Urobilinogen Negative Ur Leukocyte Esterase Trace H Urine WBC (Auto) 5-10 H Urine RBC (Auto) 0-4 U Hyaline Cast (Auto) 10-30 H U Epithel Cells (Auto) >30 H Urine Bacteria (Auto) 4+ H 06/24/20 06/24/20 06/24/20 20:20 20:27 21:10 WBC RBC Hgb POC Hgb Hct POC Hct MCV MCH MCHC RDW Std Deviation RDW Coeff of Morris Plt Count MPV Immature Gran % (Auto) Neut % (Auto) Lymph % (Auto) [place] % (Auto) Eos % (Auto) Baso % (Auto) Neut # (Auto) Lymph # (Auto) [place] # (Auto) Eos # (Auto) Baso # (Auto) Immature Gran # (Auto) Absolute Nucleated RBC Nucleated RBC % (auto) Neutrophils % (Manual) Band Neutrophils % Lymphocytes % (Manual) Prolymphocyte % Reactive Lymphs % (Man) Monocytes % (Manual) Eosinophils % (Manual) Basophils % (Manual) Metamyelocytes % (Man) Myelocytes % (Man) Promyelocytes % (Man) Blast Cells % (Manual) Plasma Cell % (Manual) Other Cells % Nucleated RBC % Neutrophils # (Manual) Band Neutrophils # Total Absolute Neuts Lymphocytes # (Manual) Prolymphocyte # Reactive Lymphs # Total Abs Lymphocytes Monocytes # (Manual) Eosinophils # (Manual) Basophils # (Manual) Metamyelocytes # (Man) Myelocytes # (Manual) Promyelocytes # (Man) Blast Cells # (Man) Plasma Cell # (Manual) Other Cells # Nucleated RBCs # (Man) Hypersegmented Neuts Hyposegmented Neuts Hypogranular Neuts Large Granular Lymphs # Lrg Granular Lymphs Hairy Cells Smudge Cells Toxic Granulation Toxic Vacuolation Dohle Bodies Leta Rods Platelet Estimate Hypogranular Platelets Clumped Platelets Giant Platelets Platelet Satelliting RBC Morphology Polychromasia Hypochromasia Poikilocytosis Basophilic Stippling Anisocytosis Microcytosis Macrocytosis Spherocytes Pappenheimer Bodies Sickle Cells Target Cells Tear Drop Cells Ovalocytes Stomatocytes Oropeza-S[place] Bodies Echinocytes Acanthocytes (Spur) Rouleaux RBC Agglutinates Schistocytes RBC Morph Comment Sezary Cell PT 14.3 H INR 1.4 H APTT 33.2 H PTT Ratio 1.2 ABG pH ABG pCO2 ABG pO2 ABG HCO3 ABG O2 Saturation ABG Base Excess Kam Test VBG pH VBG pCO2 VBG pO2 VBG HCO3 VBG O2 Saturation VBG Base Excess Barometric Pressure Oxygen Given POC Sodium Sodium Cancelled POC Potassium Potassium Cancelled POC Chloride Chloride Cancelled Carbon Dioxide Cancelled POC Total CO2 Anion Gap Cancelled POC Anion Gap POC BUN BUN Cancelled Creatinine Cancelled POC Creatinine Est Cr Clr Drug Dosing Cancelled Est GFR ( Amer) Cancelled Est GFR (Non-Af Amer) Cancelled BUN/Creatinine Ratio Cancelled Glucose Cancelled POC Glucose POC Glucose (other) POC Lactic Acid Thomas 3.11 H Lactate Calcium Cancelled POC Ioniz Calcium Patricia Magnesium Cancelled Total Bilirubin Cancelled AST Cancelled ALT Cancelled Alkaline Phosphatase Cancelled Troponin I Cancelled NT-Pro-B Natriuret Pep Cancelled Total Protein Cancelled Albumin Cancelled Globulin Cancelled Albumin/Globulin Ratio Cancelled Procalcitonin Urine Color Urine Appearance Urine pH Ur Specific [place] Urine Protein Urine Glucose (UA) Urine Ketones Urine Blood Urine Nitrite Urine Bilirubin Urine Urobilinogen Ur Leukocyte Esterase Urine WBC (Auto) Urine RBC (Auto) U Hyaline Cast (Auto) U Epithel Cells (Auto) Urine Bacteria (Auto) 06/24/20 06/24/20 06/24/20 21:10 21:10 21:10 WBC RBC Hgb POC Hgb Hct POC Hct MCV MCH MCHC RDW Std Deviation RDW Coeff of Morris Plt Count MPV Immature Gran % (Auto) Neut % (Auto) Lymph % (Auto) [place] % (Auto) Eos % (Auto) Baso % (Auto) Neut # (Auto) Lymph # (Auto) [place] # (Auto) Eos # (Auto) Baso # (Auto) Immature Gran # (Auto) Absolute Nucleated RBC Nucleated RBC % (auto) Neutrophils % (Manual) Band Neutrophils % Lymphocytes % (Manual) Prolymphocyte % Reactive Lymphs % (Man) Monocytes % (Manual) Eosinophils % (Manual) Basophils % (Manual) Metamyelocytes % (Man) Myelocytes % (Man) Promyelocytes % (Man) Blast Cells % (Manual) Plasma Cell % (Manual) Other Cells % Nucleated RBC % Neutrophils # (Manual) Band Neutrophils # Total Absolute Neuts Lymphocytes # (Manual) Prolymphocyte # Reactive Lymphs # Total Abs Lymphocytes Monocytes # (Manual) Eosinophils # (Manual) Basophils # (Manual) Metamyelocytes # (Man) Myelocytes # (Manual) Promyelocytes # (Man) Blast Cells # (Man) Plasma Cell # (Manual) Other Cells # Nucleated RBCs # (Man) Hypersegmented Neuts Hyposegmented Neuts Hypogranular Neuts Large Granular Lymphs # Lrg Granular Lymphs Hairy Cells Smudge Cells Toxic Granulation Toxic Vacuolation Dohle Bodies Leta Rods Platelet Estimate Hypogranular Platelets Clumped Platelets Giant Platelets Platelet Satelliting RBC Morphology Polychromasia Hypochromasia Poikilocytosis Basophilic Stippling Anisocytosis Microcytosis Macrocytosis Spherocytes Pappenheimer Bodies Sickle Cells Target Cells Tear Drop Cells Ovalocytes Stomatocytes Oropeza-Sardis Bodies Echinocytes Acanthocytes (Spur) Rouleaux RBC Agglutinates Schistocytes RBC Morph Comment Sezary Cell PT INR APTT PTT Ratio ABG pH ABG pCO2 ABG pO2 ABG HCO3 ABG O2 Saturation ABG Base Excess Kam Test VBG pH 7.30 L VBG pCO2 56 H VBG pO2 45 VBG HCO3 27 VBG O2 Saturation 74.0 VBG Base Excess 0.2 Barometric Pressure 736.5 Oxygen Given POC Sodium Sodium POC Potassium Potassium POC Chloride Chloride Carbon Dioxide POC Total CO2 Anion Gap POC Anion Gap POC BUN BUN Creatinine POC Creatinine Est Cr Clr Drug Dosing Est GFR ( Amer) Est GFR (Non-Af Amer) BUN/Creatinine Ratio Glucose POC Glucose POC Glucose (other) POC Lactic Acid Thomas Lactate 1.5 Calcium POC Ioniz Calcium Patricia Magnesium Total Bilirubin AST ALT Alkaline Phosphatase Troponin I NT-Pro-B Natriuret Pep Total Protein Albumin Globulin Albumin/Globulin Ratio Procalcitonin 0.65 H Urine Color Urine Appearance Urine pH Ur Specific [place] Urine Protein Urine Glucose (UA) Urine Ketones Urine Blood Urine Nitrite Urine Bilirubin Urine Urobilinogen Ur Leukocyte Esterase Urine WBC (Auto) Urine RBC (Auto) U Hyaline Cast (Auto) U Epithel Cells (Auto) Urine Bacteria (Auto) 06/24/20 06/24/20 06/25/20 21:10 21:10 02:28 WBC 12.32 H RBC 3.04 L Hgb 7.8 L POC Hgb Hct 26.3 L POC Hct MCV 86.5 MCH 25.7 MCHC 29.7 L RDW Std Deviation 55.8 H RDW Coeff of Morris 18.0 H Plt Count 297 MPV 9.0 Immature Gran % (Auto) Neut % (Auto) Lymph % (Auto) [place] % (Auto) Eos % (Auto) Baso % (Auto) Neut # (Auto) Lymph # (Auto) [place] # (Auto) Eos # (Auto) Baso # (Auto) Immature Gran # (Auto) Absolute Nucleated RBC 0.10 H Nucleated RBC % (auto) 0.8 Neutrophils % (Manual) 85.2 Band Neutrophils % Lymphocytes % (Manual) 2.6 Prolymphocyte % Reactive Lymphs % (Man) Monocytes % (Manual) 6.1 Eosinophils % (Manual) Basophils % (Manual) Metamyelocytes % (Man) 3.5 Myelocytes % (Man) 2.6 Promyelocytes % (Man) Blast Cells % (Manual) Plasma Cell % (Manual) Other Cells % Nucleated RBC % Neutrophils # (Manual) 10.50 H Band Neutrophils # Total Absolute Neuts 10.50 H Lymphocytes # (Manual) 0.32 L Prolymphocyte # Reactive Lymphs # Total Abs Lymphocytes 0.32 L Monocytes # (Manual) 0.75 H Eosinophils # (Manual) Basophils # (Manual) Metamyelocytes # (Man) 0.43 H Myelocytes # (Manual) 0.32 H Promyelocytes # (Man) Blast Cells # (Man) Plasma Cell # (Manual) Other Cells # Nucleated RBCs # (Man) Hypersegmented Neuts Hyposegmented Neuts Hypogranular Neuts Large Granular Lymphs # Lrg Granular Lymphs Hairy Cells Smudge Cells Toxic Granulation Toxic Vacuolation 1+ Dohle Bodies 1+ Leta Rods Platelet Estimate Hypogranular Platelets Clumped Platelets Giant Platelets Platelet Satelliting RBC Morphology Polychromasia Hypochromasia Present Poikilocytosis Basophilic Stippling Anisocytosis Microcytosis Macrocytosis Spherocytes Pappenheimer Bodies Sickle Cells Target Cells Tear Drop Cells Ovalocytes Stomatocytes Oropeza-Sardis Bodies Echinocytes Acanthocytes (Spur) Rouleaux RBC Agglutinates Schistocytes RBC Morph Comment Sezary Cell PT INR APTT PTT Ratio ABG pH ABG pCO2 ABG pO2 ABG HCO3 ABG O2 Saturation ABG Base Excess Kam Test VBG pH VBG pCO2 VBG pO2 VBG HCO3 VBG O2 Saturation VBG Base Excess Barometric Pressure Oxygen Given POC Sodium Sodium 134 L POC Potassium Potassium 4.9 POC Chloride Chloride 96 L Carbon Dioxide 30 POC Total CO2 Anion Gap 8.0 POC Anion Gap POC BUN BUN 44 H Creatinine 0.74 POC Creatinine Est Cr Clr Drug Dosing 91.1 Est GFR ( Amer) 100.6 Est GFR (Non-Af Amer) 86.8 BUN/Creatinine Ratio 58.8 H Glucose 128 H POC Glucose 131 H POC Glucose (other) POC Lactic Acid Thomas Lactate Calcium 9.1 POC Ioniz Calcium Patricia Magnesium 1.7 L Total Bilirubin 0.5 AST 25 ALT 14 Alkaline Phosphatase 135 H Troponin I 1.840 H* NT-Pro-B Natriuret Pep Total Protein 5.7 L Albumin 1.4 L Globulin 4.3 H Albumin/Globulin Ratio 0.3 L Procalcitonin Urine Color Urine Appearance Urine pH Ur Specific [place] Urine Protein Urine Glucose (UA) Urine Ketones Urine Blood Urine Nitrite Urine Bilirubin Urine Urobilinogen Ur Leukocyte Esterase Urine WBC (Auto) Urine RBC (Auto) U Hyaline Cast (Auto) U Epithel Cells (Auto) Urine Bacteria (Auto) 06/25/20 06/25/20 06/25/20 03:15 05:04 05:04 WBC 12.93 H RBC 2.95 L Hgb 7.4 L POC Hgb Hct 25.5 L POC Hct MCV 86.4 MCH 25.1 MCHC 29.0 L RDW Std Deviation 56.9 H RDW Coeff of Morris 18.4 H Plt Count 272 MPV 8.6 Immature Gran % (Auto) Neut % (Auto) Lymph % (Auto) [place] % (Auto) Eos % (Auto) Baso % (Auto) Neut # (Auto) Lymph # (Auto) [place] # (Auto) Eos # (Auto) Baso # (Auto) Immature Gran # (Auto) Absolute Nucleated RBC 0.09 H Nucleated RBC % (auto) 0.7 Neutrophils % (Manual) 89.5 Band Neutrophils % Lymphocytes % (Manual) 0.9 Prolymphocyte % Reactive Lymphs % (Man) Monocytes % (Manual) 6.1 Eosinophils % (Manual) 0.9 Basophils % (Manual) Metamyelocytes % (Man) 0.9 Myelocytes % (Man) 1.7 Promyelocytes % (Man) Blast Cells % (Manual) Plasma Cell % (Manual) Other Cells % Nucleated RBC % Neutrophils # (Manual) 11.57 H Band Neutrophils # Total Absolute Neuts 11.57 H Lymphocytes # (Manual) 0.12 L Prolymphocyte # Reactive Lymphs # Total Abs Lymphocytes 0.12 L Monocytes # (Manual) 0.79 H Eosinophils # (Manual) 0.12 Basophils # (Manual) Metamyelocytes # (Man) 0.12 H Myelocytes # (Manual) 0.22 H Promyelocytes # (Man) Blast Cells # (Man) Plasma Cell # (Manual) Other Cells # Nucleated RBCs # (Man) Hypersegmented Neuts Hyposegmented Neuts Hypogranular Neuts Large Granular Lymphs # Lrg Granular Lymphs Hairy Cells Smudge Cells Toxic Granulation 1+ Toxic Vacuolation 1+ Dohle Bodies Leta Rods Platelet Estimate Hypogranular Platelets Clumped Platelets Giant Platelets Platelet Satelliting RBC Morphology Polychromasia 1+ Hypochromasia Poikilocytosis Basophilic Stippling 1+ Anisocytosis Microcytosis Macrocytosis Spherocytes Pappenheimer Bodies Sickle Cells Target Cells Tear Drop Cells Ovalocytes Stomatocytes Oropeza-Sardis Bodies Echinocytes Acanthocytes (Spur) Rouleaux RBC Agglutinates Schistocytes RBC Morph Comment Sezary Cell PT INR APTT PTT Ratio ABG pH 7.38 ABG pCO2 49 H ABG pO2 62 L ABG HCO3 29 H ABG O2 Saturation 89.1 L ABG Base Excess 2.9 H Kam Test Pos VBG pH VBG pCO2 VBG pO2 VBG HCO3 VBG O2 Saturation VBG Base Excess Barometric Pressure 737.8 Oxygen Given 3L POC Sodium Sodium 138 POC Potassium Potassium 4.8 POC Chloride Chloride 100 Carbon Dioxide 32 POC Total CO2 Anion Gap 6.0 POC Anion Gap POC BUN BUN 37 H Creatinine 0.57 L POC Creatinine Est Cr Clr Drug Dosing 118.3 Est GFR ( Amer) 115.2 Est GFR (Non-Af Amer) 99.4 BUN/Creatinine Ratio 64.1 H Glucose 123 H POC Glucose POC Glucose (other) POC Lactic Acid Thomas Lactate Calcium 9.4 POC Ioniz Calcium Patricia Magnesium Total Bilirubin 0.7 AST 23 ALT 12 Alkaline Phosphatase 127 H Troponin I 1.570 H* NT-Pro-B Natriuret Pep Total Protein 6.0 L Albumin 2.0 L Globulin 4.0 Albumin/Globulin Ratio 0.5 L Procalcitonin Urine Color Urine Appearance Urine pH Ur Specific [place] Urine Protein Urine Glucose (UA) Urine Ketones Urine Blood Urine Nitrite Urine Bilirubin Urine Urobilinogen Ur Leukocyte Esterase Urine WBC (Auto) Urine RBC (Auto) U Hyaline Cast (Auto) U Epithel Cells (Auto) Urine Bacteria (Auto) Diagnostic Findings Patient underwent CT scanning of the chest and abdomen. She was noted to have dilation of the descending thoracic aorta measuring 39 mm. She has multiple lesions in the lungs, soft tissues and skeletal structures suggestive of diffuse and progressive metastatic disease. Echocardiogram obtained on 06/06/2020 revealed preserved LV systolic function. No regional wall motion abnormalities. No significant valvular heart disease. ECG Additional Comments: EKG at the time of admission revealed normal sinus rhythm without acute ST or T-wave changes PG Care Time/CCT Total # of Minutes Spent Total Time Spent with Patient: Total time spent is greater than 50% in coordination of care (as documented) at patient's floor/unit and/or counseling patient: Coding Level of Care Code 66262 Inpt Consult Level 4 Diagnoses Elevated troponin R77.8 Bilateral pulmonary embolism I26.99 CAD (coronary artery disease) I25.10 Thoracic aortic aneurysm I71.2 Hypoxia R09.02
--- NOTE | 2020-06-25 09:51 | Electrocardiogram Report ---
Test Reason : Blood Pressure : / mmHG Vent. Rate : 083 BPM Atrial Rate : 083 BPM P-R Int : 142 ms QRS Dur : 080 ms QT Int : 366 ms P-R-T Axes : 077 022 066 degrees QTc Int : 430 ms Poor data quality, interpretation may be adversely affected Normal sinus rhythm Possible Left atrial enlargement Abnormal ECG When compared with ECG of 08-JUN-2020 09:51, No significant change was found Confirmed by Aravind Jara ([id number]) on 06/25/2020 9:51:10 AM Referred By: Harjeet Aviles Confirmed By:Shin Jara
--- NOTE | 2020-06-25 10:20 | Pharmacy Report ---
Pharmacy Abx Initial Consult - Date of Service June 25, 2020 - Pharmacy Dosing Scope Date of Consult: 06/25/20 Consultation requested by: Dr. Abebe Pharmacy is consulted to initiate VANCOMYCIN IV dosing therapy, order appropriate labs and adjust drug dose/frequency. - Subjective The patient is a 64 year old F admitted on 06/25/20 00:16. - Objective Height: 5 ft 4 in Weight: 101 kg Vital Signs (Past 12hrs): Vital Signs Temp Pulse Pulse Pulse Resp BP BP 06/25/20 07:22 36.6 C 85 19 135/57 L 06/25/20 03:12 36.7 C 90 20 149/60 H 06/25/20 03:01 94 H 06/25/20 02:37 88 21 146/68 H 06/25/20 01:57 36.6 C 93 H 21 108/74 06/25/20 01:20 88 18 181/90 H 06/25/20 00:39 84 20 181/90 H 06/25/20 00:00 85 19 146/108 H 06/24/20 23:56 86 18 146/108 H 06/24/20 23:13 83 20 162/77 H 06/24/20 22:53 79 20 175/82 H 06/24/20 22:30 83 19 Pulse Ox 06/25/20 07:22 91 06/25/20 03:12 98 06/25/20 03:01 06/25/20 02:37 95 06/25/20 01:57 100 06/25/20 01:20 100 06/25/20 00:39 100 06/25/20 00:00 100 06/24/20 23:56 100 06/24/20 23:13 98 06/24/20 22:53 98 06/24/20 22:30 Lab Results (24hrs): Laboratory Tests (24 Hours) 06/25/20 06/25/20 06/24/20 05:04 05:04 21:10 WBC 12.93 H 12.32 H Neut # (Auto) Creatinine 0.57 L Est Cr Clr Drug Dosing 118.3 Procalcitonin 06/24/20 06/24/20 06/24/20 21:10 21:10 20:20 WBC Neut # (Auto) Creatinine 0.74 Cancelled Est Cr Clr Drug Dosing 91.1 Cancelled Procalcitonin 0.65 H 06/24/20 20:20 WBC Cancelled Neut # (Auto) Cancelled Creatinine Est Cr Clr Drug Dosing Procalcitonin Micro Results: 06/24/20 21:10 Aerobic Blood Culture - Pending Blood Anaerobic Blood Culture - Pending 06/24/20 18:20 Aerobic Blood Culture - Pending Blood Anaerobic Blood Culture - Pending - Assessment & Plan Assessment 64 year old F. Plan VANCOMYCIN for treatment of possible pulmonary infection. Vancomycin IV * Estimated PK Parameters: Vd 0.55 L/kg, Sahil 0.087 hr-1, t1/2 ~9 hr * Loading dose: 2000 mg (~20 mg/kg) * Maintenance dose: 1500mg IV (~15 mg/kg) every 12 hours * Goal trough level for pulmonary source : 15 to 20 mcg/mL * Trough level ordered for 06/27/20 @ 0000. Pharmacy will continue to follow and will adjust dose/frequency as necessary. Thank you.
[2020-06-25] MEDS ORDERED: VANCOMYCIN HCL 1,500 MG in SODIUM CHLORIDE 0.9% 500 ML IV SCH (12:00)
--- NOTE | 2020-06-25 12:47 | Consultation Report ---
DATE OF CONSULTATION: 06/25/2020 MEDICAL ONCOLOGY CONSULTATION REASON FOR CONSULTATION: A 64-year-old unfortunate female well known to [facility] with metastatic carcinoma of unknown primary. HISTORY OF PRESENT ILLNESS: Angella Mendieta is a pleasant but unfortunate 64-year-old female who I came to know just under a month ago when she was inpatient at our facility with a new diagnosis of metastatic carcinoma of unknown primary. The patient had considerable pain issues and was placed on oral opioids. I actually visited with Angella and her daughter earlier this week planning a salvage chemotherapy moving forward. Unfortunately, we have yet to determine the primary origin of disease. Thus, my plan was to proceed with carboplatin and paclitaxel and ordered further investigation, specifically panel to determine the origin of her tumor. Clearly from her history, I was convinced that this was probably going to be nonsmall cell lung cancer. Staining has been ambiguous and thus confirmation of diagnosis is not established. Angella and her daughter both were told, however, her cancer is aggressive and her overall prognosis is quite poor, no matter of the intervention moving forward. Nonetheless, I had received 2 calls at home yesterday because Angella was uncomfortable. I had basically doubled her fentanyl patch and breakthrough oxycodone, and on the second phone call, I thought it was best that the patient be brought to the Emergency Room for admission and pain management. Apparently in the operating room, her troponin was found to be elevated. Cardiology has seen the patient in consult and is not in favor of direct intervention, rather wished to manage Angella medically. When I saw her this morning, she was sitting up at bedside, but clearly uncomfortable. I spoke to Dr. Downing regarding her management moving forward and perhaps incorporation of a pain pump with patient control is a reasonable thing to do moving forward. I did not engage in palliative options otherwise, particularly hospice care yet, but would be happy to as we proceed through her admission. PAST MEDICAL HISTORY: She has significant comorbid issues including abdominal aortic aneurysm, chronic anemia, anxiety, bilateral pulmonary emboli, coronary artery disease, COPD, gastroesophageal reflux disease, hypertension, hyperlipidemia and metastatic adenocarcinoma of unknown primary. PAST SURGICAL HISTORY: Includes bilateral tubal ligation, cardiac catheterization, EGD, tonsillectomy, MediPort placement. MEDICATIONS: Prior to admission, fentanyl 50 mcg topically q.72 hours, oxycodone 10 mg p.o. q.4-6 hours for breakthrough, acetaminophen 1000 mg p.o. q.6 hours p.r.n., meloxicam 7.5 mg p.o. b.i.d. p.r.n., Imdur 30 mg p.o. daily, nitroglycerin 0.4 mg sublingual x3 q. 5 minutes p.r.n., furosemide 40 mg p.o. daily, cholecalciferol 2000 units p.o. daily, calcium carbonate 600 mg p.o. daily, Trelegy Ellipta 1 inhalation q.a.m., Protonix 40 mg p.o. daily, simvastatin 20 mg p.o. daily, metoprolol tartrate 100 mg p.o. daily, ipratropium/albuterol 3 mL inhaled via nebulizer q.4 hours as needed, aspirin 81 mg p.o. daily, and albuterol sulfate inhaler 2 puffs inhaled q.4 hours as needed. ALLERGIES: No known drug allergies. SOCIAL HISTORY: The patient is a long-term heavy smoker, continues to smoke 1 pack per day. She has at least a 40+ pack year history. Negative for alcohol or substance abuse. She lives with her spouse and family. FAMILY HISTORY: Noncontributory. REVIEW OF SYSTEMS: CONSTITUTIONAL: As per HPI, diffuse skeletal pain. She is anorexic. No fevers, chills or sweats. HEENT: She denies headaches, lightheadedness or dizziness. No acute visual or hearing deficits. No sinus symptoms, sore throat or dysphagia. LYMPHATICS: No history of lymphoproliferative disease. CARDIAC: History of coronary artery disease. Positive troponin on admission. She denies any current angina or palpitations. PULMONARY: She is oxygen dependent. She is not acutely short of breath. She does suffer from chronic nonproductive cough. GASTROINTESTINAL: Positive for abdominal pain. Positive for nausea. She has not vomited. Positive for intermittent constipation. No current diarrhea. No hematochezia or melena stools. GENITOURINARY: No hematuria, dysuria, or urinary incontinence. MUSCULOSKELETAL: Positive for skeletal metastatic disease. ENDOCRINE: Negative for diabetes or thyroid disease. NEUROLOGIC: Negative for seizure, stroke, or migraine headache. HEMATOLOGIC: Positive for chronic anemia and leukocytosis, which were mostly neutrophils. PHYSICAL EXAMINATION: GENERAL: Pleasant, somewhat uncomfortable 64-year-old female. Awake, alert and appropriate, in moderate distress. VITAL SIGNS: Temperature 36.6, pulse 85, respiratory rate 19, blood pressure 135/57. SKIN: Pale, warm, dry, noncyanotic. Turgor is fair. No petechia, rash or ecchymosis noted otherwise. HEENT: Head is atraumatic, normocephalic. Eyes: PERRLA, EOMI. Sclerae nonicteric. No conjunctival injection. Nares patent without rhinorrhea or discharge. Throat clear. Tongue midline. Mucous membranes are moist. NECK: Supple without JVD or thyromegaly. HEART: Regular rate and rhythm. LUNGS: Scattered rhonchi, specifically in the lower posterior oliva bilaterally. ABDOMEN: Soft, nontender, nondistended. No rigidity or guarding. No palpable hepatosplenomegaly. EXTREMITIES: She has 1+ peripheral edema in bilateral lower extremities, strength testing not done. NEUROLOGIC: Awake, alert and oriented x3. Cranial nerves grossly intact. LABORATORY DATA: WBC count 12,930, hemoglobin 7.4, platelet count 272. White cell differential reveals some metamyelocytes and myelocytes. Sodium 138, potassium 4.8, chloride 100, carbon dioxide 32, creatinine 0.57, BUN 37, magnesium 1.7, alkaline phosphatase 127. Troponin 1.57. Albumin 2. IMPRESSION: 1. Intractable skeletal pain. 2. Poorly differentiated metastatic adenocarcinoma, primary unknown. 3. Elevated troponin. 4. Hypoalbuminemia. 5. Chronic obstructive pulmonary disease. 6. Bilateral pulmonary embolism. PLAN: I discussed Angella's case directly with Dr. Kashif Downing who is managing her at present. This poor lady presented to [facility] a little under a month ago with disseminated metastatic disease. Biopsy was obtained and a thorough staining done; however, we still do not have an origin for her neoplastic process. Thus, when I saw her in the office earlier this week, I sent a panel for further testing, which is molecular in nature. Hopefully, it will shed some light on possible origin. With her smoking history, pulmonary involvement in such. I still believe she probably suffers from metastatic nonsmall cell lung cancer. That said, my plan was to proceed with salvage carboplatin and paclitaxel until further information could be gathered and perhaps make a therapeutic change if there is a viable target to pursue. In the meantime, she has a multitude of medical problems. First and foremost, elevated troponin. Agree with cardiology's input that based on her overall longevity, probably we would not intervene other than medically. Additionally, her albumin is quite low. I believe IV albumin supplementation has been started, but clearly her main issue at this point is pain management. The patient and her daughter were told when I saw her in the office that her disease is not curable and the goal of any salvage therapy moving forward is to extend her life and try to maintain some semblance of quality. Thus, I would not be averse to discussing possible palliative approach, perhaps hospice care moving forward. I will continue to follow Angella periodically during her stay, but I also suggested perhaps a BPM ANALYST pain pump be placed on this patient solely to avoid the nursing staff having to dose her multiple times intermittently throughout the day. From a radiographic standpoint, she has enough disease burden to warrant this intervention. Thank you again for assisting me in the care of this very pleasant patient and again I will follow her periodically during her stay.
[2020-06-25] MEDS ORDERED: NALOXONE HCL 0.4 MG/1 ML VIAL/CARP IV PRN (14:30)
[2020-06-25] MEDS ORDERED: AZITHROMYCIN 250 MG TAB PO ONE (14:45)
[2020-06-25] MEDS: SODIUM CHLORIDE 0.9% 1000ML 1,000 ML IV SCH (16:02)
[2020-06-25] MEDS: HYDROmorphone PCA 30 MG/30 ML IV PRN (16:11)
--- NOTE | 2020-06-25 18:38 | Billing Data ---
Date of Service June 25, 2020 Coding Level of Care Code 65933 Subseq Hosp Care Lvl 3
[2020-06-25] MEDS: APIXABAN 5 MG TABLET PO SCH (19:56)
[2020-06-25] MEDS: PANTOprazole 40 MG TAB PO SCH (19:57)
[2020-06-25] MEDS: SIMVASTATIN 20 MG TAB PO SCH (19:57)
[2020-06-26] MEDS: CHECK FENTANYL PATCH PLACEMENT SCH ×3 (00:01→16:00)
[2020-06-26] MEDS ORDERED: HEPARIN 100 UNIT/ML 5ML FLUSH FLUSH PRN (00:14)
[2020-06-26 05:58] LABS: Hematocrit (blood only) 26.4 % (37-47); Hemoglobin 7.8 g/dL (12.0-16.0); Mean Corpuscular Hemoglobin 25.4 pg (25-34); Mean Corpuscular Hgb Conc 29.5 g/dL (32-36); Mean Platelet Volume 8.8 fL (7.4-10.4); Nucleated RBC # (auto) 0.07 K/uL (0-0); Nucleated RBC % (auto) 0.4 %; Platelet Count 278 K/uL (130-400); RDW Coefficient of Variation 18.2 % (11.5-14.5); RDW Standard Deviation 55.8 fL (36.4-46.3); Red Blood Count 3.07 M/uL (4.2-5.4); White Blood Count 17.75 K/uL (4.8-10.8)
[2020-06-26 06:22] LABS: Lymphocytes % (manual) 1.7 %; Monocytes # (manual) 1.24 K/uL (0.11-0.59); Myelocytes % (manual) 1.7 %; Neutrophils % (manual) 89.6 %; RBC Morphology Unremarkable
[2020-06-26 06:34] LABS: Albumin Level 1.9 gm/dl (3.4-5.0); BUN Creatinine Ratio 68.4 (10-20); Calcium 9.3 mg/dl (8.5-10.1); Creatinine Clr Calc Pharmacy 151.2 ml/min; Est GFR (African American) 125.4; Est GFR (Non-African American) 108.2; Magnesium 1.8 mg/dl (1.8-2.4); Potassium 4.6 mmol/L (3.5-5.1)
[2020-06-26 06:36] LABS: Albumin Globulin Ratio 0.4 (0.9-2); Bilirubin,Total 0.6 mg/dl (0.2-1); Globulin 4.4 gm/dl (2.5-4.0); Total Protein 6.3 gm/dl (6.4-8.2)
[2020-06-26] MEDS ORDERED: DEXAMETHASONE SOD INJ 10 MG/ML VIAL IV ONE (13:28)
[2020-06-26] MEDS ORDERED: DEXAMETHASONE SOD PHOSPHATE 8 MG in SYRINGE 0 ML IV ONE (13:45)
--- NOTE | 2020-06-26 14:36 | Hospitalist Progress Note ---
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 Intractable Skeletal Pain in Patient with Metastatic Adenocarcinoma to Bone: - Patient with history of recently diagnosed metastatic adenocarcinoma to bone, liver, adrenals, with several new lesions as well as lesions that have increased in size - At this time, tissue molecular studies are pending to further differentiate primary cancer, though highest on differential is lung NSCLC due to smoking history - History of pain due to masses and pathologic fractures during last admission, and as masses have increased in number and size I suspect her pain throughout her body is secondary to the cancer - Dr. Aviles with Heme/Onc consulted and appreciate recommendations - Palliative consult: recommended increase of dilaudid with basal at 0.2mg/hr and 0.1mg q15min on demand - to go home with home hospice following set-up of equipment Abdominal pain and diarrhea: - Patient with several days of complaints of diarrhea and abdominal pain - While her abdominal pain is difficult to isolate as compared to her other body pains - CTAP showed findings suggestive of gastroenteritis which could be contributing to both her pain and diarrhea. - Abdominal pain could also be secondary to new/worsening abdominal metastases (liver, adrenals, etc). - Symptomatic care with PO fluids, pain/nausea medications History of Bilateral Pulmonary Emboli: - Last admission patient was diagnosed with bilateral pulmonary emboli - CTA Chest this admission without findings suggestive of acute PE. 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 Discussed the case with family at bedside. Also reviewed the case with the palliative transitional care manager. I agree with the impression and plan as noted above in the resident documentation. Palliative care consultation today Addition of dexamethasone mainly for bony metastatic disease, although will probably also benefit her pulmonary status given her COPD. Recommend adding continuous dose to ADMINISTRATION MANAGER Initial goal is to get improved pain control; ultimately patient and family is preferring a more palliative/hospice approach. Subjective Extensive conversations with family this morning, patient does not and would not want to be undergoing treatments that would cause her to continue to be uncomfortable going forward. Expressed interest in going down the comfort route of treatments as they are all aware that with the aggressive amount of tumors she has, that their potential current curative treatment options are limited to non-existent. Review of Systems Review of Systems: All systems reviewed & are unremarkable except as noted in Subjective Physical Exam Constitutional: WD/WN, vitals as above Eyes: PERRL, conjunctivae normal, anicteric sclerae ENMT: external ear and nose normal, oropharynx normal Respiratory: no labored breathing and no retractions Auscultation: + rhonchi (coarse throughout) Cardiovascular: Rate/Rhythm: regular rate and regular rhythm Heart Sounds: no gallop, no murmur and no cardiac rub Gastrointestinal (Abdomen): normal bowel sounds, soft, nontender, no hepatos plenomegaly Skin: no rashes, warm and dry Psychiatric: Orientation: alert and oriented x 3 Results & Data Results & Data ([facility]) Vital Signs (Past 12 Hours) Vital Signs Temp Pulse Resp BP Pulse Ox 06/26/20 11:04 36.9 C 96 H 20 137/68 96 06/26/20 07:27 36.7 C 90 22 155/73 H 99 06/26/20 02:52 36.6 C 84 21 159/76 H 99 Laboratory Results 06/26/20 06/26/20 Range/Units 05:21 05:21 WBC 17.75 H (4.8-10.8) K/uL RBC 3.07 L (4.2-5.4) M/uL Hgb 7.8 L (12.0-16.0) g/dL Hct 26.4 L (37-47) % MCV 86.0 (80-100) fL MCH 25.4 (25-34) pg MCHC 29.5 L (32-36) g/dL RDW Std Deviation 55.8 H (36.4-46.3) fL RDW Coeff of Morris 18.2 H (11.5-14.5) % Plt Count 278 (130-400) K/uL MPV 8.8 (7.4-10.4) fL Absolute Nucleated RBC 0.07 H (0-0) K/uL Nucleated RBC % (auto) 0.4 % Neutrophils % (Manual) 89.6 % Lymphocytes % (Manual) 1.7 % Monocytes % (Manual) 7.0 % Myelocytes % (Man) 1.7 % Neutrophils # (Manual) 15.90 H (1.4-6.5) K/uL Total Absolute Neuts 15.90 H (1.4-6.5) K/uL Lymphocytes # (Manual) 0.30 L (1.2-3.4) K/uL Total Abs Lymphocytes 0.30 L (1.2-3.4) K/uL Monocytes # (Manual) 1.24 H (0.11-0.59) K/uL Myelocytes # (Manual) 0.30 H (0-0) K/uL RBC Morphology Unremarkable Sodium 137 (136-145) mmol/L Potassium 4.6 (3.5-5.1) mmol/L Chloride 100 (98-107) mmol/L Carbon Dioxide 32 (21-32) mmol/L Anion Gap 5.0 (3-11) BUN 30 H (7-18) mg/dl Creatinine 0.44 L (0.6-1.2) mg/dl Est Cr Clr Drug Dosing 151.2 ml/min Est GFR ( Amer) 125.4 Est GFR (Non-Af Amer) 108.2 BUN/Creatinine Ratio 68.4 H (10-20) Glucose 135 H (70-99) mg/dl Calcium 9.3 (8.5-10.1) mg/dl Magnesium 1.8 (1.8-2.4) mg/dl Total Bilirubin 0.6 (0.2-1) mg/dl AST 19 (15-37) U/L ALT 13 (12-78) U/L Alkaline Phosphatase 160 H (45-117) U/L Total Protein 6.3 L (6.4-8.2) gm/dl Albumin 1.9 L (3.4-5.0) gm/dl Globulin 4.4 H (2.5-4.0) gm/dl Albumin/Globulin Ratio 0.4 L (0.9-2) Medications Administered Current Inpatient Medications Acetaminophen (Acetaminophen 325 Mg Tab) 650 mg PO Q4H PRN PRN Reason: Pain or Fever Stop: 07/25/20 01:54 Al Hydrox/Mg Hydrox/Simethicone (Aluminum/Magnesium Susp 30 Ml Udc) 15 ml PO Q4H PRN PRN Reason: Dyspepsia Stop: 07/25/20 01:54 Albuterol (Albut/Ipratrop 3mg/0.5mg Neb 3 Ml Vial) 3 ml INH Q4H PRN PRN Reason: Shortness Of Breath Or Wheezing Stop: 07/25/20 01:54 Apixaban (Apixaban 5 Mg Tablet) 5 mg PO BID RAKESH Stop: 07/25/20 20:59 Last Admin: 06/26/20 15:04 Dose: 5 mg Documented by: Aspirin (Aspirin 81 Mg Ectab) 81 mg PO QAM RAKESH Stop: 07/25/20 08:59 Last Admin: 06/26/20 15:04 Dose: 81 mg Documented by: Fentanyl (Fentanyl 25 Mcg/Hr Tdsy) 50 mcg TD Q72H RAKESH Stop: 07/09/20 08:59 Last Admin: 06/25/20 09:09 Dose: 50 mcg Documented by: Fluticasone Furoate (Fluticasone Furoate 100mcg 14 Puffs/Inhaler) 1 puffs INH QAM RAKESH Stop: 07/25/20 08:59 Last Admin: 06/26/20 15:11 Dose: 1 puffs Documented by: Heparin Sodium (Porcine) (Heparin 100 Unit/Ml 5ml Flush) 5 ml FLUSH PRN PRN PRN Reason: Flush Stop: 07/26/20 00:13 Hydromorphone HCl (Hydromorphone Ssis Architect 30 Mg/30 Ml) 30 mg IV PRN PRN; Protocol PRN Reason: ADMINISTRATION MANAGER Pain Titration Stop: 07/09/20 14:29 Last Admin: 06/25/20 16:11 Dose: 30 mg Documented by: Sodium Chloride (Nss 1000ml) 1,000 mls @ 15 mls/hr IV .Q24H RAKESH Stop: 07/09/20 14:30 Last Admin: 06/25/20 16:02 Dose: 15 mls/hr Documented by: Isosorbide Mononitrate (Isosorbide S[place]y Extended Rel 30 Mg Tabcr) 30 mg PO QAM [facility] Stop: 07/25/20 08:59 Last Admin: 06/26/20 15:04 Dose: 30 mg Documented by: Magnesium Hydroxide (Magnesium Hydroxide Susp 30 Ml Udc) 30 ml PO Q12H PRN PRN Reason: Constipation Stop: 07/25/20 01:54 Metoprolol Tartrate (Metoprolol Tartrate 50 Mg Tab) 50 mg PO BID [facility] Stop: 07/25/20 01:54 Last Admin: 06/26/20 15:05 Dose: 50 mg Documented by: Miscellaneous (Fentanyl Patch Remove & Waste) 1 ea N/A Q3D [facility] Stop: 07/25/20 08:58 Last Admin: 06/25/20 09:01 Dose: 1 ea Documented by: Miscellaneous (Check Fentanyl Patch Placement) 1 ea N/A QS [facility] Stop: 07/25/20 07:59 Last Admin: 06/26/20 08:00 Dose: 1 ea Documented by: Multivitamins/Minerals (Calcium 600mg + Vit D 400 Iu Tab) 1 tab PO [facility] Stop: 07/25/20 08:59 Last Admin: 06/26/20 15:39 Dose: Not Given Documented by: Naloxone HCl (Naloxone Hcl 0.4 Mg/1 Ml Vial/Carp) 0.1 mg IV Q5M PRN; Protocol PRN Reason: Oversedation/Resp Depression Stop: 07/09/20 14:29 Nitroglycerin (Nitroglycerin Sl 0.4 Mg/Tab Tab) 0.4 mg SL UD PRN PRN Reason: Chest Pain Stop: 07/25/20 01:54 Ondansetron HCl (Ondansetron Inj 2 Mg/Ml 2 Ml Vial) 4 mg IV Q6H PRN PRN Reason: Nausea Stop: 07/25/20 01:54 Pantoprazole Sodium (Pantoprazole 40 Mg Tab) 40 mg PO [facility] Stop: 07/25/20 20:59 Last Admin: 06/25/20 19:57 Dose: 40 mg Documented by: Simvastatin (Simvastatin 20 Mg Tab) 20 mg PO [facility] Stop: 07/25/20 20:59 Last Admin: 06/25/20 19:57 Dose: 20 mg Documented by: Umeclidinium/Vilanterol (Umeclidinium/Vilanterol 62.5/25mcg 7 Puffs/Inhaler) 1 puffs INH QAM [facility] Stop: 07/25/20 08:59 Last Admin: 06/26/20 15:11 Dose: 1 puffs Documented by: Vitamin D (Cholecalciferol 1,000 Units 25 Mcg Tab) 2,000 units PO QAM [facility] Stop: 07/25/20 08:59 Last Admin: 06/26/20 15:39 Dose: Not Given Documented by: Resident Activity Tracking Resident Involvement: Resident Care Provided Care Provided: Adult Hospital Medicine
--- NOTE | 2020-06-26 14:58 | Palliative Care Consultation ---
Date of Consultation June 26, 2020 Assessment & Plan (1) Goals of care, counseling/discussion: Patient is a 64-year-old female with newly diagnosed metastatic cancer of unknown origin-probably non-small cell lung cancer as per oncology. She was diagnosed on 06/02 when she presented with a 1-1/2-month history of worsening back pain, difficulty ambulating and increased urinary incontinence. She underwent an MRI on 06/02 that showed a pathological fracture of L3 and L4, mets to spine pelvis and ribs as well as adrenal nodule and a peritoneal nodule. Patient underwent CT of the chest that showed multiple small segmental and subsegmental bilateral pulmonary emboli, extensive mediastinal/hilar adenopathy as well as a right upper lobe cavitary nodule. Patient was started on XRT and discharged home. Patient return for port placement on 06/20. Patient has been having worsening pain, increased dyspnea, poor p.o. intake and hypoxia she returned to [facility] on 06/24. 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 Over the past 7 hours she has received a total of 1.6 mg of IV Dilaudid. Patient's past medical history is significant for heavy tobacco use, COPD, CAD-status post stent approximately 15 years ago, hypertension, HLD, and a descending thoracic aortic aneurysm-4.3 cm in diameter found on CT scan on 06/02. CT scan on this admission showed disease progression with new lytic lesions, now with bilateral adrenal masses as well as liver lesion. Met with patient and family including her , her son Frantz, and her [id number]-hwa Margo. Margo is her primary caregiver and her healthcare surrogate. The best number to reach Don is [phone]. Family had just met with attending physician group-their goal is to get her pain controlled and have her return home under hospice care as soon as possible. -As stated above, patient required 1.6 mg of IV Dilaudid over a 7-hour period resulting in fair pain control, patient still reports significant pain when awake. Overnight she only required 2 PRN Dilaudid doses up to 0.1 mg. Discussed CROSS COUNTRY/TRACK AND FIELD COACH settings with attending resident physician-would recommend an initial bolus of 0.2 mg with a continuous rate of 0.2 mg/h with a PRN 0.1 mg q. 10 to 15 minutes lockout. Agree with starting Decadron for bone pain. -Patient has been having regular bowel movements up until recently-her normal pattern is 2-3 soft stools per day. [id number]-an-gbs reports that on 06/24 patient had large loose bowel movement followed by severe abdominal cramping and frequent stooling of trace amounts. -Due to patient's poor p.o. intake, family started Ensure for nutrition. -Family aware of patient's poor prognosis-plan is to take her home, family to care for her at home and keep her comfortable till end of life. -Discussed with family giving patient control regarding her pain meds, allowing her as much control in her care as possible. -Collaborated with attending physician team as well as case management. -Spoke with patient without her family present regarding her CODE STATUS-patient stated she did not want to be resuscitated-we will change her CODE STATUS to DNR/DNI in the hospital EMR. 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 10 to 15 minutes. Agree with starting Decadron for bone pain (4) Adrenal mass greater than 4 cm in diameter with history of malignant neoplasm: (5) Hypoxia: Continue O2 for comfort History of Present Illness Reason for Consultation: Code status and Goals of care as well as assist with pain control Requesting Physician: Dr Milad Mahoney Attending Physician: Jamey Porter, DO History of Present Illness Patient is a 64-year-old female with newly diagnosed metastatic cancer of unknown origin-probably non-small cell lung cancer as per oncology. She was diagnosed on 06/02 when she presented with a 1-1/2-month history of worsening back pain, difficulty ambulating and increased urinary incontinence. She underwent an MRI on 06/02 that showed a pathological fracture of L3 and L4, mets to spine pelvis and ribs as well as adrenal nodule and a peritoneal nodule. Patient underwent CT of the chest that showed multiple small segmental and subsegmental bilateral pulmonary emboli, extensive mediastinal/hilar adenopathy as well as a right upper lobe cavitary nodule. Patient was started on XRT and discharged home. Patient return for port placement on 06/20. Patient has been having worsening pain, increased dyspnea, poor p.o. intake and hypoxia she returned to [facility] on 06/24. 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 Over the past 7 hours she has received a total of 1.6 mg of IV Dilaudid. Patient's past medical history is significant for heavy tobacco use, COPD, CAD-status post stent approximately 15 years ago, hypertension, HLD, and a descending thoracic aortic aneurysm-4.3 cm in diameter found on CT scan on 06/02. CT scan on this admission showed disease progression with new lytic lesions, now with bilateral adrenal masses as well as liver lesion. Met with patient and family including her , her son Frantz, and her bwdwjusa-dh-qob Margo. Margo is her primary caregiver and her healthcare surrogate. The best number to reach Don is [phone]. Family had just met with attending physician group-their goal is to get her pain controlled and have her return home under hospice care as soon as possible. -As stated above, patient required 1.6 mg of IV Dilaudid over a 7-hour period resulting in fair pain control, patient still reports significant pain when awake. Overnight she only required 2 PRN Dilaudid doses up to 0.1 mg. Discussed CROSS COUNTRY/TRACK AND FIELD COACH settings with attending resident physician-would recommend an initial bolus of 0.2 mg with a continuous rate of 0.2 mg/h with a PRN 0.1 mg q. 10 to 15 minutes lockout. Agree with starting Decadron for bone pain. -Patient has been having regular bowel movements up until recently-her normal pattern is 2-3 soft stools per day. [id number]-ayv reports that on 06/24 patient had large loose bowel movement followed by severe abdominal cramping and frequent stooling of trace amounts. -Due to patient's poor p.o. intake, family started Ensure for nutrition. -Family aware of patient's poor prognosis-plan is to take her home, family to care for her at home and keep her comfortable till end of life. -Discussed with family giving patient control regarding her pain meds, allowing her as much control in her care as possible. -Collaborated with attending physician team as well as case management. -Spoke with patient without her family present regarding her CODE STATUS-patient stated she did not want to be resuscitated-we will change her CODE STATUS to DNR/DNI in the hospital EMR. -PPS 30% Allergies Allergy/AdvReac Type Severity Reaction Status Date / Time No Known Drug Allergies Allergy Unknown Verified 06/20/20 06:11 Home Medications Home Medications Medication Instructions Recorded Confirmed Type albuterol sulfate 90 mcg/actuation 2 puff INHALATION Q4 PRN #1 gm 06/28/19 06/24/20 History aerosol inhaler aspirin 81 mg tablet,delayed 81 mg PO QAM tab 06/28/19 06/24/20 History release ipratropium 0.5 mg-albuterol 3 mg 3 ml INHALATION Q4H PRN ml 06/28/19 06/24/20 History (2.5 mg base)/3 mL nebulization soln metoprolol tartrate 100 mg tablet 100 mg PO QAM tab 06/28/19 06/24/20 History simvastatin 20 mg tablet 20 mg PO HS #90 tab 06/28/19 06/24/20 History pantoprazole 40 mg tablet,delayed 40 mg PO HS 12/27/19 06/24/20 History release Trelegy Ellipta 1 inh INHALATION QAM 06/02/20 06/24/20 History calcium carbonate [Calcium 600] 600 mg PO QAM 06/02/20 06/24/20 History cholecalciferol (vitamin D3) 2,000 unit PO QAM 06/02/20 06/24/20 History [Vitamin D3] furosemide 40 mg PO QAM 06/02/20 06/24/20 History nitroglycerin 0.4 mg SUBLINGUAL UD PRN 06/02/20 06/24/20 History isosorbide mononitrate 30 mg PO QAM 30 Days #30 tab 06/14/20 06/24/20 Rx meloxicam 7.5 mg PO BID PRN #30 tab 06/14/20 06/24/20 Rx acetaminophen 1,000 mg PO Q6H PRN 06/16/20 06/24/20 History hydrocodone-acetaminophen [[place]] 1 - 2 tab PO Q6H PRN #10 tab 06/20/20 06/24/20 Rx fentanyl 2 patch TRANSDERMAL Q72H 06/24/20 06/24/20 History oxycodone 10 mg PO BID PRN 06/24/20 06/24/20 History Patient History Medical History Abdominal aortic aneurysm (AAA) greater than 39 mm in diameter Anemia Per 06/13 hospitalist note - baseline Hgb since current hospitalization has tended between ~8.5-9.0 - Initial H&H on 06/13 AM was 7.3/25.4 -- rechecked at noon, stable at 8.1/27.5 - trend CBC daily - Transfuse if Hgb < 7 or if patient becomes symptomatic Anxiety Bilateral pulmonary embolism CAD (coronary artery disease) Chronic obstructive pulmonary disease GERD (gastroesophageal reflux disease) History of smoking (~04/2020) HTN (hypertension) Hyperlipidemia 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 SHOWED UP ON MRI BRAIN Surgical History History of bilateral tubal ligation History of cardiac cath [address] RIVAS History of esophagogastroduodenoscopy (EGD) History of tonsillectomy Port-A-Cath in place (06/20/20) Insertion of Mediport Left Cephalic Vein Dr. Nye 06/20/2020 Social History Smoking Status: Former smoker Age Started Using Tobacco: 15; Age Quit Using Tobacco: 63; packs per day: 1; Number of Years Since Quit: 1; Second Hand Exposure: No; Hx Alcohol Use: No Hx Substance Use: No Preferred Language: Bulgarian Communication Ability: Effective Visual Impairment: No Limitations Hearing Ability: Normal Pbx Manager Required: No Beliefs That Will Affect Care: None marital status: Current Living Situation: Spouse and Family Current Living Situation Comment: she and her live w/ son and girlfriend current occupational status: employed Feels Safe at Home: Yes Childhood Exposure to Second-Hand Smoke: Yes caffeine: Yes Dental Care, Regularly: Yes Physical Activity Frequency: Does not Exercise Seatbelt Use: always Sunscreen Use: No Do you think of yourself as: straight/heterosexual Sexual Activity: has been sexually active within the last 12 months Assistive Devices: Oxygen - Continuous Review of Systems Review of Systems: Patient denies fever, chills Positive for shortness of breath, midsternal chest pain as well as diffuse abdominal pain , no documented bowel movement since admission-caregiver last reported bowel movement was on 06/24. Physical Exam Physical Exam: Patient seen and examined on 2 separate visits-initially patient had recently used her CROSS COUNTRY/TRACK AND FIELD COACH for a bolus dose of Dilaudid-patient was slightly drowsy but answered questions readily and was easily aroused. Patient states her pain is not well controlled-discussed change in pain medication settings HEENT: EOMI, hearing within normal limits Respirations: Increased respiratory rate, sats adequate on O2 via nasal cannula, clear breath sounds bilaterally CV: Regular rate, positive lower extremity edema Abdomen: Soft, nontender to light palpation, positive bowel sounds Extremities: Lower extremity weakness Neuro: Alert and oriented x4 Results & Data ([facility]) Vital Signs (Past 12 Hours) Vital Signs Temp Pulse Resp BP Pulse Ox 06/26/20 11:04 98.4 F 96 H 20 137/68 96 06/26/20 07:27 98.1 F 90 22 155/73 H 99 PG Care Time/CCT Total # of Minutes Spent Total Time Spent with Patient: Total time spent on 2 separate visits with patient alone and with family at bedside-70 minutes with greater than 50% that time spent at bedside reviewing goals of care and developing a plan of care with patient and family, collaborating with case management as well as attending physician team. 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
[2020-06-26] MEDS: APIXABAN 5 MG TABLET PO SCH ×2 (15:04→21:00)
[2020-06-26] MEDS: ASPIRIN 81 MG ECTAB PO SCH (15:04)
[2020-06-26] MEDS: ISOSORBIDE MONO EXTENDED REL 30 MG TABCR PO SCH (15:04)
[2020-06-26] MEDS: METOPROLOL TARTRATE 50 MG TAB PO SCH ×2 (15:05→21:00)
[2020-06-26] MEDS: FLUTICASONE FUROATE 100MCG 14 PUFFS/INHALER INH SCH (15:11)
[2020-06-26] MEDS: UMECLIDINIUM/VILANTEROL 62.5/25MCG 7 PUFFS/INHALER INH SCH (15:11)
[2020-06-26] MEDS: SODIUM CHLORIDE 0.9% 1000ML 1,000 ML IV SCH (15:15)
[2020-06-26] MEDS: CALCIUM 600MG + VIT D 400 IU TAB PO SCH (15:39)
[2020-06-26] MEDS: CHOLECALCIFEROL 1,000 UNITS 25 MCG TAB PO SCH (15:39)
--- NOTE | 2020-06-26 17:07 | Electrocardiogram Report ---
Test Reason : Blood Pressure : / mmHG Vent. Rate : 086 BPM Atrial Rate : 086 BPM P-R Int : 132 ms QRS Dur : 078 ms QT Int : 338 ms P-R-T Axes : 075 019 064 degrees QTc Int : 404 ms Normal sinus rhythm Normal ECG When compared with ECG of 24-JUN-2020 21:51, No significant change was found Confirmed by Aravind Jara ([id number]) on 06/26/2020 5:06:54 PM Referred By: Harjeet Aviles Confirmed By:Shin Jara
[2020-06-26] MEDS ORDERED: POLYETHYLENE (MIRALAX) 17 GM PACK PO PRN (17:59)
[2020-06-26] MEDS: SIMVASTATIN 20 MG TAB PO SCH (21:00)
[2020-06-26] MEDS: PANTOprazole 40 MG TAB PO SCH (21:00)
[2020-06-26] MEDS ORDERED: VANCOMYCIN TROUGH ONE (23:30)
[2020-06-27] MEDS: CHECK FENTANYL PATCH PLACEMENT SCH ×3 (00:15→16:03)
[2020-06-27] MEDS: HYDROmorphone PCA 30 MG/30 ML IV PRN (07:16)
[2020-06-27] MEDS: UMECLIDINIUM/VILANTEROL 62.5/25MCG 7 PUFFS/INHALER INH SCH (09:00)
[2020-06-27] MEDS: FLUTICASONE FUROATE 100MCG 14 PUFFS/INHALER INH SCH (09:00)
[2020-06-27] MEDS: ISOSORBIDE MONO EXTENDED REL 30 MG TABCR PO SCH (11:19)
[2020-06-27] MEDS: ASPIRIN 81 MG ECTAB PO SCH (11:19)
[2020-06-27] MEDS: APIXABAN 5 MG TABLET PO SCH (11:20)
[2020-06-27] MEDS: METOPROLOL TARTRATE 50 MG TAB PO SCH (11:20)
[2020-06-27] MEDS: CALCIUM 600MG + VIT D 400 IU TAB PO SCH (11:21)
[2020-06-27] MEDS: CHOLECALCIFEROL 1,000 UNITS 25 MCG TAB PO SCH (11:21)
--- NOTE | 2020-06-27 12:35 | Discharge Summary ---
Date of Service June 27, 2020 Admission HPI Per Admitting Provider The patient is a 64-year-old female with a past medical history including bilateral pulmonary embolism, hyperlipidemia, CAD, hypertension, AAA greater than 39 mm diameter, COPD, systolic heart murmur,, metastatic adenocarcinoma to bone with unknown primary site, mediastinal lymphadenopathy and history of smoking. The patient presents to the emergency department with generalized diffuse body pain, and reports hurting all over. She is also had progressively worsening difficulty breathing with activity. She has not had any recent travels or sick exposures. She is about to begin chemotherapy for metastatic cancer. She has had no appetite over the past few weeks as well. She was COVID-19 negative on 06/15/2020. She reportedly has not taken her furosemide over the past week. Principal Diagnosis Metastatic adenocarcinoma Discharge Exam Constitutional WD/WN, vitals as above Eyes PERRL, conjunctivae normal, anicteric sclerae ENMT external ear and nose normal, oropharynx normal Respiratory no labored breathing and no retractions Auscultation: + rhonchi (coarse throughout) Cardiovascular Rate/Rhythm: regular rate and regular rhythm Heart Sounds: no gallop, no murmur and no cardiac rub Gastrointestinal (Abdomen) normal bowel sounds, soft, nontender, no hepatosplenomegaly Skin no rashes, warm and dry Psychiatric Orientation: alert and oriented x 3 Discharge Data Allergies Allergy/AdvReac Type Severity Reaction Status Date / Time No Known Drug Allergies Allergy Unknown Verified 06/20/20 06:11 Consultations 06/24/20 22:21 ED Decision to Admit Stat 06/25/20 01:55 Consult Cardiology Routine Consult Case Management - Discharge Planning Routine 06/25/20 02:29 Consult Hematology Routine 06/26/20 12:11 Consult Palliative Care Routine Ordered Studies 06/24/20 17:55 CT angio chest PE protocol Urgent 06/24/20 18:30 CT abd pelvis IV con only Urgent Hospital Course (1) 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 Intractable Skeletal Pain in Patient with Metastatic Adenocarcinoma to Bone: - Patient with history of recently diagnosed metastatic adenocarcinoma to bone, liver, adrenals, with several new lesions as well as lesions that have increased in size - At this time, tissue molecular studies are pending to further differentiate primary cancer, though highest on differential is lung NSCLC due to smoking history - History of pain due to masses and pathologic fractures during last admission, and as masses have increased in number and size I suspect her pain throughout her body is secondary to the cancer - Dr. Aviles with Heme/Onc consulted and appreciate recommendations - Palliative consult: recommended increase of dilaudid with basal at 0.2mg/hr and 0.1mg q15min on demand - to go home with home hospice following set-up of equipment Abdominal pain and diarrhea: - Patient with several days of complaints of diarrhea and abdominal pain - While her abdominal pain is difficult to isolate as compared to her other body pains - CTAP showed findings suggestive of gastroenteritis which could be contributing to both her pain and diarrhea. - Abdominal pain could also be secondary to new/worsening abdominal metastases (liver, adrenals, etc). - Symptomatic care with PO fluids, pain/nausea medications History of Bilateral Pulmonary Emboli: - Last admission patient was diagnosed with bilateral pulmonary emboli - CTA Chest this admission without findings suggestive of acute PE. - continue Eliquis 5mg BID Hyperlipidemia: -Consider discontinuation of simvastatin Total Time Total Time Spent Total Time Spent (In Minutes): 45 minutes Discharge Plan Discharge Items Patient Disposition: Hospice - Home Reason For Visit: NOSTEMI, CHF EXACERBATION Discharge Diagnosis: Metastatic adenocarcinoma Activity: Per Instructions section Non-emergency contact: Primary Care Provider Call non-emergency contact if: you have any medication questions, your symptoms worsen and your pain is worsening Follow-up/Referrals: Magro Prado PA-C [Primary Care Provider] - Diet: Regular Addtl Attending Provider Instructions: You were seen and admitted following worsening of your pain with metastatic cancer. During this admission, you had discussions with your family and our palliative care medicine team and decided that as this disease is unlikely to improve with treatments it would be best to be comfortable and at home with family going forward. In order to assist with your comfort, we have established you with a Home Hospice agency to help control your pain, and we have started you on a pain control regimen with a [employer] that you will continue to use while you are at home. Pending Studies at Discharge: No Stand-Alone Forms: [facility] Medications and DC Order Prescriptions: New dexamethasone [Decadron] 4 mg tablet 4 mg PO BID 30 Days Qty: 60 RF: 0 Continued ipratropium-albuterol 0.5 mg-3 mg(2.5 mg base)/3 mL solution for nebulization 3 ml inhalation Q4H PRN (Reason: Shortness Of Breath Or Wheezing) RF: 0 albuterol sulfate 90 mcg/actuation HFA aerosol inhaler 2 puff inhalation Q4 PRN (Reason: Shortness Of Breath) Qty: 1 RF: 0 simvastatin 20 mg tablet 20 mg PO HS Qty: 90 RF: 0 aspirin 81 mg tablet,delayed release (DR/EC) 81 mg PO QAM RF: 0 metoprolol tartrate 100 mg tablet 100 mg PO QAM RF: 0 pantoprazole [Protonix] 40 mg tablet,delayed release (DR/EC) 40 mg PO HS RF: 0 fentanyl 25 mcg/hr patch 72 hour 2 patch transdermal Q72H RF: 0 oxycodone 5 mg capsule 10 mg PO BID PRN (Reason: pain) RF: 0 furosemide 40 mg tablet 40 mg PO QAM RF: 0 calcium carbonate [Calcium 600] 600 mg calcium (1,500 mg) Tablet 600 mg PO QAM RF: 0 nitroglycerin 0.4 mg tablet, sublingual 0.4 mg sublingual UD PRN (Reason: Chest Pain) RF: 0 cholecalciferol (vitamin D3) [Vitamin D3] 50 mcg (2,000 unit) capsule 2,000 unit PO QAM RF: 0 Trelegy Ellipta 100-62.5-25 mcg blister with device 1 inh INHALATION QAM RF: 0 isosorbide mononitrate 30 mg Tablet Extended Release 24 Hr 30 mg PO QAM 30 Days Qty: 30 RF: 0 meloxicam 7.5 mg tablet 7.5 mg PO BID PRN (Reason: as needed for pain) Qty: 30 RF: 1 acetaminophen 500 mg Capsule 1,000 mg PO Q6H PRN (Reason: Pain) RF: 0 hydrocodone-acetaminophen [[place]] 5-325 mg tablet 1 - 2 tab PO Q6H PRN (Reason: pain) Qty: 10 RF: 0 Discharge Orders: Discharge Order (Routine); Ordered 06/27/20 Ordered By: Milad Swift/Other Patient Handouts: Dexamethasone tablets Admission Data Admit Date/Time: 06/25/20 00:16 Attending Provider: Jamey Porter Admit Provider: Curtis Abebe Primary Care Provider: Margo Prado Other Providers: [facility],Home Healthcare ; Curtis Abebe ; Jose Ingram ; Harjeet Aviles V. ; Nevaeh Melendrez Other Interventions: Discharge Summary Assessment (RN) Last Done: 06/27/20 16:37 Supervising Physician Co-Signing Physician Notes I also saw the patient confirmed mackay portions of the history and physical examination. Discussed the case with family at bedside. Fortunately patient's pain is under improved control today with the changes to the Dilaudid [employer] and I suspect some effect from the dexamethasone. Plan is to go home today with home hospice. I faxed an order for Dilaudid [employer] to the hospice pharmacy. Patient will be given and adjusted bolus prior to discharge; hospice will meet her at her home to resume the [employer] and assume care. Resident Activity Tracking Resident Involvement: Resident Care Provided Care Provided: Adult Hospital Medicine
[2020-06-27] MEDS: SODIUM CHLORIDE 0.9% 1000ML 1,000 ML IV SCH (13:03)
--- NOTE | 2020-06-27 14:17 | Palliative Care Progress Note ---
Date of Service June 27, 2020 Assessment & Plan (1) Goals of care, counseling/discussion: Patient is a 64-year-old female with newly diagnosed metastatic cancer of unknown origin-probably non-small cell lung cancer as per oncology. She was diagnosed on 06/02 when she presented with a 1-1/2-month history of worsening back pain, difficulty ambulating and increased urinary incontinence. She underwent an MRI on 06/02 that showed a pathological fracture of L3 and L4, mets to spine pelvis and ribs as well as adrenal nodule and a peritoneal nodule. Patient underwent CT of the chest that showed multiple small segmental and subsegmental bilateral pulmonary emboli, extensive mediastinal/hilar adenopathy as well as a right upper lobe cavitary nodule. Patient was started on XRT and discharged home. Patient return for port placement on 06/20. Patient has been having worsening pain, increased dyspnea, poor p.o. intake and hypoxia she returned to [facility] on 06/24. Her fentanyl patch was increased for pain control, due to continued extreme pain-patient was started on a Dilaudid ROUGH RICE TENDER last ev . Over the past 7 hours she has received a total of 1.6 mg of IV Dilaudid. Patient's past medical history is significant for heavy tobacco use, COPD, CAD-status post stent approximately 15 years ago, hypertension, HLD, and a descending thoracic aortic aneurysm-4.3 cm in diameter found on CT scan on 06/02. CT scan on this admission showed disease progression with new lytic lesions, now with bilateral adrenal masses as well as liver lesion. -Patient's ROUGH RICE TENDER was adjusted yesterday to a continuous rate of 0.2 and a PRN dose of 0.1 mg as needed-patient reports pain is well controlled,'s reports she slept well overnight. Continue Decadron for bone pain-can be 2 to 4 mg daily. -Patient has been having regular bowel movements up until recently-her normal pattern is 2-3 soft stools per day. Would recommend MiraLAX daily -Due to patient's poor p.o. intake, family started Ensure for nutrition. -Family aware of patient's poor prognosis-plan is to take her home, family to care for her at home and keep her comfortable till end of life. Plan is for discharge home with hospice today -Discussed with family yesterday, giving patient control regarding her pain meds, allowing her as much control in her care as possible. -Collaborated with attending physician team. -Spoke with patient without her family present regarding her CODE STATUS-patient stated she did not want to be resuscitated-we will change her CODE STATUS to DNR/DNI in the hospital EMR. 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 10 to 15 minutes. 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 Patient awake and alert, states pain is well controlled on current ROUGH RICE TENDER settings. Patient is plan for discharge home with hospice care on continued ROUGH RICE TENDER. Review of Systems Review of Systems: Patient denies fever, chills, chest pain, increased abdominal pain Patient reports pain is well controlled Physical Exam Physical Exam: Patient awake and alert, slightly drowsy due to ROUGH RICE TENDER Dilaudid HEENT: EOMI, hearing within normal limits Respiratory: Clear breath sounds, comfortable on O2 at 4 L nasal cannula CV: Regular rate, 1-2+ pitting edema bilateral lower extremities left greater than right Abdomen: Soft, nontender to light palpation, positive bowel sounds Extremities: Generalized weakness Neuro: Alert and oriented Results & Data ([facility]) Vital Signs (Past 12 Hours) Vital Signs Temp Pulse Pulse Resp BP BP Pulse Ox 06/27/20 11:25 98.1 F 85 16 139/69 98 06/27/20 07:51 98.1 F 93 H 20 157/70 H 91 PG Care Time/CCT Total # of Minutes Spent Total Time Spent with Patient: Total time spent 35 minutes with greater than 50% of the time at bedside assessing patient's current level of comfort as well as collaborating with attending physician team regarding ROUGH RICE TENDER settings and discharge meds Coding Level of Care Code 98412 Subseq Hosp Care Lvl 3 Diagnoses Goals of care, counseling/discussion Z71.89 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
[2020-06-27] MEDS ORDERED: DEXAMETHASONE SOD PHOSPHATE 8 MG in SYRINGE 0 ML IV ONE (15:30)
== END 2020-06-27 18:54 | disposition hospice, home (50) | DRG 542 ==
LOC: ED 17:05 → 2E 06-25 00:16 → SUATTDRO 06-25 00:16 → 2E 06-25 01:20 → 3N 06-26 17:10